=== PATIENT | male | born 1955 | race Caucasian/White ===

== ENCOUNTER → 2019-01-09 14:25 | Outpatient (CLI) | payer OTHER, SELFPAY ==
[2019-01-09 15:55] LABS: PSA,Total - Annual Screen 0.61 ng/mL (0.00-4.00)
== END ==
PROVIDERS: Family Provider Family Medicine; PCP Family Medicine; Referring Provider Family Medicine; Visit Provider Family Medicine
DX: Z12.5 Encounter for screening for malignant neoplasm of prostate (principal)
CPT/HCPCS: 36415; 84153; G0103

== ENCOUNTER → 2019-03-30 14:33 | Outpatient (CLI) | payer OTHER, SELFPAY | PROVIDERS: Family Provider Family Medicine; PCP Family Medicine; Referring Provider Family Medicine; Visit Provider Family Medicine | DX: N39.0 Urinary tract infection, site not specified (principal) | CPT/HCPCS: 87086 ==

== ENCOUNTER → 2020-11-21 10:34 | Outpatient (CLI) | payer MEDICARE, SELFPAY ==
[2020-11-21 12:20] LABS: Cholesterol 185 mg/dL (200); High Density Lipoprotein 39 mg/dL; PSA,Total - Annual Screen 0.73 ng/mL (0.00-4.00); Triglycerides 187 mg/dL; Very Low Density Lipoprotein 37 mg/dL (5-40)
== END ==
PROVIDERS: PCP Family Medicine; Referring Provider Family Medicine; Visit Provider Family Medicine
DX: Z00.00 Encounter for general adult medical examination without abnormal findings (principal); Z12.5 Encounter for screening for malignant neoplasm of prostate
CPT/HCPCS: 36415; 80061; 84153; G0103

== ENCOUNTER → 2021-11-23 | Outpatient (CLI) | payer MEDICARE, SELFPAY ==
[2021-11-23 12:41] LABS: PSA,Total - Annual Screen 0.74 ng/mL (0.00-4.00)
== END | disposition home or self-care (01) ==
PROVIDERS: PCP Family Medicine; Visit Provider Family Medicine
DX: Z00.00 Encounter for general adult medical examination without abnormal findings (principal); Z12.5 Encounter for screening for malignant neoplasm of prostate
CPT/HCPCS: 36415; 84153; G0103

== ENCOUNTER → 2023-01-11 | Outpatient (CLI) | payer MEDICARE, SELFPAY ==
[2023-01-11 17:56] LABS: PSA,Total - Annual Screen 0.69 ng/mL (0.00-4.00)
== END | disposition home or self-care (01) ==
LOC: MFPLAB 12:04
PROVIDERS: PCP Family Medicine; Visit Provider Family Medicine
DX: Z12.5 Encounter for screening for malignant neoplasm of prostate (principal)
CPT/HCPCS: 36415; 84153; G0103

== ENCOUNTER 2023-08-13 17:56 | Inpatient (IN) | payer MEDICARE, SELFPAY ==
[2023-08-13] VITALS (9 sets, daily range): BP systolic 141–169; BP diastolic 85–102; PULSE 83–101; RESP 12–24; TEMP 35.9–36.8; O2SAT 98–100; BMI 28.1; BMI 27.2
--- NOTE | 2023-08-13 18:01 | EKG12_ITS ---
Test Reason : Blood Pressure : / mmHG Vent. Rate : 088 BPM Atrial Rate : 088 BPM P-R Int : 178 ms QRS Dur : 078 ms QT Int : 362 ms P-R-T Axes : 028 030 073 degrees QTc Int : 438 ms Normal sinus rhythm Nonspecific T wave abnormality Abnormal ECG Confirmed by Grady Chino ([id number]), design editor WILMAN RODRIGUEZ ([id number]) on 08/15/2023 9:54:05 AM Referred By: LAKESHA Confirmed By:Grady Chino
[2023-08-13 18:29] LABS: Absolute Lymphocyte Count 2.54 X10^3/uL (0.83-4.51); Absolute Neutrophil Count 3.6 X10^3/uL (2.0-7.7); Basophil# 0.05 X10^3/uL; Basophil% 0.7 % (0-1); Eosinophils% 2.8 % (0-5); Hematocrit 46.1 % (40-54); Hemoglobin 14.6 g/dL (13.0-16.5); Lymphocyte # 2.54 X10^3/ul (0.83-4.51); Lymphocyte % 35.3 % (19-41); Mean Corp Hgb Conc 31.7 g/dL (32-36); Mean Corpuscular Volume 94.9 fL (80-94); Mean Platelet Vol. 9.9 fl (6.2-12.0); Monocyte# 0.73 X10^3/uL; Monocyte% 10.2 % (0-10); NRBC Flagged by Analyzer 0 % (0-5); Neutrophil # 3.63 X10^3/uL (2.7-7.7); Neutrophil % 50.4 % (47-70); Platelet Count 141 K/mm3 (150-450); RBC Distribution Width SD 45.1 fl (35.1-43.9); Red Blood Count 4.86 M/mm3 (4.6-6.2); White Blood Count 7.2 K/mm3 (4.4-11.0)
--- NOTE | 2023-08-13 18:32 | EDS_ITS ---
HPI <ANALILIA Naidu - Last Filed: 08/13/23 21:24> History of Present Illness Chief Complaint: Chest Pain Narrative Narrative: 68-year-old male with no past medical history has had episodes of chest pain over the last 2 days. He will feel an aching heavy pain to the right of his sternum. Yesterday it occurred after he lifted a lawnmower out of the box and also at night. He had an episode today around 5:30 PM after walking into pet [employer] but had not been doing anything strenuous. He also has discomfort in his right shoulder when it occurs. He states he will take Tums and it will subside. He has no associated shortness of breath, nausea or vomiting, or diaphoresis. He denies cardiac history. He has a primary care doctor and states he has no health problems and takes no medications. He does not smoke. Both his mother and father have had CAD. He has no history of DVT/PE or risk factors. PFSH <ANALILIA Naidu - Last Filed: 08/13/23 21:24> [facility] Home Medications NK 08/13/23 [History Last Taken Unknown] Allergy/AdvReac Type Severity Reaction Status Date / Time No Known Allergies Allergy Verified 08/13/23 17:57 Surgical History (Updated 08/13/23 @ 17:59 by Amaya Flores) H/O hernia repair Social History Smoking Status: Never smoker ROS <ANALILIA Naidu - Last Filed: 08/13/23 21:24> ROS ED ROS Narrative Constitutional: Negative for fever, chills, malaise. CVS: Positive for chest pain. Respiratory: Negative for shortness of breath, cough. GI: Negative for abdominal pain, nausea, vomiting. EXAM <ANALILIA Naidu - Last Filed: 08/13/23 21:24> Physical Exam Narrative Exam Narrative: CONST: Patient sitting in no acute distress. EYES: Normal inspection. NECK: Normal inspection. RESP: No respiratory distress, CTAB. CVS: Regular rate and rhythm, no murmur, no gallop. ABD: Soft and nontender, no guarding or rebound, nondistended. SKIN: Color normal, no rash, warm, dry, intact. EXTREMITIES: Normal appearance, no pedal edema. NEURO: Alert and answering questions appropriately. PSYCH: Normal affect. Const Vital Signs: 08/13/23 17:57 08/13/23 19:01 08/13/23 18:57 Temperature 96.6 F L Temperature Source Temporal Pulse Rate 101 H 97 Respiratory Rate 18 24 H Respiratory Effort Blood Pressure 143/93 H 146/102 H Blood Pressure Mean 109 116 Pulse Ox 100 99 98 Oxygen Delivery Method Room Air Room Air 08/13/23 19:00 08/13/23 19:29 08/13/23 20:00 Temperature Temperature Source Pulse Rate 93 87 Respiratory Rate 12 12 Respiratory Effort Normal Blood Pressure 142/88 H 144/98 H Blood Pressure Mean 106 113 Pulse Ox 98 99 Oxygen Delivery Method Room Air Room Air 08/13/23 21:01 08/13/23 21:17 Temperature 98.2 F Temperature Source Pulse Rate 85 85 Respiratory Rate 16 16 Respiratory Effort Blood Pressure 147/98 H 147/87 H Blood Pressure Mean 114 107 Pulse Ox 98 99 Oxygen Delivery Method Room Air <Dr. Filiberto Leonard DO - Last Filed: 08/13/23 19:50> Physical Exam Const Vital Signs: 08/13/23 17:57 08/13/23 19:01 08/13/23 18:57 Temperature 96.6 F L Temperature Source Temporal Pulse Rate 101 H 97 Respiratory Rate 18 24 H Respiratory Effort Blood Pressure 143/93 H 146/102 H Blood Pressure Mean 109 116 Pulse Ox 100 99 98 Oxygen Delivery Method Room Air Room Air 08/13/23 19:00 08/13/23 19:29 08/13/23 20:00 Temperature Temperature Source Pulse Rate 93 87 Respiratory Rate 12 12 Respiratory Effort Normal Blood Pressure 142/88 H 144/98 H Blood Pressure Mean 106 113 Pulse Ox 98 99 Oxygen Delivery Method Room Air Room Air 08/13/23 21:01 08/13/23 21:17 Temperature 98.2 F Temperature Source Pulse Rate 85 85 Respiratory Rate 16 16 Respiratory Effort Blood Pressure 147/98 H 147/87 H Blood Pressure Mean 114 107 Pulse Ox 98 99 Oxygen Delivery Method Room Air MDM <ANALILIA Naidu - Last Filed: 08/13/23 21:24> MDM MDM Narrative Medical decision making narrative: History gathered from: Patient and spouse Consults: Cardiology, hospitalist Differential: GERD, ACS The last 2 days patient has had episodes of chest pain, sometimes exertional. It occurred again this evening prompting him to come in. He appears well and nontoxic. BP is 143/93 with otherwise stable vital signs. During my examination he is asymptomatic and exam is unremarkable. Initial EKG is normal sinus rhythm at 80 bpm with T wave inversions in V1 through V3. There is no prior for comparison. Initial troponin returned at 145. He complained of increased pain so repeat EKG was obtained about 1858. The tech states the leads had to be readjusted because they were too far to the right initially because of his hair. After placement in the correct position he is again in normal sinus rhythm 82 bpm and appears to have ST depressions in V3 through V6. No STEMI. Troponin went from 145 to 298. I discussed the case with Dr. Canada who agreed with aspirin and IV heparin. The sinter feeder states if he starts to experience chest pain again he could use a nitroglycerin drip or if he becomes tachycardic a low-dose beta-yadi. He is not requiring either of these currently. Case will be discussed with the hospitalist for admission. Lab Data Attestation: I reviewed the patient's lab results. Labs: Laboratory Results - last 24 hr 08/13/23 08/13/23 08/13/23 18:15 19:10 20:15 WBC 7.2 RBC 4.86 Hgb 14.6 Hct 46.1 MCV 94.9 H MCH 30.0 MCHC 31.7 L RDW Std Deviation 45.1 H RDW Coeff of Hailee 13.0 Plt Count 141 L MPV 9.9 Immature Gran % (Auto) 0.600 Neut % (Auto) 50.4 Lymph % (Auto) 35.3 Kent % (Auto) 10.2 H Eos % (Auto) 2.8 Baso % (Auto) 0.7 Absolute Neuts (auto) 3.6 Absolute Lymphs (auto) 2.54 Nucleated RBC % 0 PT 13.8 INR 1.1 APTT 33.0 Sodium 139 Potassium 4.0 Chloride 106 Carbon Dioxide 28.0 Anion Gap 5 BUN 19 H Creatinine 1.39 H Estim Creat Clear Calc 69.49 Est GFR (MDRD) Af Amer 65 Est GFR (MDRD) Non-Af 54 L BUN/Creatinine Ratio 13.7 Glucose 109 H Calcium 8.9 Troponin I High Sens 145 H* 298 H* Radiography Diagnostic Testing: Clinical Impression(s) from Imaging Studies Chest X-Ray 08/13/23 18:49 IMPRESSION: Normal x-ray examination of the chest. Electronically Signed: Josh Vigil MD at 19:34 EDT , <Dr. Filiberto Leonard, DO - Last Filed: 08/13/23 19:50> [facility] History & Record Review Discussion w/independent historian: Patient and Significant other Lab Data Labs: Laboratory Results - last 24 hr 08/13/23 08/13/23 08/13/23 18:15 19:10 20:15 WBC 7.2 RBC 4.86 Hgb 14.6 Hct 46.1 MCV 94.9 H MCH 30.0 MCHC 31.7 L RDW Std Deviation 45.1 H RDW Coeff of Hailee 13.0 Plt Count 141 L MPV 9.9 Immature Gran % (Auto) 0.600 Neut % (Auto) 50.4 Lymph % (Auto) 35.3 Kent % (Auto) 10.2 H Eos % (Auto) 2.8 Baso % (Auto) 0.7 Absolute Neuts (auto) 3.6 Absolute Lymphs (auto) 2.54 Nucleated RBC % 0 PT 13.8 INR 1.1 APTT 33.0 Sodium 139 Potassium 4.0 Chloride 106 Carbon Dioxide 28.0 Anion Gap 5 BUN 19 H Creatinine 1.39 H Estim Creat Clear Calc 69.49 Est GFR (MDRD) Af Amer 65 Est GFR (MDRD) Non-Af 54 L BUN/Creatinine Ratio 13.7 Glucose 109 H Calcium 8.9 Troponin I High Sens 145 H* 298 H* Radiography Diagnostic Testing: Clinical Impression(s) from Imaging Studies Chest X-Ray 08/13/23 18:49 IMPRESSION: Normal x-ray examination of the chest. Electronically Signed: Josh Vigil MD at 19:34 EDT , Management Discussion w/another healthcare provider: Hospitalist and System Safety Engineer (Cardiology (Dr. Canada)) Treatment and Re-Evaluation :: I have personally performed a face to face assessment of the patient and have reviewed the MISTY Note. I performed a substantive portion of the visit including all aspects of the following. My stephens findings include: History is 68-year-old male no significant medical problems presenting to the emergency room with chest pain. Patient notes intermittent exertional chest pain over the past 3 days. Symptoms initially began after mowing his lawn. He states it went away with rest. He has had several more episodes particularly with lifting the lawn more and with walking to the store today. He notes that he is taken some Tums which may or may not have helped. He was resting after he took the Tums. His notes that he is more winded when he exerts himself rec ently including stair climbing. He has a familial history of coronary artery disease. He is a non-smoker. Exam is afebrile vital signs are stable. His exam is rather unremarkable. Medical Decison Making initial EKG was concerning for T wave inversions V1 through V3. He had return of his symptoms and another EKG was obtained which did not show the T wave inversions. His initial troponin is slightly elevated at 145. 30 EKG was obtained which now shows the T wave inversions to be back. Case was discussed with cardiology and the hospitalist for admission. Discharge Plan Triage Chief Complaint: Chest Pain ED Midlevel Provider: Brooke Shaw ED Provider: Filiberto Leonard Dx/Rx/DC Orders Clinical Impression: Non-ST elevation [place] (NSTEMI) Prescriptions: No Action NK Primary Care Provider: Jazmine Le Referrals: Jazmine Le MD [Primary Care Provider] -
--- NOTE | 2023-08-13 18:49 | RAD_ITS ---
STUDY: X-RAY CHEST REASON FOR EXAM: Male, 68 years old. chest pain TECHNIQUE: Single AP portable view of the chest. COMPARISON: None. FINDINGS: The lungs are clear and expanded. There is no demonstrated pleural abnormality. Normal size heart. Normal mediastinum and sabrina. Normal visualized pulmonary arteries. Normal visualized aortic arch and descending thoracic aorta. Normal visualized thoracic spine. Normal visualized ribs, clavicles, and shoulders. There is no demonstrated abnormality of the visualized soft tissue structures of the upper abdomen. RAD/Chest 1 View (Portable) IMPRESSION: Normal x-ray examination of the chest. Electronically Signed: Josh Vigil MD at 19:34 EDT ,
[2023-08-13 18:59] LABS: Anion Gap 5 (5-15); BUN 19 mg/dL (7-18); BUN/Creat Ratio 13.7 RATIO (10-20); Calcium,Total 8.9 mg/dL (8.5-10.1); Chloride 106 mmol/L (98-107); Creatinine, Serum 1.39 mg/dL (0.70-1.30); EST Glomerular Filtration Rate 54 mL/min (>60); Est Glom Filt Rate - Afr Amer 65 mL/min (>60); Estimated Creatinine Clearance 69.49 ml/min; Glucose 109 mg/dL (74-106); Sodium Level 139 mmol/L (136-145); Troponin-I HS (w/2H Reflex) 145 pg/mL (3.0-78.0)
[2023-08-13] MEDS: Aspirin 325 MG Tablet PO (18:59)
--- NOTE | 2023-08-13 19:00 | EKG12_ITS ---
Test Reason : REPEAT CP Blood Pressure : / mmHG Vent. Rate : 082 BPM Atrial Rate : 082 BPM P-R Int : 174 ms QRS Dur : 074 ms QT Int : 350 ms P-R-T Axes : 041 019 077 degrees QTc Int : 408 ms Normal sinus rhythm Normal ECG Confirmed by Grady Chino ([id number]), photographic editor WILMAN RODRIGUEZ ([id number]) on 08/15/2023 9:54:20 AM Referred By: Confirmed By:Grady Chino
[2023-08-13] MEDS: Heparin Injection (Vial) 5,000 UNIT/ML VIAL 4000 UNIT IV (19:21)
[2023-08-13] MEDS: HEPARIN/D5w 25,000 UNITS 25,000 UNITS/250 ML IV.SOLN. 10 UNITS CONT INF (19:23)
[2023-08-13 19:26] LABS: International Normalized Ratio 1.1; Prothrombin Time (Protime)PT. 13.8 SECONDS (11.7-14.9)
--- NOTE | 2023-08-13 19:45 | EKG12_ITS ---
Test Reason : REPEAT EKG Blood Pressure : / mmHG Vent. Rate : 089 BPM Atrial Rate : 089 BPM P-R Int : 172 ms QRS Dur : 076 ms QT Int : 358 ms P-R-T Axes : 023 027 077 degrees QTc Int : 435 ms Normal sinus rhythm Normal ECG Confirmed by Grady Chino ([id number]), sound editor WILMAN RODRIGUEZ ([id number]) on 08/15/2023 9:54:32 AM Referred By: Confirmed By:Grady Chino
[2023-08-13 20:26] LABS: Reflex Troponin-HS? (from REC) Y
[2023-08-13 21:05] LABS: Troponin-I HS 298 pg/mL (3.0-78.0)
--- NOTE | 2023-08-13 21:17 | PCM.HP.STD ---
HPI - General General Date of Admission: 08/13/23 HPI Narrative DEIRDRE ORTIZ, is a 68 M who presents to the hospital with 2 days of chest pain with activity that would resolved, there is also radiation of the pain to his right shoulder with rest. He is never had this before and does not take any medications at baseline. He states that he was recently being seen by his PCP and started on antibiotics because he was having difficulty urinating and that there is some discomfort and burning with urination he states that the initial urine that he provided was clean and so they asked him for a second urine however he does not know what that showed because he provided it on . He presents today with an elevated troponin as well as T wave inversions in V1 and V2 therefore he was started on a heparin drip. While on the heparin drip he did also develop hematuria, current hemoglobin is stable at 14.6 and he states that he has had a kidney stone in the past. [facility] Medical History (Updated 08/13/23 @ 22:36 by Radha Morales) Kidney stones Medical History no medical history no medical history Home Medications NK 08/13/23 [History Last Taken Unknown] Allergy/AdvReac Type Severity Reaction Status Date / Time No Known Allergies Allergy Verified 08/13/23 17:57 Family History (Updated 08/13/23 @ 22:[address] Oral Smiley MD) Other Heart disease Surgical History (Updated 08/13/23 @ 17:59 by Amaya Flores) H/O hernia repair Social History Smoking Status: Never smoker ROS Constitutional Constitutional: Denies chills, fatigue, fever(s) or malaise Eyes Eyes: Denies blurry vision ENT HEENT: Denies headache(s) or nasal discharge Cardiovascular Cardiovascular: Reports chest pain; Denies dyspnea on exertion or syncope Respiratory/Chest Respiratory/Chest: Denies cough, shortness of breath at rest or shortness of breath with exertion Gastrointestinal Gastrointestinal: Denies constipation, diarrhea, nausea or vomiting Genitourinary Genitourinary: Denies dysuria Neurologic Neurologic: Denies focal weakness, numbness or tremor(s) Psychiatric Psychiatric: Denies anxiety or depression Vital Signs Vital Signs Vital Signs: 08/13/23 17:57 08/13/23 19:01 08/13/23 18:57 Temperature 96.6 F L Temperature Source Temporal Pulse Rate 101 H 97 Respiratory Rate 18 24 H Respiratory Effort Blood Pressure 143/93 H 146/102 H Blood Pressure Mean 109 116 Pulse Ox 100 99 98 Oxygen Delivery Method Room Air Room Air 08/13/23 19:00 08/13/23 19:29 08/13/23 20:00 Temperature Temperature Source Pulse Rate 93 87 Respiratory Rate 12 12 Respiratory Effort Normal Blood Pressure 142/88 H 144/98 H Blood Pressure Mean 106 113 Pulse Ox 98 99 Oxygen Delivery Method Room Air Room Air 08/13/23 21:01 Temperature Temperature Source Pulse Rate 85 Respiratory Rate 16 Respiratory Effort Blood Pressure 147/98 H Blood Pressure Mean 114 Pulse Ox 98 Oxygen Delivery Method Room Air Weight Weight: 237 lb 11.2 oz Body Mass Index (BMI) 28.1 Physical Exam Narrative General: Alert, Oriented x3, Cooperative, No apparent distress HEENT: Atraumatic, PERRLA, EOMI, Normocephalic Oral: Moist Mucosa Neck: Supple, No JVD Lungs: Diminished, Normal air movement, No rhonchi, No wheeze, No rales Cardiovascular: Regular rate, Regular Rhythm, Normal S1, Normal S2, No murmurs Abdomen: Soft, Non Tender, Non-Distended, No Hepato-splenomegaly Extremities: No edema, Capillary Refill Less than 3 Seconds Skin: No rashes, No breakdown Musculoskeletal: No Tenderness to Palpation of Joints or Extremities Neurological: No focal neurological deficits, Motor Exam 5/5 strength throughout, Sensory exam intact to light touch and pain Psych/Mental Status: Normal Affect, Appropriate Results Lab / Micro Data 08/13/23 18:15 08/13/23 18:15 Labs: Laboratory Results - last 24 hr 08/13/23 18:15: WBC 7.2, RBC 4.86, Hgb 14.6, Hct 46.1, MCV 94.9 H, MCH 30.0, MCHC 31.7 L, RDW Std Deviation 45.1 H, RDW Coeff of Hailee 13.0, Plt Count 141 L, MPV 9.9, Immature Gran % (Auto) 0.600, Neut % (Auto) 50.4, Lymph % (Auto) 35.3, [place] % (Auto) 10.2 H, Eos % (Auto) 2.8, Baso % (Auto) 0.7, Absolute Neuts (auto) 3.6, Absolute Lymphs (auto) 2.54, Nucleated RBC % 0, Sodium 139, Potassium 4.0, Chloride 106, Carbon Dioxide 28.0, Anion Gap 5, BUN 19 H, Creatinine 1.39 H, Estim Creat Clear Calc 69.49, Est GFR (MDRD) Af Amer 65, Est GFR (MDRD) Non-Af 54 L, BUN/Creatinine Ratio 13.7, Glucose 109 H, Calcium 8.9, Troponin I High Sens 145 H* 08/13/23 19:10: PT 13.8, INR 1.1, APTT 33.0 08/13/23 20:15: Troponin I High Sens 298 H* Imaging Radiology Impression Chest X-Ray 08/13/23 18:49 IMPRESSION: Normal x-ray examination of the chest. Electronically Signed: Josh Vigil MD at 19:34 EDT , Assessment & Plan Assessment/Plan (1) Non-ST elevation [place] (NSTEMI): PLAN: Plan 1. Non-STEMI/hematuria ? The hematuria started after being started on the heparin drip ? Will continue with the heparin drip and recheck a hemoglobin in the morning may need to discontinue if there is a significant drop or if the hematuria does not resolve on its own ? Will obtain a lipid panel ? Will obtain serial troponins ? Appreciate cardiology's assistance ? Will obtain an echo DVT: Heparin drip 77 minutes was spent on direct patient care, including documentation as well as chart review and collaboration with colleagues Charges/Coding Visit Charges Inpatient E&M: 22255 Init Hosp L3
--- NOTE | 2023-08-13 22:16 | ECHOCS_ITS ---
Reason For Study: CHEST PAIN Procedure This was a 2D Doppler, Color Flow transthoracic echocardiogram. Contrast injection was performed. Exam performed portable in patient room. Left Ventricle Normal LV size. The estimated ejection fraction is 35 %. There is evidence of diastolic dysfunction. Apical and anterior hypokinesis. Right Ventricle Normal RV size. Normal systolic function. Atria Normal left atrium. Normal right atrium. No doppler evidence for ASD. Mitral Valve There is no mitral valve stenosis. Trivial mitral valve insufficiency. Tricuspid Valve There is no tricuspid stenosis. No tricuspid valve insufficiency. Aortic Valve Trisinus/trileaflet aortic valve. There is no aortic stenosis. No aortic valve insufficiency. Pulmonic Valve There is no pulmonic valvular stenosis. No pulmonic valve insufficiency. Great Vessels Normal aortic root. Pericardium/Pleural No pericardial effusion. Medication Diluted definity 3ml given slow IV push to enhance endocardial definition. MMode/2D Measurements & Calculations LVIDd: 4.5 cm IVSd: 1.1 cm LVOT diam: 2.2 cm LVIDs: 3.1 cm LVPWd: 1.1 cm RVDd: 3.9 cm FS: 29.7 % LVOT area: 3.8 cm2 Ao root diam: 3.8 cm LAV(MOD-sp4): 41.9 ml LVAd ap4: 39.3 cm2 LVLd ap4: 8.8 cm EDV(MOD-sp4): 144.9 ml EDV(sp4-el): 148.7 ml LVAs ap4: 29.1 cm2 LVLs ap4: 8.2 cm ESV(MOD-sp4): 84.7 ml ESV(sp4-el): 87.4 ml EF(MOD-sp4): 41.5 % EF(sp4-el): 41.2 % LVAd ap2: 39.4 cm2 SV(MOD-sp4): 60.2 ml SV(MOD-sp2): 55.6 ml LVLd ap2: 8.8 cm EDV(MOD-sp2): 141.9 ml EDV(sp2-el): 149.2 ml LVAs ap2: 30.3 cm2 LVLs ap2: 8.4 cm ESV(MOD-sp2): 86.3 ml ESV(sp2-el): 92.9 ml EF(MOD-sp2): 39.2 % SV(sp4-el): 61.2 ml LA dimension(2D): 3.7 cm LA A4 area: 14.3 cm2 RA A4 area: 16.1 cm2 TAPSE: 2.0 cm Time Measurements MV dec time: 0.20 sec Doppler Measurements & Calculations MV E max gerardo: 52.0 cm/sec Lat Peak E' Gerardo: 7.1 cm/sec Med Peak E' Gerardo: 5.6 cm/sec MV A max gerardo: 84.7 cm/sec E/E' lat: 7.4 E/E' med: 9.2 MV E/A: 0.61 Ao V2 max: 109.4 cm/sec LV V1 max: 85.4 cm/sec MV dec slope: 259.3 cm/sec2 Ao max P.8 mmHg LV V1 max P.9 mmHg Ao V2 mean: 77.8 cm/sec LV V1 mean P.5 mmHg Ao mean P.7 mmHg LV V1 mean: 58.8 cm/sec Ao V2 VTI: 21.3 cm LV V1 VTI: 14.8 cm AV (velocity ratio): 0.69 SANDRITA(I,D): 2.6 cm2 SANDRITA(V,D): 2.9 cm2 SV(LVOT): 55.4 ml PA V2 max: 64.9 cm/sec PA max PG (full): -0.10 mmHg ECHO/Echo Complete W/ Contrast Interpretation Summary The estimated ejection fraction is 35 %. There is evidence of diastolic dysfunction. Apical and anterior hypokinesis Trivial mitral valve insufficiency. Ordering Physician: Oral Smiley Referring Physician: Jazmine Le M.D. Performed By: Carmen Daniel RDCS
--- NOTE | 2023-08-13 22:50 | EKG12_ITS ---
Test Reason : AM EKG Blood Pressure : / mmHG Vent. Rate : 075 BPM Atrial Rate : 075 BPM P-R Int : 178 ms QRS Dur : 072 ms QT Int : 420 ms P-R-T Axes : 056 047 090 degrees QTc Int : 469 ms Normal sinus rhythm ST & T wave abnormality, consider anterior ischemia Prolonged QT Abnormal ECG When compared with ECG of 13-AUG-2023 22:51, MANUAL COMPARISON REQUIRED, DATA IS UNCONFIRMED Confirmed by COLTON CAPPS, NAVA ([id number]), editorial manager NICOLASA STEVE ([id number]) on 08/22/2023 1:09:17 PM Referred By: Confirmed By:KENNETH SEGURA MD
[2023-08-14 01:12] LABS: Partial Thromboplast Time 74.1 Seconds (24.1-36.2)
[2023-08-14 01:27] LABS: Troponin-I HS 1801 pg/mL (3.0-78.0)
[2023-08-14 04:40] VITALS: BP 140/94; PULSE 89; RESP 18; TEMP 36.8; O2SAT 97
[2023-08-14 07:41] LABS: Absolute Lymphocyte Count 2.38 X10^3/uL (0.83-4.51); Absolute Neutrophil Count 5.7 X10^3/uL (2.0-7.7); Basophil# 0.06 X10^3/uL; Basophil% 0.7 % (0-1); Eosinophil# 0.13 X10^3/uL; Eosinophils% 1.4 % (0-5); Hematocrit 45.5 % (40-54); Hemoglobin 14.6 g/dL (13.0-16.5); Lymphocyte # 2.38 X10^3/ul (0.83-4.51); Lymphocyte % 26.4 % (19-41); Mean Corp Hgb Conc 32.1 g/dL (32-36); Mean Corpuscular Hgb 29.8 pg (27.0-32.0); Mean Corpuscular Volume 92.9 fL (80-94); Mean Platelet Vol. 10.5 fl (6.2-12.0); Monocyte# 0.75 X10^3/uL; Monocyte% 8.3 % (0-10); NRBC Flagged by Analyzer 0 % (0-5); Neutrophil # 5.65 X10^3/uL (2.7-7.7); Neutrophil % 62.8 % (47-70); Platelet Count 153 K/mm3 (150-450); RBC Distribution Width SD 44.3 fl (35.1-43.9)
[2023-08-14 07:57] LABS: Anion Gap 6 (5-15); BUN 15 mg/dL (7-18); BUN/Creat Ratio 12.5 RATIO (10-20); Calcium,Total 9.2 mg/dL (8.5-10.1); Chloride 108 mmol/L (98-107); Cholesterol 163 mg/dL (200); EST Glomerular Filtration Rate 64 mL/min (>60); Est Glom Filt Rate - Afr Amer 77 mL/min (>60); Estimated Creatinine Clearance 74.25 ml/min; Glucose 130 mg/dL (74-106); High Density Lipoprotein 52 mg/dL; Potassium 4.2 mmol/L (3.5-5.1); Sodium Level 139 mmol/L (136-145); Triglycerides 69 mg/dL; Very Low Density Lipoprotein 14 mg/dL (5-40)
[2023-08-14] MEDS: Acetaminophen 500 MG Tablet 1000 MG PO (09:27)
[2023-08-14] MEDS: Aspirin E.C. 81 MG Tablet PO (09:27)
[2023-08-14 09:28] VITALS: BP 139/93; PULSE 89; RESP 16; TEMP 36.8; O2SAT 97
[2023-08-14] MEDS: Metoprolol Tartrate 25 MG Tablet PO ×2 (09:28→20:47)
--- NOTE | 2023-08-14 13:26 | PCM.CONS.C ---
Assessment & Plan Assessment/Plan (1) Non-ST elevation [place] (NSTEMI): PLAN: Plan 68-year-old patient presented to [facility] ER complaining of symptoms of chest pain He was brought in by his Evidently he was having symptoms of chest pain while he was moving his lawn to his tractor. Described as severe retrosternal. Associated with diaphoresis. No prior cardiac history reported. Evaluation in the ER was EKG showed T wave inversion noted in the LAD distribution. Subsequent evaluation with cardiac biomarker showed significant elevation of high sensitive troponin. Patient treated with aspirin, atorvastatin, beta-yadi as well as heparin Symptoms of chest pain resolved. Cardiac care plan recommendation. This patient has history of hematuria and has seen a urologist before your hematuria resolved no further episode of hematuria his renal function improved from a creatinine of 1.39-1.2. Based on his clinical presentation with the symptoms of severe retrosternal chest pain significant elevated cardiac biomarker change in the EKG responding well to medical therapy recommend to evaluate by echocardiogram in the morning to assess his LV function. Proceed with cardiac catheterization which will be set up in the morning. I discussed the indication, risk and benefit of the cardiac catheterization to the patient he understand. And he would like to proceed with cardiac cath in the morning. HPI Consult Data Date of Consult: 08/14/23 HPI Narrative Reason for Consultation: Non-STEMI HPI Narrative: DEIRDRE ORTIZ, is a 68 M who presents [facility] Medical History (Updated 08/13/23 @ 22:36 by Radha Morales) Kidney stones Medical History no medical history Home Medications NK 08/13/23 [History Last Taken Unknown] Allergy/AdvReac Type Severity Reaction Status Date / Time No Known Allergies Allergy Verified 08/13/23 17:57 Family History (Updated 08/13/23 @ 22:[address] Oral Smiley MD) Other Heart disease Surgical History (Updated 08/13/23 @ 17:59 by Amaya Flores) H/O hernia repair Social History Smoking Status: Never smoker Physical Exam Cardio Cardio Narrative: Seen and evaluated and examined at bedside Along with the nursing staff Comfortable in bed not having any symptoms of chest pain monitoring engineer normal sinus rhythm. Cardiac exam S1-S2 is regular No systolic or diastolic murmur No pericardial rub Chest exam clear to auscultation bilateral. Examination lower extremity no lower extremity edema. Risk Stratification Risk Stratification Applicable: Yes Age >/= 65: Yes >/= 3 CAD Risk Factors (HTN, HLD, DM, family hx of CAD, or current smoker): No Aspirin Use in the Past 7 Days: Yes Severe Angina (>/= episodes in 24 hours): Yes EKG ST Changes >/= 0.5mm: Yes Positive Cardiac Marker: Yes LAUREL Risk Stratification Score: 5 LAUREL % Risk: 25% Risk Objective Data Vital Signs: Vital Signs Temp Pulse Resp BP Pulse Ox O2 Del Method 98.2 F 89 16 139/93 H 97 Room Air 08/14/23 09:28 08/14/23 09:28 08/14/23 09:28 08/14/23 09:28 08/14/23 09:28 08/14/23 09:28 Oxygen Delivery Method Room Air Weight: 229 lb 8.019 oz Body Mass Index (BMI) 27.2 Intake & Output: Intake and Output for Last 24 Hours 08/12/23 08/13/23 08/14/23 23:59 23:59 23:59 Intake Total 669 / 669 Balance 669 / 669 Lab / Micro Data 08/14/23 07:30 08/14/23 07:30 Labs: Laboratory Results - last 24 hr 08/13/23 18:15: WBC 7.2, RBC 4.86, Hgb 14.6, Hct 46.1, MCV 94.9 H, MCH 30.0, MCHC 31.7 L, RDW Std Deviation 45.1 H, RDW Coeff of Hailee 13.0, Plt Count 141 L, MPV 9.9, Immature Gran % (Auto) 0.600, Neut % (Auto) 50.4, Lymph % (Auto) 35.3, [place] % (Auto) 10.2 H, Eos % (Auto) 2.8, Baso % (Auto) 0.7, Absolute Neuts (auto) 3.6, Absolute Lymphs (auto) 2.54, Nucleated RBC % 0, Sodium 139, Potassium 4.0, Chloride 106, Carbon Dioxide 28.0, Anion Gap 5, BUN 19 H, Creatinine 1.39 H, Estim Creat Clear Calc 69.49, Est GFR (MDRD) Af Amer 65, Est GFR (MDRD) Non-Af 54 L, BUN/Creatinine Ratio 13.7, Glucose 109 H, Calcium 8.9, Troponin I High Sens 145 H* 08/13/23 19:10: PT 13.8, INR 1.1, APTT 33.0 08/13/23 20:15: Troponin I High Sens 298 H* 08/14/23 00:30: APTT 74.1 H, Troponin I High Sens 1801 H* 08/14/23 07:30: WBC 9.0, RBC 4.90, Hgb 14.6, Hct 45.5, MCV 92.9, MCH 29.8, MCHC 32.1, RDW Std Deviation 44.3 H, RDW Coeff of Hailee 13.0, Plt Count 153, MPV 10.5, Immature Gran % (Auto) 0.400, Neut % (Auto) 62.8, Lymph % (Auto) 26.4, [place] % (Auto) 8.3, Eos % (Auto) 1.4, Baso % (Auto) 0.7, Absolute Neuts (auto) 5.7, Absolute Lymphs (auto) 2.38, Nucleated RBC % 0, APTT 62.0 H, Sodium 139, Potassium 4.2, Chloride 108 H, Carbon Dioxide 25.0, Anion Gap 6, BUN 15, Creatinine 1.20, Estim Creat Clear Calc 74.25, Est GFR (MDRD) Af Amer 77, Est GFR (MDRD) Non-Af 64, BUN/Creatinine Ratio 12.5, Glucose 130 H, Calcium 9.2, Triglycerides 69, Cholesterol 163, LDL Cholesterol 97, VLDL Cholesterol 14, HDL Cholesterol 52 Cardiology Labs/Tests 08/13/23 18:15: WBC 7.2, RBC 4.86, Hgb 14.6, Hct 46.1, MCV 94.9 H, MCH 30.0, MCHC 31.7 L, Plt Count 141 L, MPV 9.9, Immature Gran % (Auto) 0.600, Neut % (Auto) 50.4, Lymph % (Auto) 35.3, [place] % (Auto) 10.2 H, Eos % (Auto) 2.8, Baso % (Auto) 0.7, Absolute Neuts (auto) 3.6, Nucleated RBC % 0, Sodium 139, Potassium 4.0, Chloride 106, Carbon Dioxide 28.0, Anion Gap 5, BUN 19 H, Creatinine 1.39 H, Est GFR (MDRD) Af Amer 65, Est GFR (MDRD) Non-Af 54 L, BUN/Creatinine Ratio 13.7, Glucose 109 H, Calcium 8.9 08/13/23 19:10: PT 13.8, INR 1.1, APTT 33.0 08/14/23 00:30: APTT 74.1 H 08/14/23 07:30: WBC 9.0, RBC 4.90, Hgb 14.6, Hct 45.5, MCV 92.9, MCH 29.8, MCHC 32.1, Plt Count 153, MPV 10.5, Immature Gran % (Auto) 0.400, Neut % (Auto) 62.8, Lymph % (Auto) 26.4, [place] % (Auto) 8.3, Eos % (Auto) 1.4, Baso % (Auto) 0.7, Absolute Neuts (auto) 5.7, Nucleated RBC % 0, APTT 62.0 H, Sodium 139, Potassium 4.2, Chloride 108 H, Carbon Dioxide 25.0, Anion Gap 6, BUN 15, Creatinine 1.20, Est GFR (MDRD) Af Amer 77, Est GFR (MDRD) Non-Af 64, BUN/Creatinine Ratio 12.5, Glucose 130 H, Calcium 9.2, Triglycerides 69, Cholesterol 163, LDL Cholesterol 97, VLDL Cholesterol 14, HDL Cholesterol 52 Rhythm: EKG: ECHO: Stress Test: Cardiac Cath: PCI: CT Surgery: Holter monitor: EPS: PPM: CXR: Chest CT Scan: Radiography Diagnostic Testing: Radiology Impression Chest X-Ray 08/13/23 18:49 IMPRESSION: Normal x-ray examination of the chest. Electronically Signed: Josh Vigil MD at 19:34 EDT ,
[2023-08-14 13:46] LABS: Bacteria 0 SEEN /hpf (None Seen); Mucous, Urine 0 SEEN /hpf (<or=2+); Squamous Epithelial Cells - UA 0 SEEN /hpf (0-5)
[2023-08-14 13:55] LABS: Color, Urine Yellow (Yellow); Glucose, Dipstick Normal (Normal); Ketone-Dipstick Negative (Negative); Leukocyte Esterase-Dipstick Negative /ul (Negative); Nitrite-Dipstick Negative (Negative); Occult Blood-Urine 250 /ul (Negative); Protein-Dipstick 15 mg/dl (Negative); Urine Bilirubin Dipstick Negative (Negative); Urine Clarity Clear (Clear); Urine Urobilinogen Normal (Normal)
[2023-08-14] MEDS: Glycerin/Hypromellose/PEG400 15 ml Bottle 2 DRP EACH EYE (14:23)
[2023-08-14 14:25] LABS: Red Blood Cells-Urine 25-50 SEEN /hpf (0-5); White Blood Cells 0-5 SEEN /hpf (0-5)
--- NOTE | 2023-08-14 15:01 | PCM.PN.HOSP ---
Reason for Visit Reason for Visit: Diagnoses Non-ST elevation (NSTEMI) myocardial infarction (08/13/23) Subjective Subjective Patient was seen and examined today, I talked briefly with cardiology about his care. Patient thinks he may have passed a kidney stone-he has had kidney stones in the past, he has some blood-tinged urine since he has been placed on the heparin drip. Objective Data Objective Data Vital Signs: Vital Signs Temp Pulse Resp BP Pulse Ox O2 Del Method 98.2 F 89 16 139/93 H 97 Room Air 08/14/23 09:28 08/14/23 09:28 08/14/23 09:28 08/14/23 09:28 08/14/23 09:28 08/14/23 09:28 Oxygen Delivery Method Room Air Weight: 104.1 kg Body Mass Index (BMI) 27.2 Intake & Output: Intake and Output for Last 24 Hours 08/12/23 08/13/23 08/14/23 23:59 23:59 23:59 Intake Total 669 / 669 Balance 669 / 669 Lab / Micro Data 08/14/23 07:30 08/14/23 07:30 Labs: Laboratory Results - last 24 hr 08/13/23 18:15: WBC 7.2, RBC 4.86, Hgb 14.6, Hct 46.1, MCV 94.9 H, MCH 30.0, MCHC 31.7 L, RDW Std Deviation 45.1 H, RDW Coeff of Hailee 13.0, Plt Count 141 L, MPV 9.9, Immature Gran % (Auto) 0.600, Neut % (Auto) 50.4, Lymph % (Auto) 35.3, [place] % (Auto) 10.2 H, Eos % (Auto) 2.8, Baso % (Auto) 0.7, Absolute Neuts (auto) 3.6, Absolute Lymphs (auto) 2.54, Nucleated RBC % 0, Sodium 139, Potassium 4.0, Chloride 106, Carbon Dioxide 28.0, Anion Gap 5, BUN 19 H, Creatinine 1.39 H, Estim Creat Clear Calc 69.49, Est GFR (MDRD) Af Amer 65, Est GFR (MDRD) Non-Af 54 L, BUN/Creatinine Ratio 13.7, Glucose 109 H, Calcium 8.9, Troponin I High Sens 145 H* 08/13/23 19:10: PT 13.8, INR 1.1, APTT 33.0 08/13/23 20:15: Troponin I High Sens 298 H* 08/14/23 00:30: APTT 74.1 H, Troponin I High Sens 1801 H* 08/14/23 07:30: WBC 9.0, RBC 4.90, Hgb 14.6, Hct 45.5, MCV 92.9, MCH 29.8, MCHC 32.1, RDW Std Deviation 44.3 H, RDW Coeff of Hailee 13.0, Plt Count 153, MPV 10.5, Immature Gran % (Auto) 0.400, Neut % (Auto) 62.8, Lymph % (Auto) 26.4, [place] % (Auto) 8.3, Eos % (Auto) 1.4, Baso % (Auto) 0.7, Absolute Neuts (auto) 5.7, Absolute Lymphs (auto) 2.38, Nucleated RBC % 0, APTT 62.0 H, Sodium 139, Potassium 4.2, Chloride 108 H, Carbon Dioxide 25.0, Anion Gap 6, BUN 15, Creatinine 1.20, Estim Creat Clear Calc 74.25, Est GFR (MDRD) Af Amer 77, Est GFR (MDRD) Non-Af 64, BUN/Creatinine Ratio 12.5, Glucose 130 H, Calcium 9.2, Triglycerides 69, Cholesterol 163, LDL Cholesterol 97, VLDL Cholesterol 14, HDL Cholesterol 52 08/14/23 13:40: Urine Color Yellow, Urine Clarity Clear, Urine pH 7.0, Ur Specific [place] 1.010, Urine Protein 15 H, Urine Glucose (UA) Normal, Urine Ketones Negative, Urine Occult Blood 250 H, Urine Nitrite Negative, Urine Bilirubin Negative, Urine Urobilinogen Normal, Ur Leukocyte Esterase Negative, Urine RBC 25-50 SEEN, Urine WBC 0-5 SEEN, Ur Squamous Epith Cells 0 SEEN, Urine Bacteria 0 SEEN, Urine Mucus 0 SEEN Radiography Diagnostic Testing: Radiology Impression Chest X-Ray 08/13/23 18:49 IMPRESSION: Normal x-ray examination of the chest. Electronically Signed: Josh Vigil MD at 19:34 EDT , Physical Exam Const alert, oriented x3, no apparent distress and healthy appearing General Appearance: cooperative, well kempt and well developed Orientation / Consciousness: awake, oriented to person, oriented to place and oriented to time HEENT normocephalic, head/scalp atraumatic and moist oral mucous membranes Eyes PERRL, EOMs intact bilaterally and conjunctivae normal Neck supple, no JVD, thyroid normal and no carotid bruits General: trachea midline Resp normal respiratory effort, no retractions, no use of accessory muscles and clear to auscultation bilaterally Auscultation: Negative for rales, rhonchi or wheezes Cardio regular rate, regular rhythm, S1 normal heart sound, S2 normal heart sound, no murmurs, no rub and no gallops GI normal to inspection, nondistended, normoactive bowel sounds, soft to palpation, non-tender and non-distended Extremity no clubbing, cyanosis or edema Skin no rashes or lesions noted General Skin Exam: no breakdown Neuro oriented x3, CN's II-XII intact bilaterally, no focal motor deficits and no sensory deficits noted Sensorium / Orientation: awake and alert Speech: speech normal Psych affect normal Assessment & Plan Assessment/Plan (1) Non-ST elevation [place] (NSTEMI): PLAN: Plan 1. [id number] will undergo a cardiac catheterization tomorrow, I discussed this with the patient, he will remain on an enteric-coated aspirin daily and metoprolol 25 mg twice daily and Lipitor daily #2 hematuria-etiology unclear, this seems to be clearing, patient will remain on heparin drip for now #3 hyperlipidemia-patient was placed on atorvastatin Total clinical time spent by myself addressing the patient's medical issues, reviewing all of his data, and collaborating with patient's care team: 35 minutes Charges/Coding Visit Charges Inpatient E&M: 71260 Subs Hosp L2
[2023-08-14 15:49] LABS: Partial Thromboplast Time 53.8 Seconds (24.1-36.2)
[2023-08-14 15:58] VITALS: BP 130/80; PULSE 92; RESP 16; TEMP 36.9; O2SAT 96
[2023-08-14] MEDS: HEPARIN/D5w 25,000 UNITS 25,000 UNITS/250 ML IV.SOLN. 10 UNITS CONT INF (19:32)
[2023-08-14 20:47] VITALS: PULSE 77
[2023-08-14] MEDS: Atorvastatin Calcium 40 MG Tablet PO (20:47)
[2023-08-14] MEDS: 0.9% Normal Saline (1000mL) 1,000 ML 75 ML IV (20:47)
[2023-08-14] MEDS: 0.9% Saline Lock 10 ML Syringe IV (20:48)
[2023-08-14 20:50] VITALS: BP 130/84; PULSE 77; RESP 18; TEMP 36.5; O2SAT 98
[2023-08-14 21:43] LABS: Partial Thromboplast Time 66.4 Seconds (24.1-36.2)
[2023-08-15] VITALS (10 sets, daily range): BP systolic 119–139; BP diastolic 85–92; PULSE 72–96; RESP 11–22; TEMP 36.3–36.8; O2SAT 96–100
[2023-08-15 04:52] LABS: Anion Gap 6 (5-15); BUN 12 mg/dL (7-18); Calcium,Total 8.6 mg/dL (8.5-10.1); Chloride 111 mmol/L (98-107); Creatinine, Serum 1.09 mg/dL (0.70-1.30); EST Glomerular Filtration Rate 71 mL/min (>60); Est Glom Filt Rate - Afr Amer 86 mL/min (>60); Estimated Creatinine Clearance 81.74 ml/min; Glucose 114 mg/dL (74-106); Potassium 4.2 mmol/L (3.5-5.1); Sodium Level 141 mmol/L (136-145)
[2023-08-15 05:00] LABS: Partial Thromboplast Time 80.8 Seconds (24.1-36.2)
[2023-08-15] MEDS: Metoprolol Tartrate 25 MG Tablet PO (05:09)
[2023-08-15] MEDS: Aspirin E.C. 81 MG Tablet PO (05:09)
--- NOTE | 2023-08-15 05:30 | EKG12_ITS ---
Test Reason : chest pain admision Blood Pressure : / mmHG Vent. Rate : 086 BPM Atrial Rate : 086 BPM P-R Int : 158 ms QRS Dur : 070 ms QT Int : 352 ms P-R-T Axes : 060 031 073 degrees QTc Int : 421 ms Normal sinus rhythm with sinus arrhythmia Nonspecific ST and T wave abnormality Abnormal ECG When compared with ECG of 13-AUG-2023 19:37, MANUAL COMPARISON REQUIRED, DATA IS UNCONFIRMED Confirmed by COLTON CAPPS, NAVA ([id number]), senior editor NICOLASA STEVE ([id number]) on 08/22/2023 1:10:28 PM Referred By: Sherice Confirmed By:KENNETH SEGURA MD
--- NOTE | 2023-08-15 09:26 | NURSING ---
Report called to Jaqueline LUCAS in labor relations consultant.
--- NOTE | 2023-08-15 11:40 | CL.I_ITS ---
Patient Name: DEIRDRE ORTIZ Study Date: 08/15/2023 Performing: Jr Cifuentes MD Ht: 77 inches 195.58 cm : 1955 Wt: 229.8 lbs 104.1 kg Age: 68 Gender: male BSA: 2.37 PROCEDURE(S) PERFORMED DC01-(13805)LHC/COR/LV IC12-(86055/[id number])CHELSIE W/WO PTCA, SINGLE CORONARY ARTERY IC13-([id number]/[id number])CHELSIE W/WO PTCA, EACH ADD'L ART, SAME MAJOR CLINICAL PROFILE AND CO-MORBIDITIES Indications: ACS <= 24 hrs, NSTEMI Heart Failure: None Stress/Imaging Stress/Image Study Performed: No CONCLUSIONS CAD as described. EF is 35%.No significant . Successful CHELSIE to pD1 and mLAD RECOMMENDATIONS DESCRIPTION OF PROCEDURE The patient arrived to the procedure lab. The risks and benefits of the procedure as well as a full description of our services here and lack of surgical backup were fully explained to the patient and/or their significant other prior to the catheterization. The Timeout was completed, verifying the correct patient and procedure. The patient's procedural site was prepped and draped in the usual fashion. Local anesthetic was given subcutaneously to right radial region with Lidocaine 2%. Using a modified Seldinger technique, arterial access was obtained via the right radial artery, a 6Fr sheath was inserted.. Left Coronary Artery selective angiography was performed in multiple views using a 5 Fr. JL3.5 catheter. Left Ventriculography was performed in CARROLL projection using a 5 Fr. JR4. LV to AO pullback pressures were then recorded. Right Coronary Artery selective angiography was then performed in multiple views using a 5 Fr. JR 4 catheterThe images were reviewed and options discussed. A decision was then made to proceed with an Intervention, IVUS or other adjunct procedure. XB 3 Guide catheter was inserted and engaged into the LCA. BMW 0.014 X190 Guide wire was advanced to the LAD. EMERGE MR 2.5 X 12 Balloon catheter was inserted. Balloon catheter was advanced across lesion in the LAD, mid. PTCA balloon inflated at 6 atms for 6 secs. PTCA balloon inflated at 8 atms for 8 secs. Angiogram performed post balloon dilatation. ONXY FRONTIER 3.5 X 18 Drug Eluting stent was inserted. Angiogram performed pre stent deployment. Drug Eluting stent was advanced across the lesion in the LAD, mid. Angiogram performed post stent deployment. Guide wire was repositioned to the 1st Diagonal Balloon catheter was reinserted Balloon catheter was advanced across lesion in the first diagonal, proximal. PTCA balloon inflated at 8 atms for 24 secs. KEVIN FRONTIER 2.75 X 12 Drug Eluting stent was inserted. Drug Eluting stent was advanced across the lesion in the first diagonal, proximal. Angiogram performed post stent deployment. Angiogram performed post stent deployment. Angiogram performed post stent deployment. KEVIN FRONTIER 2.25 X 15 Drug Eluting stent was inserted. Drug Eluting stent was advanced across the lesion in the first diagonal, proximal. Angiogram performed post stent deployment. The arterial sheath was pulled and a TR Band was applied for hemostasis 16 ML OF AIR CORONARY ANGIOGRAPHY DOMINANCE: Right Dominant LEFT HEART ASSESSMENT Left Ventricular Ejection Fraction: by LV Gram 35 % Hypokinesis of the apex and anterior wall LEFT MAIN: Mild luminal irregularities LEFT ANTERIOR DESCENDING ARTERY: MID LAD: 95 % Stenosis DIAGONAL 1: Proximal - 95 % Stenosis CIRCUMFLEX ARTERY: Mild luminal irregularities RIGHT CORONARY ARTERY: MID RCA: 30 % Stenosis RT PDA: Proximal - 60 % Stenosis VALVE FINDINGS: No Aortic Valve Stenosis INTERVENTION INFORMATION LESION SITE: LAD (Mid) Lesion Complexity: High/C, chronic total occlusion: No, lesion at bifurcation: No, thrombus present: No, lesion length: 16 mm, culprit lesion: Yes, Previously treated lesion: No Pre Stenosis: 95 % Pre intervention LAUREL flow: 3 PROCEDURE: Drug Eluting Stent with pre dilatation. Post Stenosis: 0 % Post intervention LAUREL flow: 3 Lesion Devices: Cordis 6 Fr XB3.0 100cm Guide Catheter Ascencio .014 190cm BMW Prosperity Straight Christiano Sci EMERGE MR 2.50x12 BALLOON Medtronic 3.5 x 18 KEVIN FRONTIER CHELSIE LESION SITE: 1st Diagonal (Proximal) Lesion Complexity: High/C, chronic total occlusion: No, lesion at bifurcation: Yes, thrombus present: No, lesion length: 24 mm, culprit lesion: Yes, Previously treated lesion: No Pre Stenosis: 95 % Pre intervention LAUREL flow: 3 PROCEDURE: Drug Eluting Stent with pre and post dilatation Post Stenosis: 0 % Post intervention LAUREL flow: 3 Lesion Devices: Medtronic 2.75 x 12 KEVIN FRONTIER CHELSIE Medtronic 2.25 x 15 KEVIN FRONTIER CHELSIE COMPLICATIONS No Complications PROCEDURE MEDICATIONS Fentanyl 50 mcg IV Versed 1 mg IV Fentanyl 50 mcg IV Oxygen: 2 L/min via nasal cannula Brilinta 180 mg PO @ 08/15/2023 10:15:04 Heparin given IA 08/15/2023 10:04:21 Heparin 2000 unit(s) IV 08/15/2023 10:18:43 Nitro 200 mcg IC 08/15/2023 10:42:57 Verapamil 2.5mg, Ntg 100mcgs, 3000 units of Heparin given IA 08/15/2023 10:04:21 SUMMARY OF HEMODYNAMIC DATA Time AIR REST ECG 09:46:10 AO 119/84 (101) SA 10:06:39 LV 134/0, 10 10:11:44 LV 136/-1, 9 10:11:46 LV 139/0, 12 10:12:36 AO 138/94 (116) 10:14:35 AO 143/84 (111) 10:31:57 Signed By Jr Cifuentes MD On 08/15/2023 11:39:58 Jr Cifuentes MD
[2023-08-15] MEDS: 0.9% Normal Saline (1000mL) 1,000 ML 75 ML IV (11:42)
--- NOTE | 2023-08-15 11:45 | EKG12_ITS ---
Test Reason : POST PCI Blood Pressure : / mmHG Vent. Rate : 074 BPM Atrial Rate : 074 BPM P-R Int : 174 ms QRS Dur : 076 ms QT Int : 416 ms P-R-T Axes : 030 041 091 degrees QTc Int : 461 ms Normal sinus rhythm ST & Marked T wave abnormality, consider anterolateral ischemia Prolonged QT Abnormal ECG When compared with ECG of 15-AUG-2023 04:39, MANUAL COMPARISON REQUIRED, DATA IS UNCONFIRMED Confirmed by COLTON CAPPS, NAVA ([id number]), offline editor NICOLASA STEVE ([id number]) on 08/22/2023 1:15:32 PM Referred By: Confirmed By:KENNETH SEGURA MD
--- NOTE | 2023-08-15 11:55 | CASEMGMT ---
RN CM Face to Face with patient for initial transition planning/care coordination assessment. RN CM introduced self and role at [facility]. Patient lying in bed, alert and oriented, at bedside. Patient willing to participate in assessment and is able to answer all questions appropriately. Care providers, pharmacy, and demographics verified. PCP: Rey Specialists: None Preferred Pharmacy: [facility] retail at discharge [facility] Prescription Benefit: yes Living Will/HPOA: none, currently working with coil strapper to complete LNOK: Living Arrangements: Patient lives with in a bi-level home with 7 steps and railing to enter the home. Patient is independent at home and able to ambulate stairs. Transportation: self, DME/HHC: Patient has raised toilet and grab bars at home. No previous HHC or SNF Patient wishes to discharge home, denies need for home health at this time. Patient states he has no further needs or concerns at this time. CM to follow for discharge planning needs that may arise. Disposition Plan: Patient to discharge home with family support and follow-up plans in place. Adilene VAIL, RN, CM
[2023-08-15] MEDS: 0.9% Normal Saline (1000mL) 1,000 ML 60 ML IV (12:02)
--- NOTE | 2023-08-15 15:00 | CRPHASE1_ITS ---
Patient Communication Patient Information PHII Cardiac Rehab Discussed with Patient:: Yes Guide to Cardiac Rehab Given to Patient:: Yes Cardiac Rehab Facility Choice List Given to Patient:: Yes Communication to Cardiac Rehab Choice Program [facility] CR PHII:: Communication Given to CR Genetic Counsellor:: Bibiana Cifuentes Phase II Cardiac Rehab:: Yes Sessions:: 36 sessions - 3 days/wk, 12 weeks Cardiac Rehabilitation Info Program Information Cardiac Rehabilitation Program Information: Cardiac Rehab The cardiac rehab team at [facility] consists of highly skilled exercise physiologists, nurses, respiratory therapists and physicians working together with you. Our purpose is to help you have a full recovery and achieve the goals you set for yourself. Over the years many of our patients have returned to activities they assumed they would never do again! We can help restore your confidence and motivation to make lifestyle changes that can have a significant impact on your health and quality of life! We can help answer questions and concerns you may have about exercise, lifestyle, medications, diet, stress and anxiety which are common following a hospitalization. WE monitor ECG and vital signs during exercise and discuss your progress with you and report to your physician(s). Cardiac Rehab is proven to help reduce readmissions, improve functional capacity and lower recurrence of problems with your heart. Our Cardiac Rehab program is Certified by the [place] [employer] (AACVPR) and Accredited by the [place] [employer] through our [facility]. You can contact us at . We invite you to call us with your questions or to get started in our program. If you have other questions or concerns be sure to ask your physician/provider during your follow-up visit. WE look forward to seeing you!
--- NOTE | 2023-08-15 15:01 | CRPH1.INSTRU ---
General Education Discussed with Patient CAD and cardiac anatomy and function:: Patient communicates acknowledgment Explanation of diagnoses and procedures:: Patient communicates acknowledgment Sign/Symptoms of NM:: Patient communicates acknowledgment Antiplatelet therapy: Patient communicates acknowledgment Proper use of NTG-SL: Patient communicates acknowledgment Emergency procedures and activation of EMS: Patient communicates acknowledgment Compliance of all prescribed medications: Patient communicates acknowledgment Smoking Risk Factors Patient Nicotine/Smoking Risk Factors Are:: Never smoked Dyslipidemia Risk Factors Patient Dyslipidemia Risk Factors Are:: Total Cholesterol, Triglycerides, HDL and LDL Recommendations Recommendations Include:: Lipid profile provided, Reviewed NCEP/ATP guidelines and Therapeutic Lifestyle Change dietary guidelines Response Code Dyslipidemia Response Code:: Patient communicates acknowledgment Overweight/Obesity Risk Factors Patient Overweight/Obesity Risk Factors Are:: Overweight = 26-29 Recommendations Recommendations Include:: Weight loss of 5-10%, Reduced calorie diet and Exercise 5-7 times/week Response Code Overweight/Obesity:: Patient communicates acknowledgment Hypertension Risk Factors Patient Hypertension Risk Factors Are:: No documented hx of HTN Diabetes Risk Factors Patient Diabetes Risk Factors Are:: No documented hx of diabetes Metabolic Syndrome Risk Factors Patient Metabolic Syndrome Risk Factors Are [3 of 5]:: Fasting blood sugar > 100 mg/dL, Waist circumference > 35 [female] or 40 [male] and Low HDL <40 [male] or < 50 [female] Recommendations Recommendations Include:: Reinforce compliance to risk factor modifications and Encouraged follow-up with Primary Care Physician Response Code Metabolic Syndrome Response Code:: Patient communicates acknowledgment Sedentary Risk Factors Patient Sedentary Risk Factors Are:: Lack of regular exercise Recommendations Recommendations Include:: Aerobic exercise 5-7 times/week for 20-30 minutes continuously, Benefits of regular exercise, Discussed home walking program and Monitored Outpatient Cardiac Rehab Response Code Sedentary Response Code:: Patient communicates acknowledgment Stress Recommendations Recommendations Include:: Identification of stressors, and assessment of coping skills and Stress management techniques Response Code Stress Response Code:: Patient communicates acknowledgment
--- NOTE | 2023-08-15 16:12 | PCM.PN.HOSP ---
Reason for Visit Reason for Visit: Diagnoses Non-ST elevation (NSTEMI) myocardial infarction (08/13/23) Subjective Subjective Patient was seen and examined today, he underwent cardiac catheterization and insertion of 3 drug-eluting stents today in the mid LAD and the first proximal diagonal. Patient had an echocardiogram today which showed an EF of 35%. Objective Data Objective Data Vital Signs: Vital Signs Temp Pulse Resp BP Pulse Ox O2 Del Method 98.1 F 79 16 139/89 H 99 Room Air 08/15/23 14:00 08/15/23 14:00 08/15/23 14:00 08/15/23 14:00 08/15/23 14:00 08/15/23 14:00 Oxygen Delivery Method Room Air Weight: 104.1 kg Body Mass Index (BMI) 27.2 Intake & Output: Intake and Output for Last 24 Hours 08/13/23 08/14/23 08/15/23 23:59 23:59 23:59 Intake Total 1358.08 / 1358.08 1228.42 / 1228.42 Balance 1358.08 / 1358.08 1228.42 / 1228.42 Lab / Micro Data 08/14/23 07:30 08/15/23 04:05 Labs: Laboratory Results - last 24 hr 08/14/23 21:26: APTT 66.4 H 08/15/23 04:05: APTT 80.8 H, Sodium 141, Potassium 4.2, Chloride 111 H, Carbon Dioxide 24.0, Anion Gap 6, BUN 12, Creatinine 1.09, Estim Creat Clear Calc 81.74, Est GFR (MDRD) Af Amer 86, Est GFR (MDRD) Non-Af 71, BUN/Creatinine Ratio 11.0, Glucose 114 H, Calcium 8.6 Radiography Diagnostic Testing: Radiology Impression Echocardiogram 08/13/23 22:16 Interpretation Summary The estimated ejection fraction is 35 %. There is evidence of diastolic dysfunction. Apical and anterior hypokinesis Trivial mitral valve insufficiency. Ordering Physician: Oral Smiley Referring Physician: Jazmine Le M.D. Performed By: Carmen Daniel RDCS Physical Exam Const alert, oriented x3, no apparent distress, average body habitus and healthy appearing General Appearance: cooperative, well kempt and well developed Orientation / Consciousness: awake, oriented to person, oriented to place and oriented to time HEENT normocephalic, head/scalp atraumatic and moist oral mucous membranes Eyes PERRL, EOMs intact bilaterally and conjunctivae normal Neck supple, no JVD, thyroid normal and no carotid bruits General: trachea midline Resp normal respiratory effort, no retractions, no use of accessory muscles and clear to auscultation bilaterally Auscultation: Negative for rales, rhonchi or wheezes Cardio regular rate, regular rhythm, S1 normal heart sound, S2 normal heart sound, no murmurs, no rub and no gallops GI normal to inspection, nondistended, normoactive bowel sounds, soft to palpation, non-tender and non-distended Extremity no clubbing, cyanosis or edema Skin no rashes or lesions noted General Skin Exam: no breakdown Neuro oriented x3, CN's II-XII intact bilaterally, moves all extremities, no focal motor deficits and no sensory deficits noted Sensorium / Orientation: awake and alert Speech: speech normal Psych affect normal Assessment & Plan Assessment/Plan (1) Stented coronary artery: (2) Non-ST elevation [place] (NSTEMI): PLAN: Plan 1. [id number]-lca to occlusive coronary disease in the LAD and the first diagonal-patient will remain on aspirin and Brilinta, he is on a beta-yadi, lisinopril, and a statin #2 hematuria-etiology unclear, this seems to be clearing, patient will remain on heparin drip for now #3 hyperlipidemia-patient is on atorvastatin Total clinical time spent by myself addressing the patient's medical issues, reviewing all of his data, and collaborating with patient's care team: 35 minutes Charges/Coding Visit Charges Inpatient E&M: 01497 Subs Hosp L2
[2023-08-15] MEDS: TICAGRELOR 90 MG TABLET PO (21:06)
[2023-08-15] MEDS: Atorvastatin Calcium 40 MG Tablet PO (21:06)
[2023-08-16] VITALS: BP 125/78; PULSE 78; RESP 18; TEMP 36.7; O2SAT 97
--- NOTE | 2023-08-16 05:18 | EKG12_ITS ---
Test Reason : POST PCI Blood Pressure : / mmHG Vent. Rate : 078 BPM Atrial Rate : 078 BPM P-R Int : 178 ms QRS Dur : 076 ms QT Int : 412 ms P-R-T Axes : 069 047 095 degrees QTc Int : 469 ms Normal sinus rhythm ST & T wave abnormality, consider anterolateral ischemia Prolonged QT Abnormal ECG When compared with ECG of 15-AUG-2023 11:45, MANUAL COMPARISON REQUIRED, DATA IS UNCONFIRMED Confirmed by COLTON CAPPS, NAVA ([id number]), editor producer NICOLASA STEVE ([id number]) on 08/22/2023 1:49:08 PM Referred By: Confirmed By:KENNETH SEGURA MD
[2023-08-16 06:00] VITALS: BP 131/93; PULSE 79; RESP 18; TEMP 36.7; O2SAT 99
[2023-08-16 08:00] VITALS: BP 154/94; PULSE 89; RESP 16; TEMP 36.5; O2SAT 98
[2023-08-16 08:31] LABS: Hematocrit 44.2 % (40-54); Hemoglobin 14.2 g/dL (13.0-16.5); Mean Corp Hgb Conc 32.1 g/dL (32-36); Mean Corpuscular Hgb 30.3 pg (27.0-32.0); Mean Corpuscular Volume 94.2 fL (80-94); Mean Platelet Vol. 10.7 fl (6.2-12.0); Platelet Count 133 K/mm3 (150-450); RBC Distribution Width CV 13.4 % (11.6-14.6); RBC Distribution Width SD 45.7 fl (35.1-43.9); Red Blood Count 4.69 M/mm3 (4.6-6.2)
[2023-08-16 08:38] VITALS: BP 156/94; PULSE 89
[2023-08-16] MEDS: Lisinopril 2.5 MG Tablet PO (08:38)
[2023-08-16] MEDS: TICAGRELOR 90 MG TABLET PO (08:38)
[2023-08-16] MEDS: Metoprolol(XL)Succ 50 MG Tablet PO (08:38)
[2023-08-16] MEDS: Aspirin E.C. 81 MG Tablet PO (08:38)
[2023-08-16 08:51] LABS: ALB/GLOB Ratio 0.9 RATIO (0.9-2.4); AST(SGOT) 29 U/L (15-37); Alanine Aminotransfer ALT/SGPT 17 U/L (16-61); Albumin, Serum 3.1 g/dL (3.2-5.0); Alkaline Phosphatase 57 U/L (45-117); Anion Gap 4 (5-15); BUN 13 mg/dL (7-18); BUN/Creat Ratio 10.5 RATIO (10-20); Chloride 111 mmol/L (98-107); Creatinine, Serum 1.24 mg/dL (0.70-1.30); EST Glomerular Filtration Rate 62 mL/min (>60); Est Glom Filt Rate - Afr Amer 75 mL/min (>60); Estimated Creatinine Clearance 71.85 ml/min; Globulin 3.6 g/dL (2.2-4.2); Glucose 102 mg/dL (74-106); Protein, Total 6.7 g/dL (6.4-8.2); Sodium Level 139 mmol/L (136-145)
--- NOTE | 2023-08-16 10:00 | EKG12_ITS ---
Test Reason : CP Blood Pressure : / mmHG Vent. Rate : 087 BPM Atrial Rate : 087 BPM P-R Int : 172 ms QRS Dur : 078 ms QT Int : 368 ms P-R-T Axes : 060 043 080 degrees QTc Int : 442 ms Normal sinus rhythm T wave abnormality, consider anterior ischemia Abnormal ECG When compared with ECG of 16-AUG-2023 05:18, MANUAL COMPARISON REQUIRED, DATA IS UNCONFIRMED Confirmed by COLTON CAPPS, NAVA ([id number]), digital editor WILMAN RODRIGUEZ ([id number]) on 08/22/2023 10:14:21 AM Referred By: MTER Confirmed By:KENNETH SEGURA MD
--- NOTE | 2023-08-16 13:03 | DCINST_ITS ---
Discharge Instructions Diet Discharge Diet: No restrictions Activity Discharge Activity: Return to Normal Activity Weight Bearing Status: Full weight bearing Follow Up Care Test Results: Test results from this visit will be discussed in further detail at your follow- up appointment, if applicable. Discharge Plan Admission Admit Date/Time: 08/13/23 21:59 Primary Reason for Your Visit: Non-STEMI Attending Provider: Ender Faust Primary Care Provider: Jazmine Le Consulting Providers: Luca Canada; Oral Smiley Instructions Additional Instructions / Restrictions: Avoid taking any ibuprofen, Aleve, or Advil for pain, Tylenol is safe to take for pain Discharge Orders/Prescriptions Prescriptions: New atorvastatin 40 mg Tablet 40 mg PO QHS Qty: 30 0RF metoprolol succinate 50 mg Tablet Extended Release 24 Hr 50 mg PO DAILY Qty: 30 0RF aspirin 81 mg Tablet,Delayed Release (Dr/Ec) 81 mg PO BREAKFAST Qty: 0 0RF Brilinta 90 mg Tablet 90 mg PO BID Qty: 60 0RF lisinopril 10 mg tablet 10 mg PO DAILY Qty: 30 0RF Referrals / Follow Up: Jazmine Le MD [Primary Care Provider] - Shelby Sharp PA [Med Staff - [facility] Practice Prof] - See Referral Note (Call the office to make follow-up appointment for 2 weeks) Disposition Disposition (needs filled in before D/C Order can be placed): Home, Self Care
--- NOTE | 2023-08-16 13:09 | DS.PCM_ITS ---
Providers Date of Admission: 08/13/23 Date of Discharge: 08/16/23 Primary Care Physician: Dr. Jazmine Le MD Consultations 08/13/23 22:16 Consult: Cardiology Routine Consulting Provider: Luca Canada Reason for Consult: NSTEMI EMERGENT Consult: No MD Notified: Yes Date Notified: 08/13/23 Time Notified: 22:01 Method of Notification: ED Physician Initiated Reason For Visit: NSTEMI Diagnosis Discharge Diagnosis (1) Stented coronary artery: Status: Acute Code(s): Z95.5 - Presence of coronary angioplasty implant and graft (2) Non-ST elevation [place] (NSTEMI): Status: Acute Code(s): I21.4 - Non-ST elevation (NSTEMI) myocardial infarction Plan 1. [id number] to occlusive coronary disease in the LAD and the first diagonal-patient will remain on aspirin and Brilinta, he is on a beta-ayaz, lisinopril, and a statin #2 hematuria-etiology unclear, this seems to be clearing, patient will remain on heparin drip for now #3 hyperlipidemia-patient is on atorvastatin Total clinical time spent by myself addressing the patient's medical issues, reviewing all of his data, and collaborating with patient's care team: 35 minutes Medications at Discharge Home Medications aspirin 81 mg tablet,delayed release 81 mg PO BREAKFAST #0 tabs 08/16/23 atorvastatin 40 mg tablet 40 mg PO QHS #30 tabs 08/16/23 lisinopril 10 mg tablet 10 mg PO DAILY #30 tabs 08/16/23 metoprolol succinate 50 mg tablet,extended release 24 hr 50 mg PO DAILY #30 tabs 08/16/23 ticagrelor 90 mg tablet (Brilinta) 90 mg PO BID #60 tabs 08/16/23 Hospital Course Operations None Procedures 2-D Echocardiogram, Cardiac catheterization (With CHELSIE to P D1 and mid LAD) and - Summary of Care Provided Minutes Spent on Discharge: 32 Hospital Course: 68-year-old white male was seen in the emergency room at [facility] with complaints of chest pain off and on x 2 days, workup in the emergency room showed an elevated troponin as well as T wave inversions in V1 and V2, patient was started on heparin drip and cardiology was contacted, patient was taken to the Crime Scene Examiner and 2 stents were placed 1 in the mid LAD and the other in the PD1 branch. Patient did well after catheterization, he had a brief period of hematuria although patient was on heparin, the patient related to the fact that he has had kidney stones before and he thought that maybe he had passed a stone prior to coming to the emergency room. Patient's echocardiogram was done that showed a reduced EF of 35%. On 08/16/2023, patient was seen and examined: On examination he appeared in good health and spirits. Vital signs as documented. Skin warm and dry and without overt rashes. Neck without JVD, neck was supple, trachea midline, thyroid was normal. Lungs clear bilaterally, normal air movement was noted. Heart exam notable for regular rhythm, normal sounds and absence of murmurs, rubs or gallops. Abdomen unremarkable and without evidence of organomegaly, masses, or abdominal aortic enlargement. Bowel sounds are present, abdomen is not distended. Extremities nonedematous, no cyanosis was noted, no clubbing was noted. Neuro: Cranial nerves II through XII are grossly intact, no focal motor deficits were noted, sensation to light touch and pinprick intact, motor exam 5/5 throughout. Psych: Patient is alert and oriented x3, he does not appear anxious or depressed, he does not appear agitated. Patient was felt to be stable for discharge home on 08/16/2023. Patient was also instructed to follow-up with his PCP and get a repeat UA to make sure his hematuria had resolved. Weight / BMI Weight Weight: 104.1 kg Body Mass Index (BMI) 27.2 ABG / Lab / Microbiology Data 08/16/23 07:10 08/16/23 07:10 Laboratory: Laboratory Results - last 24 hr 08/16/23 07:10: WBC 8.0, RBC 4.69, Hgb 14.2, Hct 44.2, MCV 94.2 H, MCH 30.3, MCHC 32.1, RDW Std Deviation 45.7 H, RDW Coeff of Hailee 13.4, Plt Count 133 L, MPV 10.7, Sodium 139, Potassium 4.0, Chloride 111 H, Carbon Dioxide 24.0, Anion Gap 4 L, BUN 13, Creatinine 1.24, Estim Creat Clear Calc 71.85, Est GFR (MDRD) Af Amer 75, Est GFR (MDRD) Non-Af 62, BUN/Creatinine Ratio 10.5, Glucose 102, Calcium 9.0, Total Bilirubin 0.50, AST 29, ALT 17, Alkaline Phosphatase 57, Total Protein 6.7, Albumin 3.1 L, Globulin 3.6, Albumin/Globulin Ratio 0.9 Radiography Diagnostic Testing: Radiology Impression Echocardiogram 08/13/23 22:16 Interpretation Summary The estimated ejection fraction is 35 %. There is evidence of diastolic dysfunction. Apical and anterior hypokinesis Trivial mitral valve insufficiency. Ordering Physician: Oral Smiley Referring Physician: Jazmien Le M.D. Performed By: Carmen Daniel RDCS D/C Instructions Discharge Diet: No restrictions Weight Bearing Status: Full weight bearing Meaningful Use Info Meaningful Use Meaningful Use Diagnoses (Choose all that apply): AMI AMI/Post PCI/Angioplasty Aspirin given w/in 24hrs of arrival?: Yes ASA at discharge?: Yes Antiplatelet Therapy at Discharge:: Yes Statins at discharge?: Yes Mckay/ARB at discharge?: Yes Beta Ayaz at discharge?: Yes Done w/ Acute NE measure.: Yes Documented LVEF (%): 35 Ischemic Stroke Statin Dosing Therapy Reference: STATIN DOSE THERAPY REFERENCE: * Patients > 75 years receive moderate or high dose statin therapy. * Patients 75 years or YOUNGER should receive HIGH intensity statin dose unless contraindicated. You will be required to document reason for non-treatment if statin daily dose does not meet guidelines. HIGH DOSE STATIN THERAPY DAILY Atorvastatin > than or = to 40 mg Rosuvastatin > than or = to 20 mg Amlodipine + Atorvastatin > than or = to 2.5/40 mg Ezetimibe + Simvastatin 10/80 mg Simvastatin 80mg Discharge Plan Admission Admit Date/Time: 08/13/23 21:59 Primary Reason for Your Visit: Non-STEMI Attending Provider: Ender Faust Primary Care Provider: Jazmine Le Consulting Providers: Luca Canada; Oral Smiley Instructions Additional Instructions / Restrictions: Avoid taking any ibuprofen, Aleve, or Advil for pain, Tylenol is safe to take for pain Discharge Orders/Prescriptions Prescriptions: New atorvastatin 40 mg Tablet 40 mg PO QHS Qty: 30 0RF metoprolol succinate 50 mg Tablet Extended Release 24 Hr 50 mg PO DAILY Qty: 30 0RF aspirin 81 mg Tablet,Delayed Release (Dr/Ec) 81 mg PO BREAKFAST Qty: 0 0RF Brilinta 90 mg Tablet 90 mg PO BID Qty: 60 0RF lisinopril 10 mg tablet 10 mg PO DAILY Qty: 30 0RF Referrals / Follow Up: Jazmine Le MD [Primary Care Provider] - Shelby Sharp PA [Med Staff - Adv Practice Prof] - See Referral Note (Call the office to make follow-up appointment for 2 weeks) Disposition Disposition (needs filled in before D/C Order can be placed): Home, Self Care Charges/Coding Visit Charges Inpatient E&M: 72745 Disch Hosp >30min
[2023-08-16 14:00] VITALS: BP 146/72; PULSE 82; RESP 18; TEMP 36.3; O2SAT 99
--- NOTE | 2023-08-16 14:30 | PHA.DC_ITS ---
Pharmacy [facility] Pharm[facility] Service has performed discharge medication reconciliation and counseling for this patient. The patient's discharge medication list was reviewed for discrepancies and discrepancies were resolved. The patient was counseled on the following discharge medications and changes in medications for homegoing were reviewed. The Reason for Use, instructions for use, and potential side effects were reviewed for all new medications. The patient's questions regarding all of their medications were answered. 1. Lisinopril 10 mg daily 2. Aspirin 81 mg PO daily 3. Atorvastatin 40 mg daily 4. Metoprolol succinate 50 mg PO daily 5. Brilinta 90 mg PO BID The patient was able to verbally demonstrate an understanding of their discharge medications. Medications at Discharge Home Medications aspirin 81 mg tablet,delayed release 81 mg PO BREAKFAST #0 tabs 08/16/23 atorvastatin 40 mg tablet 40 mg PO QHS #30 tabs 08/16/23 lisinopril 10 mg tablet 10 mg PO DAILY #30 tabs 08/16/23 metoprolol succinate 50 mg tablet,extended release 24 hr 50 mg PO DAILY #30 tabs 08/16/23 ticagrelor 90 mg tablet (Brilinta) 90 mg PO BID #60 tabs 08/16/23
--- NOTE | 2023-08-16 14:38 | CASEMGMT ---
Patient has order for discharge. Patient discharging on Brilinta. LANCE DURANT called [facility] and copay is $304.03, Brilinta savings card applied for 30 day free trial. LANCE DURANT in to updated patient and regarding Brilinta copay and savings card. Patient and denied needs or help at discharge. Patient and had no further questions or concerns.
== END 2023-08-16 15:20 | disposition home or self-care (01) | DRG 322 ==
LOC: ED 21:18 → PCU 22:16
PROVIDERS: Internal Medicine Interventional Cardiology; Physician Assistant; Specialist; Admitting Provider Family Medicine; Emergency Provider Emergency Medicine; PCP Family Medicine; Visit Provider Internal Medicine
DX: I21.4 Non-ST elevation (NSTEMI) myocardial infarction (principal); E78.5 Hyperlipidemia, unspecified; I25.10 Atherosclerotic heart disease of native coronary artery without angina pectoris; R31.9 Hematuria, unspecified; Z95.5 Presence of coronary angioplasty implant and graft; Z87.442 Personal history of urinary calculi
CPT/HCPCS: 36415; 71045; 80048; 80053; 80061; 81001; 84484; 85025; 85027; 85610; 85730; 92928; 92929; 93005; 93306; 93458; 99152; 99153; 99285; J7030; J7040; Q9957; Q9967; A4216; C1725; C1769; C1874; C1887; C1894; C8929; C9600; C9601; J1327

== ENCOUNTER → 2023-08-26 | Outpatient (CLI) | payer MEDICARE, SELFPAY ==
--- NOTE | 2023-08-26 10:03 | CR.HP_ITS ---
CR - History & Physical General Arrival date:: 08/26/23 Arrival time:: 10:04 Date of Referral:: 08/15/23 Date of CR Evaluation:: 08/26/23 Referring Physician: Dr. Cifuentes Primary Diagnosis: PCI w/coronary stenting History of Present Cardiac Event Onset Date PTCA or coronary stenting:: Yes Type of Symptoms:: Episodes of chest pain over 2 days, aching heavy pain midsternal, told it was a mild myocardial infarction. Interventions with present event:: Emergency room, taken to floor and then had heart cath done. Were there any complications?: None Medications Ambulatory Orders Medication Instructions Recorded aspirin 81 mg tablet,delayed 81 mg PO BREAKFAST #0 tabs 08/16/23 release atorvastatin 40 mg tablet 40 mg PO QHS #30 tabs 08/16/23 lisinopril 10 mg tablet 10 mg PO DAILY #30 tabs 08/16/23 metoprolol succinate 50 mg 50 mg PO DAILY #30 tabs 08/16/23 tablet,extended release 24 hr ticagrelor 90 mg tablet (Brilinta) 90 mg PO BID #60 tabs 08/16/23 Allergies Allergies No Known Allergies Allergy (Verified 08/13/23 17:57) Sleep Disorder Evaluation Hx of Sleep Apnea: No Do you snore loudly (louder than talking or can be heard through closed doors)?: No Do you often feel tired/ fatigued/ sleepy during daytime?: No Has anyone observed you stop breathing during sleep?: No History of Hypertension (for STOP score): No STOP Results: Negative Advanced Directives Advanced Directives Power of Energy Infrastructure Engineer: No Living Will: No Advance Directives Information Provided: Yes Advance Directives on File: No DNR Order?:: No MOLST See MOLST form: No Past Medical History Covid-19 Screening Physicial Symptoms Fever: No Unexplained muscle aches: No Current respiratory symptoms: No Upper respiratory infections symptoms: No Gastro-intestinal symptoms: No Vyp-[id number]-[id number] symptoms: No Other Clinical Concerns Has tested positive for COVID-19 in last 30 days: No Exposure Risk Had contact w/person w/symptoms or Covid-19 (+) last 14 days: No Has High Risk Exposures ID'd by Health dept/Inf Control team: No Pertinent Comorbidities 65 years or older:: Yes Lives in Assisted Living facility:: No Has a chronic lung disease or moderate to severe asthma:: No Has a serious heart condition:: No Immunocompromised:: No Severely obese (Body Mass Index of 40 or higher):: No Diabetic:: No Has chronic kidney disease undergoing dialysis:: No Has liver disease:: No Past Medical Illness Past Medical History (Updated 08/24/23 @ 00:02 by Background Daemon) Atherosclerotic heart disease of [place] coronary artery without angina pectoris (08/13/23) I25.10 Kidney stones N20.0 Past Surgical History Past Surgical History (Updated 08/24/23 @ 00:02 by Background Daemon) H/O hernia repair Z98.890, Z87.19 Stented coronary artery (08/15/23) Z95.5 3.5 X 18 mm CHELSIE to mid LAD; 2.75 X 12 and 2.25 X 12 CHELSIE to proximal first diagonal. 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 Hobbies, Recreation, Social Activities Hobbies: Sports (fishing), Exercise (walking) and Other (gardening, lawn work) Recreational Activities: I am able to engage in all my recreational activities, I am able to engage in most, but not all activities, I am able to engage in a few activities and I can hardly do any recreational activities Social Environment Status Marital Status: Current Living Arrangements Living Environment:: Spouse Children How many children do you have?: 2 (1-) Do any of your children live nearby?: Yes Safety Do you feel safe in your surroundings?: Yes Assistance Do you need any assistance at home?: no Review of Systems Review of Systems Hints Review of Present Symptoms: Reports Appetite - Normal, Appetite - Special Diet (usually eat healthy, no added salt, low fate, rare eat red meat) and Sleep - Normal; Denies Shortness of Breath at Rest, Shortness of Breath with Exertion, PVD, Angina, Dizziness/Lightheadedness, Fatigue, Heart Arrhythmia/Irregularities or Sexual Changes Pain Is Patient Pain Free?: Yes Pain Location: none Risk Factor Assessment Chief Complaint Chief Complaint: 68 yr old male no previous medical history presented to emergency room with heavy pain to the right of his sternum over the previous 2 days. Vital Signs Temperature: 96.6 F Respiratory Rate: 16 Pulse Ox: 98 Blood Pressure: 134/66 Pulse Pulse Rate: 96 Pulse Rhythm: Regular Hypertension Blood Pressure Sitting - Right Arm: 134/66 Blood Cholesterol/Lipids Total Cholesterol (mg/dL) Goal = less than 200 mg/dL: 163 HDL Cholesterol (mg/dL) Goal = less than 40 mg/dL: 52 LDL Cholesterol (mg/dL) Goal = less than 70 mg/dL: 97 Triglycerides (mg/dL) Goal = less than 150 mg/dL: 69 Diabetes Nutrition Referral for Diabetes: No Obesity Height: 6 ft 5 in Weight:: 237 lb Weight in Pounds: 237.0 lbs Weight Source: Stated by Patient Body Mass Index (BMI): 28.0 Nutritional Referral for Obesity: No Physical Inactivity Physical Inactivity: Recreational activity (walking when the weather is nice, doing lawn work gardening. ) Exercise Limitations: None Risk Stratification Risk Guidelines: Lowest Risk: Risk Factor for Smoking, Risk Factor for Dyslipidemia, Risk Factor for Diabetes, Risk Factor for Obesity, Risk Factor for Hypertension, Risk Factor for Sedentary Lifestyle and Risk Factor for Depression For Smoking Smoking Risk Guidelines For Dyslipidemia Dyslipidemia Risk Guidelines For Diabetes Mellitus Diabetes Risk Guidelines For Obesity/Overweight Obesity/Overweight Risk Guidelines For Hypertension Hypertension Risk Guidelines For Sedentary Lifestyle Sedentary Lifestyle Risk Guidelines For Depression Depression Risk Guidelines Family History Family History (Updated 08/26/23 @ 10:21 by Lenny Lora, MANAGER FIELD SALES, DELIVERY SPECIALIST, BS) Father Heart disease CAD (coronary artery disease) Myocardial infarction Mother Leukemia Motivation Motivation to Participate On a scale of 1 to 10, how prepared are you to commit to attending program?: 10 What do you see as barriers to successfully being able to complete the program?: dont have any What do you see as the benefits of succesfully completing the program? In other words, what do you hope to get out of participating in the program?: Resume activities, Improve knowledge of heart disease. Are there issues you are dealing with that will interfere with completing the program?: No Do you have a spouse or signficant other, family or friends who will help support you to complete the program?: Yes
--- NOTE | 2023-08-26 10:04 | CR.ITP_ITS ---
Diagnosis General Information Admitting Diagnosis: TN, PCI w/ coronary stenting Secondary Diagnosis: LVEF 35%, hyperlipidemia Personal Learning Style:: Audio/Visual Barriers to Learning: No Barriers and Vision Impairment (wears glasses) Stage of change r/t lifestyle modifications:: Action Gave educational material for:: Treating Heart Disease, How The Heart Works, What it means to have Heart Disease, How Coronary Artery Disease is Diagnosed, Heart Procedures, What Heart Medications Do, Risk Factors & Modifications, Living an Active Life, Nutrition, Emotions & Heart Disease, Stress Management & Relaxation and Sleep Disorders & Heart Disease Education/Goals Individual Counseling: Initial Assessment: Abnormal Cholesterol Levels Cardiac Rehabilitation Goals Personal Goals: Initial Assessment: Get back to work, or to resume activities faster, Improve knowledge of cardiac disease and Improve diet and eating habits (eat healthier) Scale for measuring improvement of personal goals Diagnosis & Disease Process Outcomes/Goals: Pt IDs own risk factors & lifestyle modifications by Session 10, Verbalizes symptoms of angina & response by session 3. and Pt independently manages Plan/Interventions: Assist Pt to ID & engage in lifestyle modification to reduce CVD risk, Instruct on individual risk factors, Review symptoms of angina & emergency actions and Review secondary diagnosis & identify educational needs. Safety Referral to Physical Therapy: No Referral to [facility] Case Management: No Fall Risk Assessed:: Yes Assistive Devices:: None Exercise - Initial Assessment Visit Date of Eval: 08/26/23 Mets: Pre-: >7 METS for 30 minutes by discharge Physician Prescribed Exercise Modalities: Treadmill, Rower and Airdyne Frequency: 3x/week for 12 weeks [36 sessions] Intensity: 60-80% of age predicted maximum heart rate reserve Duration: 30 - 45 minutes Current METSs:: 4.0 Target Heart Rate:: 99-114 Resting Blood Pressure: 139/93 EKG Type: Normal sinus rhythm Outcomes & Goals Goals:: Verbalizes understanding of THR, RPE & goal METS by session 6, Documents in home exercise log/reports 30 min aerobic 5 day/wk by DC and Demonstrates accurate pulse taking by DC Intervention & Plan Exercise Program Goals: Instruct on personal THR & RPE, Instruct on MET level & personal MET goal, Show patient to take own pulse /validate performance until accurate and Instruct on home exercise Physical Activity Home Exercise Physical Activity - Home Exercise: Safe Exercise, Warm-up, Self-monitoring, Cool-Down, Home Exercise > 30 min Daily and Sitting Time <3 hours/daily Outcomes & Goals Outcomes/Goals: Demonstrates correct Warm-up/exercise Cool-Down (S3) if = 2.5 METs, Verbalizes symptoms of exercise intolerance by Session 3 (S3) and Demonstrate safe equipment use (S3) & follows exercise prescrition (6) Intervention & Plan Plan/Intervention: Instruct warm-up & cool-down if exercising at > 2 METs, Instruct on symptoms of exercise intolerance & actions to take, Instruct & monitor on saf and Assess intial functional capacity & safety risk Nutrition - Initial Assessment Program Goals Nutrition Program Goals Patient has diagnosis of Hyperlipidemia (ICD E78)?: Yes Visit Date of Eval: 08/26/23 Session #:: 0 (pre-program evaluation) Cholesterol/Lipids (Other Core Measures) Triglycerides (mg/dL): 69 Total Cholesterol (mg/dL): 163 LDL Cholesterol (mg/dL): 97 HDL Cholesterol (mg/dL): 52 Lipid Medication: Atorvastatin Determine presence & major risk factors that modify LDL goal: Hypertension or hypertensive medication Outcomes/Goals: Pt IDs own risk factors & lifestyle modifications by Session 10, Verbalizes symptoms of angina & response by session 3. and Pt independently manages Intervention/Plan: Instruct on personal lipid levels & lipid goals/NCEP guidelines and Instruct on cholesterol Diabetes (Other Core Measures) Diabetes Type: Not Applicable Weight Mgt (Other Care) Not Applicable: Yes Height: 6 ft 5 in Weight:: 237 lb BMI: 28.0 Diagnosis Overweight/Obesity BMI> 30% ICD-10 E66: No Diagnosis High BMI/Morbid Obesity BMI> 35% ICD-10 Z68: No Outcomes/Goals: Pt sets, maintains & shows weight loss goal & trend during rehab Intervention/Plan: Instruct on ideal BMI & set weight loss goal w/patient Healthy Eating Habits Will attend diet classes:: Yes Outcomes/Goals:: Consume diet rich in vegs,fruits,whole grain/high fiber,fish,lean meat and Limit sat/trans fats,cholesterol & added salts & sugars Intervention/Plan:: Assess current eating habits Education Gave educational materials for:: Healthy eating Core - Initial Assessment Visit Date of Eval: 08/26/23 Session #:: 0 (pre-program evaluation) Medication Compliance Preventative Medication(s):: Aspirin, Ticagrelor/P2Y12 inhibitor, Statin/lipid and Beta yadi H/O mental health issues: depression, anxiety, or addiction?: No Doesn?t believe in the benefits of treatment?: No Believes medications are unnecessary or harmful?: No Has a concern about medication side effects?: No Expresses concern over the cost of medications?: No Outcomes/Goals: Verbalizes medications,desired effect & common side effects @ DC, Pt self-reports following medication regimen and Keeps card in wallet w/medications listed by DC Interventions/plans: Instruct on medication effects & side effects, Review medication list w/patient every two weeks and Instruct importance of taking meds as ordered & assist problem solving Tobacco Use Tobacco Use: Non-smoker Hypertension Resting Blood Pressure:: 134/86 [place] [employer] Hypertension Guidelines Outcomes/Goals: Able to verbalize/achieve optimal blood pressure <130/80 and Incorporates diet changes & exercise for blood pressure control by DC Interventions/plan: Instruct on optimal blood pressure, hypertension & medications and Instruct on effects of sodium, alcohol, stress, exercise &hypertension Tobacco Cessation Referral Smoking Cessation Referral:: No Individual Education/Counseling:: No Education Schedule Given:: Yes Psychosocial - Initial Assess VIsit Date of Eval: 08/26/23 Session #:: 0 (pre-program evaluation) Not Applicable: Yes History of previous Mental disease:: No Target Goals Target Goals Psychosocial Test Tool Used:: [employer] QOL Cardiac and PHQ-9 Questionnaire phq-9 Severity Referral to Behavioral Health PS - Interventions: Yes: Attend Stress Management Classes and No: Referral to Behavioral Health if PHQ-9 score >9:, No: Referral to [facility] and No: Referral to Physician if PHQ-9 if score is 5-9: Outcomes/Goals: See list Psychosocial Outcomes/Goals:: ID's personal stressors & 2 strategies to manage stress by discharge Intervention/Plan: See List Interventions/Plan:: Assess stressors,coping strategies & signs of derpression on admission, Instruct/assist pt to develop coping & personal stress Mgt strategies, Instruct patient to recognize signs & symptoms of depression and Instruct patient to recog Patient Health Questionnaire PHQ-9 Screening Initial Assessment: 1. Little interest or pleasure in doing things: Not at all 2. Feeling down, depressed, or hopeless: Not at all 3. Trouble falling or staying asleep, or sleeping too much: Not at all 4. Feeling tired or having little energy: Not at all 5. Poor appetite or overeating: Not at all 6. Feeling bad about yourself -- or that you are a failure or have let yourself or your family down: Not at all 7. Trouble concentrating on things, such as reading the newspaper or diana tere television: Not at all 8. Moving or speaking so slowly that other people could have noticed. Or the opposite - being so fidgety or restless that you have been moving around a lot more than usual: Several days 9. Thoughts that you would be better off , or of hurting yourself in some way: Not at all How difficult have these problems made it for you to do your work, take care of things at home, or get along with other people?: Not difficult at all Total Score: 1 KASIA-Q SV Test Statements CAD is a disease of the arteries in the heart: False Examples of risk factors for heart disease: True Angina is chest pain or discomfort: True The benefits of resistance training include: True Eating more meat and dairy products: False Anti-platelet medications such as aspirin are important: True The only effective way to manage stress: False An exercise warm-up slowly increases heart rate: I Don't Know Prepared, processed foods usually have high sodium: True Depression is common after a heart attack: True The statin medications lower cholesterol: True To control blood pressure, lower the amount of sodium: True If someone gets chest discomfort during walking: False Transfats are partially hydrogenated vegetable oils: I Don't Know Sleep apnea that is not treated increases the risk: I Don't Know To control cholesterol, one should become a vegetarian: False Someone knows if he/she is exercising at the right level: I Don't Know Diabetes cannot be prevented with exercise & health eating: I Don't Know Stress is a large risk for heart attack: True A diet that can help lower blood pressure is rich in: True Total Score Total Correct Responses: 15 Self-Efficacy 6-Item Scale Initial Assessment: We would like to know how confident you are in doing certain activities. Please select your confidence level for: Fatigue Select Number: 10 Physical Discomfort or Pain Select Number: 10 Emotional Distress Select Number: 9 Other Symptoms or Health Problems Select Number: 10 Different Tasks and Activities Select Number: 10 Medication Select Number: 10 Total Score:: 9 Nutrition Survey Nutrition Survey Instructions Scoring Instructions Nutrition Survey Initial: Have you lost >10 lbs over the past 2 months without trying?: No Are you following a special diet at home for diabetes, low fat, or low salt?: No Are you interested in meeting with a dietitian for help understanding your diet?: No Do you eat less than 3 meals a day?: No Do you eat fatty meats (warren, sausage, ribs, etc), fried foods, desserts, large amounts of salad dressings, margarine, butter, or cheese most days?: Yes Do you have food allergies? [Enter types in comment field]: No Do you eat in restaurants more than 3 times a week?: No Do you season food with salt, seasoning salt, or garlic salt?: Yes Exercise - Final/Discharge Physician Prescribed Exercise Modalities: Treadmill, Rower and Airdyne Frequency: 3x/week for 12 weeks [36 sessions] Intensity: 60-80% of age predicted maximum heart rate reserve Current METSs:: 4.0 Target Heart Rate:: 99-114 Nutrition - 30-Day Assessment Weight Mgt (Other Care) Height: 6 ft 5 in Weight:: 237 lb BMI: 28.0 Nutrition - 60-Day Assessment Weight Mgt (Other Care) Height: 6 ft 5 in Weight:: 237 lb BMI: 28.0 Core - Final Assessment Hypertension Resting Blood Pressure:: 134/86 [place] [employer] Hypertension Guidelines Core - 60-Day Assessment Hypertension Resting Blood Pressure:: 134/86 [place] [employer] Hypertension Guidelines Psychosocial - 30-Day Assess Target Goals Target Goals Referral to Behavioral Health PS - Interventions: Yes: Attend Stress Management Classes and No: Referral to Behavioral Health if PHQ-9 score >9:, No: Referral to [facility] and No: Referral to Physician if PHQ-9 if score is 5-9: Psychosocial - 60-Day Assess Target Goals Target Goals Referral to Behavioral Health PS - Interventions: Yes: Attend Stress Management Classes and No: Referral to Behavioral Health if PHQ-9 score >9:, No: Referral to [facility] and No: Referral to Physician if PHQ-9 if score is 5-9: Psychosocial - 90-Day Assess Target Goals Target Goals Referral to Behavioral Health PS - Interventions: Yes: Attend Stress Management Classes and No: Referral to Behavioral Health if PHQ-9 score >9:, No: Referral to [facility] and No: Referral to Physician if PHQ-9 if score is 5-9: Psychosocial - Final Assessmen Target Goals Target Goals Referral to Behavioral Health PS - Interventions: Yes: Attend Stress Management Classes and No: Referral to Behavioral Health if PHQ-9 score >9:, No: Referral to [facility] and No: Referral to Physician if PHQ-9 if score is 5-9: Nutrition - 90-Day Assessment Weight Mgt (Other Care) Height: 6 ft 5 in Weight:: 237 lb BMI: 28.0 Nutrition - Final Assessment Program Goals Patient has diagnosis of Hyperlipidemia (ICD E78)?: Yes Weight Mgt (Other Care) Height: 6 ft 5 in Weight:: 237 lb BMI: 28.0
[2023-08-26 10:20] VITALS: BP 134/86; BP 139/93; BMI 28.0
[2023-08-26 10:38] VITALS: BP 134/66; PULSE 96; RESP 16; TEMP 35.9; O2SAT 98; BMI 28.0
== END | disposition home or self-care (01) ==
LOC: CR 10:01
PROVIDERS: PCP Family Medicine; Referring Provider Specialist; Visit Provider Specialist
DX: Z95.5 Presence of coronary angioplasty implant and graft (principal); I25.10 Atherosclerotic heart disease of native coronary artery without angina pectoris; N20.0 Calculus of kidney; Z98.890 Other specified postprocedural states; Z87.19 Personal history of other diseases of the digestive system; I25.2 Old myocardial infarction

== ENCOUNTER → 2023-09-22 | Outpatient (CLI) | payer MEDICARE, SELFPAY ==
[2023-08-26 10:20] VITALS: BMI 28.0
[2023-09-22 12:34] LABS: Hemoglobin 14.2 g/dL (13.0-16.5); Mean Corp Hgb Conc 31.6 g/dL (32-36); Mean Corpuscular Hgb 30.2 pg (27.0-32.0); Mean Corpuscular Volume 95.7 fL (80-94); Mean Platelet Vol. 10.3 fl (6.2-12.0); Platelet Count 151 K/mm3 (150-450); RBC Distribution Width CV 13.1 % (11.6-14.6); White Blood Count 8.2 K/mm3 (4.4-11.0)
[2023-09-22 13:01] LABS: Anion Gap 3 (5-15); BUN 21 mg/dL (7-18); BUN/Creat Ratio 14.9 RATIO (10-20); Calcium,Total 9.4 mg/dL (8.5-10.1); Chloride 107 mmol/L (98-107); Creatinine, Serum 1.41 mg/dL (0.70-1.30); EST Glomerular Filtration Rate 53 mL/min (>60); Est Glom Filt Rate - Afr Amer 64 mL/min (>60); Glucose 105 mg/dL (74-106); Magnesium 2.3 mg/dL (1.6-2.6); Potassium 4.6 mmol/L (3.5-5.1); Sodium Level 136 mmol/L (136-145); Thyroid Stim Hormone (TSH) 6.73 uIU/mL (0.358-3.74)
--- NOTE | 2023-09-22 13:09 | CT_ITS ---
STUDY: CT ABDOMEN AND PELVIS WITH AND WITHOUT CONTRAST REASON FOR EXAM: Male, 68 years old. GROSS HEMATURIA RADIATION DOSAGE (If Supplied By Facility): CTDIvol = ( 22.23 ) mGy, DLP = ( 3913.86 ) mGycm TECHNIQUE: Transaxial images were obtained from the dome of the diaphragm to the symphysis pubis without oral contrast. IV 100mL Isovue-300 was administered. Sagittal and coronal images were reconstructed. Individualized dose optimization techniques were used for this CT. COMPARISON: None. FINDINGS: The visualized lung bases are unremarkable. Mild coronary artery calcification. Normal liver. There is a solitary gallstone. There are multiple benign calcified granulomata of the spleen. Normal pancreas. Normal bilateral adrenal glands. Normal right kidney. Normal left kidney. Normal visualized stomach. Normal small intestine. There are multiple colonic diverticula consistent with diverticulosis. The appendix is visualized and appears normal. There is scattered atherosclerotic calcification of the abdominal aorta, without a demonstrated aneurysm. Normal inferior vena cava. Normal retroperitoneum. Small capacity urinary bladder with mild bladder wall thickening. There is enlargement of the prostate gland. This measures 4.7 cm x 5.9 cm. There is evidence suggestive of a prior TURP. Normal abdominal wall. There are diffuse degenerative changes of the visualized lumbar spine. CT/CT Abd/Pelvis W/WO Contrast IMPRESSION: Prostatic enlargement with indentation of the bladder base. Evidence of prior TURP. Sigmoid diverticulosis. Small solitary gallstone. Electronically Signed: Eren Luz MD at 14:52 EDT ,
[2023-09-22 13:41] LABS: CREATININE FINGERSTICK < 1.0 mg/dL (0.70-1.30); EGFR FINGERSTICK > 60.0000 mL/min (>60)
== END | disposition home or self-care (01) ==
LOC: CT 12:19
PROVIDERS: Nurse Practitioner Family; PCP Family Medicine; Referring Provider Urology; Visit Provider Urology
DX: R31.0 Gross hematuria (principal); R00.0 Tachycardia, unspecified; I25.5 Ischemic cardiomyopathy
CPT/HCPCS: 36415; 74178; 80048; 83735; 84443; 85027; Q9967

== ENCOUNTER 2023-09-23 11:30 | Outpatient (RCR) | payer MEDICARE, SELFPAY ==
[2023-08-26 10:20] VITALS: BMI 28.0
== END 2023-09-23 23:59 ==
LOC: CR 11:30
PROVIDERS: PCP Family Medicine; Visit Provider Specialist
DX: Z95.5 Presence of coronary angioplasty implant and graft (principal); I21.4 Non-ST elevation (NSTEMI) myocardial infarction; I25.10 Atherosclerotic heart disease of native coronary artery without angina pectoris
CPT/HCPCS: 93798

== ENCOUNTER 2023-10-21 11:30 | Outpatient (RCR) | payer MEDICARE, SELFPAY ==
[2023-08-26 10:20] VITALS: BMI 28.0
--- NOTE | 2023-09-26 10:16 | PCM.CR.ITP ---
Exercise - Initial Assessment Physician Prescribed Exercise Modalities: Treadmill, SciFit Stepper and SciFit Lateral [place]ener Nutrition - Initial Assessment Weight Mgt (Other Care) Height: 6 ft 5 in Weight:: 232 lb 8 oz BMI: 27.6 Psychosocial - Initial Assess Target Goals Target Goals Patient Health Questionnaire PHQ-9 Screening 30-Day Re-eval Assessment: 1. Little interest or pleasure in doing things: Not at all 2. Feeling down, depressed, or hopeless: Not at all 3. Trouble falling or staying asleep, or sleeping too much: Not at all 4. Feeling tired or having little energy: Not at all 5. Poor appetite or overeating: Not at all 6. Feeling bad about yourself -- or that you are a failure or have let yourself or your family down: Not at all 7. Trouble concentrating on things, such as reading the newspaper or watching television: Not at all 8. Moving or speaking so slowly that other people could have noticed. Or the opposite - being so fidgety or restless that you have been moving around a lot more than usual: Not at all 9. Thoughts that you would be better off , or of hurting yourself in some way: Not at all How difficult have these problems made it for you to do your work, take care of things at home, or get along with other people?: Not difficult at all Total Score: 0 Self-Efficacy 6-Item Scale 30-Day Re-eval Assessment: We would like to know how confident you are in doing certain activities. Please select your confidence level for: Fatigue Select Number: 10 Physical Discomfort or Pain Select Number: 10 Emotional Distress Select Number: 9 Other Symptoms or Health Problems Select Number: 10 Different Tasks and Activities Select Number: 10 Medication Select Number: 9 Total Score:: 9 Nutrition Survey Nutrition Survey Instructions Scoring Instructions Exercise - 30-day Assessment Visit Date of Eval: 09/26/23 Session #:: 11 Physician Prescribed Exercise Modalities: Treadmill, SciFit Stepper and SciFit Lateral [employer] Consultant Frequency: 3x/week for 12 weeks [36 sessions] Intensity: 60-80% of age predicted maximum heart rate reserve Duration: 30 - 45 minutes Current METSs:: 3 Target Heart Rate:: 99-114 Current RPE:: 12 Maximum Excercise HR:: 124 Resting Blood Pressure: 100/64 Maximum Exercise Blood Pressure: 122/70 EKG Type: NSR to ST with rare pac and pcv Outcomes & Goals Goals:: Verbalizes understanding of THR, RPE & goal METS by session 6, Documents in home exercise log/reports 30 min aerobic 5 day/wk by DC, Demonstrates accurate pulse taking by DC and Other additional outcome/goals: see below Intervention & Plan Exercise Program Goals: Instruct on personal THR & RPE, Instruct on MET level & personal MET goal, Show patient to take own pulse /validate performance until accurate, Instruct on home exercise and Other additional plan/int 30-day Reassessments 30 day Reassessments:: Progressing Reassessment Notes & Comments:: RPE explained Physical Activity Home Exercise Physical Activity - Home Exercise: Safe Exercise, Warm-up, Self-monitoring, Cool-Down, Home Exercise > 30 min Daily and Sitting Time <3 hours/daily Outcomes & Goals Outcomes/Goals: Demonstrates correct Warm-up/exercise Cool-Down (S3) if = 2.5 METs, Verbalizes symptoms of exercise intolerance by Session 3 (S3), Demonstrate safe equipment use (S3) & follows exercise prescrition (6) and Other: See below Intervention & Plan Plan/Intervention: Instruct warm-up & cool-down if exercising at > 2 METs, Instruct on symptoms of exercise intolerance & actions to take, Instruct & monitor on saf, Assess intial functional capacity & safety risk and Other See below 30-day Reassessments 30 day Reassessments:: Progressing Reassessment Notes & Comments:: warm up encouraged Exercise - 60-day Assessment Physician Prescribed Exercise Modalities: Treadmill, SciFit Stepper and SciFit Lateral [employer] Optimization Consultant Exercise - 90-day Assessment Physician Prescribed Exercise Modalities: Treadmill, SciFit Stepper and SciFit Lateral [place]ener Exercise - Final/Discharge Physician Prescribed Exercise Modalities: Treadmill, SciFit Stepper and SciFit Lateral [employer] Optimization Consultant Nutrition - 30-Day Assessment Program Goals Nutrition Program Goals Patient has diagnosis of Hyperlipidemia (ICD E78)?: Yes Visit Date of Eval: 09/26/23 Session #:: 11 Cholesterol/Lipids (Other Core Measures) Determine presence & major risk factors that modify LDL goal: Hypertension or hypertensive medication, Low HDL cholesterol <40 mg/dL*, Family history of premature CHD in Male < 55 years: female <65 yearsFa and Age men > 45 years; women >/= 55 years Outcomes/Goals: Pt IDs own risk factors & lifestyle modifications by Session 10, Verbalizes symptoms of angina & response by session 3., Pt independently manages and Other Additional Outcomes/Goals: Intervention/Plan: Advocate for lipid panel cholesterol medication if applicable, Instruct on personal lipid levels & lipid goals/NCEP guidelines, Instruct on cholesterol and Other additional plan/int Diabetes (Other Core Measures) Diabetes Type: Not Applicable Weight Mgt (Other Care) Height: 6 ft 5 in Weight:: 232 lb 8 oz BMI: 27.6 Diagnosis Overweight/Obesity BMI> 30% ICD-10 E66: No Diagnosis High BMI/Morbid Obesity BMI> 35% ICD-10 Z68: No Outcomes/Goals: Pt sets, maintains & shows weight loss goal & trend during rehab and Other additional outcomes/goals Intervention/Plan: Instruct on ideal BMI & set weight loss goal w/patient, Assist pt to ID & incorporate diet changes for weight loss by S9, Refer to Structured Weight Loss program as appropriate, Encourage goal of using 250-300dcal per session for weight loss and Other additional plan/interventions 30 day Reassessments:: Met Healthy Eating Habits Will attend diet classes:: Yes Outcomes/Goals:: Consume diet rich in vegs,fruits,whole grain/high fiber,fish,lean meat, Limit sat/trans fats,cholesterol & added salts & sugars and Other additional outcome/goals: Intervention/Plan:: Assess current eating habits and Other Additional plan/interventions 30-day Reassessments:: Met Education Gave educational materials for:: Signs & symptoms of hypoglycemia, Signs & symptoms of hyperglycemia, Relate diabetes to coronary artery disease and Healthy eating Nutrition - 60-Day Assessment Weight Mgt (Other Care) Height: 6 ft 5 in Weight:: 232 lb 8 oz BMI: 27.6 Core - 30-Day Assessment Medication Compliance Preventative Medication(s):: Aspirin, Ticagrelor/P2Y12 inhibitor, Statin/lipid and Beta yadi H/O mental health issues: depression, anxiety, or addiction?: No Doesn?t believe in the benefits of treatment?: No Believes medications are unnecessary or harmful?: No Has a concern about medication side effects?: No Expresses concern over the cost of medications?: No Outcomes/Goals: Verbalizes medications,desired effect & common side effects @ DC, Pt self-reports following medication regimen, Keeps card in wallet w/medications listed by DC and Other additional outcome/goals: Interventions/plans: Instruct on medication effects & side effects, Review medication list w/patient every two weeks, Instruct importance of taking meds as ordered & assist problem solving and Other additional 30-day Reassessments:: Met Tobacco Use Tobacco Use: Non-smoker Hypertension Hypertension Diagnosis:: Hypertension ICD-10 I10 Resting Blood Pressure:: 100/64 [place] [employer] Hypertension Guidelines Peak Exercise Blood Pressure:: 122/70 Outcomes/Goals: Able to verbalize/achieve optimal blood pressure <130/80, Incorporates diet changes & exercise for blood pressure control by DC and Other additional outcomes/goals Interventions/plan: Instruct on optimal blood pressure, hypertension & medications, Instruct on effects of sodium, alcohol, stress, exercise &hypertension and Other additional plan/interventions 30 day Reassessments:: Met Tobacco Cessation Referral Smoking Cessation Referral:: No Individual Education/Counseling:: No Education Schedule Given:: Yes Psychosocial - 30-Day Assess VIsit Date of Eval: 09/26/23 Session #:: 11 History of previous Mental disease:: No Target Goals Target Goals Outcomes/Goals: See list Psychosocial Outcomes/Goals:: ID's personal stressors & 2 strategies to manage stress by discharge and Other Additional outcome/goals: Intervention/Plan: See List Interventions/Plan:: Assess stressors,coping strategies & signs of derpression on admission, Instruct/assist pt to develop coping & personal stress Mgt strategies, Refer to Behavioral Health if appropriate, Refer to Physician if appropriate, Instruct patient to recognize signs & symptoms of depression, Instruct patient to recog and Other additional plan/intervention 30-day Reassessments: 30 day Reassessments:: Met Psychosocial - 60-Day Assess Target Goals Target Goals Outcomes/Goals: See list Psychosocial Outcomes/Goals:: ID's personal stressors & 2 strategies to manage stress by discharge and Other Additional outcome/goals: Psychosocial - 90-Day Assess Target Goals Target Goals Psychosocial - Final Assessmen Target Goals Target Goals Nutrition - 90-Day Assessment Weight Mgt (Other Care) Height: 6 ft 5 in Weight:: 232 lb 8 oz BMI: 27.6 Nutrition - Final Assessment Weight Mgt (Other Care) Height: 6 ft 5 in Weight:: 232 lb 8 oz BMI: 27.6
[2023-09-26 10:29] VITALS: BP 100/64; BMI 27.6
== END 2023-10-23 23:59 ==
LOC: CR 11:30
PROVIDERS: PCP Family Medicine; Referring Provider Specialist; Visit Provider Specialist
DX: Z95.5 Presence of coronary angioplasty implant and graft (principal); I21.4 Non-ST elevation (NSTEMI) myocardial infarction; I25.10 Atherosclerotic heart disease of native coronary artery without angina pectoris
CPT/HCPCS: 93798

== ENCOUNTER → 2023-11-10 | Outpatient (CLI) | payer MEDICARE, SELFPAY ==
[2023-08-26 10:20] VITALS: BMI 28.0
[2023-09-26 10:29] VITALS: BMI 27.6
[2023-10-26 09:33] VITALS: BMI 27.5
--- NOTE | 2023-11-10 12:51 | ECHOLC_ITS ---
Reason For Study: Isch CMP Procedure This was a limited 2D transthoracic echocardiogram. Contrast injection was performed. The study was technically difficult. Exam performed in department. Left Ventricle Normal LV size. The left ventricular ejection fraction is 45 %. There is mild to moderate global hypokinesis of the left ventricle. Right Ventricle Normal RV size. Normal systolic function. Atria Normal left atrium. Normal right atrium. Mitral Valve Normal mitral valve. Tricuspid Valve Normal tricuspid valve. Aortic Valve Trisinus/trileaflet aortic valve. Pulmonic Valve The pulmonic valve is not well visualized. Great Vessels Normal aortic root. The pulmonary artery is normal size. Pericardium/Pleural No pericardial effusion. Medication 22 gauge I.V. with prn adaptor inserted into right arm. Diluted definity 2.5ml given slow IV push to enhance endocardial definition. MMode/2D Measurements & Calculations LVIDd: 4.7 cm IVSd: 1.1 cm LA dimension: 3.6 cm LVIDs: 4.0 cm LVPWd: 1.2 cm FS: 14.4 % LAV(MOD-sp4): 53.4 ml LVAd ap4: 36.0 cm2 SV(MOD-sp4): 47.3 ml LVLd ap4: 8.6 cm EDV(MOD-sp4): 119.9 ml EDV(sp4-el): 127.4 ml LVAs ap4: 25.3 cm2 LVLs ap4: 7.3 cm ESV(MOD-sp4): 72.6 ml ESV(sp4-el): 74.3 ml EF(MOD-sp4): 39.4 % EF(sp4-el): 41.7 % SV(sp4-el): 53.1 ml LA A4 area: 19.1 cm2 RA A4 area: 17.7 cm2 ECHO/Echo Limited w/Contrast Interpretation Summary The left ventricular ejection fraction is 45 %. Normal LV size. There is mild to moderate global hypokinesis of the left ventricle. Compared to previous study, the left ventricular systolic function has improved .. Contrast injection was performed. Ordering Physician: Idalmis Byers Referring Physician: Jazmine Le M.D. Performed By: Gt Archibald RCS
== END | disposition home or self-care (01) ==
LOC: CVS 12:51
PROVIDERS: PCP Family Medicine; Referring Provider Nurse Practitioner Gerontology; Visit Provider Nurse Practitioner Gerontology
DX: I25.5 Ischemic cardiomyopathy (principal)
CPT/HCPCS: 93308; Q9957; A4216; C8924

== ENCOUNTER 2023-11-21 11:30 | Outpatient (RCR) | payer MEDICARE, SELFPAY ==
[2023-09-26 10:29] VITALS: BMI 27.6
[2023-10-24 00:16] VITALS: BP 100/64
--- NOTE | 2023-10-26 09:21 | PCM.CR.ITP ---
Exercise - Initial Assessment Physician Prescribed Exercise Modalities: Treadmill, SciFit Stepper and SciFit Lateral [place] Nutrition - Initial Assessment Weight Mgt (Other Care) Height: 6 ft 5 in Weight:: 232 lb BMI: 27.5 Psychosocial - Initial Assess Target Goals Target Goals Patient Health Questionnaire PHQ-9 Screening 60-Day Re-eval Assessment: 1. Little interest or pleasure in doing things: Not at all 2. Feeling down, depressed, or hopeless: Not at all 3. Trouble falling or staying asleep, or sleeping too much: Not at all 4. Feeling tired or having little energy: Not at all 5. Poor appetite or overeating: Not at all 6. Feeling bad about yourself -- or that you are a failure or have let yourself or your family down: Not at all 7. Trouble concentrating on things, such as reading the newspaper or watching television: Not at all 8. Moving or speaking so slowly that other people could have noticed. Or the opposite - being so fidgety or restless that you have been moving around a lot more than usual: Several days 9. Thoughts that you would be better off , or of hurting yourself in some way: Not at all How difficult have these problems made it for you to do your work, take care of things at home, or get along with other people?: Not difficult at all Total Score: 1 Self-Efficacy 6-Item Scale 60-Day Re-eval Assessment: We would like to know how confident you are in doing certain activities. Please select your confidence level for: Fatigue Select Number: 10 Physical Discomfort or Pain Select Number: 10 Emotional Distress Select Number: 9 Other Symptoms or Health Problems Select Number: 10 Different Tasks and Activities Select Number: 10 Medication Select Number: 10 Total Score:: 9 Nutrition Survey Nutrition Survey Instructions Scoring Instructions Exercise - 30-day Assessment Physician Prescribed Exercise Modalities: Treadmill, SciFit Stepper and SciFit Lateral [place] Exercise - 60-day Assessment Visit Date of Eval: 10/26/23 Session #:: 24 Physician Prescribed Exercise Modalities: Treadmill, SciFit Stepper and SciFit Lateral [place] Frequency: 3x/week for 12 weeks [36 sessions] Intensity: 60-80% of age predicted maximum heart rate reserve Duration: 30 - 45 minutes Current METSs:: 4 Target Heart Rate:: 99-114 Current RPE:: 12 Maximum Excercise HR:: 120 Resting Blood Pressure: 100/72 Maximum Exercise Blood Pressure: 144/72 EKG Type: NSR to ST with a rare PAC, PVC Outcomes & Goals Goals:: Verbalizes understanding of THR, RPE & goal METS by session 6, Documents in home exercise log/reports 30 min aerobic 5 day/wk by DC, Demonstrates accurate pulse taking by DC and Other additional outcome/goals: see below Intervention & Plan Exercise Program Goals: Instruct on personal THR & RPE, Instruct on MET level & personal MET goal, Show patient to take own pulse /validate performance until accurate, Instruct on home exercise and Other additional plan/int 30-day Reassessments 30 day Reassessments:: Progressing Reassessment Notes & Comments:: Pt encouraged to walk on days not in rehab Physical Activity Home Exercise Physical Activity - Home Exercise: Safe Exercise, Warm-up, Self-monitoring, Cool-Down, Home Exercise > 30 min Daily and Sitting Time <3 hours/daily Outcomes & Goals Outcomes/Goals: Demonstrates correct Warm-up/exercise Cool-Down (S3) if = 2.5 METs, Verbalizes symptoms of exercise intolerance by Session 3 (S3), Demonstrate safe equipment use (S3) & follows exercise prescrition (6) and Other: See below Intervention & Plan Plan/Intervention: Instruct warm-up & cool-down if exercising at > 2 METs, Instruct on symptoms of exercise intolerance & actions to take, Instruct & monitor on saf, Assess intial functional capacity & safety risk and Other See below 30-day Reassessments 30 day Reassessments:: Progressing Reassessment Notes & Comments:: cool down encouraged Exercise - 90-day Assessment Physician Prescribed Exercise Modalities: Treadmill, SciFit Stepper and SciFit Lateral [place] Exercise - Final/Discharge Physician Prescribed Exercise Modalities: Treadmill, SciFit Stepper and SciFit Lateral [place] Nutrition - 30-Day Assessment Weight Mgt (Other Care) Height: 6 ft 5 in Weight:: 232 lb BMI: 27.5 Nutrition - 60-Day Assessment Program Goals Nutrition Program Goals Patient has diagnosis of Hyperlipidemia (ICD E78)?: Yes Visit Date of Eval: 10/26/23 Session #:: 24 Cholesterol/Lipids (Other Core Measures) Determine presence & major risk factors that modify LDL goal: Hypertension or hypertensive medication, Low HDL cholesterol <40 mg/dL*, Family history of premature CHD in Male < 55 years: female <65 yearsFa and Age men > 45 years; women >/= 55 years Outcomes/Goals: Pt IDs own risk factors & lifestyle modifications by Session 10, Verbalizes symptoms of angina & response by session 3., Pt independently manages and Other Additional Outcomes/Goals: Intervention/Plan: Advocate for lipid panel cholesterol medication if applicable, Instruct on personal lipid levels & lipid goals/NCEP guidelines, Instruct on cholesterol and Other additional plan/int 30-day Reassessments:: Progressing Reassessment Notes & Comments:: pt to attend nutrition class Diabetes (Other Core Measures) Diabetes Type: Not Applicable Weight Mgt (Other Care) Height: 6 ft 5 in Weight:: 232 lb BMI: 27.5 Diagnosis Overweight/Obesity BMI> 30% ICD-10 E66: No Diagnosis High BMI/Morbid Obesity BMI> 35% ICD-10 Z68: No Outcomes/Goals: Pt sets, maintains & shows weight loss goal & trend during rehab and Other additional outcomes/goals Intervention/Plan: Instruct on ideal BMI & set weight loss goal w/patient, Assist pt to ID & incorporate diet changes for weight loss by S9, Refer to Structured Weight Loss program as appropriate, Encourage goal of using 250-300dcal per session for weight loss and Other additional plan/interventions 30 day Reassessments:: Progressing Reassessment Notes & Comments:: pt to attend nutrition class Healthy Eating Habits Will attend diet classes:: Yes Outcomes/Goals:: Consume diet rich in vegs,fruits,whole grain/high fiber,fish,lean meat, Limit sat/trans fats,cholesterol & added salts & sugars and Other additional outcome/goals: Intervention/Plan:: Assess current eating habits and Other Additional plan/interventions 30-day Reassessments:: Progressing Reassessment Notes & Comments:: pt to attend nutrition class Education Gave educational materials for:: Signs & symptoms of hypoglycemia, Signs & symptoms of hyperglycemia, Relate diabetes to coronary artery disease and Healthy eating Core - 60-Day Assessment Visit Date of Eval: 10/26/23 Session #:: 24 Medication Compliance Preventative Medication(s):: Aspirin, Ticagrelor/P2Y12 inhibitor, Statin/lipid and Beta yadi H/O mental health issues: depression, anxiety, or addiction?: No Doesn?t believe in the benefits of treatment?: No Believes medications are unnecessary or harmful?: No Has a concern about medication side effects?: No Expresses concern over the cost of medications?: No Outcomes/Goals: Verbalizes medications,desired effect & common side effects @ DC, Pt self-reports following medication regimen, Keeps card in wallet w/medications listed by DC and Other additional outcome/goals: Interventions/plans: Instruct on medication effects & side effects, Review medication list w/patient every two weeks, Instruct importance of taking meds as ordered & assist problem solving and Other additional 30-day Reassessments:: Progressing Reassessment Notes & Comments:: 09/25 levothyroxine sodium 50 mcg QD Tobacco Use Tobacco Use: Non-smoker Hypertension Resting Blood Pressure:: 100/72 Citizen [place] [employer] Hypertension Guidelines Peak Exercise Blood Pressure:: 144/72 Outcomes/Goals: Able to verbalize/achieve optimal blood pressure <130/80, Incorporates diet changes & exercise for blood pressure control by DC and Other additional outcomes/goals Interventions/plan: Instruct on optimal blood pressure, hypertension & medications, Instruct on effects of sodium, alcohol, stress, exercise &hypertension and Other additional plan/interventions 30 day Reassessments:: Met Tobacco Cessation Referral Smoking Cessation Referral:: No Individual Education/Counseling:: No Education Schedule Given:: Yes Psychosocial - 30-Day Assess Target Goals Target Goals Outcomes/Goals: See list Psychosocial Outcomes/Goals:: ID's personal stressors & 2 strategies to manage stress by discharge and Other Additional outcome/goals: Psychosocial - 60-Day Assess VIsit Date of Eval: 10/26/23 Session #:: 24 History of previous Mental disease:: No Target Goals Target Goals Outcomes/Goals: See list Psychosocial Outcomes/Goals:: ID's personal stressors & 2 strategies to manage stress by discharge and Other Additional outcome/goals: Intervention/Plan: See List Interventions/Plan:: Assess stressors,coping strategies & signs of derpression on admission, Instruct/assist pt to develop coping & personal stress Mgt strategies, Refer to Behavioral Health if appropriate, Refer to Physician if appropriate, Instruct patient to recognize signs & symptoms of depression, Instruct patient to recog and Other additional plan/intervention 30-day Reassessments: 30 day Reassessments:: Met Psychosocial - 90-Day Assess Target Goals Target Goals Psychosocial - Final Assessmen Target Goals Target Goals Nutrition - 90-Day Assessment Weight Mgt (Other Care) Height: 6 ft 5 in Weight:: 232 lb BMI: 27.5 Nutrition - Final Assessment Weight Mgt (Other Care) Height: 6 ft 5 in Weight:: 232 lb BMI: 27.5
[2023-10-26 09:33] VITALS: BP 100/72; BMI 27.5
== END 2023-11-23 23:59 ==
LOC: CR 11:30
PROVIDERS: PCP Family Medicine; Referring Provider Specialist; Visit Provider Specialist
DX: Z95.5 Presence of coronary angioplasty implant and graft (principal); I21.4 Non-ST elevation (NSTEMI) myocardial infarction; I25.10 Atherosclerotic heart disease of native coronary artery without angina pectoris
CPT/HCPCS: 93798

== ENCOUNTER → 2023-11-21 | Outpatient (CLI) | payer MEDICARE, SELFPAY ==
[2023-10-26 09:33] VITALS: BMI 27.5
[2023-11-21 13:23] LABS: Thyroid Stim Hormone (TSH) 1.93 uIU/mL (0.358-3.74)
== END | disposition home or self-care (01) ==
LOC: LAB 11:50
PROVIDERS: PCP Family Medicine; Referring Provider Family Medicine; Visit Provider Family Medicine
DX: E03.9 Hypothyroidism, unspecified (principal)
CPT/HCPCS: 36415; 84443

== ENCOUNTER → 2023-11-25 | Outpatient (CLI) | payer MEDICARE, SELFPAY ==
[2023-11-25 08:36] VITALS: BMI 27.5
[2023-11-25 09:50] LABS: AST(SGOT) 25 U/L (15-37); Alanine Aminotransfer ALT/SGPT 30 U/L (16-61); Albumin, Serum 3.5 g/dL (3.2-5.0); Alkaline Phosphatase 65 U/L (45-117); Bilirubin, Direct 0.18 mg/dL (0.00-0.30); Cholesterol 81 mg/dL (200); Globulin 3.9 g/dL (2.2-4.2); High Density Lipoprotein 38 mg/dL; Protein, Total 7.4 g/dL (6.4-8.2); Triglycerides 111 mg/dL; Very Low Density Lipoprotein 22 mg/dL (5-40)
== END | disposition home or self-care (01) ==
LOC: LAB 08:38
PROVIDERS: PCP Family Medicine; Referring Provider Nurse Practitioner Gerontology; Visit Provider Nurse Practitioner Gerontology
DX: I25.10 Atherosclerotic heart disease of native coronary artery without angina pectoris (principal)
CPT/HCPCS: 36415; 80061; 80076

== ENCOUNTER → 2024-01-24 | Outpatient (CLI) | payer MEDICARE, SELFPAY ==
[2023-11-25 08:36] VITALS: BMI 27.5
[2024-01-24 12:13] LABS: Protein, Urine (Random) 11.7 mg/dL (<11.9); Protein:Creat Ratio 75 mg/g CRE (0-200)
== END | disposition home or self-care (01) ==
LOC: MFPLAB 10:57
PROVIDERS: PCP Family Medicine; Visit Provider Family Medicine
DX: I25.10 Atherosclerotic heart disease of native coronary artery without angina pectoris (principal)
CPT/HCPCS: 82570; 84156

== ENCOUNTER → 2024-05-28 | Outpatient (CLI) | payer MEDICARE, SELFPAY ==
[2023-11-25 08:36] VITALS: BMI 27.5
[2024-05-28 12:13] LABS: AST(SGOT) 26 U/L (15-37); Alanine Aminotransfer ALT/SGPT 37 U/L (16-61); Albumin, Serum 3.3 g/dL (3.2-5.0); Alkaline Phosphatase 69 U/L (45-117); Bilirubin, Direct 0.16 mg/dL (0.00-0.30); Cholesterol 90 mg/dL (200); Globulin 3.7 g/dL (2.2-4.2); High Density Lipoprotein 47 mg/dL; Triglycerides 129 mg/dL; Very Low Density Lipoprotein 26 mg/dL (5-40)
== END | disposition home or self-care (01) ==
LOC: LAB 11:11
PROVIDERS: PCP Family Medicine; Referring Provider Nurse Practitioner Gerontology; Visit Provider Nurse Practitioner Gerontology
DX: E78.00 Pure hypercholesterolemia, unspecified (principal); I25.10 Atherosclerotic heart disease of native coronary artery without angina pectoris
CPT/HCPCS: 80061; 80076

== ENCOUNTER → 2024-07-18 | Outpatient (CLI) | payer MEDICARE, SELFPAY ==
[2023-11-25 08:36] VITALS: BMI 27.5
--- NOTE | 2024-07-18 13:46 | ECHOLC_ITS ---
Reason For Study Reason For Study: DILATED CMP Procedure This was a limited 2D transthoracic echocardiogram. Contrast injection was performed. Exam performed in department. Left Ventricle Normal LV size. Left ventricular systolic function is normal. The left ventricular ejection fraction is 55 %. No regional wall motion abnormalities noted. Right Ventricle Normal RV size. Normal systolic function. Atria Normal left atrium. Normal right atrium. Mitral Valve Normal mitral valve. Tricuspid Valve Normal tricuspid valve. Aortic Valve The aortic valve is not well visualized. Pulmonic Valve Normal pulmonic valve. Great Vessels Normal aortic root. The pulmonary artery is normal size. Normal inferior vena cava. Pericardium/Pleural No pericardial effusion. Medication 22 gauge I.V. with prn adaptor inserted into right arm. Diluted definity 2.5ml given slow IV push to enhance endocardial definition. MMode/2D Measurements & Calculations LVIDd: 5.2 cm IVSd: 1.0 cm Ao root diam: 3.7 cm LVIDs: 3.8 cm LVPWd: 1.0 cm RVDd: 3.2 cm FS: 27.4 % LAV(MOD-bp): 47.7 ml LVAd ap4: 38.2 cm2 LVAd ap2: 30.8 cm2 LAV(MOD-bp) Indexed: 20.0 ml/m2 LVLd ap4: 8.9 cm LVLd ap2: 8.1 cm LAV(MOD-sp2): 47.5 ml EDV(MOD-sp4): 135.9 ml EDV(MOD-sp2): 100.8 ml LAV(MOD-sp4): 41.6 ml EDV(sp4-el): 139.5 ml EDV(sp2-el): 99.8 ml LVAs ap4: 23.0 cm2 LVAs ap2: 18.2 cm2 LVLs ap4: 7.3 cm LVLs ap2: 6.9 cm ESV(MOD-sp4): 62.7 ml ESV(MOD-sp2): 41.4 ml ESV(sp4-el): 61.8 ml ESV(sp2-el): 40.6 ml EF(MOD-sp4): 53.9 % EF(MOD-sp2): 58.9 % EF(sp4-el): 55.7 % SV(MOD-sp4): 73.2 ml SV(MOD-sp2): 59.4 ml SV(sp4-el): 77.7 ml SI(MOD-sp4): 30.7 ml/m2 SI(MOD-sp2): 24.9 ml/m2 LA A4 area: 15.2 cm2 LA dimension(2D): 3.6 cm RA A4 area: 14.3 cm2 ECHO/Echo Limited w/Contrast Interpretation Summary Normal LV size. Left ventricular systolic function is normal. The left ventricular ejection fraction is 55 %. Contrast injection was performed. Ordering Physician: Lila^Shelby^Gamal^^ANALILIA BILLINGSLEY Referring Physician: Jazmine Le Performed By: Brandi George RDCS, RVT
== END | disposition home or self-care (01) ==
LOC: CVS 13:44
PROVIDERS: PCP Family Medicine; Referring Provider Physician Assistant Medical; Visit Provider Physician Assistant Medical
DX: I25.5 Ischemic cardiomyopathy (principal)
CPT/HCPCS: 93308; Q9957; A4216; C8924

== ENCOUNTER → 2024-12-10 | Outpatient (CLI) | payer MEDICARE, SELFPAY ==
[2023-11-25 08:36] VITALS: BMI 27.5
--- OUTSIDE RECORDS SUMMARY | 2024-12-10 07:25 | XMS RPT_ITS | CCD ---
Author Organization [facility] CliniSyde Care Team Providers Care Beater Tender Name Role Phone Dr. Jazmine Le Primary Care Provider Dr. Filiberto Leonard Emergency Provider Dr. Oral Smiley Admit Provider Dr. Oral Smiley Other Provider Dr. Luca Canada Attending Provider Dr. Luca Canada Other Provider Dr. Ender Faust Other Provider Dr. Ender Faust Attending Provider Dr. Bibiana Cifuentes Attending Provider Dr. Jazmine Le Primary Care Provider Dr. Bibiana Cifuentes Attending Provider Dr. Oral Smiley Referring Provider Dr. Luca Canada Referring Provider Dr. Bibiana Cifuentes Referring Provider Dr. Jazmine Le Referring Provider EVA Byers NP Attending Provider Dr. Jazmine Le MD Primary Care Provider Idalmis Longoria Attending Provider Idalmis Longoria Referring Provider Dr. Jazmine Le MD Referring Provider Shelby Potter Attending Provider [phone] Shelby Potter Referring Provider [phone] Dr. Carlos Mendez MD Attending Provider [phone] Jolliff, Jazmine S Primary Care Unavailable Carlos Mendez Attending Unavailable Jolliff, Jazmine S Primary Care Unavailable Nagajothi, Nagapradee Referring Unavailabl e Nagajothi, Nagapradee Attending Unavailabl e Jolliff, Jazmine S Primary Care Unavailable Carlos Mendez Attending Unavailable Jolliff, Jazmine S Primary Care Unavailable eZeshan AYALA, Idalmis Attending Unavailable Jolliff, Jazmine S Referring Unavailable Jolliff, Jazmine S Primary Care Unavailable Jolliff, Jazmine S Attending Unavailable Jolliff, Jazmine S Referring Unavailable ArielMiek Attending Unavailable ArielMike Referring Unavailable Hilario Garsia NP Consulting Unavailable Jolliff, Jazmine S Primary Care Unavailable Nagajothi, Nagapradee Attending Unavailabl e Nagajothi, Nagapradee Referring Unavailabl e Jolliff, Jazmine S Primary Care Unavailable Jolliff, Jazmine S Primary Care Unavailable Nagajothi, Nagapradee Attending Unavailabl e Jolliff, Jazmine S Primary Care Unavailable Oral Smiley Referring Unavailable Nagajothi, Nagapradee Attending Unavailabl e Idalmis Byers NP Attending Unavailable Jolliff, Jazmine S Referring Unavailable Jolliff, Jazmine S Primary Care Unavailable Jolliff, Jazmine S Primary Care Unavailable Nagajothi, Nagapradee Attending Unavailabl e Jolliff, Jazmine S Primary Care Unavailable Zeeshan AYALA, Idalmis Referring Unavailable Zeeshan AYALA, Idalmis Attending Unavailable Jolliff, Jazmine S Primary Care Unavailable Jolliff, Jazmine S Attending Unavailable Jolliff, Jazmine S Primary Care Unavailable Zeeshan TRIPPER, Idalmis Attending Unavailable Zeeshan TRIPPER, Idalmis Referring Unavailable Jolliff, Jazmine S Primary Care Unavailable Luca Canada Consulting Unavailable Oral Smiley Admitting Unavailable Ender Faust Attending Unavailable Oral Smiley Consulting Unavailable Nagajothi, Nagapradee Referring Unavailabl e Nagajothi, Nagapradee Attending Unavailabl e Jolliff, Jazmine S Primary Care Unavailable Nagajothi, Nagapradee Referring Unavailabl e Nagajothi, Nagapradee Attending Unavailabl e Jolliff, Jazmine S Primary Care Unavailable Jolliff, Jazmine S Primary Care Unavailable Bibiana Cifuentes Referring Unavailabl e Bibiana Cifuentes Attending Unavailabl e Jolliff, Jazmine S Primary Care Unavailable Shelby Potter Attending Unavail able Jolliff, Jazmine S Referring Unavailable Jolliff, Jazmine S Primary Care Unavailable Zeeshan AYALA, Idalmis Attending Unavailable Idalmis Byers NP Referring Unavailable Jolliff, Jazmine S Primary Care Unavailable Shelby Potter Attending Unavail able Shelby Potter Referring Unavail able Jolliff, Jazmine S Primary Care Unavailable Luca Canada Consulting Unavailable Oral Smiley Attending Unavailable Oral Smiley Admitting Unavailable Oral Smiley Consulting Unavailable Dread Farrich Attending Unavailable Natasha Canadak Referring Unavailable Ender Faust Consulting Unavailable Ender Faust Attending Unavailable Medications Current Medications Medication Drug Class(es) Dates Sig (Normalized) Sig (Original) aspirin 81 mg delayed release oral tablet (3 sources) Platelet Aggregation Inhibitor, Nonsteroidal Anti-inflammatory Drug Start: 08-16-2023 take 1 tablet by mouth at breakfast Aspirin 81 mg Tablet,Delayed Release (Dr/Ec) Active 81 mg PO WITH BREAKFAST 0 August 16, 2023 12:00am atorvastatin 20 mg oral tablet (6 sources) HMG-CoA Reductase Inhibitor Start: 06-14-2024 take 1 tablet by mouth at bedtime Atorvastatin 20 mg tablet Active 20 mg PO AT BEDTIME June 14, 2024 11:32am Start: 08-16-2023 End: 06-14-2024 take 1 tablet by mouth at bedtime Atorvastatin 40 mg tablet Discontinued 40 mg PO AT BEDTIME August 30, 2023 2:17pm June 14, 2024 11:34am levothyroxine sodium 0.05 mg oral tablet (1 source) l-Thyroxine Start: 11-01-2023 take 1 tablet by mouth once daily Levothyroxine 50 mcg tablet Active 50 ug PO DAILY November 01, 2023 12:00am lisinopril 5 mg oral tablet (7 sources) Angiotensin Converting Enzyme Inhibitor Start: 06-14-2024 take 1 tablet by mouth once daily Lisinopril 5 mg tablet Active 5 mg PO DAILY June 14, 2024 11:33am Start: 11-02-2023 End: 06-14-2024 take 5 mg by mouth once daily Lisinopril 10 mg tablet Discontinued 5 mg PO DAILY 0 November 02, 2023 9:32am June 14, 2024 11:34am Start: 08-16-2023 End: 11-02-2023 take 1 tablet by mouth once daily Lisinopril 10 mg tablet Discontinued 10 mg PO DAILY August 30, 2023 2:18pm November 02, 2023 9:34am 24 hr metoprolol succinate 50 mg extended release oral tablet (6 sources) beta-Adrenergic Yadi Start: 08-16-2023 End: 06-18-2024 take 1 tablet by mouth once daily Metoprolol Succinate 50 mg tablet extended release 24 hr Active 50 mg PO DAILY June 18, 2024 10:00am tamsulosin hydrochloride 0.4 mg oral capsule (1 source) alpha-Adrenergic Yadi Start: 11-01-2023 take 1 capsule by mouth at bedtime Tamsulosin 0.4 mg capsule Active 0.4 mg PO AT BEDTIME November 01, 2023 12:00am ticagrelor 90 mg oral tablet (6 sources) Start: 08-16-2023 End: 06-18-2024 take 1 tablet by mouth twice daily Ticagrelor (Brilinta) 90 mg tablet Active 90 mg PO TWICE A DAY June 18, 2024 10:02am Problems Active Problems Problem Classification Problem Date Documented Da te Episodic/Chronic Acute myocardial infarction (9 sources) Myocardial infarction; Translations: [Non-ST elevation (NSTEMI) myocardial infarction] Onset: 08-13-2023 08-13-2023 Chronic Cardiac dysrhythmias (1 source) Tachycardia; Translations: [Tachycardia, unspecified] 09-21-2023 Episodic Coronary atherosclerosis and other heart disease (11 sources) Coronary atherosclerosis; Translations: [Atherosclerotic heart disease of [place] coronary artery without angina pectoris] Onset: 08-13-2023 08-15-2023 Chronic Disorders of lipid metabolism (1 source) Pure hypercholesterolem ia, unspecified; Translations: [Pure hypercholesterolem ia, unspecified] Onset: 06-15-2024 Chronic Thyroid disorders (1 source) Hypothyroidism, unspecified; Translations: [Hypothyroidism, unspecified] Onset: 12-13-2023 Chronic Past or Other Problems Problem Classification Problem Date Documented Da te Episodic/Chronic Coronary atherosclerosis and other heart disease (9 sources) Stented coronary artery; Translations: [Presence of coronary angioplasty implant and graft] Onset: 08-15-2023 08-15-2023 Episodic Comment on above: 3.5 X 18 mm CHELSIE to m id LAD; 2.75 X 12 and 2.25 X 12 CHELSIE to proximal first diagonal. Genitourinary symptoms and ill-defined conditions (2 sources) Blood in urine; Translations: [Hematuria, unspecified] Onset: 09-29-2023 09-21-2023 Episodic Results Test Name Value Interpretation Reference Range Facility Echo Limited w/Contraston Echo Limited w/Contrast [facility] [address] [place] [address] Echo Limited w/Contrast 07/18/24 1351 MR#: [id number] Acct: [id number] Name: DEIRDRE ORTIZ Rep #: [id number] : 1955 69 From: Carlos Mendez MD Attending Dr: ANALILIA Mehta Status: REG CLI Ordering Dr: Shelby Sharp PA Date: 06/24 10/17 Location: [facility] Sex: M C Admitted: Reason For Study Reason For Study: DILATED CMP Procedure This was a limited 2D transthoracic echocardiogram. Contrast injection was performed. Exam performed in department. Left Ventricle Normal LV size. Left ventricular systolic function is normal. The left ventricular ejection fraction is 55 %. No regional wall motion abnormalities noted. Right Ventricle Normal RV size. Normal systolic function. Atria Normal left atrium. Normal right atrium. Mitral Valve Normal mitral valve. Tricuspid Valve Normal tricuspid valve. Aortic Valve The aortic valve is not well visualized. Pulmonic Valve Normal pulmonic valve. Great Vessels Normal aortic root. The pulmonary artery is normal size. Normal inferior vena cava. Pericardium/Pleural No pericardial effusion. Medication 22 gauge I.V. with prn adaptor inserted into right arm. Diluted definity 2.5ml given slow IV push to enhance endocardial definition. MMode/2D Measurements Calculations LVIDd: 5.2 cm IVSd: 1.0 cm Ao root diam: 3.7 cm LVIDs: 3.8 cm LVPWd: 1.0 cm RVDd: 3.2 cm FS: 27.4 % LAV(MOD-bp): 47.7 ml LVAd ap4: 38.2 cm2 LVAd ap2: 30.8 cm2 LAV(MOD-bp) Indexed: 20.0 ml/m2 LVLd ap4: 8.9 cm LVLd ap2: 8.1 cm LAV(MOD-sp2): 47.5 ml EDV(MOD-sp4): 135.9 ml EDV(MOD-sp2): 100.8 ml LAV(MOD-sp4): 41.6 ml EDV(sp4-el): 139.5 ml EDV(sp2-el): 99.8 ml LVAs ap4: 23.0 cm2 LVAs ap2: 18.2 cm2 LVLs ap4: 7.3 cm LVLs ap2: 6.9 cm ESV(MOD-sp4): 62.7 ml ESV(MOD-sp2): 41.4 ml ESV(sp4-el): 61.8 ml ESV(sp2-el): 40.6 ml EF(MOD-sp4): 53.9 % EF(MOD-sp2): 58.9 % EF(sp4-el): 55.7 % SV(MOD-sp4): 73.2 ml SV(MOD-sp2): 59.4 ml SV(sp4-el): 77.7 ml SI(MOD-sp4): 30.7 ml/m2 SI(MOD-sp2): 24.9 ml/m2 LA A4 area: 15.2 cm2 LA dimension(2D): 3.6 cm RA A4 area: 14.3 cm2 ECHO/Echo Limited w/Contrast Interpretation Summary Normal LV size. Left ventricular systolic function is normal. The left ventricular ejection fraction is 55 %. Contrast injection was performed. Ordering Physician: Lila BILLINGSLEY PA Referring Physician: Jazmine Le Performed By: Brandi George RDCS, RVT 07/18/24 1450 Date Carlos Mendez MD CC: Dr. Jazmine Le MD; ANALILIA Mehta Date Dictated: 07/18/24 135 Date Transcribed: 07/18/24 145 Wire Wheeler: Signed Normal [facility] Limited echocardiogram repor tOrdered By: Carlos Mendez on 07-18-2024 Study report [facility] [address] [place] [address] Echo Limited w/Contrast 07/18/24 1351 MR#: [id number] Acct: [id number] Name: DEIRDRE ORTIZ Rep #:[id number] : 1955 69 From: Carlos Nelson Attending Dr: ANALILIA Mehta Status: REG CLI Ordering Dr: Shelby Sharp Date: 07/18/24 Location: [facility] Sex: M C Admitted: Reason For Study Reason For Study: DILATED CMP Procedure This was a limited 2D transthoracic echocardiogram. Contrast injection was performed. Exam performed in department. Left Ventricle Normal LV size. Left ventricular systolic function is normal. The left ventricular ejection fraction is 55 %. No regional wall motion abnormalities noted. Right Ventricle Normal RV size. Normal systolic function. Atria Normal left atrium. Normal right atrium. Mitral Valve Normal mitral valve. Tricuspid Valve Normal tricuspid valve. Aortic Valve The aortic valve is not well visualized. Pulmonic Valve Normal pulmonic valve. Great Vessels Normal aortic root. The pulmonary artery is normal size. Normal inferior vena cava. Pericardium/Pleural No pericardial effusion. Medication 22 gauge I.V. with prn adaptor inserted into right arm. Diluted definity 2.5ml given slow IV push to enhance endocardial definition. MMode/2D Measurements & Calculations LVIDd: 5.2 cm IVSd: 1.0 cm Ao root diam: 3.7 cm LVIDs: 3.8 cm LVPWd: 1.0 cm RVDd: 3.2 cm FS: 27.4 % LAV(MOD-bp): 47.7 ml LVAd ap4: 38.2 cm2 LVAd ap2: 30.8 cm2 LAV(MOD-bp) Indexed: 20.0 ml/m2 LVLd ap4: 8.9 cm LVLd ap2: 8.1 cm LAV(MOD-sp2): 47.5 ml EDV(MOD-sp4): 135.9 ml EDV(MOD-sp2): 100.8 ml LAV(MOD-sp4): 41.6 ml EDV(sp4-el): 139.5 ml EDV(sp2-el): 99.8 ml LVAs ap4: 23.0 cm2 LVAs ap2: 18.2 cm2 LVLs ap4: 7.3 cm LVLs ap2: 6.9 cm ESV(MOD-sp4): 62.7 ml ESV(MOD-sp2): 41.4 ml ESV(sp4-el): 61.8 ml ESV(sp2-el): 40.6 ml EF(MOD-sp4): 53.9 % EF(MOD-sp2): 58.9 % EF(sp4-el): 55.7 % SV(MOD-sp4): 73.2 ml SV(MOD-sp2): 59.4 ml SV(sp4-el): 77.7 ml SI(MOD-sp4): 30.7 ml/m2 SI(MOD-sp2): 24.9 ml/m2 LA A4 area: 15.2 cm2 LA dimension(2D): 3.6 cm RA A4 area: 14.3 cm2 ECHO/Echo Limited w/Contrast Interpretation Summary Normal LV size. Left ventricular systolic function is normal. The left ventricular ejection fraction is 55 %. Contrast injection was performed. Ordering Physician: Lila^Shelby^Gamal ^^ANALILIA BILLINGSLEY Referring Physician: Jazmine Le Performed By: Brandi George, JAKOB, RVT 07/18/24 1450 Date _ Carlos Mendez MD CC: Dr. Jazmine Le MD; ANALILIA Mehta ~ Date Dictated: 07/18/24 1351 Date Transcribed: 07/18/24 145 Wire Wheeler: Signed [facility] Work Phone: Cardiology Visit Reporton Cardiology Visit Report [facility] [address] [place], [place] [address] OFFICE VISIT Date of Service: 06/14/24 MR#: [id number] Acct: [id number] Name: DEIRDRE ORTIZ Rep #: [id number] : 1955 Provider: ANALILIA Molina Age/Sex: 69/M [place] [facility] [place] Status: Signed HPI HPI History of Present Illness Details: This is a 69 year old male who presents to the office today for a cardiovascular follow-up visit. He had presented to [facility] ER in July of 2023 complaining of symptoms of chest pain. Evidently he was having symptoms of chest pain while he was mowing his lawn with his tractor. He described the chest pain as severe retrosternal, and associated with diaphoresis. Evaluation in the ER demonstrated an EKG showing T wave inversion noted in the LAD distribution, his high sensitivity troponin was noted to be elevated. He underwent a cardiac catheterization which demonstrated 95% stenosis in his mid LAD, 95% stenosis in his proximal diagonal 1, and 60% stenosis in his right PDA. He underwent successful CHELSIE to pD1 and mLAD. His left ventricular systolic function was noted to be 35%. He was discharged on atorvastatin, metoprolol succinate, aspirin, Brilinta, and lisinopril. Repeat echocardiogram in October demonstrated an improved ejection fraction of 45%. From a cardiac standpoint, patient is doing well. He does not have any chest discomfort/heaviness /tightness. His exercise tolerance is stable for his age. He does not have any worsening symptoms of shortness of breath. He denies any PND. He does not have any orthopnea. He does not have any symptoms of congestive heart failure. He does not have any palpitations that he is aware of. He does not have any lightheadedness or dizziness. He does not have any near-syncope or syncope. He does not have any lower extremity edema. He does not have any symptoms of claudication. He does have knee pain. 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 Is patient in pain?: No Allergies No Known Allergies Allergy (Verified 06/14/24 10:08) Medications ???Medication ???Instructions ???Recorded ???Confirmed ???Type aspirin 81 mg tablet,delayed 81 mg PO BREAKFAST #0 tabs 4 06/14/24 Rx release metoprolol succinate 50 mg 50 mg PO DAILY #90 tabs 08/30/23 0 06/14/24 Rx tablet,extended release 24 hr ticagrelor 90 mg tablet (Brilinta) 90 mg PO BID #180 tabs 08/30/23 06/14/24 Rx levothyroxine 50 mcg tablet 50 mcg PO DAILY 11/01/23 06/14/24 History tamsulosin 0.4 mg capsule 0.4 mg PO QHS 11/01/23 06/14/24 Hi story atorvastatin 20 mg tablet 20 mg PO QHS #90 tabs 02/20/25 02/ 20/25 Rx lisinopril 5 mg tablet 5 mg PO DAILY #90 tabs 06/14/24 Rx Ejection fraction %: 45 Have you fallen in the past year?: No [facility] Medical History (Updated 06/14/24 @ 10:16 by Shelby Sharp PA, PA) Ischemic cardiomyopathy 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) Kidney stones Surgical History Stented coronary artery (08/15/23) H/O hernia repair Family History Father Heart disease CAD (coronary artery disease) Myocardial infarction Mother Leukemia Social History Smoking Status: Never smoker ROS Const Const: Negative for fatigue, weakness, fever(s), headache(s), chills, frequent falls, weight gain or weight loss Eyes Eyes: Negative for blind spots, loss of peripheral vision, transient loss of vision, blurry vision, change in vision, double vision, floaters or tunnel vision ENT ENT: Negative for headache(s), dizziness, Nosebleed/epistaxis, balance problems or neck pain Cardio Chest Pain: No Palpitations: No Edema: None Muscle aches with walking: None Resp Respiratory: Negative for SOB with activity, SOB at rest or SOB orthopnea SOB lying down GI GI: Negative nausea, vomiting, heartburn, bloating, vomiting blood/hematemesis, bright, red blood in stools or black,tarry stools Musc Musc: Negative for muscle aches/ myalgia, muscle weakness, joint pain or balance problems Neuro Neuro: Negative for dizziness, lightheadedness, near syncope, syncope, orthostatic symptoms, frequent falls, headache(s), weakness, blurry vision or double vision Denilson Hematologic/Lymphati c: Negative for easy bleeding or easy bruising Endo Endo: Negative for (more content not included)... Normal [facility] Bilirubin directOrdered By: Idalmis Byers on 05-28-2024 Bilirubin.direct [Mass/Vol] 0.16 mg/dL 0.00-0.30 [facility] Bilirubin, totalOrdered By: Idalmis Byers on 05-28-2024 Bilirubin [Mass/Vol] 0.80 mg/dL 0.20-1.00 [facility] Comment on above: For patients on eltr ombopag therapy, use of Dimension [place] TBIL is not recommended. High density lipoprotein (HD L) measurementOrdered By: Idalmis Byers on 05-28-2024 Cholesterol in HDL [Mass/Vol] 47 mg/dL >40 [facility] Comment on above: The drugs N-Acetylcy steine and Metamizole may falsely depress this assay. Reference Range HDL <40 mg/dL Low HDL Cholesterol HDL >or= 60 mg/dL High HDL Cholesterol Laboratory - Chemistry and C hemistry - challengeOrdered By: Idalmis Byers on 05-28-2024 AST [Catalytic activity/Vol] 26 U/L 15-37 [facility] Lipid Profileon 05-28-2024 Cholesterol [Mass/Vol] 90 mg/dL Normal 200 [facility] Comment on above: Result Comment: <200 mg/dL Desirable 200-240 mg/dL Borderline >240 mg/dL High Risk Performed By: #### L 500.3400, L500.4100 ####[facility] [address] [facility] [address] Cholesterol in HDL [Mass/Vol] 47 mg/dL Normal [facility] Comment on above: Result Comment: The drugs N-Acetylcysteine and Metamizole may falsely depress this assay. Reference Range HDL <40 mg/dL Low HDL Cholesterol HDL >or= 60 mg/dL High HDL Cholesterol Performed By: #### L 500.3400, L500.4100 ####[facility] [address] [place], [address] Cholesterol in LDL [Mass/Vol] 17 mg/dL Normal 0-130 [facility] Comment on above: Performed By: #### L 500.3400, L500.4100 ####[facility] [address] [place], [address] Cholesterol in VLDL [Mass/Vol] 26 mg/dL Normal 5-40 [facility] Comment on above: Performed By: #### L 500.3400, L500.4100 ####[facility] [address] [place], [address] Triglyceride [Mass/Vol] 129 mg/dL Normal [facility] Comment on above: Result Comment: The drugs N-Acetylcysteine and Metamizole may falsely depress this assay. Serum Triglycerides Reference Interval Normal <150 mg/dL Borderline high 150 - 199 mg/dL High 200 - 499 mg/dL Very High > or = 500 mg/dL Performed By: #### L 500.3400, L500.4100 ####[facility] [address] [place], [address] Liver Profileon 05-28-2024 Albumin [Mass/Vol] 3.3 g/dL Normal 3.2-5.0 [facility] Comment on above: Performed By: #### L 500.3400, L500.4100 #### [facility] [address] [place], [address] ALK P 69 U/L Normal 45-117 [facility] Comment on above: Performed By: #### L 500.3400, L500.4100 #### [facility] [address] [place], [address] ALT [Catalytic activity/Vol] 37 U/L Normal 16-61 [facility] Comment on above: Performed By: #### L 500.3400, L500.4100 #### [facility] [address] [place], [address] AST [Catalytic activity/Vol] 26 U/L Normal 15-37 [facility] Comment on above: Performed By: #### L 500.3400, L500.4100 #### [facility] [address] [place], [address] Bilirubin [Mass/Vol] 0.80 mg/dL Normal 0.20-1.00 [facility] Comment on above: Result Comment: For patients on eltrombopag therapy, use of Dimension [place] TBIL is not recommended. Performed By: #### L 500.3400, L500.4100 #### [facility] [address] [place], [address] Bilirubin.direct [Mass/Vol] 0.16 mg/dL Normal 0.00-0.30 [facility] Comment on above: Performed By: #### L 500.3400, L500.4100 #### [facility] [address] [place], [address] Globulin (S) [Mass/Vol] 3.7 g/dL Normal 2.2-4.2 [facility] Comment on above: Performed By: #### L 500.3400, L500.4100 #### [facility] [address] [place], [address] T PROT 7.0 g/dL Normal 6.4-8.2 [facility] Comment on above: Performed By: #### L 500.3400, L500.4100 #### [facility] [address] [place], [address] Low density lipoprotein (LDL ) cholesterol measurementOrdered By: Idalmis Byers on 05-28-2024 Cholesterol in LDL [Mass/Vol] 17 mg/dL 0-130 [facility] Serum globulin measurementOr dered By: Idalmis Byers on 05-28-2024 Globulin (S) [Mass/Vol] 3.7 g/dL 2.2-4.2 [facility] Serum or plasma alanine perdomo otransferase (ALT) measurementOrdered By: Idalmis Byers on 05-28-2024 ALT [Catalytic activity/Vol] 37 U/L 16-61 [facility] Serum or plasma albumin allison urement (mass/volume)Ordered By: Idalmis Byers on 05-28-2024 Albumin [Mass/Vol] 3.3 g/dL 3.2-5.0 [facility] Serum or plasma alkaline mihir sphatase measurementOrdered By: Idalmis Byers on 05-28-2024 ALP [Catalytic activity/Vol] 69 U/L 45-117 [facility] Serum or plasma cholesterol measurement (mass/volume)Ordered By: Idalmis Byers on 05-28-2024 Cholesterol [Mass/Vol] 90 mg/dL <200 [facility] Comment on above: <200 mg/dL Desirable 200-240 mg/dL Borderline >240 mg/dL High Risk Total proteinOrdered By: Aureliano Byers on 05-28-2024 Protein [Mass/Vol] 7.0 g/dL 6.4-8.2 [facility] Triglycerides measurementOrd ered By: Idalmis Byers on 05-28-2024 Triglyceride [Mass/Vol] 129 mg/dL <199 [facility] Comment on above: The drugs N-Acetylcy steine and Metamizole may falsely depress this assay.Serum Triglycerides Reference Interval Normal <150 mg/dL Borderline high 150 - 199 mg/dL High 200 - 499 mg/dL Very High > or = 500 mg/dL Very low density lipoprotein (VLDL) cholesterol measurementOrdered By: Idalmis Byers on 05-28-2024 VLDL Cholesterol 26 mg/dL 5-40 [facility] Protein+Creatinine Ratio,Uri neon 01-24-2024 PROT:CRE RATIO 75 mg/g CRE Normal 0-200 [facility] Comment on above: Performed By: #### L 9100.0200 #### [facility] [address] [place], [address] Protein (U) [Mass/Vol] 11.7 mg/dL Normal <11.9 [facility] Comment on above: Performed By: #### L 9100.0200 #### [facility] [address] [place], [place], [address] UR CREAT 156.00 mg/dL Normal NO RANGE EST. [facility] Comment on above: Performed By: #### L 9100.0200 #### [facility] [address] [place], [place], [id number] Cardiology Visit Reporton Cardiology Visit Report [facility] [address] [place], [place] [address] OFFICE VISIT Date of Service: 12/06/23 MR#: [id number] Acct: [id number] Name: DEIRDRE ORTIZ Rep #: [id number] : 1955 Provider: EVA vanegas Age/Sex: 68/M [place] [facility] [place] Status: Signed HPI HPI History of Present Illness Details: This is a 68 year old male who presents to the office today for a cardiovascular follow-up visit. He had presented to [facility] ER in July of this year complaining of symptoms of chest pain. Evidently he was having symptoms of chest pain while he was mowing his lawn with his tractor. He described the chest pain as severe retrosternal, and associated with diaphoresis. Evaluation in the ER demonstrated an EKG showing T wave inversion noted in the LAD distribution, his high sensitivity troponin was noted to be elevated. He underwent a cardiac catheterization which demonstrated 95% stenosis in his mid LAD, 95% stenosis in his proximal diagonal 1, and 60% stenosis in his right PDA. He underwent successful CHELSIE to pD1 and mLAD. His left ventricular systolic function was noted to be 35%. He was discharged on atorvastatin, metoprolol succinate, aspirin, Brilinta, and lisinopril. From a cardiac standpoint, the patient is doing well. He denies any palpitations, chest pain, pressure or heaviness. He denies SOB, Orthopnea, and PND. He does not have bleeding issues; no blood in urine, stool or nosebleeds. He denies any decrease in energy level, myalgias, or claudication. He does not have edema, or sudden weight gain. He denies dizziness, lightheadedness, syncopal or near syncopal episodes, and headaches. 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 Is patient in pain?: No Allergies No Known Allergies Allergy (Verified 12/06/23 11:34) Medications ???Medication ???Instructions ???Recorded ???Confirmed ???Type aspirin 81 mg tablet,delayed 81 mg PO BREAKFAST #0 tabs 08/16/23 12/06/23 Rx release atorvastatin 40 mg tablet 40 mg PO QHS #90 tabs 08/30/23 12/06/23 Rx metoprolol succinate 50 mg 50 mg PO DAILY #90 tabs 08/30/23 12/06/23 Rx tablet,extended release 24 hr ticagrelor 90 mg tablet (Brilinta) 90 mg PO BID #180 tabs 08/30/23 12/06/23 Rx levothyroxine 50 mcg tablet 50 mcg PO DAILY 11/01/23 12/06/23 History tamsulosin 0.4 mg capsule 0.4 mg PO QHS 11/01/23 12/06/23 History lisinopril 10 mg tablet 5 mg (1/2 x 10 mg) PO DAILY #0 tabs 11/02/23 12/06/23 Rx Have you fallen in the past year?: No PFSH Medical History 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) Kidney stones Surgical History Stented coronary artery (08/15/23) H/O hernia repair Family History Father Heart disease CAD (coronary artery disease) Myocardial infarction Mother Leukemia Social History Smoking Status: Never smoker ROS Const Const: Negative for fatigue, weakness, fever(s), headache(s), chills, frequent falls, weight gain or weight loss Eyes Eyes: Negative for blind spots, loss of peripheral vision, transient loss of vision, blurry vision, change in vision, double vision, floaters or tunnel vision ENT ENT: Negative for headache(s), dizziness, Nosebleed/epistaxis, balance problems or neck pain Cardio Chest Pain: No Palpitations: No Edema: None Muscle aches with walking: None Resp Respiratory: Negative for SOB with activity, SOB at rest or SOB orthopnea SOB lying down GI GI: Negative nausea, vomiting, heartburn, bloating, vomiting blood/hematemesis, bright, red blood in stools or black,tarry stools Musc Musc: Negative for muscle aches/ myalgia, muscle weakness, joint pain or balance problems Neuro Neuro: Negative for dizziness, lightheadedness, near syncope, syncope, orthostatic symptoms, frequent falls, headache(s), weakness, blurry vision or double vision Denilson Hematologic/Lymphati c: Negative for easy bleeding or easy bruising Endo Endo: Negative for fatigue Cardiology Exam Const Appearance: cooperative and no acute distress Nutritional Appearance: average body habitus and overweight Orientation: alert and oriented x3 Head Head: normal to inspection Ears: hearing grossly normal bilaterally Nose: external nose normal (more content not included)... Normal [facility] Lipid Profileon 11-25-2023 Cholesterol [Mass/Vol] 81 mg/dL Normal 200 [facility] Comment on above: Result Comment: <200 mg/dL Desirable 200-240 mg/dL Borderline >240 mg/dL High Risk Performed By: #### L 9100.0200 #### [facility] [address] [facility] [address] Cholesterol in HDL [Mass/Vol] 38 mg/dL Low [facility] Comment on above: Result Comment: The drugs N-Acetylcysteine and Metamizole may falsely depress this assay. Reference Range HDL <40 mg/dL Low HDL Cholesterol HDL >or= 60 mg/dL High HDL Cholesterol Performed By: #### L 9100.0200 #### [facility] [address] [place], [address] Cholesterol in LDL [Mass/Vol] 21 mg/dL Normal 0-130 [facility] Comment on above: Performed By: #### L 9100.0200 #### [facility] [address] [facility] [place], [address] Cholesterol in VLDL [Mass/Vol] 22 mg/dL Normal 5-40 [facility] Comment on above: Performed By: #### L 9100.0200 #### [facility] [address] [place], [place], [id number] Triglyceride [Mass/Vol] 111 mg/dL Normal [facility] Comment on above: Result Comment: The drugs N-Acetylcysteine and Metamizole may falsely depress this assay. Serum Triglycerides Reference Interval Normal <150 mg/dL Borderline high 150 - 199 mg/dL High 200 - 499 mg/dL Very High > or = 500 mg/dL Performed By: #### L 9100.0200 #### [facility] [address] [place], [address] Liver Profileon 11-25-2023 Albumin [Mass/Vol] 3.5 g/dL Normal 3.2-5.0 [facility] Comment on above: Performed By: #### L 9100.0200 #### [facility] [address] [place], [address] ALK P 65 U/L Normal 45-117 [facility] Comment on above: Performed By: #### L 9100.0200 #### [facility] [address] [place], [address] ALT [Catalytic activity/Vol] 30 U/L Normal 16-61 [facility] Comment on above: Performed By: #### L 9100.0200 #### [facility] [address] [place], [address] AST [Catalytic activity/Vol] 25 U/L Normal 15-37 [facility] Comment on above: Performed By: #### L 9100.0200 #### [facility] [address] [place], [address] Bilirubin [Mass/Vol] 0.50 mg/dL Normal 0.20-1.00 [facility] Comment on above: Result Comment: For patients on eltrombopag therapy, use of Dimension [place] TBIL is not recommended. Performed By: #### L 9100.0200 #### [facility] [address] [place], [address] Bilirubin.direct [Mass/Vol] 0.18 mg/dL Normal 0.00-0.30 [facility] Comment on above: Performed By: #### L 9100.0200 #### [facility] [address] [place], [place], [address] Globulin (S) [Mass/Vol] 3.9 g/dL Normal 2.2-4.2 [facility] Comment on above: Performed By: #### L 9100.0200 #### [facility] [address] [place], [place], [id number] T PROT 7.4 g/dL Normal 6.4-8.2 [facility] Comment on above: Performed By: #### L 9100.0200 #### [facility] [address] [place], [place], [address] Thyroid Stim Hormone (TSH)on 11-21-2023 TSH 1.93 uIU/mL Normal 0.358-3.74 [facility] Comment on above: Order Comment: PER P T-ONLY JOLLIFF ORDER-WAITINT TO DO OTHER ORDERS DUE [facility] CANCELLED PSAOrder Date: 09/23/23Order Info: [id number] - TSH Performed By: #### L 9100.0200 #### [facility] [address] [place], [place], [address] Echo Limited w/Contraston Echo Limited w/Contrast [facility] [address] [place] [address] Echo Limited w/Contrast 11/10/23 1305 MR#: [id number] Acct: [id number] Name: DEIRDRE ORTIZ Rep #: [id number] : 1955 68 From: Carlos Mendez MD Attending Dr: Idalmis Byers TRIPPER-C Status: REG C LI Ordering Dr: Idalmis Byers TRIPPER TRIPPER-C Date: 11/10/23 Location: CVS Sex: M C Admitted: Reason For Study: Isch CMP Procedure This was a limited 2D transthoracic echocardiogram. Contrast injection was performed. The study was technically difficult. Exam performed in department. Left Ventricle Normal LV size. The left ventricular ejection fraction is 45 %. There is mild to moderate global hypokinesis of the left ventricle. Right Ventricle Normal RV size. Normal systolic function. Atria Normal left atrium. Normal right atrium. Mitral Valve Normal mitral valve. Tricuspid Valve Normal tricuspid valve. Aortic Valve Trisinus/trileaflet aortic valve. Pulmonic Valve The pulmonic valve is not well visualized. Great Vessels Normal aortic root. The pulmonary artery is normal size. Pericardium/Pleural No pericardial effusion. Medication 22 gauge I.V. with prn adaptor inserted into right arm. Diluted definity 2.5ml given slow IV push to enhance endocardial definition. MMode/2D Measurements Calculations LVIDd: 4.7 cm IVSd: 1.1 cm LA dimension: 3.6 cm LVIDs: 4.0 cm LVPWd: 1.2 cm FS: 14.4 % _ LAV(MOD-sp4): 53.4 ml LVAd ap4: 36.0 cm2 SV(MOD-sp4): 47.3 ml LVLd ap4: 8.6 cm EDV(MOD-sp4): 119.9 ml EDV(sp4-el): 127.4 ml LVAs ap4: 25.3 cm2 LVLs ap4: 7.3 cm ESV(MOD-sp4): 72.6 ml ESV(sp4-el): 74.3 ml EF(MOD-sp4): 39.4 % EF(sp4-el): 41.7 % _ SV(sp4-el): 53.1 ml LA A4 area: 19.1 cm2 RA A4 area: 17.7 cm2 ECHO/Echo Limited w/Contrast Interpretation Summary The left ventricular ejection fraction is 45 %. Normal LV size. There is mild to moderate global hypokinesis of the left ventricle. Compared to previous study, the left ventricular systolic function has improved.. Contrast injection was performed. Ordering Physician: Idalmis Byers Referring Physician: Jazmine Le M.D. Performed By: Gt Archibald RCS 11/10/23 1406 Date Carlos Mendez MD CC: EVA Byers; Dr. Jazmine Le MD Date Dictated: 11/10/23 1305 Date Transcribed: 11/10/23 140 Wire Wheeler: Signed Normal [facility] Basic Metabolic Profile (BMP )on 09-22-2023 BUN/CRE 14.9 RATIO Normal 10-20 [facility] Comment on above: Order Comment: Tachy cardia at rest in Cardiac Rehab Performed By: #### L 500.2500, L501.9520, L100.0500, L501.5200 ####[facility] [address] [place], [place], [id number] CA,Total 9.4 mg/dL Normal 8.5-10.1 [facility] Comment on above: Order Comment: Tachy cardia at rest in Cardiac Rehab Performed By: #### L 500.2500, L501.9520, L100.0500, L501.5200 ####[facility] [address] [place], [address] Chloride [Moles/Vol] 107 mmol/L Normal 98-107 [facility] Comment on above: Order Comment: Tachy cardia at rest in Cardiac Rehab Performed By: #### L 500.2500, L501.9520, L100.0500, L501.5200 ####[facility] [address] [place], [address] CO2 [Moles/Vol] 26.0 mmol/L Normal 21.0-32.0 [facility] Comment on above: Order Comment: Tachy cardia at rest in Cardiac Rehab Performed By: #### L 500.2500, L501.9520, L100.0500, L501.5200 ####[facility] [address] [place], [address] Creatinine [Mass/Vol] 1.41 mg/dL High 0.70-1.30 [facility] Comment on above: Order Comment: Tachy cardia at rest in Cardiac Rehab Result Comment: The validity of the calculated GFR GFRAA in patients over 70 years has not been determined. Clinical correlation is essential. Performed By: #### L 500.2500, L501.9520, L100.0500, L501.5200 ####[facility] [address] [place], [address] EST GFR - AA 64 mL/min Normal >60 [facility] Comment on above: Order Comment: Tachy cardia at rest in Cardiac Rehab Result Comment: Afri can [place] GFR Calc Performed By: #### L 500.2500, L501.9520, L100.0500, L501.5200 ####[facility] [address] [place], [address] GAP 3 Low 5-15 [facility] Comment on above: Order Comment: Tachy cardia at rest in Cardiac Rehab Performed By: #### L 500.2500, L501.9520, L100.0500, L501.5200 ####[facility] [address] [place], [address] GFR/1.73 sq M.predicted among non-blacks MDRD (S/P/Bld) [Vol rate/Area] 53 mL/min/{1.73_m2} Low >60 [facility] Comment on above: Order Comment: Tachy cardia at rest in Cardiac Rehab Result Comment: Non- GFR Calc Performed By: #### L 500.2500, L501.9520, L100.0500, L501.5200 ####[facility] [address] [place], [address] Glucose [Mass/Vol] 105 mg/dL Normal 74-106 [facility] Comment on above: Order Comment: Tachy cardia at rest in Cardiac Rehab Result Comment: Fast ing Glucose result from 100 to 125 mg/dL suggests IMPAIRED HOMEOSTASIS per A.D.A. criteria. Performed By: #### L 500.2500, L501.9520, L100.0500, L501.5200 ####[facility] [address] [place], [address] Potassium [Moles/Vol] 4.6 mmol/L Normal 3.5-5.1 [facility] Comment on above: Order Comment: Tachy cardia at rest in Cardiac Rehab Performed By: #### L 500.2500, L501.9520, L100.0500, L501.5200 ####[facility] [address] [place], [address] Sodium [Moles/Vol] 136 mmol/L Normal 136-145 [facility] Comment on above: Order Comment: Tachy cardia at rest in Cardiac Rehab Performed By: #### L 500.2500, L501.9520, L100.0500, L501.5200 ####[facility] [address] [place], [address] Urea nitrogen [Mass/Vol] 21 mg/dL High 7-18 [facility] Comment on above: Order Comment: Tachy cardia at rest in Cardiac Rehab Performed By: #### L 500.2500, L501.9520, L100.0500, L501.5200 ####[facility] [address] [place], [address] CBC-Complete Blood Cnt No Di ffon 09-22-2023 Erythrocyte distribution width (RBC) [Ratio] 13.1 % Normal 11.6-14.6 [facility] Comment on above: Performed By: #### L 500.2500, L501.9520, L100.0500, L501.5200 ####[facility] [address] [place], [address] Hematocrit (Bld) [Volume fraction] 45.0 % Normal 40-54 [facility] Comment on above: Performed By: #### L 500.2500, L501.9520, L100.0500, L501.5200 ####[facility] [address] [place], [address] Hemoglobin (Bld) [Mass/Vol] 14.2 g/dL Normal 13.0-16.5 [facility] Comment on above: Performed By: #### L 500.2500, L501.9520, L100.0500, L501.5200 ####[facility] [address] [place], [address] MCH (RBC) [Entitic mass] 30.2 pg Normal 27.0-32.0 [facility] Comment on above: Performed By: #### L 500.2500, L501.9520, L100.0500, L501.5200 ####[facility] [address] [place], [address] MCHC (RBC) [Mass/Vol] 31.6 g/dL Low 32-36 [facility] Comment on above: Performed By: #### L 500.2500, L501.9520, L100.0500, L501.5200 ####[facility] [address] [place], [address] MCV (RBC) [Entitic vol] 95.7 fL High 80-94 [facility] Comment on above: Performed By: #### L 500.2500, L501.9520, L100.0500, L501.5200 ####[facility] [address] [place], [address] Platelet mean volume (Bld) [Entitic vol] 10.3 fL Normal 6.2-12.0 [facility] Comment on above: Performed By: #### L 500.2500, L501.9520, L100.0500, L501.5200 ####[facility] [address] [place], [address] Platelets (Bld) [#/Vol] 151 10*3/uL Normal 150-450 [facility] Comment on above: Performed By: #### L 500.2500, L501.9520, L100.0500, L501.5200 ####[facility] [address] [place], [address] RBC (Bld) [#/Vol] 4.70 10*6/uL Normal 4.6-6.2 [facility] Comment on above: Performed By: #### L 500.2500, L501.9520, L100.0500, L501.5200 ####[facility] [address] [place], [address] RDW SD 46.0 fl High 35.1-43.9 [facility] Comment on above: Performed By: #### L 500.2500, L501.9520, L100.0500, L501.5200 ####[facility] [address] [place], [address] WBC (Bld) [#/Vol] 8.2 10*3/uL Normal 4.4-11.0 [facility] Comment on above: Performed By: #### L 500.2500, L501.9520, L100.0500, L501.5200 ####[facility] [address] [place], [address] CREATININE FINGERSTICKon CREATININE WB < 1.0 Normal 0.70-1.30 [facility] Comment on above: Performed By: #### L 9100.0200 #### [facility] [address] [place], [address] EGFR WB > 60.0000 Normal >60 [facility] Comment on above: Performed By: #### L 9100.0200 #### [facility] [address] [place], [address] CT Abd/Pelvis W/WO Contrasto n 09-22-2023 CT Abd/Pelvis W/WO Contrast [facility] [address] [place], [place] [address] CT Abd/Pelvis W/WO Contrast MR#: [id number] Acct: [id number] Name: DEIRDRE ORTIZ Rep #: [id number] : 1955 M 68 From: Eren stewart MD PCP: Dr. Jazmine Le MD Status: REG CL Study: CT Abd/Pelvis W/WO Contrast Date of Exam: 08/25 Exam# [id number] Ordering Dr: Mike George MD [id number] STUDY: CT ABDOMEN AND PELVIS WITH AND WITHOUT CONTRAST REASON FOR EXAM: Male, 68 years old. GROSS HEMATURIA RADIATION DOSAGE (If Supplied By Facility): CTDIvol = ( 22.23 ) mGy, DLP = ( 3913.86 ) mGycm TECHNIQUE: Transaxial images were obtained from the dome of the diaphragm to the symphysis pubis without oral contrast. IV 100mL Isovue-300 was administered. Sagittal and coronal images were reconstructed. Individualized dose optimization techniques were used for this CT. COMPARISON: None. FINDINGS: The visualized lung bases are unremarkable. Mild coronary artery calcification. Normal liver. There is a solitary gallstone. There are multiple benign calcified granulomata of the spleen. Normal pancreas. Normal bilateral adrenal glands. Normal right kidney. Normal left kidney. Normal visualized stomach. Normal small intestine. There are multiple colonic diverticula consistent with diverticulosis. The appendix is visualized and appears normal. There is scattered atherosclerotic calcification of the abdominal aorta, without a demonstrated aneurysm. Normal inferior vena cava. Normal retroperitoneum. Small capacity urinary bladder with mild bladder wall thickening. There is enlargement of the prostate gland. This measures 4.7 cm x 5.9 cm. There is evidence suggestive of a prior TURP. Normal abdominal wall. There are diffuse degenerative changes of the visualized lumbar spine. CT/CT Abd/Pelvis W/WO Contrast IMPRESSION: Prostatic enlargement with indentation of the bladder base. Evidence of prior TURP. Sigmoid diverticulosis. Small solitary gallstone. Electronically Signed: Eren Luz MD at 14:52 EDT , CC: Dr. Jazmine Le MD; Dr. Mike George MD Wire Wheeler: Signed Normal [facility] Magnesiumon 09-22-2023 Magnesium [Mass/Vol] 2.3 mg/dL Normal 1.6-2.6 [facility] Comment on above: Order Comment: Tachy cardia at rest in Cardiac Rehab Performed By: #### L 500.2500, L501.4320, L100.0500, L501.5200 ####[facility] [address] [place], [address] Thyroid Stim Hormone (TSH)on 09-22-2023 TSH 6.73 uIU/mL High 0.358-3.74 [facility] Comment on above: Order Comment: Tachy cardia at rest in Cardiac Rehab Performed By: #### L 500.2500, L501.9520, L100.0500, L501.5200 ####[facility] [address] [place], [address] Cardiology Visit Reporton Cardiology Visit Report [facility] [address] [place] [address] OFFICE VISIT Date of Service: 08/30/23 MR#: [id number] Acct: [id number] Name: DEIRDRE ORTIZ Rep #: [id number] : 1955 Provider: EVA vanegas Age/Sex: 68/M [place] [facility] [place] Status: Signed HPI HPI History of Present Illness Details: This is a 68 year old male who presents to the office today for a cardiovascular hospital follow-up visit. He had presented to [facility] ER in July of this year complaining of symptoms of chest pain. Evidently he was having symptoms of chest pain while he was mowing his lawn with his tractor. He described the chest pain as severe retrosternal, and associated with diaphoresis. Evaluation in the ER demonstrated an EKG showing T wave inversion noted in the LAD distribution, his high sensitivity troponin was noted to be elevated. He underwent a cardiac catheterization which demonstrated 95% stenosis in his mid LAD, 95% stenosis in his proximal diagonal 1, and 60% stenosis in his right PDA. He underwent successful CHELSIE to pD1 and mLAD. His left ventricular systolic function was noted to be 35%. He was discharged on atorvastatin, metoprolol succinate, aspirin, Brilinta, and lisinopril. From a cardiac standpoint, the patient is doing well. He denies any palpitations, chest pain, pressure or heaviness. He denies SOB, Orthopnea, and PND. He does not have bleeding issues; no blood in urine, stool or nosebleeds. He denies any decrease in energy level, myalgias, or claudication. He does not have edema, or sudden weight gain. He denies dizziness, lightheadedness, syncopal or near syncopal episodes, and headaches. He states he started cardiac rehab this week, and has tolerated this well so far. 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 Is patient in pain?: No Allergies No Known Allergies Allergy (Verified 08/30/23 14:17) Medications aspirin 81 mg tablet,delayed release 81 mg PO BREAKFAST #0 tabs 08/16/23 [Rx Confirmed 08/30/23] atorvastatin 40 mg tablet 40 mg PO QHS #90 tabs 08/30/23 [Rx Confirmed 08/30/23] lisinopril 10 mg tablet 10 mg PO DAILY #90 tabs 08/30/23 [Rx Confirmed 08/30/23] metoprolol succinate 50 mg tablet,extended release 24 hr 50 mg PO DAILY #90 tabs 08/30/23 [Rx Confirmed 08/30/23] ticagrelor 90 mg tablet (Brilinta) 90 mg PO BID #180 tabs 08/30/23 [Rx Confirmed 08/30/23] [facility] Medical History 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) Kidney stones Surgical History H/O hernia repair Stented coronary artery (08/15/23) Family History Father Heart disease CAD (coronary artery disease) Myocardial infarction Mother Leukemia Social History Smoking Status: Never smoker ROS Const Const: Negative for fatigue, weakness, fever(s), headache(s), chills, frequent falls, weight gain or weight loss Eyes Eyes: Negative for blind spots, loss of peripheral vision, transient loss of vision, blurry vision, change in vision, double vision, floaters or tunnel vision ENT ENT: Negative for headache(s), dizziness, Nosebleed/epistaxis, balance problems or neck pain Cardio Chest Pain: No Palpitations: No Edema: None Muscle aches with walking: None Resp Respiratory: Negative for SOB with activity, SOB at rest or SOB orthopnea SOB lying down GI GI: Negative nausea, vomiting, heartburn, bloating, vomiting blood/hematemesis, bright, red blood in stools or black,tarry stools Musc Musc: Negative for muscle aches/ myalgia, muscle weakness, joint pain or balance problems Neuro Neuro: Negative for dizziness, lightheadedness, near syncope, syncope, orthostatic symptoms, frequent falls, headache(s), weakness, blurry vision or double vision Denilson Hematologic/Lymphati c: Negative for easy bleeding or easy bruising Endo Endo: Negative for fatigue Cardiology Exam Const Appearance: cooperative and no acute distress Nutritional Appearance: average body habitus and overweight Orientation: alert and oriented x3 Head Head: normal to inspection Ears: hearing grossly normal bilaterally Nose: external nose normal Face and Sinus: face symmetric Eyes General: appearance normal, both eyes and all related structures Eyelids: eyelids normal Conjunctivae (more content not included)... Normal [facility] CR - History AND Physicalon 08-26-2023 CR - History & Physical [facility] Cardiac Rehab [address] [place] [address] CR - History Physical MR#: [id number] Acct: [id number] Name: DEIRDRE ORTIZ Rep #: [id number] : 1955 68 From: Carlos Mendez MD PCP: Dr. Jazmine Le MD DOS: 08/26/23 CR - History Physical General Arrival date:: 08/26/23 Arrival time:: 10:04 Date of Referral:: 08/15/23 Date of CR Evaluation:: 08/26/23 Referring Physician: Dr. Cifuentes Primary Diagnosis: PCI w/coronary stenting History of Present Cardiac Event Onset Date PTCA or coronary stenting:: Yes Type of Symptoms:: Episodes of chest pain over 2 days, aching heavy pain midsternal, told it was a mild myocardial infarction. Interventions with present event:: Emergency room, taken to floor and then had heart cath done. Were there any complications?: None Medications Ambulatory Orders Medication Instructions Recorded aspirin 81 mg tablet,delayed 81 mg PO BREAKFAST #0 tabs 08/16/23 release atorvastatin 40 mg tablet 40 mg PO QHS #30 tabs 08/16/23 lisinopril 10 mg tablet 10 mg PO DAILY #30 tabs 08/16/23 metoprolol succinate 50 mg 50 mg PO DAILY #30 tabs 08/16/23 tablet,extended release 24 hr ticagrelor 90 mg tablet (Brilinta) 90 mg PO BID #60 tabs 08/16/23 Allergies Allergies No Known Allergies Allergy (Verified 08/13/23 17:57) Sleep Disorder Evaluation Hx of Sleep Apnea: No Do you snore loudly (louder than talking or can be heard through closed doors)?: No Do you often feel tired/ fatigued/ sleepy during daytime?: No Has anyone observed you stop breathing during sleep?: No History of Hypertension (for STOP score): No STOP Results: Negative Advanced Directives Advanced Directives Power of Trans Router: No Living Will: No Advance Directives Information Provided: Yes Advance Directives on File: No DNR Order?:: No MOLST See MOLST form: No Past Medical History Covid-19 Screening Physicial Symptoms Fever: No Unexplained muscle aches: No Current respiratory symptoms: No Upper respiratory infections symptoms: No Gastro-intestinal symptoms: No Kgb-Mpgv-Pmszmn symptoms: No Other Clinical Concerns Has tested positive for COVID-19 in last 30 days: No Exposure Risk Had contact w/person w/symptoms or Covid-19 (+) last 14 days: No Has High Risk Exposures ID'd by Health dept/Inf Control team: No Pertinent Comorbidities 65 years or older:: Yes Lives in Assisted Living facility:: No Has a chronic lung disease or moderate to severe asthma:: No Has a serious heart condition:: No Immunocompromised:: No Severely obese (Body Mass Index of 40 or higher):: No Diabetic:: No Has chronic kidney disease undergoing dialysis:: No Has liver disease:: No Past Medical Illness Past Medical History (Updated 08/24/23 @ 00:02 by Background Daemon) 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 Family History Summary Family History (Updated 08/26/23 @ 10:21 by Lenny Lora, APPRENTICE ARCHITECT, CUTTER FINISHER, BS) Father Heart disease CAD (coronary artery disease) Myocardial infarction Mother Leukemia Social History Smoking History Smoking Status: Never smoker Alcohol Use Alcohol Usage: Yes (rarely will have a beer.) Substance Abuse Hx Substance Use: No Occupation Occupation (List type of work in comments):: Retired Hobbies, Recreation, Social Activities Hobbies: Sports (fishing), Exercise (walking) and Other (gardening, lawn work) Recreational Activities: I am able to engage in all my recreational activities, I am able to engage in most, but not all activities, I am able to engage in a few activities and I can hardly do any recreational activities Social Environment Status Marital Status: Current Living Arrangements Living Environment:: Spouse Children How many children do you have?: 2 (1-) Do any of your children live nearby?: Yes Safety Do you feel safe in your surroundings?: Yes Assistance Do you need any assistance at home?: no Review of Systems Review of Systems Hints Review of Present Symptoms: Reports Appetite - Normal, Appetite - Special Diet (usually eat healthy, no added salt, low fate, rare eat red meat) and Sleep - Normal; Denies Shortness of Breath at Rest, Shortness of Breath with Exertion, PVD, Angina, Dizziness/Lightheade dness, Fatigue, Heart Arrhythmia/Irregular ities or Sexual Changes Pain Is Patient Pain Free?: Yes Pain Location: none Risk Factor Assessment Chief Complaint Chief Complaint: 68 yr old male no previous medical history presented to emergency room with hea (more content not included)... Normal [facility] 12 Lead EKGon 08-16-2023 12 Lead EKG [facility] Cardiovascular Services [address] [place] [address] 12 Lead EKG 08/16/23 0857 MR#: [id number] Acct: [id number] Name: DEIRDRE ORTIZ Rep #: [id number] : 1955 68 From: Bibiana Cifuentes MD Attending Dr: Dr. Ender Faust DO Status: D IS IN Ordering Dr: Bibiana Cifuentes MD Date: 4 Location: [facility] Sex: M C Admitted: 08/13/23 Test Reason : CP Blood Pressure : / mmHG Vent. Rate : 087 BPM Atrial Rate : 087 BPM P-R Int : 172 ms QRS Dur : 078 ms QT Int : 368 ms P-R-T Axes : 060 043 080 degrees QTc Int : 442 ms Normal sinus rhythm T wave abnormality, consider anterior ischemia Abnormal ECG When compared with ECG of 16-AUG-2023 05:18, MANUAL COMPARISON REQUIRED, DATA IS UNCONFIRMED Confirmed by COLTON CAPPS, JR ([id number]), international editorial producer WILMAN RODRIGUEZ ([id number]) on 08/22/2023 10:14:21 AM Referred By: MTER Confirmed By:KENNETH CIFUENTES MD 08/22/23 1014 Date Bibiana Cifuentes MD CC: Dr. Jazmine Le MD; Dr. Ender Faust DO; Dr. Bibiana Cifuentes MD Signed Normal [facility] 12 Lead EKG [facility] Cardiovascular Services [address] [place] [address] 12 Lead EKG 08/16/23 0518 MR#: [id number] Acct: [id number] Name: DEIRDRE ORTIZ Rep #: [id number] : 1955 68 From: Bibiana Cifuentes MD Attending Dr: Dr. Ender Faust DO Status: D IS IN Ordering Dr: Ender Faust DO Date: 08/16/23 Location: [facility] Sex: M C Admitted: 08/13/23 Test Reason : POST PCI Blood Pressure : / mmHG Vent. Rate : 078 BPM Atrial Rate : 078 BPM P-R Int : 178 ms QRS Dur : 076 ms QT Int : 412 ms P-R-T Axes : 069 047 095 degrees QTc Int : 469 ms Normal sinus rhythm ST T wave abnormality, consider anterolateral ischemia Prolonged QT Abnormal ECG When compared with ECG of 15-AUG-2023 11:45, MANUAL COMPARISON REQUIRED, DATA IS UNCONFIRMED Confirmed by COLTON CAPPS, JR ([id number]), international editorial producer KARLA STEVE ([id number]) on 08/22/2023 1:49:08 PM Referred By: Confirmed By:KENNETH CIFUENTES MD 08/22/23 1349 Date Bibiana Cifuentes MD CC: Dr. Jazmine Le MD; Dr. Ender Faust, DO Signed Normal [facility] Basophil percentageOrdered B y: Bibiana Cifuentes on 08-16-2023 Bilirubin [Mass/Vol] 0.50 mg/dL 0.20-1.00 [facility] Comment on above: For patients on eltr ombopag therapy, use of Dimension [place] TBIL is not recommended. Chloride [Moles/Vol] 111 mmol/L 98-107 [facility] Glucose [Mass/Vol] 102 mg/dL 74-106 [facility] Comment on above: Fasting Glucose resu lt from 100 to 125 mg/dL suggests IMPAIRED HOMEOSTASIS per A.D.A. criteria. Hemoglobin (Bld) [Mass/Vol] 14.2 g/dL 13.0-16.5 [facility] Potassium [Moles/Vol] 4.0 mmol/L 3.5-5.1 [facility] Protein [Mass/Vol] 6.7 g/dL 6.4-8.2 [facility] Sodium [Moles/Vol] 139 mmol/L 136-145 [facility] WBC (Bld) [#/Vol] 8.0 10*3/uL 4.4-11.0 [facility] CBC-Complete Blood Cnt No Di ffon 08-16-2023 Erythrocyte distribution width (RBC) [Ratio] 13.4 % Normal 11.6-14.6 [facility] Comment on above: Performed By: #### L 9100.0200 #### [facility] [address] [place], [address] Hematocrit (Bld) [Volume fraction] 44.2 % Normal 40-54 [facility] Comment on above: Performed By: #### L 9100.0200 #### [facility] [address] [place], [address] Hemoglobin (Bld) [Mass/Vol] 14.2 g/dL Normal 13.0-16.5 [facility] Comment on above: Performed By: #### L 9100.0200 #### [facility] [address] [place], [address] MCH (RBC) [Entitic mass] 30.3 pg Normal 27.0-32.0 [facility] Comment on above: Performed By: #### L 9100.0200 #### [facility] [address] [place], [address] MCHC (RBC) [Mass/Vol] 32.1 g/dL Normal 32-36 [facility] Comment on above: Performed By: #### L 9100.0200 #### [facility] [address] [place], [address] MCV (RBC) [Entitic vol] 94.2 fL High 80-94 [facility] Comment on above: Performed By: #### L 9100.0200 #### [facility] [address] [place], [address] Platelet mean volume (Bld) [Entitic vol] 10.7 fL Normal 6.2-12.0 [facility] Comment on above: Performed By: #### L 9100.0200 #### [facility] [address] [place], [address] Platelets (Bld) [#/Vol] 133 10*3/uL Low 150-450 [facility] Comment on above: Performed By: #### L 9100.0200 #### [facility] [address] [place], [address] RBC (Bld) [#/Vol] 4.69 10*6/uL Normal 4.6-6.2 [facility] Comment on above: Performed By: #### L 9100.0200 #### [facility] [address] [place], [address] RDW SD 45.7 fl High 35.1-43.9 [facility] Comment on above: Performed By: #### L 9100.0200 #### [facility] [address] [place], [address] WBC (Bld) [#/Vol] 8.0 10*3/uL Normal 4.4-11.0 [facility] Comment on above: Performed By: #### L 9100.0200 #### [facility] [address] [place], [address] Comprehensive Metabolic Prof hion 08-16-2023 Albumin [Mass/Vol] 3.1 g/dL Low 3.2-5.0 [facility] Comment on above: Performed By: #### L 500.2500 #### [facility] [address] [place], [address] Albumin/Globulin [Mass ratio] 0.9 {ratio} Normal 0.9-2.4 [facility] Comment on above: Performed By: #### L 500.2500 #### [facility] [address] [place], [address] ALK P 57 U/L Normal 45-117 [facility] Comment on above: Performed By: #### L 500.2500 #### [facility] [address] [place], [address] ALT [Catalytic activity/Vol] 17 U/L Normal 16-61 [facility] Comment on above: Performed By: #### L 500.2500 #### [facility] [address] [place], [address] AST [Catalytic activity/Vol] 29 U/L Normal 15-37 [facility] Comment on above: Performed By: #### L 500.2500 #### [facility] [address] [place], [address] Bilirubin [Mass/Vol] 0.50 mg/dL Normal 0.20-1.00 [facility] Comment on above: Result Comment: For patients on eltrombopag therapy, use of Dimension [place] TBIL is not recommended. Performed By: #### L 500.2500 #### [facility] [address] [place], [address] BUN/CRE 10.5 RATIO Normal 10-20 [facility] Comment on above: Performed By: #### L 500.2500 #### [facility] [address] [place], [address] CA,Total 9.0 mg/dL Normal 8.5-10.1 [facility] Comment on above: Performed By: #### L 500.2500 #### [facility] [address] [place], [address] Chloride [Moles/Vol] 111 mmol/L High 98-107 [facility] Comment on above: Performed By: #### L 500.2500 #### [facility] [address] [place], [address] CO2 [Moles/Vol] 24.0 mmol/L Normal 21.0-32.0 [facility] Comment on above: Performed By: #### L 500.2500 #### [facility] [address] [place], [address] Creatinine [Mass/Vol] 1.24 mg/dL Normal 0.70-1.30 [facility] Comment on above: Result Comment: The validity of the calculated GFR GFRAA in patients over 70 years has not been determined. Clinical correlation is essential. Performed By: #### L 500.2500 #### [facility] [address] [place], [address] ECRCL 71.85 ml/min Normal [facility] Comment on above: Performed By: #### L 500.2500 #### [facility] [address] [place], [address] EST GFR - AA 75 mL/min Normal >60 [facility] Comment on above: Result Comment: Afri can [place] GFR Calc Performed By: #### L 500.2500 #### [facility] [address] [place], [address] GAP 4 Low 5-15 [facility] Comment on above: Performed By: #### L 500.2500 #### [facility] [address] [place], [address] GFR/1.73 sq M.predicted among non-blacks MDRD (S/P/Bld) [Vol rate/Area] 62 mL/min/{1.73_m2} Normal >60 [facility] Comment on above: Result Comment: Non- GFR Calc Performed By: #### L 500.2500 #### [facility] [address] [place], [address] Globulin (S) [Mass/Vol] 3.6 g/dL Normal 2.2-4.2 [facility] Comment on above: Performed By: #### L 500.2500 #### [facility] [address] [place], [address] Glucose [Mass/Vol] 102 mg/dL Normal 74-106 [facility] Comment on above: Result Comment: Fast ing Glucose result from 100 to 125 mg/dL suggests IMPAIRED HOMEOSTASIS per A.D.A. criteria. Performed By: #### L 500.2500 #### [facility] [address] [place], [address] Potassium [Moles/Vol] 4.0 mmol/L Normal 3.5-5.1 [facility] Comment on above: Performed By: #### L 500.2500 #### [facility] [address] [place], [address] Sodium [Moles/Vol] 139 mmol/L Normal 136-145 [facility] Comment on above: Performed By: #### L 500.2500 #### [facility] [address] [place], [address] T PROT 6.7 g/dL Normal 6.4-8.2 [facility] Comment on above: Performed By: #### L 500.2500 #### [facility] [address] [place], [address] Urea nitrogen [Mass/Vol] 13 mg/dL Normal 7-18 [facility] Comment on above: Performed By: #### L 500.2500 #### [facility] [address] [place], [address] Determination of erythrocyte mean corpuscular volume (MCV)Ordered By: Bibiana Cifuentes on 08-16-2023 MCV (RBC) [Entitic vol] 94.2 fL 80-94 [facility] Discharge Instructionon 07-25 Discharge Instruction [facility] Medical Records Department [address] [place] [address] Instructions for Home/Discharge Instructions 08/16/23 1303 MR#: [id number] Acct: [id number] Name: DEIRDRE ORTIZ Rep #: [id number] : 1955 68 From: Ender Faust DO PCP: Dr. Jazmine Le MD Status:ADM IN Discharge Instructions Diet Discharge Diet: No restrictions Activity Discharge Activity: Return to Normal Activity Weight Bearing Status: Full weight bearing Follow Up Care Test Results: Test results from this visit will be discussed in further detail at your follow-up appointment, if applicable. Discharge Plan Admission Admit Date/Time: 08/13/23 21:59 Primary Reason for Your Visit: Non-STEMI Attending Provider: Ender Faust Primary Care Provider: Jazmine Le Consulting Providers: Luca Canada; Oral Smiley Instructions Additional Instructions / Restrictions: Avoid taking any ibuprofen, Aleve, or Advil for pain, Tylenol is safe to take for pain Discharge Orders/Prescriptions Prescriptions: New atorvastatin 40 mg Tablet 40 mg PO QHS Qty: 30 0RF metoprolol succinate 50 mg Tablet Extended Release 24 Hr 50 mg PO DAILY Qty: 30 0RF aspirin 81 mg Tablet,Delayed Release (Dr/Ec) 81 mg PO BREAKFAST Qty: 0 0RF Brilinta 90 mg Tablet 90 mg PO BID Qty: 60 0RF lisinopril 10 mg tablet 10 mg PO DAILY Qty: 30 0RF Referrals / Follow Up: Jazmine Le MD [Primary Care Provider] - Shelby Sharp PA [Med Staff - [facility]] - See Referral Note (Call the office to make follow-up appointment for 2 weeks) Disposition Disposition (needs filled in before D/C Order can be placed): Home, Self Care 08/16/23 1309 Ender Faust DO CC: Dr. Jazmine Le MD; Dr. Luca Canada MD; Dr. Oral Smiley MD Signed ADDENDUM by Dr. Ender Faust DO on 08/16/[address] Le in 1 week to have a repeat urinalysis performed to make sure the blood in your urine has cleared 08/16/23 1433 Ender Faust DO cc: Dr. Jazmine Le MD; Dr. Luca Canada MD; Dr. Oral Smiley MD * Signed Normal [facility] Erythrocyte distribution wid th ratioOrdered By: Bibiana Cifuentes on 08-16-2023 Erythrocyte distribution width (RBC) [Ratio] 13.4 % 11.6-14.6 [facility] Erythrocyte distribution wid th standard deviationOrdered By: Bibiana Cifuentes on 08-16-2023 Erythrocyte distribution width (RBC) [Entitic vol] 45.7 fL 35.1-43.9 [facility] Hematocrit Auto (Bld) [Volum e fraction]Ordered By: Bibiana Cifuentes on 08-16-2023 Hematocrit (Bld) [Volume fraction] 44.2 % 40-54 [facility] - Chemistry and C hemistry - challengeOrdered By: Bibiana Cifuentes on 08-16-2023 Albumin/Globulin [Mass ratio] 0.9 {ratio} 0.9-2.4 [facility] ALP [Catalytic activity/Vol] 57 U/L 45-117 [facility] ALT [Catalytic activity/Vol] 17 U/L 16-61 [facility] CO2 [Moles/Vol] 24.0 mmol/L 21.0-32.0 [facility] Globulin (S) [Mass/Vol] 3.6 g/dL 2.2-4.2 [facility] Urea nitrogen/Creatinine [Mass ratio] 10.5 mg/mg 10-20 [facility] - Hematology and Cell countsOrdered By: Bibiana Cifuentes on 08-16-2023 MCH (RBC) [Entitic mass] 30.3 pg 27.0-32.0 [facility] MCHC (RBC) [Mass/Vol] 32.1 g/dL 32-36 [facility] Platelet mean volume (Bld) [Entitic vol] 10.7 fL 6.2-12.0 [facility] Platelets (Bld) [#/Vol] 133 10*3/uL 150-450 [facility] No Panel InformationOrdered By: Bibiana Cifuentes on 08-16-2023 Estimated Creatinine Clearance Calc 71.85 ml/min [facility] Estimated GFR (MDRD) Amer 75 mL/min >60 [facility] Comment on above: GFR Calc Estimated GFR (MDRD) Non-Af Amer 62 mL/min >60 [facility] Comment on above: Non- GFR Calc RBC Auto (Bld) [#/Vol]Ordere d By: Bibiana Cifuentes on 08-16-2023 RBC (Bld) [#/Vol] 4.69 10*6/uL 4.6-6.2 [facility] Serum or plasma calcium allison urement (mass/volume)Ordered By: Bibiana Cifuentes on 08-16-2023 Calcium [Mass/Vol] 9.0 mg/dL 8.5-10.1 [facility] Serum or plasma creatinine m easurement (mass/volume)Ordered By: Bibiana Cifuentes on 08-16-2023 Creatinine [Mass/Vol] 1.24 mg/dL 0.70-1.30 [facility] Comment on above: The validity of the calculated GFR & GFRAA in patients over 70 years has not been determined. Clinical correlation is essential. Serum or plasma urea nitroge n measurement (mass/volume)Ordered By: Bibiana Cifuentes on 08-16-2023 Urea nitrogen [Mass/Vol] 13 mg/dL 7-18 [facility] Thin prep Papanicolaou smear with manual screeningOrdered By: Bibiana Cifuentes on 08-16-2023 Thin prep Papanicolaou smear with manual screening 3.1 g/dL 3.2-5.0 [facility] Thin prep Papanicolaou smear with manual screening 29 U/L 15-37 [facility] Thin prep Papanicolaou smear with manual screening 4 5-15 [facility] 12 Lead EKGon 08-15-2023 12 Lead EKG [facility] Cardiovascular Services [address] [address] 12 Lead EKG 08/15/23 1145 MR#: [id number] Acct: [id number] Name: DEIRDRE ORTIZ Rep #: [id number] : 1955 68 From: Bibiana Cifuentes MD Attending Dr: Dr. Ender Faust, DO Status: D IS IN Ordering Dr: Bibiana Cifuentes MD Date: 4 Location: [facility] Sex: M C Admitted: 08/13/23 Test Reason : POST PCI Blood Pressure : / mmHG Vent. Rate : 074 BPM Atrial Rate : 074 BPM P-R Int : 174 ms QRS Dur : 076 ms QT Int : 416 ms P-R-T Axes : 030 041 091 degrees QTc Int : 461 ms Normal sinus rhythm ST Marked T wave abnormality, consider anterolateral ischemia Prolonged QT Abnormal ECG When compared with ECG of 15-AUG-2023 04:39, MANUAL COMPARISON REQUIRED, DATA IS UNCONFIRMED Confirmed by COLTON CAPPS, JR ([id number]), international editorial producer KARLA STEVE ([id number]) on 08/22/2023 1:15:32 PM Referred By: Confirmed By:KENNETH CIFUENTES MD 08/22/23 1315 Date Bibiana Cifuentes MD CC: Dr. Jazmine Le MD; Dr. Ender Faust DO; Dr. Bibiana Cifuentes MD Signed Normal [facility] 12 Lead EKG [facility] Cardiovascular Services [address] [place] [address] 12 Lead EKG 08/13/23 2251 MR#: [id number] Acct: [id number] Name: DEIRDRE ORTIZ Rep #: [id number] : 1955 68 From: Bibiana Cifuentes MD Attending Dr: Dr. Ender Faust DO Status: D IS IN Ordering Dr: Luca Canada MD Date: 08/15/23 Location: [facility] Sex: M C Admitted: 08/13/23 Test Reason : chest pain admision Blood Pressure : / mmHG Vent. Rate : 086 BPM Atrial Rate : 086 BPM P-R Int : 158 ms QRS Dur : 070 ms QT Int : 352 ms P-R-T Axes : 060 031 073 degrees QTc Int : 421 ms Normal sinus rhythm with sinus arrhythmia Nonspecific ST and T wave abnormality Abnormal ECG When compared with ECG of 13-AUG-2023 19:37, MANUAL COMPARISON REQUIRED, DATA IS UNCONFIRMED Confirmed by COLTON CAPPS, JR ([id number]), international editorial producer KARLA STEVE ([id number]) on 08/22/2023 1:10:28 PM Referred By: Sherice Confirmed By:KENNETH CIFUENTES MD 08/22/23 1310 Date Bibiana Cifuentes MD CC: Dr. Jazmine Le MD; Dr. Luca Canada MD; Dr. Ender Faust DO Signed Normal [facility] Activated partial thrombopla stin time (aPTT) in platelet poor plasma by coagulation aOrdered By: Oral Smiley on 08-15-2023 aPTT Coag (PPP) [Time] 80.8 s 24.1-36.2 [facility] Basic Metabolic Profile (BMP )on 08-15-2023 BUN/CRE 11.0 RATIO Normal 10-20 [facility] Comment on above: Performed By: #### L 500.2500 #### [facility] [address] [place], [address] CA,Total 8.6 mg/dL Normal 8.5-10.1 [facility] Comment on above: Performed By: #### L 500.2500 #### [facility] [address] [place], [address] Chloride [Moles/Vol] 111 mmol/L High 98-107 [facility] Comment on above: Performed By: #### L 500.2500 #### [facility] [address] [place], [address] CO2 [Moles/Vol] 24.0 mmol/L Normal 21.0-32.0 [facility] Comment on above: Performed By: #### L 500.2500 #### [facility] [address] [place], [address] Creatinine [Mass/Vol] 1.09 mg/dL Normal 0.70-1.30 [facility] Comment on above: Result Comment: The validity of the calculated GFR GFRAA in patients over 70 years has not been determined. Clinical correlation is essential. Performed By: #### L 500.2500 #### [facility] [address] [place], [address] ECRCL 81.74 ml/min Normal [facility] Comment on above: Performed By: #### L 500.2500 #### [facility] [address] [place], [address] EST GFR - AA 86 mL/min Normal >60 [facility] Comment on above: Result Comment: Afri can Mozambican GFR Calc Performed By: #### L 500.2500 #### [facility] [address] [place], [address] GAP 6 Normal 5-15 [facility] Comment on above: Performed By: #### L 500.2500 #### [facility] [address] [place], [address] GFR/1.73 sq M.predicted among non-blacks MDRD (S/P/Bld) [Vol rate/Area] 71 mL/min/{1.73_m2} Normal >60 [facility] Comment on above: Result Comment: Non- GFR Calc Performed By: #### L 500.2500 #### [facility] [address] [place], [address] Glucose [Mass/Vol] 114 mg/dL High 74-106 [facility] Comment on above: Result Comment: Fast ing Glucose result from 100 to 125 mg/dL suggests IMPAIRED HOMEOSTASIS per A.D.A. criteria. Performed By: #### L 500.2500 #### [facility] [address] [place], [address] Potassium [Moles/Vol] 4.2 mmol/L Normal 3.5-5.1 [facility] Comment on above: Performed By: #### L 500.2500 #### [facility] [address] [place], [place], [id number] Sodium [Moles/Vol] 141 mmol/L Normal 136-145 [facility] Comment on above: Performed By: #### L 500.2500 #### [facility] [address] [place], [place], [id number] Urea nitrogen [Mass/Vol] 12 mg/dL Normal 7-18 [facility] Comment on above: Performed By: #### L 500.2500 #### [facility] [address] [place], [place], [id number] Cardiac Cath Interventionon 08-15-2023 Cardiac Cath Intervention [facility] Imaging Services [address] [place] [address] Cardiac Cath Intervention MR#: [id number] Acct: [id number] Name: DEIRDRE ORTIZ Rep #: [id number] : 1955 68 From: Bibiana Cifuentes MD PCP: Dr. Jazmine Le MD Status:ADM IN Patient Name: DEIRDRE ORTIZ Study Date: 08/15/2023 Performing: Jr Cifuentes MD Ht: 77 inches 195.58 cm : 1955 Wt: 229.8 lbs 104.1 kg Age: 68 Gender: male BSA: 2.37 PROCEDURE(S) PERFORMED DC01-(84017)LHC/COR/ LV IC12-(01625/C9600)DE S W/WO PTCA, SINGLE CORONARY ARTERY IC13-(13109/C9600)DE S W/WO PTCA, EACH ADD'L ART, SAME MAJOR CLINICAL PROFILE AND CO-MORBIDITIES Indications: ACS <= 24 hrs, NSTEMI Heart Failure: None Stress/Imaging Stress/Image Study Performed: No CONCLUSIONS CAD as described. EF is 35%.No significant . Successful CHELSIE to pD1 and mLAD RECOMMENDATIONS DESCRIPTION OF PROCEDURE The patient arrived to the procedure lab. The risks and benefits of the procedure as well as a full description of our services here and lack of surgical backup were fully explained to the patient and/or their significant other prior to the catheterization. The Timeout was completed, verifying the correct patient and procedure. The patient's procedural site was prepped and draped in the usual fashion. Local anesthetic was given subcutaneously to right radial region with Lidocaine 2%. Using a modified Seldinger technique, arterial access was obtained via the right radial artery, a 6Fr sheath was inserted.. Left Coronary Artery selective angiography was performed in multiple views using a 5 Fr. JL3.5 catheter. Left Ventriculography was performed in CARROLL projection using a 5 Fr. JR4. LV to AO pullback pressures were then recorded. Right Coronary Artery selective angiography was then performed in multiple views using a 5 Fr. JR 4 catheterThe images were reviewed and options discussed. A decision was then made to proceed with an Intervention, IVUS or other adjunct procedure. XB 3 Guide catheter was inserted and engaged into the LCA. BMW 0.014 X190 Guide wire was advanced to the LAD. EMERGE MR 2.5 X 12 Balloon catheter was inserted. Balloon catheter was advanced across lesion in the LAD, mid. PTCA balloon inflated at 6 atms for 6 secs. PTCA balloon inflated at 8 atms for 8 secs. Angiogram performed post balloon dilatation. ONXY FRONTIER 3.5 X 18 Drug Eluting stent was inserted. Angiogram performed pre stent deployment. Drug Eluting stent was advanced across the lesion in the LAD, mid. Angiogram performed post stent deployment. Guide wire was repositioned to the 1st Diagonal Balloon catheter was reinserted Balloon catheter was advanced across lesion in the first diagonal, proximal. PTCA balloon inflated at 8 atms for 24 secs. KEVIN FRONTIER 2.75 X 12 Drug Eluting stent was inserted. Drug Eluting stent was advanced across the lesion in the first diagonal, proximal. Angiogram performed post stent deployment. Angiogram performed post stent deployment. Angiogram performed post stent deployment. KEVIN FRONTIER 2.25 X 15 Drug Eluting stent was inserted. Drug Eluting stent was advanced across the lesion in the first diagonal, proximal. Angiogram performed post stent deployment. The arterial sheath was pulled and a TR Band was applied for hemostasis 16 ML OF AIR CORONARY ANGIOGRAPHY DOMINANCE: Right Dominant LEFT HEART ASSESSMENT Left Ventricular Ejection Fraction: by LV Gram 35 % Hypokinesis of the apex and anterior wall LEFT MAIN: Mild luminal irregularities LEFT ANTERIOR DESCENDING ARTERY: MID LAD: 95 % Stenosis DIAGONAL 1: Proximal - 95 % Stenosis CIRCUMFLEX ARTERY: Mild luminal irregularities RIGHT CORONARY ARTERY: MID RCA: 30 % Stenosis RT PDA: Proximal - 60 % Stenosis VALVE FINDINGS: No Aortic Valve Stenosis INTERVENTION INFORMATION LESION SITE: LAD (Mid) Lesion Complexity: High/C, chronic total occlusion: No, lesion at bifurcation: No, thrombus present: No, lesion length: 16 mm, culprit lesion: Yes, Previously treated lesion: No Pre Stenosis: 95 % Pre intervention LAUREL flow: 3 PROCEDURE: Drug Eluting Stent with pre dilatation. Post Stenosis: 0 % Post intervention LAUREL flow: 3 Lesion Devices: Cordis 6 Fr XB3.0 100cm Guide Catheter Ascencio .014 190cm BMW [place] Straight [employer] EMERGE MR 2.50x12 BALLOON Medtronic 3.5 x 18 KEVIN FRONTIER CHELSIE LESION SITE: 1st Diagonal (Proximal) Lesion Complexity: High/C, chronic total occlusion: No, lesion at bifurcation: Yes, thrombus present: No, lesion length: 24 mm, culprit lesion: Yes, Previously treated lesion: No Pre Stenosis: 95 % Pre intervention LAUREL flow: 3 PROCEDURE: Drug Eluting Stent with pre and post dilatation Post Stenosis: 0 % Post intervention LAUREL flow: 3 Lesion Devices: Medtronic 2. (more content not included)... Normal [facility] Partial Thromboplast Timeon 08-15-2023 aPTT Coag (Bld) [Time] 80.8 s High 24.1-36.2 [facility] Comment on above: Performed By: #### L 9100.0200 #### [facility] [place], [address] Absolute lymphocyte countOrd ered By: Oral Smiley on 08-14-2023 Lymphocytes Auto (Unsp spec) [#/Vol] 2.38 10*3/uL 0.83-4.51 [facility] Automated lymphocyte count a s percentage of total leukocytesOrdered By: Oral Smiley on 08-14-2023 Lymphocytes/100 WBC Auto (Unsp spec) 26.4 % 19-41 [facility] Basic Metabolic Profile (BMP )on 08-14-2023 BUN/CRE 12.5 RATIO Normal 10-20 [facility] Comment on above: Performed By: #### L 100.0100, L500.2500, L500.4100 #### [facility] [address] [place], [address] CA,Total 9.2 mg/dL Normal 8.5-10.1 [facility] Comment on above: Performed By: #### L 100.0100, L500.2500, L500.4100 #### [facility] [address] [place], [address] Chloride [Moles/Vol] 108 mmol/L High 98-107 [facility] Comment on above: Performed By: #### L 100.0100, L500.2500, L500.4100 #### [facility] [address] [place], [address] CO2 [Moles/Vol] 25.0 mmol/L Normal 21.0-32.0 [facility] Comment on above: Performed By: #### L 100.0100, L500.2500, L500.4100 #### [facility] [address] [place], [address] Creatinine [Mass/Vol] 1.20 mg/dL Normal 0.70-1.30 [facility] Comment on above: Result Comment: The validity of the calculated GFR GFRAA in patients over 70 years has not been determined. Clinical correlation is essential. Performed By: #### L 100.0100, L500.2500, L500.4100 #### [facility] [address] [place], [address] ECRCL 74.25 ml/min Normal [facility] Comment on above: Performed By: #### L 100.0100, L500.2500, L500.4100 #### [facility] [address] [place], [address] EST GFR - AA 77 mL/min Normal >60 [facility] Comment on above: Result Comment: Afri can Mozambican GFR Calc Performed By: #### L 100.0100, L500.2500, L500.4100 #### [facility] [address] [place], [address] GAP 6 Normal 5-15 [facility] Comment on above: Performed By: #### L 100.0100, L500.2500, L500.4100 #### [facility] [address] [place], [address] GFR/1.73 sq M.predicted among non-blacks MDRD (S/P/Bld) [Vol rate/Area] 64 mL/min/{1.73_m2} Normal >60 [facility] Comment on above: Result Comment: Non- GFR Calc Performed By: #### L 100.0100, L500.2500, L500.4100 #### [facility] [address] [place], [address] Glucose [Mass/Vol] 130 mg/dL High 74-106 [facility] Comment on above: Result Comment: Fast ing Glucose result greater than or equal to 126 mg/dL suggests DIABETES MELLITUS per A.D.A. criteria. Performed By: #### L 100.0100, L500.2500, L500.4100 #### [facility] [address] [place], [address] Potassium [Moles/Vol] 4.2 mmol/L Normal 3.5-5.1 [facility] Comment on above: Performed By: #### L 100.0100, L500.2500, L500.4100 #### [facility] [address] [place], [address] Sodium [Moles/Vol] 139 mmol/L Normal 136-145 [facility] Comment on above: Performed By: #### L 100.0100, L500.2500, L500.4100 #### [facility] [address] [place], [address] Urea nitrogen [Mass/Vol] 15 mg/dL Normal 7-18 [facility] Comment on above: Performed By: #### L 100.0100, L500.2500, L500.4100 #### [facility] [address] [place], [address] BUN Normal 7-18 [facility] Comment on above: Result Comment: RECE IVED CANCEL REQUEST Performed By: #### L 500.2500 #### [facility] [address] [place], [address] BUN/CRE Normal 10-20 [facility] Comment on above: Result Comment: RECE IVED CANCEL REQUEST Performed By: #### L 500.2500 #### [facility] [address] [place], [address] CA,Total Normal 8.5-10.1 [facility] Comment on above: Result Comment: RECE IVED CANCEL REQUEST Performed By: #### L 500.2500 #### [facility] [address] [place], [address] CL Normal 98-107 [facility] Comment on above: Result Comment: RECE IVED CANCEL REQUEST Performed By: #### L 500.2500 #### [facility] [address] [place], [address] CO2 Normal 21.0-32.0 [facility] Comment on above: Result Comment: RECE IVED CANCEL REQUEST Performed By: #### L 500.2500 #### [facility] [address] [place], [address] CREAT,SERUM Normal 0.70-1.30 [facility] Comment on above: Result Comment: RECE IVED CANCEL REQUEST Performed By: #### L 500.2500 #### [facility] [address] [place], [address] EST GFR Normal >60 [facility] Comment on above: Result Comment: RECE IVED CANCEL REQUEST Performed By: #### L 500.2500 #### [facility] [address] [place], [address] EST GFR - AA Normal >60 [facility] Comment on above: Result Comment: RECE IVED CANCEL REQUEST Performed By: #### L 500.2500 #### [facility] [address] [place], [address] GAP Normal 5-15 [facility] Comment on above: Result Comment: RECE IVED CANCEL REQUEST Performed By: #### L 500.2500 #### [facility] [address] [place], [address] GLU Normal 74-106 [facility] Comment on above: Result Comment: RECE IVED CANCEL REQUEST Performed By: #### L 500.2500 #### [facility] [address] [place], [address] Potassium Normal 3.5-5.1 [facility] Comment on above: Result Comment: RECE IVED CANCEL REQUEST Performed By: #### L 500.2500 #### [facility] [address] [place], [address] Basic Metabolic Profile (BMP) Normal 136-145 [facility] Comment on above: Result Comment: RECE IVED CANCEL REQUEST Performed By: #### L 500.2500 #### [facility] [address] [place], [address] Basophil percentageOrdered B y: Brooke Shaw on 08-14-2023 Basophil percentage 0-5 SEEN /hpf 0-5 [facility] Basophil percentageOrdered B y: Oral Smiley on 08-14-2023 Basophils/100 WBC (Bld) 0.7 % 0-1 [facility] Cholesterol [Mass/Vol] 163 mg/dL <200 [facility] Comment on above: <200 mg/dL Desirable 200-240 mg/dL Borderline >240 mg/dL High Risk Eosinophils/100 WBC (Bld) 1.4 % 0-5 [facility] Monocytes/100 WBC (Bld) 8.3 % 0-10 [facility] Neutrophils (Bld) [#/Vol] 5.7 10*3/uL 2.0-7.7 [facility] Neutrophils/100 WBC (Bld) 62.8 % 47-70 [facility] Triglyceride [Mass/Vol] 69 mg/dL <199 [facility] Comment on above: The drugs N-Acetylcy steine and Metamizole may falsely depress this assay.Serum Triglycerides Reference Interval Normal <150 mg/dL Borderline high 150 - 199 mg/dL High 200 - 499 mg/dL Very High > or = 500 mg/dL Bilirubin Test strip Ql (U)O rdered By: Brooke Shaw on 08-14-2023 Bilirubin Ql (U) Negative Negative [facility] CBC W/Diff, Automatedon 07-25 Absolute Lymph 2.38 X10 3/uL Normal 0.83-4.51 [facility] Comment on above: Performed By: #### L 100.0100, L500.2500, L500.4100 #### [facility] [address] [place], [address] Absolute Neut 5.7 X10 3/uL Normal 2.0-7.7 [facility] Comment on above: Performed By: #### L 100.0100, L500.2500, L500.4100 #### [facility] [address] [place], [address] Basophils/100 WBC (Bld) 0.7 % Normal 0-1 [facility] Comment on above: Performed By: #### L 100.0100, L500.2500, L500.4100 #### [facility] [address] [place], [address] Eosinophils/100 WBC (Bld) 1.4 % Normal 0-5 [facility] Comment on above: Performed By: #### L 100.0100, L500.2500, L500.4100 #### [facility] [address] [place], [address] Erythrocyte distribution width (RBC) [Ratio] 13.0 % Normal 11.6-14.6 [facility] Comment on above: Performed By: #### L 100.0100, L500.2500, L500.4100 #### [facility] [address] [place], [address] Hematocrit (Bld) [Volume fraction] 45.5 % Normal 40-54 [facility] Comment on above: Performed By: #### L 100.0100, L500.2500, L500.4100 #### [facility] [address] [place], [address] Hemoglobin (Bld) [Mass/Vol] 14.6 g/dL Normal 13.0-16.5 [facility] Comment on above: Performed By: #### L 100.0100, L500.2500, L500.4100 #### [facility] [address] [place], [address] IG% 0.400 Normal 0.0-0.9 [facility] Comment on above: Result Comment: IG% - Immature Granulocytes (promyelocytes, myelocytes and metamyelocytes) > 1% indicates that a LEFT SHIFT is Present. Performed By: #### L 100.0100, L500.2500, L500.4100 #### [facility] [address] [place], [address] Lymphocytes/100 WBC (Bld) 26.4 % Normal 19-41 [facility] Comment on above: Performed By: #### L 100.0100, L500.2500, L500.4100 #### [facility] [address] [place], [address] MCH (RBC) [Entitic mass] 29.8 pg Normal 27.0-32.0 [facility] Comment on above: Performed By: #### L 100.0100, L500.2500, L500.4100 #### [facility] [address] [place], [address] MCHC (RBC) [Mass/Vol] 32.1 g/dL Normal 32-36 [facility] Comment on above: Performed By: #### L 100.0100, L500.2500, L500.4100 #### [facility] [address] [place], [address] MCV (RBC) [Entitic vol] 92.9 fL Normal 80-94 [facility] Comment on above: Performed By: #### L 100.0100, L500.2500, L500.4100 #### [facility] [address] [place], [address] Monocytes/100 WBC (Bld) 8.3 % Normal 0-10 [facility] Comment on above: Performed By: #### L 100.0100, L500.2500, L500.4100 #### [facility] [address] [place], [address] Neutrophils/100 WBC (Bld) 62.8 % Normal 47-70 [facility] Comment on above: Performed By: #### L 100.0100, L500.2500, L500.4100 #### [facility] [address] [place], [address] Nucleated RBC (Bld) [#/Vol] 0 10*3/uL Normal 0-5 [facility] Comment on above: Performed By: #### L 100.0100, L500.2500, L500.4100 #### [facility] [address] [place], [address] Platelet mean volume (Bld) [Entitic vol] 10.5 fL Normal 6.2-12.0 [facility] Comment on above: Performed By: #### L 100.0100, L500.2500, L500.4100 #### [facility] [address] [place], [address] Platelets (Bld) [#/Vol] 153 10*3/uL Normal 150-450 [facility] Comment on above: Performed By: #### L 100.0100, L500.2500, L500.4100 #### [facility] [address] [place], [address] RBC (Bld) [#/Vol] 4.90 10*6/uL Normal 4.6-6.2 [facility] Comment on above: Performed By: #### L 100.0100, L500.2500, L500.4100 #### [facility] [address] [place], [address] RDW SD 44.3 fl High 35.1-43.9 [facility] Comment on above: Performed By: #### L 100.0100, L500.2500, L500.4100 #### [facility] [address] [place] [place], [address] WBC (Bld) [#/Vol] 9.0 10*3/uL Normal 4.4-11.0 [facility] Comment on above: Performed By: #### L 100.0100, L500.2500, L500.4100 #### [facility] [address] [place], [address] Consultation - Cardiologyon 08-14-2023 Consultation - Cardiology [facility] Medical Records Department [address] [place] [address] Consultation - Cardiology 08/14/23 1326 MR#: [id number] Acct: [id number] Name: DEIRDRE ORTIZ Rep #: [id number] : 1955 68 From: Luca Canada MD PCP: Dr. Jazmine Le MD Status:ADM IN Location: [place] [address] Assessment Plan Assessment/Plan (1) Non-ST elevation OK (NSTEMI): PLAN: Plan 68-year-old patient presented to [facility] ER complaining of symptoms of chest pain He was brought in by his Evidently he was having symptoms of chest pain while he was moving his lawn to his tractor. Described as severe retrosternal. Associated with diaphoresis. No prior cardiac history reported. Evaluation in the ER was EKG showed T wave inversion noted in the LAD distribution. Subsequent evaluation with cardiac biomarker showed significant elevation of high sensitive troponin. Patient treated with aspirin, atorvastatin, beta-yadi as well as heparin Symptoms of chest pain resolved. Cardiac care plan recommendation. This patient has history of hematuria and has seen a urologist before your hematuria resolved no further episode of hematuria his renal function improved from a creatinine of 1.39-1.2. Based on his clinical presentation with the symptoms of severe retrosternal chest pain significant elevated cardiac biomarker change in the EKG responding well to medical therapy recommend to evaluate by echocardiogram in the morning to assess his LV function. Proceed with cardiac catheterization which will be set up in the morning. I discussed the indication, risk and benefit of the cardiac catheterization to the patient he understand. And he would like to proceed with cardiac cath in the morning. HPI Consult Data Date of Consult: 08/14/23 HPI Narrative Reason for Consultation: Non-STEMI HPI Narrative: DEIRDRE ORTIZ, is a 68 M who [facility] Medical History (Updated 08/13/23 @ 22:36 by Radha Morales) Kidney stones Medical History no medical history Home Medications NK 08/13/23 [History Last Taken Unknown] Allergy/AdvReac Type Severity Reaction Status Date / Time No Known Allergies Allergy Verified 08/13/23 17:57 Family History (Updated 08/13/23 @ 22:[address] Oral Smiley MD) Other Heart disease Surgical History (Updated 08/13/23 @ 17:59 by Amaya Flores) H/O hernia repair Social History Smoking Status: Never smoker Physical Exam Cardio Cardio Narrative: Seen and evaluated and examined at bedside Along with the nursing staff Comfortable in bed not having any symptoms of chest pain front desk monitor normal sinus rhythm. Cardiac exam S1-S2 is regular No systolic or diastolic murmur No pericardial rub Chest exam clear to auscultation bilateral. Examination lower extremity no lower extremity edema. Risk Stratification Risk Stratification Applicable: Yes Age >/= 65: Yes >/= 3 CAD Risk Factors (HTN, HLD, DM, family hx of CAD, or current smoker): No Aspirin Use in the Past 7 Days: Yes Severe Angina (>/= episodes in 24 hours): Yes EKG ST Changes >/= 0.5mm: Yes Positive Cardiac Marker: Yes LAUREL Risk Stratification Score: 5 LAUREL % Risk: 25% Risk Objective Data Vital Signs: Vital Signs Temp Pulse Resp BP Pulse Ox O2 Del Method 98.2 F 89 16 139/93 H 97 Room Air 08/14/23 09:28 08/14/23 09:28 08/14/23 09:28 08/14/23 09:28 08/14/23 09:28 08/14/23 09:28 Oxygen Delivery Method Room Air Weight: 229 lb 8.019 oz Body Mass Index (BMI) 27.2 Intake Output: Intake and Output for Last 24 Hours 08/12/23 08/13/23 08/14/23 23:59 23:59 23:59 Intake Total 669 / 669 Balance 669 / 669 Lab / Micro Data 08/14/23 07:30 08/14/23 07:30 Labs: Laboratory Results - last 24 hr 08/13/23 18:15: WBC 7.2, RBC 4.86, Hgb 14.6, Hct 46.1, MCV 94.9 H, MCH 30.0, MCHC 31.7 L, RDW Std Deviation 45.1 H, RDW Coeff of Hailee 13.0, Plt Count 141 L, MPV 9.9, Immature Gran % (Auto) 0.600, Neut % (Auto) 50.4, Lymph % (Auto) 35.3, Pinal % (Auto) 10.2 H, Eos % (Auto) 2.8, Baso % (Auto) 0.7, Absolute Neuts (auto) 3.6, Absolute Lymphs (auto) 2.54, Nucleated RBC % 0, Sodium 139, Potassium 4.0, Chloride 106, Carbon Dioxide 28.0, Anion Gap 5, BUN 19 H, Creatinine 1.39 H, Estim Creat Clear Calc 69.49, Est GFR (MDRD) Af Amer 65, Est GFR (MDRD) Non-Af 54 L, BUN/Creatinine Ratio 13.7, Gl ucose 109 H, Calcium 8.9, Troponin I High Sens 145 H* 08/13/23 19:10: PT 13.8, INR 1.1, APTT 33.0 08/13/23 20:15: Troponin I High Sens 298 H* 08/14/23 00:30: APTT 74.1 H, Troponin I High Sens 1801 H* 08/14/23 07:30: WBC 9.0, RBC 4.90, Hgb 14.6, Hct 45.5, MCV 92.9, MCH 29.8, MCHC 32.1, RDW Std Deviation 44.3 H, RDW Coeff of Hailee 13.0, Plt Count 153, MPV 10.5, Immature Gran % (Auto) 0.400, Neut % (Auto) 62.8, Lymph % (Auto) 26.4, Pinal % (Auto) 8.3, Eo (more content not included)... Normal [facility] Immature granulocytes/100 WB C Auto (Bld)Ordered By: Oral Smiley on 08-14-2023 Immature granulocytes/100 WBC (Bld) 0.400 % 0.0-0.9 [facility] Comment on above: IG% - Immature Granu locytes (promyelocytes, myelocytes and metamyelocytes) > 1% indicates that a LEFT SHIFT is Present. Ketones Test strip Ql (U)Ord ered By: Brooke Shaw on 08-14-2023 Ketones Ql (U) Negative Negative [facility] L501.4020on 08-14-2023 TROPONIN-I HS 1801 pg/mL Invalid Interpretation Code 3.0-78.0 [facility] Comment on above: Order Comment: 'TROP ' Serial specimen #1, #2 or #3: 3 Result Comment: Crit ical Result(s) Called at: 01:26:16 08/14/2023 by: Karla espinoza. Results read back by same. Please Note: New Test Units and Gender Specific Reference Ranges. For more information see Policy Stat Procedure [place] High Sensitivity Troponin (TNIH) and attachments. Performed By: #### L 9100.0200 #### [facility] [address] [place], [address] Laboratory - Chemistry and C hemistry - challengeOrdered By: Oral Smiley on 08-14-2023 Cholesterol in HDL [Mass/Vol] 52 mg/dL >40 [facility] Comment on above: The drugs N-Acetylcy steine and Metamizole may falsely depress this assay. Reference Range HDL <40 mg/dL Low HDL Cholesterol HDL >or= 60 mg/dL High HDL Cholesterol Cholesterol in LDL [Mass/Vol] 97 mg/dL 0-130 [facility] - Hematology and Cell countsOrdered By: Oral Smiley on 08-14-2023 Nucleated RBC/100 WBC (Bld) [Ratio] 0 % 0-5 [facility] Lipid Profileon 08-14-2023 Cholesterol [Mass/Vol] 163 mg/dL Normal 200 [facility] Comment on above: Result Comment: <200 mg/dL Desirable 200-240 mg/dL Borderline >240 mg/dL High Risk Performed By: #### L 100.0100, L500.2500, L500.4100 #### [facility] [address] [place], [address] Cholesterol in HDL [Mass/Vol] 52 mg/dL Normal [facility] Comment on above: Result Comment: The drugs N-Acetylcysteine and Metamizole may falsely depress this assay. Reference Range HDL <40 mg/dL Low HDL Cholesterol HDL >or= 60 mg/dL High HDL Cholesterol Performed By: #### L 100.0100, L500.2500, L500.4100 #### [facility] [address] [place], [address] Cholesterol in LDL [Mass/Vol] 97 mg/dL Normal 0-130 [facility] Comment on above: Performed By: #### L 100.0100, L500.2500, L500.4100 #### [facility] [address] [place], [address] Cholesterol in VLDL [Mass/Vol] 14 mg/dL Normal 5-40 [facility] Comment on above: Performed By: #### L 100.0100, L500.2500, L500.4100 #### [facility] [address] [place], [address] Triglyceride [Mass/Vol] 69 mg/dL Normal [facility] Comment on above: Result Comment: The drugs N-Acetylcysteine and Metamizole may falsely depress this assay. Serum Triglycerides Reference Interval Normal <150 mg/dL Borderline high 150 - 199 mg/dL High 200 - 499 mg/dL Very High > or = 500 mg/dL Performed By: #### L 100.0100, L500.2500, L500.4100 #### [facility] [address] [place], [address] Mucus LM Ql (Urine sed)Order ed By: Brooke Shaw on 08-14-2023 Mucus Ql (Urine sed) 0 SEEN /hpf [facility] Nitrite Test strip Ql (U)Ord ered By: Brooke Shaw on 08-14-2023 Nitrite Ql (U) Negative Negative [facility] No Panel InformationOrdered By: Brooke Shaw on 08-14-2023 Urine RBC 25-50 SEEN /hpf 0-5 [facility] No Panel InformationOrdered By: Oral Smiley on 08-14-2023 VLDL Cholesterol 14 mg/dL 5-40 [facility] Troponin I High Sensitivity 1801 pg/mL 3.0-78.0 [facility] Comment on above: Critical Result(s) C alled at: 01:26:16 08/14/2023 by: Karla espinoza. Results read back by same. Please Note: New Test Units and Gender Specific Reference Ranges. For more information see Policy Stat Procedure [place] High Sensitivity Troponin (TNIH) and attachments. Partial Thromboplast Timeon 08-14-2023 aPTT Coag (Bld) [Time] 66.4 s High 24.1-36.2 [facility] Comment on above: Performed By: #### L 9100.0200 #### [facility] [address] [place], [address] aPTT Coag (Bld) [Time] 53.8 s High 24.1-36.2 [facility] Comment on above: Order Comment: Comme nts: for heparin gtt Performed By: #### L 300.4310 ####[facility] [address] [place], [address] aPTT Coag (Bld) [Time] 62.0 s High 24.1-36.2 [facility] Comment on above: Performed By: #### L 300.4310 ####[facility] [address] [place], [address] aPTT Coag (Bld) [Time] 74.1 s High 24.1-36.2 [facility] Comment on above: Performed By: #### L 9100.0200 #### [facility] [address] [place], [address] Protein Test strip Ql (U)Ord ered By: Brooke Shaw on 08-14-2023 Protein Ql (U) 15 mg/dl Negative [facility] Squamous epithelial cells de tection in urine sediment by light microscopyOrdered By: Brooke Shaw on 08-14-2023 Epithelial cells.squamous LM Ql (Urine sed) 0 SEEN /hpf 0-5 [facility] Urinalysis, Completeon 08-13 RBC 25-50 SEEN Normal 0-5 [facility] Comment on above: Order Comment: BRADLEY CTOR TO SPECIFY Performed By: #### L 400.0001 ####[facility] [address] [place], [address] WBC 0-5 SEEN Normal 0-5 [facility] Comment on above: Order Comment: BRADLEY CTOR TO SPECIFY Performed By: #### L 400.0001 ####[facility] [address] [place], [address] BACTERIA 0 SEEN Normal None Seen [facility] Comment on above: Order Comment: BRADLEY CTOR TO SPECIFY Performed By: #### L 400.0001 ####[facility] [address] [place], [address] EPI,SQUAMOUS 0 SEEN Normal 0-5 [facility] Comment on above: Order Comment: BRADLEY CTOR TO SPECIFY Performed By: #### L 400.0001 ####[facility] [address] [place], [address] Mucus Ql (Urine sed) 0 SEEN Normal [facility] Comment on above: Order Comment: BRADLEY CTOR TO SPECIFY Performed By: #### L 400.0001 ####[facility] [address] [place], [address] Urine blood detectionOrdered By: Brooke Shaw on 08-14-2023 RBC Ql (U) 250 /ul Negative [facility] Urine clarityOrdered By: Dilia Shaw on 08-14-2023 Clarity (U) Clear Clear [facility] Urine color determinationOrd ered By: Brooke Shaw on 08-14-2023 Color (U) Yellow Yellow [facility] Urine glucose detectionOrder ed By: Brooke Shaw on 08-14-2023 Glucose Ql (U) Normal mg/dl Normal [facility] Urine leukocyte esterase det ection by dipstickOrdered By: Brooke Shaw on 08-14-2023 Leukocyte esterase Test strip Ql (U) Negative Negative [facility] Urine pHOrdered By: Brooke irving on 08-14-2023 pH (U) 7.0 [pH] 5.0 - 8.0 [facility] Urine sediment bacteria coun t by microscopy (number/high power field)Ordered By: Brooke Shaw on 08-14-2023 Bacteria LM.HPF (Urine sed) [#/Area] 0 /[HPF] None Seen [facility] Urine specific gravity measu rementOrdered By: Brooke Shaw on 08-14-2023 Specific gravity (U) [Rel density] 1.010 1.002-1.030 [facility] Urine urobilinogen measureme ntOrdered By: Brooke Shaw on 08-14-2023 Urobilinogen Ql (U) Normal mg/dl Normal [facility] 12 Lead EKGon 08-13-2023 12 Lead EKG [facility] Cardiovascular Services [address] [facility] [place] [address] 12 Lead EKG 08/15/23 0439 MR#: [id number] Acct: [id number] Name: DEIRDRE ORTIZ Rep #: [id number] : 1955 68 From: Bibiana Cifuentes MD Attending Dr: Dr. Ender Faust DO Status: D IS IN Ordering Dr: Oral Smiley MD Date: 08/13/23 Location: [facility] Sex: M C Admitted: 08/13/23 Test Reason : AM EKG Blood Pressure : / mmHG Vent. Rate : 075 BPM Atrial Rate : 075 BPM P-R Int : 178 ms QRS Dur : 072 ms QT Int : 420 ms P-R-T Axes : 056 047 090 degrees QTc Int : 469 ms Normal sinus rhythm ST T wave abnormality, consider anterior ischemia Prolonged QT Abnormal ECG When compared with ECG of 13-AUG-2023 22:51, MANUAL COMPARISON REQUIRED, DATA IS UNCONFIRMED Confirmed by COLTON CAPPS, JR ([id number]), international editorial producer KARLA STEVE ([id number]) on 08/22/2023 1:09:17 PM Referred By: Confirmed By:KENNETH CIFUENTES MD 08/22/23 1309 Date Bibiana Cifuentes MD CC: Dr. Jazmine Le MD; Dr. Ender Faust DO; Dr. Oral Smiley MD Signed [facility] 12 Lead EKG [facility] Cardiovascular Services [address] [place] [address] 12 Lead EKG 08/13/231936 MR#: [id number] Acct: [id number] Name: DEIRDRE ORTIZ Rep #: [id number] : 1955 68 From: Grady Chino MD Attending Dr: Dr. Ender Faust DO Status: A DM IN Ordering Dr: Filiberto Leonard DO Date: 08/13/23 Location: [facility] Sex: M C Admitted: 08/13/23 Test Reason : REPEAT EKG Blood Pressure : / mmHG Vent. Rate : 089 BPM Atrial Rate : 089 BPM P-R Int : 172 ms QRS Dur : 076 ms QT Int : 358 ms P-R-T Axes : 023 027 077 degrees QTc Int : 435 ms Normal sinus rhythm Normal ECG Confirmed by Grady Chino ([id number]), international editorial producer WILMAN RODRIGUEZ ([id number]) on 08/15/2023 9:54:32 AM Referred By: DH Confirmed By:Grady Chino 08/15/23 0954 Date Grady Chino MD CC: Dr. Jazmine Le MD; Dr. Filiberto Leonard DO; Dr. Ender Faust DO Signed Normal [facility] 12 Lead EKG [facility] Cardiovascular Services [address] [place] [address] 12 Lead EKG 08/13/23 1858 MR#: [id number] Acct: [id number] Name: DEIRDRE ORTIZ Rep #: [id number] : 1955 68 From: Grady Chino MD Attending Dr: Dr. Ender Faust DO Status: A DM IN Ordering Dr: Filiberto Leonard DO Date: 08/13/23 Location: [facility] Sex: M C Admitted: 08/13/23 Test Reason : REPEAT CP Blood Pressure : / mmHG Vent. Rate : 082 BPM Atrial Rate : 082 BPM P-R Int : 174 ms QRS Dur : 074 ms QT Int : 350 ms P-R-T Axes : 041 019 077 degrees QTc Int : 408 ms Normal sinus rhythm Normal ECG Confirmed by Grady Chino ([id number]), international editorial producer WILMAN RODRIGUEZ ([id number]) on 08/15/2023 9:54:20 AM Referred By: Confirmed By:Grady Chino 08/15/2354 Date Grady Chino MD CC: Dr. Jazmine Le MD; Dr. Filiberto Leonard DO; Dr. Ender Faust DO Signed Normal [facility] 12 Lead EKG [facility] Cardiovascular Services [address] [place] [address] 12 Lead EKG 08/13/23 1809 MR#: [id number] Acct: [id number] Name: DEIRDRE ORTIZ Rep #: [id number] : 1955 68 From: Grady Chino MD Attending Dr: Dr. Ender Faust DO Status: A DM IN Ordering Dr: Filiberto Leonard DO Date: 08/13/23 Location: [facility] Sex: M C Admitted: 08/13/23 Test Reason : Blood Pressure : / mmHG Vent. Rate : 088 BPM Atrial Rate : 088 BPM P-R Int : 178 ms QRS Dur : 078 ms QT Int : 362 ms P-R-T Axes : 028 030 073 degrees QTc Int : 438 ms Normal sinus rhythm Nonspecific T wave abnormality Abnormal ECG Confirmed by Grady Chino ([id number]), international editorial producer WILMAN RODRIGUEZ ([id number]) on 08/15/2023 9:54:05 AM Referred By: LAKESHA Confirmed By:Grady Chino 08/15/23 0954 Date Grady Chino MD CC: Dr. Jazmine Le MD; Dr. Filiberto Leonard DO; Dr. Ender Faust DO Signed [facility] Absolute lymphocyte countOrd ered By: ED PROVIDER on 08-13-2023 Lymphocytes Auto (Unsp spec) [#/Vol] 2.54 10*3/uL 0.83-4.51 [facility] Activated partial thrombopla stin time (aPTT) in platelet poor plasma by coagulation aOrdered By: Brooke Shaw on 08-13-2023 aPTT Coag (PPP) [Time] 33.0 s 24.1-36.2 [facility] Automated lymphocyte count a s percentage of total leukocytesOrdered By: ED PROVIDER on 08-13-2023 Lymphocytes/100 WBC Auto (Unsp spec) 35.3 % 19-41 [facility] Basic Metabolic Profile (BMP )on 08-13-2023 BUN/CRE 13.7 RATIO Normal 10-20 [facility] Comment on above: Order Comment: 1Y Performed By: #### L 500.2500 #### [facility] [address] [place], [address] CA,Total 8.9 mg/dL Normal 8.5-10.1 [facility] Comment on above: Order Comment: 1Y Performed By: #### L 500.2500 #### [facility] [address] [place], [address] Chloride [Moles/Vol] 106 mmol/L Normal 98-107 [facility] Comment on above: Order Comment: 1Y Performed By: #### L 500.2500 #### [facility] [address] [place], [address] CO2 [Moles/Vol] 28.0 mmol/L Normal 21.0-32.0 [facility] Comment on above: Order Comment: 1Y Performed By: #### L 500.2500 #### [facility] [address] [place], [address] Creatinine [Mass/Vol] 1.39 mg/dL High 0.70-1.30 [facility] Comment on above: Order Comment: 1Y Result Comment: The validity of the calculated GFR GFRAA in patients over 70 years has not been determined. Clinical correlation is essential. Performed By: #### L 500.2500 #### [facility] [address] [place], [address] ECRCL 69.49 ml/min Normal [facility] Comment on above: Order Comment: 1Y Performed By: #### L 500.2500 #### [facility] [address] [place], [address] EST GFR - AA 65 mL/min Normal >60 [facility] Comment on above: Order Comment: 1Y Result Comment: Afri can [place] GFR Calc Performed By: #### L 500.2500 #### [facility] [address] [place], [address] GAP 5 Normal 5-15 [facility] Comment on above: Order Comment: 1Y Performed By: #### L 500.2500 #### [facility] [address] [place], [address] GFR/1.73 sq M.predicted among non-blacks MDRD (S/P/Bld) [Vol rate/Area] 54 mL/min/{1.73_m2} Low >60 [facility] Comment on above: Order Comment: 1Y Result Comment: Non- GFR Calc Performed By: #### L 500.2500 #### [facility] [address] [place], [address] Glucose [Mass/Vol] 109 mg/dL High 74-106 [facility] Comment on above: Order Comment: 1Y Result Comment: Fast ing Glucose result from 100 to 125 mg/dL suggests IMPAIRED HOMEOSTASIS per A.D.A. criteria. Performed By: #### L 500.2500 #### [facility] [address] [place], [address] Potassium [Moles/Vol] 4.0 mmol/L Normal 3.5-5.1 [facility] Comment on above: Order Comment: 1Y Performed By: #### L 500.2500 #### [facility] [address] [place], [address] Sodium [Moles/Vol] 139 mmol/L Normal 136-145 [facility] Comment on above: Order Comment: 1Y Performed By: #### L 500.2500 #### [facility] [address] [place], [address] Urea nitrogen [Mass/Vol] 19 mg/dL High 7-18 [facility] Comment on above: Order Comment: 1Y Performed By: #### L 500.2500 #### [facility] [address] [place], [place], [address] Basophil percentageOrdered B y: ED PROVIDER on 08-13-2023 Basophils/100 WBC (Bld) 0.7 % 0-1 [facility] Chloride [Moles/Vol] 106 mmol/L 98-107 [facility] Eosinophils/100 WBC (Bld) 2.8 % 0-5 [facility] Glucose [Mass/Vol] 109 mg/dL 74-106 [facility] Comment on above: Fasting Glucose resu lt from 100 to 125 mg/dL suggests IMPAIRED HOMEOSTASIS per A.D.A. criteria. Hemoglobin (Bld) [Mass/Vol] 14.6 g/dL 13.0-16.5 [facility] Monocytes/100 WBC (Bld) 10.2 % 0-10 [facility] Neutrophils (Bld) [#/Vol] 3.6 10*3/uL 2.0-7.7 [facility] Neutrophils/100 WBC (Bld) 50.4 % 47-70 [facility] Potassium [Moles/Vol] 4.0 mmol/L 3.5-5.1 [facility] Sodium [Moles/Vol] 139 mmol/L 136-145 [facility] WBC (Bld) [#/Vol] 7.2 10*3/uL 4.4-11.0 [facility] CBC W/Diff, Automatedon 04-2 Absolute Lymph 2.54 X10 3/uL Normal 0.83-4.51 [facility] Comment on above: Performed By: #### L 500.2500 #### [facility] [address] [place], [address] Absolute Neut 3.6 X10 3/uL Normal 2.0-7.7 [facility] Comment on above: Performed By: #### L 500.2500 #### [facility] [address] [place], [address] Basophils/100 WBC (Bld) 0.7 % Normal 0-1 [facility] Comment on above: Performed By: #### L 500.2500 #### [facility] [address] [place], [address] Eosinophils/100 WBC (Bld) 2.8 % Normal 0-5 [facility] Comment on above: Performed By: #### L 500.2500 #### [facility] [address] [place], [address] Erythrocyte distribution width (RBC) [Ratio] 13.0 % Normal 11.6-14.6 [facility] Comment on above: Performed By: #### L 500.2500 #### [facility] [address] [place], [address] Hematocrit (Bld) [Volume fraction] 46.1 % Normal 40-54 [facility] Comment on above: Performed By: #### L 500.2500 #### [facility] [address] [place], [address] Hemoglobin (Bld) [Mass/Vol] 14.6 g/dL Normal 13.0-16.5 [facility] Comment on above: Performed By: #### L 500.2500 #### [facility] [address] [place], [address] IG% 0.600 Normal 0.0-0.9 [facility] Comment on above: Result Comment: IG% - Immature Granulocytes (promyelocytes, myelocytes and metamyelocytes) > 1% indicates that a LEFT SHIFT is Present. Performed By: #### L 500.2500 #### [facility] [address] [place], [address] Lymphocytes/100 WBC (Bld) 35.3 % Normal 19-41 [facility] Comment on above: Performed By: #### L 500.2500 #### [facility] [address] [place], [address] MCH (RBC) [Entitic mass] 30.0 pg Normal 27.0-32.0 [facility] Comment on above: Performed By: #### L 500.2500 #### [facility] [address] [place], [address] MCHC (RBC) [Mass/Vol] 31.7 g/dL Low 32-36 [facility] Comment on above: Performed By: #### L 500.2500 #### [facility] [address] [place], [address] MCV (RBC) [Entitic vol] 94.9 fL High 80-94 [facility] Comment on above: Performed By: #### L 500.2500 #### [facility] [address] [place], [address] Monocytes/100 WBC (Bld) 10.2 % High 0-10 [facility] Comment on above: Performed By: #### L 500.2500 #### [facility] [address] [place], [address] Neutrophils/100 WBC (Bld) 50.4 % Normal 47-70 [facility] Comment on above: Performed By: #### L 500.2500 #### [facility] [address] [place], [address] Nucleated RBC (Bld) [#/Vol] 0 10*3/uL Normal 0-5 [facility] Comment on above: Performed By: #### L 500.2500 #### [facility] [address] [place], [address] Platelet mean volume (Bld) [Entitic vol] 9.9 fL Normal 6.2-12.0 [facility] Comment on above: Performed By: #### L 500.2500 #### [facility] [address] [place], [address] Platelets (Bld) [#/Vol] 141 10*3/uL Low 150-450 [facility] Comment on above: Performed By: #### L 500.2500 #### [facility] [address] [place], [address] RBC (Bld) [#/Vol] 4.86 10*6/uL Normal 4.6-6.2 [facility] Comment on above: Performed By: #### L 500.2500 #### [facility] [address] [place], [address] RDW SD 45.1 fl High 35.1-43.9 [facility] Comment on above: Performed By: #### L 500.2500 #### [facility] [address] [place], [address] WBC (Bld) [#/Vol] 7.2 10*3/uL Normal 4.4-11.0 [facility] Comment on above: Performed By: #### L 500.2500 #### [facility] [address] [place], [address] Chest 1 View (Portable)on Chest 1 View (Portable) [facility] Imaging Services [address] [place] [address] Chest 1 View (Portable) MR#: [id number] Acct: [id number] Name: DEIRDRE ORTIZ Rep #: [id number] : 1955 M 68 From: Josh Vigil MD PCP: Dr. Jazmine Le MD Status: PRE ER Study: Chest 1 View (Portable) Date of Exam: 08/13/23 Exam# [id number] Ordering Dr: Filiberto Leonard DO [id number] STUDY: X-RAY CHEST REASON FOR EXAM: Male, 68 years old. chest pain TECHNIQUE: Single AP portable view of the chest. COMPARISON: None. FINDINGS: The lungs are clear and expanded. There is no demonstrated pleural abnormality. Normal size heart. Normal mediastinum and sabrina. Normal visualized pulmonary arteries. Normal visualized aortic arch and descending thoracic aorta. Normal visualized thoracic spine. Normal visualized ribs, clavicles, and shoulders. There is no demonstrated abnormality of the visualized soft tissue structures of the upper abdomen. RAD/Chest 1 View (Portable) IMPRESSION: Normal x-ray examination of the chest. Electronically Signed: Josh Vigil MD at 19:34 EDT , CC: Dr. Jazmine Le MD; Dr. Filiberto Leonard DO Wire Wheeler: Signed Normal [facility] Determination of erythrocyte mean corpuscular volume (MCV)Ordered By: ED PROVIDER on 08-13-2023 MCV (RBC) [Entitic vol] 94.9 fL 80-94 [facility] Echo Complete W/ Contraston 08-13-2023 Echo Complete W/ Contrast [facility] [address] [place] [address] Echo Complete W/ Contrast 08/15/23 1349 MR#: [id number] Acct: [id number] Name: DEIRDRE ORTIZ Rep #: [id number] : 1955 68 From: Bibiana Cifuentes MD Attending Dr: Dr. Ender Faust DO Status: A DM IN Ordering Dr: Oral Smiley MD Date: 08/13/23 Location: U Sex: M C Admitted: 08/13/23 Reason For Study: CHEST PAIN Procedure This was a 2D Doppler, Color Flow transthoracic echocardiogram. Contrast injection was performed. Exam performed portable in patient room. Left Ventricle Normal LV size. The estimated ejection fraction is 35 %. There is evidence of diastolic dysfunction. Apical and anterior hypokinesis. Right Ventricle Normal RV size. Normal systolic function. Atria Normal left atrium. Normal right atrium. No doppler evidence for ASD. Mitral Valve There is no mitral valve stenosis. Trivial mitral valve insufficiency. Tricuspid Valve There is no tricuspid stenosis. No tricuspid valve insufficiency. Aortic Valve Trisinus/trileaflet aortic valve. There is no aortic stenosis. No aortic valve insufficiency. Pulmonic Valve There is no pulmonic valvular stenosis. No pulmonic valve insufficiency. Great Vessels Normal aortic root. Pericardium/Pleural No pericardial effusion. Medication Diluted definity 3ml given slow IV push to enhance endocardial definition. MMode/2D Measurements Calculations LVIDd: 4.5 cm IVSd: 1.1 cm LVOT diam: 2.2 cm LVIDs: 3.1 cm LVPWd: 1.1 cm RVDd: 3.9 cm FS: 29.7 % LVOT area: 3.8 cm2 _ Ao root diam: 3.8 cm LAV(MOD-sp4): 41.9 ml LVAd ap4: 39.3 cm2 LVLd ap4: 8.8 cm EDV(MOD-sp4): 144.9 ml EDV(sp4-el): 148.7 ml LVAs ap4: 29.1 cm2 LVLs ap4: 8.2 cm ESV(MOD-sp4): 84.7 ml ESV(sp4-el): 87.4 ml EF(MOD-sp4): 41.5 % EF(sp4-el): 41.2 % _ LVAd ap2: 39.4 cm2 SV(MOD-sp4): 60.2 ml SV(MOD-sp2): 55.6 ml LVLd ap2: 8.8 cm EDV(MOD-sp2): 141.9 ml EDV(sp2-el): 149.2 ml LVAs ap2: 30.3 cm2 LVLs ap2: 8.4 cm ESV(MOD-sp2): 86.3 ml ESV(sp2-el): 92.9 ml EF(MOD-sp2): 39.2 % _ SV(sp4-el): 61.2 ml LA dimension(2D): 3.7 cm LA A4 area: 14.3 cm2 _ RA A4 area: 16.1 cm2 TAPSE: 2.0 cm Time Measurements MV dec time: 0.20 sec Doppler Measurements Calculations MV E max temi: 52.0 cm/sec Lat Peak E' Temi: 7.1 cm/sec Med Peak E' Temi: 5.6 cm/sec MV A max temi: 84.7 cm/sec E/E' lat: 7.4 E/E' med: 9.2 MV E/A: 0.61 _ Ao V2 max: 109.4 cm/sec LV V1 max: 85.4 cm/sec MV dec slope: 259.3 cm/sec2 Ao max P.8 mmHg LV V1 max P.9 mmHg Ao V2 mean: 77.8 cm/sec LV V1 mean P.5 mmHg Ao mean P.7 mmHg LV V1 mean: 58.8 cm/sec Ao V2 VTI: 21.3 cm LV V1 VTI: 14.8 cm AV (velocity ratio): 0.69 SANDRITA(I,D): 2.6 cm2 SANDRITA(V,D): 2.9 cm2 _ SV(LVOT): 55.4 ml PA V2 max: 64.9 cm/sec PA max PG (full): -0.10 mmHg ECHO/Echo Complete W/ Contrast Interpretation Summary The estimated ejection fraction is 35 %. There is evidence of diastolic dysfunction. Apical and anterior hypokinesis Trivial mitral valve insufficiency. Ordering Physician: Oral Smiley Referring Physician: Jazmine Le M.D. Performed By: Carmen Daniel RDCS 08/15/23 1500 Date Bibiana Cifuentes MD CC: Dr. Jazmine Le MD; Dr. Ender Faust DO; Dr. Oral Smiley MD Date Dictated: 08/15/23 1349 Date Transcribed: 08/15/23 1500 Wire Wheeler: Signed Normal [facility] Emergency Department Summary on 08-13-2023 Emergency Department Summary [facility] Medical Records Department [address] [place] [address] Emergency Department Summary 08/13/23 MR#: [id number] Acct: [id number] Name: DEIRDRE ORTIZ Rep #: [id number] : 1955 68 From: Brooke BILLINGSLEY PCP: Dr. Jazmine Le MD Status:ADM IN Location: [address] History of Present Illness Chief Complaint: Chest Pain Narrative Narrative: 68-year-old male with no past medical history has had episodes of chest pain over the last 2 days. He will feel an aching heavy pain to the right of his sternum. Yesterday it occurred after he lifted a lawnmower out of the box and also at night. He had an episode today around 5:30 PM after walking into pet [employer] but had not been doing anything strenuous. He also has discomfort in his right shoulder when it occurs. He states he will take Tums and it will subside. He has no associated shortness of breath, nausea or vomiting, or diaphoresis. He denies cardiac history. He has a primary care doctor and states he has no health problems and takes no medications. He does not smoke. Both his mother and father have had CAD. He has no history of DVT/PE or risk factors. PFSH PFS Home Medications NK 08/13/23 [History Last Taken Unknown] Allergy/AdvReac Type Severity Reaction Status Date / Time No Known Allergies Allergy Verified 08/13/23 17:57 Surgical History (Updated 08/13/23 @ 17:59 by Amaya Flores) H/O hernia repair Social History Smoking Status: Never smoker ROS ROS ED ROS Narrative Constitutional: Negative for fever, chills, malaise. CVS: Positive for chest pain. Respiratory: Negative for shortness of breath, cough. GI: Negative for abdominal pain, nausea, vomiting. EXAM Physical Exam Narrative Exam Narrative: CONST: Patient sitting in no acute distress. EYES: Normal inspection. NECK: Normal inspection. RESP: No respiratory distress, CTAB. CVS: Regular rate and rhythm, no murmur, no gallop. ABD: Soft and nontender, no guarding or rebound, nondistended. SKIN: Color normal, no rash, warm, dry, intact. EXTREMITIES: Normal appearance, no pedal edema. NEURO: Alert and answering questions appropriately. PSYCH: Normal affect. Const Vital Signs: 08/13/23 17:57 08/13/23 19:01 08/13/23 18:57 Temperature 96.6 F L Temperature Source Temporal Pulse Rate 101 H 97 Respiratory Rate 18 24 H Respiratory Effort Blood Pressure 143/93 H 146/102 H Blood Pressure Mean 109 116 Pulse Ox 100 99 98 Oxygen Delivery Method Room Air Room Air 08/13/23 19:00 08/13/23 19:29 08/13/23 20:00 Temperature Temperature Source Pulse Rate 93 87 Respiratory Rate 12 12 Respiratory Effort Normal Blood Pressure 142/88 H 144/98 H Blood Pressure Mean 106 113 Pulse Ox 98 99 Oxygen Delivery Method Room Air Room Air 08/13/23 21:01 08/13/23 21:17 Temperature 98.2 F Temperature Source Pulse Rate 85 85 Respiratory Rate 16 16 Respiratory Effort Blood Pressure 147/98 H 147/87 H Blood Pressure Mean 114 107 Pulse Ox 98 99 Oxygen Delivery Method Room Air Physical Exam Const Vital Signs: 08/13/23 17:57 08/13/23 19:01 08/13/23 18:57 Temperature 96.6 F L Temperature Source Temporal Pulse Rate 101 H 97 Respiratory Rate 18 24 H Respiratory Effort Blood Pressure 143/93 H 146/102 H Blood Pressure Mean 109 116 Pulse Ox 100 99 98 Oxygen Delivery Method Room Air Room Air 08/13/23 19:00 08/13/23 19:29 08/13/23 20:00 Temperature Temperature Source Pulse Rate 93 87 Respiratory Rate 12 12 Respiratory Effort Normal Blood Pressure 142/88 H 144/98 H Blood Pressure Mean 106 113 Pulse Ox 98 99 Oxygen Delivery Method Room Air Room Air 08/13/23 21:01 08/13/23 21:17 Temperature 98.2 F Temperature Source Pulse Rate 85 85 Respiratory Rate 16 16 Respiratory Effort Blood Pressure 147/98 H 147/87 H Blood Pressure Mean 114 107 Pulse Ox 98 99 Oxygen Delivery Method Room Air MDM MDM MDM Narrative Medical decision making narrative: History gathered from: Patient and spouse Consults: Cardiology, hospitalist Differential: GERD, ACS The last 2 days patient has had episodes of chest pain, sometimes exertional. It occurred again this evening prompting him to come in. He appears well and nontoxic. BP is 143/93 with otherwise stable vital signs. During my examination he is asymptomatic and exam is unremarkable. Initial EKG is normal sinus rhythm at 80 bpm with T wave inversions in V1 through V3. There is no prior for comparison. Initial troponin returned at 145. He complained of increased pain so repeat EKG was obtained about 1857. The tech states the leads had to be readjusted kathryn (more content not included)... Normal [facility] Erythrocyte distribution wid th ratioOrdered By: ED PROVIDER on 08-13-2023 Erythrocyte distribution width (RBC) [Ratio] 13.0 % 11.6-14.6 [facility] Erythrocyte distribution wid th standard deviationOrdered By: ED PROVIDER on 08-13-2023 Erythrocyte distribution width (RBC) [Entitic vol] 45.1 fL 35.1-43.9 [facility] H AND P Exam - [facility] 08-13-2023 H&P Exam - Hospitalist [facility] Medical Records Department [address] [place] [address] H P Exam - Hospitalist 08/13/232116 MR#: [id number] Acct: [id number] Name: DEIRDRE ORTIZ Rep #: [id number] : 1955 68 From: Oral Smiley MD PCP: Dr. Jazmine Le MD Status:ADM IN Location: [place] [address]-1 HPI - General General Date of Admission: 08/13/23 HPI Narrative DEIRDRE ORTIZ, is a 68 M who presents to the hospital with 2 days of chest pain with activity that would resolved, there is also radiation of the pain to his right shoulder with rest. He is never had this before and does not take any medications at baseline. He states that he was recently being seen by his PCP and started on antibiotics because he was having difficulty urinating and that there is some discomfort and burning with urination he states that the initial urine that he provided was clean and so they asked him for a second urine however he does not know what that showed because he provided it on . He presents today with an elevated troponin as well as T wave inversions in V1 and V2 therefore he was started on a heparin drip. While on the heparin drip he did also develop hematuria, current hemoglobin is stable at 14.6 and he states that he has had a kidney stone in the past. [facility] Medical History (Updated 08/13/23 @ 22:36 by Radha Morales) Kidney stones Medical History no medical history no medical history Home Medications NK 08/13/23 [History Last Taken Unknown] Allergy/AdvReac Type Severity Reaction Status Date / Time No Known Allergies Allergy Verified 08/13/23 17:57 Family History (Updated 08/13/23 @ 22:[address] Oral Smiley MD) Other Heart disease Surgical History (Updated 08/13/23 @ 17:59 by Amaya Flores) H/O hernia repair Social History Smoking Status: Never smoker ROS Constitutional Constitutional: Denies chills, fatigue, fever(s) or malaise Eyes Eyes: Denies blurry vision ENT HEENT: Denies headache(s) or nasal discharge Cardiovascular Cardiovascular: Reports chest pain; Denies dyspnea on exertion or syncope Respiratory/Chest Respiratory/Chest: Denies cough, shortness of breath at rest or shortness of breath with exertion Gastrointestinal Gastrointestinal: Denies constipation, diarrhea, nausea or vomiting Genitourinary Genitourinary: Denies dysuria Neurologic Neurologic: Denies focal weakness, numbness or tremor(s) Psychiatric Psychiatric: Denies anxiety or depression Vital Signs Vital Signs Vital Signs: 08/13/23 17:57 08/13/23 19:01 08/13/23 18:57 Temperature 96.6 F L Temperature Source Temporal Pulse Rate 101 H 97 Respiratory Rate 18 24 H Respiratory Effort Blood Pressure 143/93 H 146/102 H Blood Pressure Mean 109 116 Pulse Ox 100 99 98 Oxygen Delivery Method Room Air Room Air 08/13/23 19:00 08/13/23 19:29 08/13/23 20:00 Temperature Temperature Source Pulse Rate 93 87 Respiratory Rate 12 12 Respiratory Effort Normal Blood Pressure 142/88 H 144/98 H Blood Pressure Mean 106 113 Pulse Ox 98 99 Oxygen Delivery Method Room Air Room Air 08/13/23 21:01 Temperature Temperature Source Pulse Rate 85 Respiratory Rate 16 Respiratory Effort Blood Pressure 147/98 H Blood Pressure Mean 114 Pulse Ox 98 Oxygen Delivery Method Room Air Weight Weight: 237 lb 11.2 oz Body Mass Index (BMI) 28.1 Physical Exam Narrative General: Alert, Oriented x3, Cooperative, No apparent distress HEENT: Atraumatic, PERRLA, EOMI, Normocephalic Oral: Moist Mucosa Neck: Supple, No JVD Lungs: Diminished, Normal air movement, No rhonchi, No wheeze, No rales Cardiovascular: Regular rate, Regular Rhythm, Normal S1, Normal S2, No murmurs Abdomen: Soft, Non Tender, Non-Distended, No Hepato-splenomegaly Extremities: No edema, Capillary Refill Less than 3 Seconds Skin: No rashes, No breakdown Musculoskeletal: No Tenderness to Palpation of Joints or Extremities Neurological: No focal neurological deficits, Motor Exam 5/5 strength throughout, Sensory exam intact to light touch and pain Psych/Mental Status: Normal Affect, Appropriate Results Lab / Micro Data 08/13/23 18:15 08/13/23 18:15 Labs: Laboratory Results - last 24 hr 08/13/23 18:15: WBC 7.2, RBC 4.86, Hgb 14.6, Hct 46.1, MCV 94.9 H, MCH 30.0, MCHC 31.7 L, RDW Std Deviation 45.1 H, RDW Coeff of Hailee 13.0, Plt Count 141 L, MPV 9.9, Immature Gran % (Auto) 0.600, Neut % (Auto) 50.4, Lymph % (Auto) 35.3, Pinal % (Auto) 10.2 H, Eos % (Auto) 2.8, Baso % (Auto) 0.7, Absolute Neuts (auto) 3.6, Absolute Lymphs (auto) 2.54, Nucleated RBC % 0, Sodium 139, Potassium 4.0, Chloride 106, Carbon Dioxide 28.0, Anion Gap 5, BUN 19 H, Creatinine 1.39 H, Estim Creat Clear Calc 69 (more content not included)... Normal [facility] Hematocrit Auto (Bld) [Volum e fraction]Ordered By: ED PROVIDER on 08-13-2023 Hematocrit (Bld) [Volume fraction] 46.1 % 40-54 [facility] Immature granulocytes/100 WB C Auto (Bld)Ordered By: ED PROVIDER on 08-13-2023 Immature granulocytes/100 WBC (Bld) 0.600 % 0.0-0.9 [facility] Comment on above: IG% - Immature Granu locytes (promyelocytes, myelocytes and metamyelocytes) > 1% indicates that a LEFT SHIFT is Present. L501.4020on 08-13-2023 TROPONIN-I HS 298 pg/mL Invalid Interpretation Code 3.0-78.0 [facility] Comment on above: Result Comment: Crit ical Result(s) Called at: 21:04:43 08/13/2023 by: Merritt FLORES RN ED Results read back by same. Please Note: New Test Units and Gender Specific Reference Ranges. For more information see Policy Stat Procedure [place] High Sensitivity Troponin (TNIH) and attachments. Performed By: #### L 500.2500 #### [facility] [address] [place], [place], [address] L501.5425on 08-13-2023 TROPONIN-I HS 145 pg/mL Invalid Interpretation Code 3.0-78.0 [facility] Comment on above: Order Comment: 1Y Result Comment: Crit ical Result(s) Called at: 18:57:52 08/13/2023 by: Merritt LAI RN Results read back by same. Please Note: New Test Units and Gender Specific Reference Ranges. For more information see Policy Stat Procedure [place] High Sensitivity Troponin (TNIH) and attachments. Performed By: #### L 9100.0200 #### [facility] [address] [place], [place], [address] Laboratory - Chemistry and C hemistry - challengeOrdered By: ED PROVIDER on 08-13-2023 CO2 [Moles/Vol] 28.0 mmol/L 21.0-32.0 [facility] Urea nitrogen/Creatinine [Mass ratio] 13.7 mg/mg 02-11 [facility] Laboratory - CoagulationOrde red By: Brooke Shaw on 08-13-2023 INR Coag (Bld) [Relative time] 1.1 {INR} [facility] PT Coag (PPP) [Time] 13.8 s 11.7-14.9 [facility] Laboratory - Hematology and Cell countsOrdered By: ED PROVIDER on 08-13-2023 MCH (RBC) [Entitic mass] 30.0 pg 27.0-32.0 [facility] MCHC (RBC) [Mass/Vol] 31.7 g/dL 32-36 [facility] Nucleated RBC/100 WBC (Bld) [Ratio] 0 % 0-5 [facility] Platelet mean volume (Bld) [Entitic vol] 9.9 fL 6.2-12.0 [facility] Platelets (Bld) [#/Vol] 141 10*3/uL 150-450 [facility] No Panel InformationOrdered By: ED PROVIDER on 08-13-2023 Troponin I High Sensitivity 298 pg/mL 3.0-78.0 [facility] Comment on above: Critical Result(s) C alled at: 21:04:43 08/13/2023 by: Merritt FLORES RN ED Results read back by same. Please Note: New Test Units and Gender Specific Reference Ranges. For more information see Policy Stat Procedure [place] High Sensitivity Troponin (TNIH) and attachments. Estimated Creatinine Clearance Calc 69.49 ml/min [facility] Estimated GFR (MDRD) Amer 65 mL/min >60 [facility] Comment on above: GFR Calc Estimated GFR (MDRD) Non-Af Amer 54 mL/min >60 [facility] Comment on above: Non- GFR Calc Partial Thromboplast Timeon 08-13-2023 aPTT Coag (Bld) [Time] 33.0 s Normal 24.1-36.2 [facility] Comment on above: Performed By: #### L 500.2500 #### [facility] [address] [place], [address] Prothrombin Time w/INRon INR Coag (PPP) [Relative time] 1.1 {INR} Normal [facility] Comment on above: Performed By: #### L 500.2500 #### [facility] [address] [place], [address] PT Coag (PPP) [Time] 13.8 s Normal 11.7-14.9 [facility] Comment on above: Performed By: #### L 500.2500 #### [facility] [address] [place], [address] RBC Auto (Bld) [#/Vol]Ordere d By: ED PROVIDER on 08-13-2023 RBC (Bld) [#/Vol] 4.86 10*6/uL 4.6-6.2 [facility] Serum or plasma calcium allison urement (mass/volume)Ordered By: ED PROVIDER on 08-13-2023 Calcium [Mass/Vol] 8.9 mg/dL 8.5-10.1 [facility] Serum or plasma creatinine m easurement (mass/volume)Ordered By: ED PROVIDER on 08-13-2023 Creatinine [Mass/Vol] 1.39 mg/dL 0.70-1.30 [facility] Comment on above: The validity of the calculated GFR & GFRAA in patients over 70 years has not been determined. Clinical correlation is essential. Serum or plasma urea nitroge n measurement (mass/volume)Ordered By: ED PROVIDER on 08-13-2023 Urea nitrogen [Mass/Vol] 19 mg/dL 7-18 [facility] Thin prep Papanicolaou smear with manual screeningOrdered By: ED PROVIDER on 08-13-2023 Thin prep Papanicolaou smear with manual screening 5 5-15 [facility] No Panel InformationOrdered By: Jazmine Le on 01-11-2023 Prostate Specific Antigen Screen 0.69 ng/mL 0.00-4.00 [facility] Comment on above: This test was perfor med using the TPSA assay method for theDimension chemistry system. Values obtained with differentassay methods cannot be used interchangably.When changing PSA assays in the course of monitoring apatient, additional sequential testing should be carriedout to confirm baseline values. No Panel Informationon 11-23 Prostate Specific Antigen Screen 0.74 ng/mL 0.00-4.00 [facility] Work Phone: Comment on above: This test was perfor med using the TPSA assay method for theDimension chemistry system. Values obtained with differentassay methods cannot be used interchangably.When changing PSA assays in the course of monitoring apatient, additional sequential testing should be carriedout to confirm baseline values. Vital Signs Date Time Vital Sign Value Performing Clinician Ragini dickinson 06-14-2024 10:13-0500 Body height 195.[address] Jazmine Le MD Work Phone: [facility] 06-14-2024 10:07-0500 Body mass index (BMI) [Ratio] 27.5 kg/m2 Dr. Jazmine Le MD Work Phone: [facility] 06-14-2024 10:07-0500 Body weight 105.[address] Jazmine Le MD Work Phone: [facility] 06-14-2024 10:07-0500 Diastolic blood pressure 79 mm[Hg] Dr. Jazmine Le MD Work Phone: [facility] 06-14-2024 10:07-0500 Heart rate 84 /min Dr. Jazmine Le MD Work Phone: [facility] 06-14-2024 10:07-0500 Respiratory rate 18 /min Dr. Jazmine Le MD Work Phone: [facility] 06-14-2024 10:07-0500 SaO2% (BldA) [Mass fraction] 100 % Dr. Jazmine Le MD Work Phone: [facility] 06-14-2024 10:07-0500 Systolic blood pressure 127 mm[Hg] Dr. Jazmine Le MD Work Phone: [facility] 08-30-2023 14:06-0400 Body height 195.[address] Jamzine Le Work Phone: [facility] 08-30-2023 14:06-0400 Body mass index (BMI) [Ratio] 27.5 kg/m2 Dr. Jazmine Le Work Phone: [facility] 08-30-2023 14:06-0400 Body weight 105.[address] Jazmine Le Work Phone: [facility] 08-30-2023 14:06-0400 Diastolic blood pressure 80 mm[Hg] Dr. Jazmine Le Work Phone: [facility] 08-30-2023 14:06-0400 Heart rate 76 /min Dr. Jazmine Le Work Phone: [facility] 08-30-2023 14:06-0400 Respiratory rate 18 /min Dr. Jazmine Le Work Phone: [facility] 08-30-2023 14:06-0400 SaO2% (BldA) [Mass fraction] 100 % Dr. Jazmine Le Work Phone: [facility] 08-30-2023 14:06-0400 Systolic blood pressure 121 mm[Hg] Dr. Jazmine Le Work Phone: [facility] 08-26-2023 10:38-0400 Body mass index (BMI) [Ratio] 28 kg/m2 Dr. Jazmine Le Work Phone: [facility] 08-26-2023 10:38-0400 Body temperature 96.6 [degF] Dr. Jazmine Le Work Phone: [facility] 08-26-2023 10:38-0400 Body weight 107.[address] Jazmine Le Work Phone: [facility] 08-26-2023 10:38-0400 Diastolic blood pressure 66 mm[Hg] Dr. Jazmine Le Work Phone: [facility] 08-26-2023 10:38-0400 Heart rate 96 /min Dr. Jazmine Le Work Phone: [facility] 08-26-2023 10:38-0400 Respiratory rate 16 /min Dr. Jazmine Le Work Phone: [facility] 08-26-2023 10:38-0400 SaO2% (BldA) [Mass fraction] 98 % Dr. Jazmine Le Work Phone: [facility] 08-26-2023 10:38-0400 Systolic blood pressure 134 mm[Hg] Dr. Jazmine Le Work Phone: [facility] 08-16-2023 14:00-0400 Body temperature 97.3 [degF] Dr. Jazmine Le Work Phone: [facility] 08-16-2023 14:00-0400 Diastolic blood pressure 72 mm[Hg] Dr. Jazmine Le Work Phone: [facility] 08-16-2023 14:00-0400 Heart rate 82 /min Dr. Jazmine Le Work Phone: [phone] [place] [address] 08-16-2023 14:00-0400 Respiratory rate 18 /min Dr. Jazmine Le Work Phone: [phone] [place] [address] 08-16-2023 14:00-0400 SaO2% (BldA) [Mass fraction] 99 % Dr. Jazmine Le Work Phone: [facility] 08-16-2023 14:00-0400 Systolic blood pressure 146 mm[Hg] Dr. Jazmine Le Work Phone: [phone] [place] [address] 08-13-2023 22:19-0400 Body height 195.[address] Jazmine Le Work Phone: [phone] [place] [address] 08-13-2023 22:19-0400 Body mass index (BMI) [Ratio] 27.2 kg/m2 Dr. Jazmine Le Work Phone: [facility] 08-13-2023 22:19-0400 Body weight 104.[address] Jazmine Le Work Phone: [phone] [place] [address] 08-13-2023 22:00-0400 Diastolic blood pressure 85 mm[Hg] [facility] 08-13-2023 22:00-0400 Heart rate 83 /min [facility] 08-13-2023 22:00-0400 Respiratory rate 18 /min [facility] 08-13-2023 22:00-0400 SaO2% (BldA) [Mass fraction] 100 % [facility] 08-13-2023 22:00-0400 Systolic blood pressure 141 mm[Hg] [facility] 08-13-2023 21:17-0400 Body temperature 98.2 [degF] [facility] 08-13-2023 17:57-0400 Body height 195.58 cm [facility] 08-13-2023 17:57-0400 Body mass index (BMI) [Ratio] 28.1 kg/m2 [facility] 08-13-2023 17:57-0400 Body weight 107.81 kg [facility] Encounters Encounter Date Encounter Type Care Provider Facility Start: 07-18-2024 Non-patient / Non-visit Dr. Carlos Mendez MD -[facility] Start: 07-18-2024 End: 07-18-[address] Jazmine Le MD Work Phone: [facility] Work Phone: Start: 07-18-2024 End: 07-18-2024 Patient encounter procedure Shelby BILLINGSLEY -Cardiovascular Services Work Phone: Start: 07-18-2024 End: 07-18-2024 ambulatory Jazmine Le Facility:[facility] Start: 06-14-2024 End: 06-14-2024 Patient encounter procedure Shelby BILLINGSLEY -[facility] Work Phone: Start: 06-14-2024 End: 06-14-2024 ambulatory Jazmine Le Facility:[facility] Start: 05-28-2024 End: 05-28-2024 Patient encounter procedure Idalmis Byers NP-C -Laboratory Work Phone: Start: 05-28-2024 End: 05-28-2024 ambulatory Jazmine Le Facility:[facility] Start: 01-24-2024 End: 01-24-2024 ambulatory Jazmine Le Facility:[facility] Start: 12-06-2023 End: 12-06-2023 ambulatory Jazmine Le Facility:[facility] Start: 12-04-2023 ambulatory Bibiana Cifuentes Fa cility:[facility] Start: 11-25-2023 End: 11-25-2023 ambulatory Jazmine S Jolliff Facility:[facility] Start: 11-21-2023 End: 11-23-2023 ambulatory Bibiana Dalemerrittnikkithi Facility:[facility] Start: 11-21-2023 End: 11-21-2023 ambulatory Jazmine S Jolliff Facility:[facility] Start: 11-10-2023 [place]azmine S [place] [facility] [place]: 11-10-2023 End: 11-10-2023 ambulatory Jazmien S Sulmaiff Facility:[facility] Start: 10-21-2023 End: 10-23-2023 ambulatory Bibiana Dailylinwood Facility:[facility] Start: 09-23-2023 End: 09-23-2023 ambulatory Jazmine S Rey Facility:[facility] Start: 09-22-2023 End: 09-22-2023 ambulatory Mike George Facility:[facility] Start: 08-31-[address] Jazmine roberts Work Phone: [facility] Work Phone: Start: 08-30-2023 End: 08-30-[address] Jazmine eL Work Phone: [facility] Work Phone: Start: 08-30-2023 End: 08-30-2023 ambulatory Idalmis Byers NP [place] [place]: 08-26-2023 End: 08-26-[address] Jazmine Le Work Phone: [facility] Work Phone: Start: 08-26-2023 End: 08-26-[address] Jazmine Le Work Phone: [facility] Work Phone: Start: 08-26-2023 End: 08-26-2023 ambulatory Jazmine Le Facility:[facility] Start: 08-16-2023 Non-patient / Non-visit Dr. Jazmine Le Work Phone: [facility] Work Phone: Start: 08-16-2023 End: 08-16-2023 ambulatory Jazmine Le Facility:[facility] Start: 08-16-2023 End: 08-16-2023 Non-patient / Non-visit Dr. Jazmine Le Work Phone: [facility] Work Phone: Start: 08-15-2023 Non-patient / Non-visit Dr. Jazmine Le Work Phone: [facility] Work Phone: Start: 08-15-2023 ambulatory Jazmine Le Facility: [facility] Start: 08-15-2023 Non-patient / Non-visit Dr. Jazmine Le Work Phone: [facility] Start: 08-14-2023 Non-patient / Non-visit Dr. Jazmine Le Work Phone: [facility] Work Phone: Start: 08-14-2023 Non-patient / Non-visit Dr. Jazmine Le Work Phone: [facility] Start: 08-13-2023 End: 08-13-2023 Non-patient / Non-visit Dr. Jazmine Le Work Phone: [facility] Work Phone: Start: 08-13-2023 End: 08-13-2023 ambulatory Jazmine Le Facility:[facility] Start: 08-13-2023 End: 08-16-2023 Evaluation and management of inpatient [facility] Work Phone: Start: 01-11-2023 End: 01-11-2023 ambulatory [facility] Work Phone: Start: 01-11-2023 End: 01-11-2023 Patient encounter procedure [facility] Start: 11-23-2021 End: 11-23-2021 Patient encounter procedure [facility] Procedures Date Procedure Procedure Detail Performing Clinician Start: 08-13-2023 Plain chest X-ray Plan of Treatment Date Care Activity Detail Author Start: 08-16-2023 Patient discharge [facility] Start: 08-15-2023 Patient referral [facility] Work Phone: Start: 08-15-2023 Cardiac monitoring [facility] Start: 08-15-2023 Cardiac rehabilitation - phase 1 [facility] Start: 08-15-2023 Cardiac rehabilitation - phase 2 [facility] Start: 08-15-2023 Oxygen therapy [facility] Start: 08-15-2023 Patient discharge [facility] Start: 08-15-2023 Systemic arterial pr essure monitoring [facility] Start: 08-15-2023 Vascular disease risk assessment [facility] Start: 08-15-2023 Vital signs measurements [facility] Start: 08-15-2023 End: 08-15-2023 [facility] Start: 08-15-2023 End: 08-15-2023 Notification of physician [facility] Start: 08-15-2023 Patient education [facility] Start: 08-15-2023 Provision of activity privileges [facility] Start: 08-15-2023 Pulse taking [facility] Start: 08-15-2023 End: 08-15-2023 Taking patient vital signs [facility] Start: 08-15-2023 Wound care [facility] Start: 08-14-2023 [facility] Start: 08-13-2023 Following clinical p athway protocol [facility] Start: 08-13-2023 Ambulation without limitation [facility] Start: 08-13-2023 Assessment of risk o f venous thromboembolism [facility] Start: 08-13-2023 Insertion of cathete r into peripheral vein [facility] Start: 08-13-2023 Measuring intake and output [facility] Start: 08-13-2023 Providing care accor ding to standard [facility] Start: 08-13-2023 Referral to informatica mdm developer [facility] Start: 08-13-2023 [facility] Start: 08-13-2023 Verification routine [facility] Start: 08-13-2023 Admission procedure [facility] Start: 08-13-2023 Hospital admission, emergency, from emergency room, medical nature [facility] Start: 08-13-2023 End: 08-13-[address] [facility] spital Bilirubin measurement, urine [facility] Hemoglobin [Presence] in Urine [facility] Lipid 1996 panel - S karen or Plasma [facility] Measurement of keton es in urine using dipstick [facility] Microscopic urinalysis [facility] Patient referral [facility] Work Phone: pH of Urine [facility] Specific gravity of Urine [facility] Urinalysis, blood, qualitative [facility] Urine dipstick for glucose [facility] Urine dipstick for l eukocyte esterase [facility] Urine dipstick for nitrite [facility] Urine dipstick for protein [facility] Urine examination [facility] Urine microscopy: ep ithelial cells [facility] Urine Microscopy: white cells [facility] Urobilinogen [Presence] in Urine [facility] US Heart limited [facility] Payers Date Payer Category Payer Self-pay [id number] 2021 Private Health Insurance 101 [id number] Unknown [id number] Unknown [id number] 2.16.8 40.1.627733.3.579.2.462 Unknown [id number] 2.16.8 40.1.993512.3.579.2.462 Unknown [id number] 2.16.8 40.1.641988.3.579.2.462 Unknown [id number] 2.16.8 40.1.594347.3.579.2.462 Unknown [id number] 2.16.8 40.1.878957.3.579.2.462 Unknown [id number] 2.16.8 40.1.373225.3.579.2.462 Unknown [id number] 2.16.8 40.1.617592.3.579.2.462 Unknown [id number] 2.16.8 40.1.809057.3.579.2.462 Unknown [id number] 2.16.8 40.1.519325.3.579.2.462 Unknown [id number] 2.16.8 40.1.936383.3.579.2.462 Unknown [id number] 2.16.8 40.1.261240.3.579.2.462 Unknown [id number] 2.16.8 40.1.115372.3.579.2.462 Unknown [id number] 2.16.8 40.1.108521.3.579.2.462 Unknown [id number] 2.16.8 40.1.091516.3.579.2.462 Unknown [id number] 2.16.8 40.1.773011.3.579.2.462 Unknown [id number] 2.16.8 40.1.848449.3.579.2.462 Unknown [id number] 2.16.8 40.1.288365.3.579.2.462 Unknown [id number] 2.16.8 40.1.080311.3.579.2.462 Unknown [id number] 2.16.8 40.1.761990.3.579.2.462 Unknown [id number] 2.16.8 40.1.877406.3.579.2.462 Unknown [id number] 2.16.8 40.1.825195.3.579.2.462 Unknown [id number] 2.16.8 40.1.327871.3.579.2.462 Unknown [id number] 2.16.8 40.1.446637.3.579.2.462 Unknown [id number] 2.16.8 40.1.507538.3.579.2.462 Unknown [id number] 2.16.8 40.1.864248.3.579.2.462 Unknown [id number] 2.16.8 40.1.188905.3.579.2.462 Social History Date Type Detail Facility [facility] Work Phone: Start: 1955 Sex Assigned At Male [facility] Start: 08-13-2023 End: 08-26-2023 Tobacco smoking status NHIS Unknown if ever smoked [facility] Start: 08-26-2023 [facility] (finding) [facility] Start: 07-23-2024 Sex Male (finding) [facility] Medical Equipment Procedure Code Equipment Code Equipment Origin al Text Equipment Identifier Dates Drug-eluting coronary artery stent, [id number]-xk lymer-coated ()[id number] FDA Start: 08-15-2023 Drug-eluting coronary artery stent, elt-yyohnlaqqhlzy-vf lymer-coated ()[id number] FDA Start: 08-15-2023 Drug-eluting coronary artery stent, [id number]-ihvpallojlkfx-bh lymer-coated ()[id number] FDA Start: 08-15-2023 Goals Date Patient Goal Desired Activity /State Functional Status Date Assessment Result Facility 08-16-2023 Functional status Up ad mercedes [facility] Work Phone: Mental Status Date Assessment Result Facility 08-16-2023 Cognitive function Voice/Name [facility] Work Phone: 08-13-2023 Cognitive function Voice/Name [facility] Work Phone: Clinical Notes 08-13-2023 to 08-16-2023 Note Date & Type Note Facility 08-16-2023 Discharge summary Note Date/Time August 16, 2023 1:03pm [facility] Medical Records Department [address] [place] [address] Instructions for Home/Discharge Instructions 08/16/23 1303 MR#: [id number] Acct: [id number] Name: DEIRDRE ORTIZ Rep #:[id number] : 1955 68 From: Ender Faust DO PCP: Dr. Jazmine Le MD Status:ADM IN Discharge Instructions Diet Discharge Diet: No restrictions Activity Discharge Activity: Return to Normal Activity Weight Bearing Status: Full weight bearing Follow Up Care Test Results: Test results from this visit will be discussed in further detail at your follow-up appointment, if applicable. Discharge Plan Admission Admit Date/Time: 08/13/23 21:59 Primary Reason for Your Visit: Non-STEMI Attending Provider: Ender Faust Primary Care Provider: Jazmine Le Consulting Providers: Luca Canada; Oral Smiley Instructions Additional Instructions / Restrictions: Avoid taking any ibuprofen, Aleve, or Advil for pain, Tylenol is safe to take for pain Discharge Orders/Prescriptions Prescriptions: New atorvastatin 40 mg Tablet 40 mg PO QHS Qty: 30 0RF metoprolol succinate 50 mg Tablet Extended Release 24 Hr 50 mg PO DAILY Qty: 30 0RF aspirin 81 mg Tablet,Delayed Release (Dr/Ec) 81 mg PO BREAKFAST Qty: 0 0RF Brilinta 90 mg Tablet 90 mg PO BID Qty: 60 0RF lisinopril 10 mg tablet 10 mg PO DAILY Qty: 30 0RF Referrals / Follow Up: Jazmine Le MD [Primary Care Provider] - Shelby Sharp PA [Med Staff - Adv Practice Prof] - See Referral Note (Call the office to make follow-up appointment for 2 weeks) Disposition Disposition (needs filled in before D/C Order can be placed): Home, Self Care 08/16/23 1309<Electronically signed by Ender Faust DO>Ender Faust DO CC: Dr. Jazmine Le MD; Dr. Luca Canada MD; Dr. Oral Smiley MD ~ Signed ADDENDUM by Dr. Ender Faust DO on 08/16/[address] Le in 1 week to have a repeat urinalysis performed to make sure theblood in your urine has cleared 08/16/23 1433<Electronically signed by Ender Faust DO>Ender Faust DO cc: Dr. Jazmine Le MD; Dr. Luca Canada MD; Dr. Oral Smiley MD ~* Signed [facility] Work Phone: 1(708) 346-916404-23-2024 [facility] Medical Records Department [address] [place] [address] Discharge Summary 08/16/23 1309 MR#: [id number] Acct: [id number] Name: DEIRDRE ORTIZ Rep #: [id number] : 1955 68 From: Ender Faust DO PCP: Dr. Jazmine Le MD Status:DIS IN Location: [place] [address] Providers Date of Admission: 08/13/23 Date of Discharge: 08/16/23 Primary Care Physician: Dr. Jazmine Le MD Consultations 08/13/23 22:16 Consult: Cardiology Routine Consulting Provider: Luca Canada Reason for Consult: NSTEMI EMERGENT Consult: No MD Notified: Yes Date Notified: 08/13/23 Time Notified: 22:01 Method of Notification: ED Physician Initiated Reason For Visit: NSTEMI Diagnosis Discharge Diagnosis (1) Stented coronary artery: Status: Acute Code(s): Z95.5 - Presence of coronary angioplasty implant and graft (2) Non-ST elevation OK (NSTEMI): Status: Acute Code(s): I21.4 - Non-ST elevation (NSTEMI) myocardial infarction Plan 1. [id number] to occlusive coronary disease in the LAD and the first diagonal-patient will remain on aspirin and Brilinta, he is on a beta-yadi, lisinopril, and a statin #2 hematuria-etiology unclear, this seems to be clearing, patient will remain on heparin drip for now #3 hyperlipidemia-patient is on atorvastatin Total clinical time spent by myself addressing the patient's medical issues, reviewing all of his data, and collaborating with patient's care team: 35 minutes Medications at Discharge Home Medications aspirin 81 mg tablet,delayed release 81 mg PO BREAKFAST #0 tabs 08/16/23 atorvastatin 40 mg tablet 40 mg PO QHS #30 tabs 08/16/23 lisinopril 10 mg tablet 10 mg PO DAILY #30 tabs 08/16/23 metoprolol succinate 50 mg tablet,extended release 24 hr 50 mg PO DAILY #30 tabs 08/16/23 ticagrelor 90 mg tablet (Brilinta) 90 mg PO BID #60 tabs 08/16/23 Hospital Course Operations None Procedures 2-D Echocardiogram, Cardiac catheterization (With CHELSIE to P D1 and mid LAD) and - Summary of Care Provided Minutes Spent on Discharge: 32 Hospital Course: 68-year-old white male was seen in the emergency room at [facility] with complaints of chest pain off and on x 2 days, workup in the emergency room showed an elevated troponin as well as T wave inversions in V1 and V2, patient was started on heparin drip and cardiology was contacted, patient was taken to the [employer] [facility] and 2 stents were placed 1 in the mid LAD and the other in the PD1 branch. Patient did well after catheterization, he had a brief period of hematuria although patient was on heparin, the patient related to the fact that he has had kidney stones before and he thought that maybe he had passed a stone prior to coming to the emergency room. Patient's echocardiogram was done that showed a reduced EF of 35%. On 08/16/2023, patient was seen and examined: On examination he appeared in good health and spirits. Vital signs as documented. Skin warm and dry and without overt rashes. Neck without JVD, neck was supple, trachea midline, thyroid was normal. Lungs clear bilaterally, normal air movement was noted. Heart exam notable for regular rhythm, normal sounds and absence of murmurs, rubs or gallops. Abdomen unremarkable and without evidence of organomegaly, masses, or abdominal aortic enlargement. Bowel sounds are present, abdomen is not distended. Extremities nonedematous, no cyanosis was noted, no clubbing was noted. Neuro: Cranial nerves II through XII are grossly intact, no focal motor deficits were noted, sensation to light touch and pinprick intact, motor exam 5/5 throughout. Psych: Patient is alert and oriented x3, he does not appear anxious or depressed, he does not appear agitated. Patient was felt to be stable for discharge home on 08/16/2023. Patient was also instructed to follow-up with his PCP and get a repeat UA to make sure his hematuria had resolved. Weight / BMI Weight Weight: 104.1 kg Body Mass Index (BMI) 27.2 ABG / Lab / Microbiology Data 08/16/23 07:10 08/16/23 07:10 Laboratory: Laboratory Results - last 24 hr 08/16/23 07:10: WBC 8.0, RBC 4.69, Hgb 14.2, Hct 44.2, MCV 94.2 H, MCH 30.3, MCHC 32.1, RDW Std Deviation 45.7 H, RDW Coeff of Hailee 13.4, Plt Count 133 L, MPV 10.7, Sodium 139, Potassium 4.0, Chloride 111 H, Carbon Dioxide 24.0, Anion Gap 4 L, BUN 13, Creatinine 1.24, Estim Creat Clear Calc 71.85, Est GFR (MDRD) Af Amer 75, Est GFR (MDRD) Non-Af 62, BUN/Creatinine Ratio 10.5, Glucose 102, Calcium 9.0, Total Bilirubin 0.50, AST 29, ALT 17, Alkaline Phosphatase 57, Total Protein 6.7, Albumin 3.1 L, Globulin 3.6, Albumin/Globulin Ratio 0.9 Radiography Diagnostic Testing: Radiology Impression Echocardiogram 08/13/23 22:16 Interpretation Summary The estimated ejection fraction is 35 %. There is evidence of marissa (more content not included)...[facility]04-22-2024 Progress note Author Ender Faust [facility] August 15, 2023 4:18pm Note Date/Time August 15, 2023 4:1 8pm [facility] Medical Records Department [address] [place] [address] Progress Note - Hospitalist 08/15/23 1612 MR#: [id number] Acct: [id number] Name: DEIRDRE ORTIZ Reji Rep #:[id number] : 1955 68 From: Ender Faust DO PCP: Dr. Jazmine Le MD Status:ADM IN Location: [place] [address] Reason for Visit Reason for Visit: Diagnoses Non-ST elevation (NSTEMI) myocardial infarction (08/13/23) Subjective Subjective Patient was seen and examined today, he underwent cardiac catheterization and insertion of 3 drug-eluting stents today in the mid LAD and the first proximal diagonal. Patient had an echocardiogram today which showed an EF of 35%. Objective Data Objective Data Vital Signs: Vital Signs Temp Pulse Resp BP Pulse Ox O2 Del Method 98.1 F 79 16 139/89 H 99 Room Air 08/15/23 14:00 08/15/23 14:00 08/15/23 14:00 08/15/23 14:00 08/15/23 14:00 08/15/23 14:00 Oxygen Delivery Method Room Air Weight: 104.1 kg Body Mass Index (BMI) 27.2 Intake & Output: Intake and Output for Last 24 Hours 08/13/23 08/14/23 08/15/23 23:59 23:59 23:59 Intake Total 1358.08 / 1358.08 1228.42 / 1228.42 Balance 1358.08 / 1358.08 1228.42 / 1228.42 Lab / Micro Data 08/14/23 07:30 08/15/23 04:05 Labs: Laboratory Results - last 24 hr 08/14/23 21:26: APTT 66.4 H 08/15/23 04:05: APTT 80.8 H, Sodium 141, Potassium 4.2, Chloride 111 H, Carbon Dioxide 24.0, Anion Gap 6, BUN 12, Creatinine 1.09, Estim Creat Clear Calc 81.74, Est GFR (MDRD) Af Amer 86, Est GFR (MDRD) Non-Af 71, BUN/Creatinine Ratio11.0, Glucose 114 H, Calcium 8.6 Radiography Diagnostic Testing: Radiology Impression Echocardiogram 08/13/23 22:16 Interpretation Summary The estimated ejection fraction is 35 %. There is evidence of diastolic dysfunction. Apical and anterior hypokinesis Trivial mitral valve insufficiency. Ordering Physician: Oral Smiley Referring Physician: Jazmine Le M.D. Performed By: Carmen Daniel, JAKOB Physical Exam Const alert, oriented x3, no apparent distress, average body habitus and healthy appearing General Appearance: cooperative, well kempt and well developed Orientation / Consciousness: awake, oriented to person, oriented to place and oriented to time HEENT normocephalic, head/scalp atraumatic and moist oral mucous membranes Eyes PERRL, EOMs intact bilaterally and conjunctivae normal Neck supple, no JVD, thyroid normal and no carotid bruits General: trachea midline Resp normal respiratory effort, no retractions, no use of accessory muscles and clearto auscultation bilaterally Auscultation: Negative for rales, rhonchi or wheezes Cardio regular rate, regular rhythm, S1 normal heart sound, S2 normal heart sound, no murmurs, no rub and no gallops GI normal to inspection, nondistended, normoactive bowel sounds, soft to palpation,non-tender and non-distended Extremity no clubbing, cyanosis or edema Skin no rashes or lesions noted General Skin Exam: no breakdown Neuro oriented x3, CN's II-XII intact bilaterally, moves all extremities, no focal motor deficits and no sensory deficits noted Sensorium / Orientation: awake and alert Speech: speech normal Psych affect normal Assessment & Plan Assessment/Plan (1) Stented coronary artery: (2) Non-ST elevation OK (NSTEMI): PLAN: Plan 1. [id number] to occlusive coronary disease in the LAD and the first diagonal-patient will remain on aspirin and Brilinta, he is on a beta-yadi, lisinopril, and a statin #2 hematuria-etiology unclear, this seems to be clearing, patient will remain onheparin drip for now #3 hyperlipidemia-patient is on atorvastatin Total clinical time spent by myself addressing the patient's medical issues, reviewing all of his data, and collaborating with patient's care team: 35 minutes Charges/Coding Visit Charges Inpatient E&M: 80513 Subs Hosp L2 08/15/23 1616 <Electronically signed by Ender Faust DO> Cosigner Signature (if applicable): CC: ~ Signed [facility] Work Phone: 1(321) 130-691604-22-2024 Evaluation note* Diagnosis Onset Date Resolution Status Stented coronary artery August 15, 2023 acute Non-ST elevation OK (NSTEMI) August 13, 2023 resolved Ischemic cardiomyopathy acut e Stented coronary artery August 15, 2023 acute [facility] Work Phone: 1(857) 794-929904-21-2024 Progress note Author Ender Faust [facility] August 14, 2023 3:06pm Note Date/Time August 14, 2023 3:0 6pm [facility] Medical Records Department [address] [place] [address] Progress Note - Hospitalist 08/14/23 1501 MR#: [id number] Acct: [id number] Name: DEIRDRE ORTIZ Rep #:[id number] : 1955 68 From: Ender Faust DO PCP: Dr. Jazmine Le MD Status:ADM IN Location: [place] [address] Reason for Visit Reason for Visit: Diagnoses Non-ST elevation (NSTEMI) myocardial infarction (08/13/23) Subjective Subjective Patient was seen and examined today, I talked briefly with cardiology about his care. Patient thinks he may have passed a kidney stone-he has had kidney stonesin the past, he has some blood-tinged urine since he has been placed on the heparin drip. Objective Data Objective Data Vital Signs: Vital Signs Temp Pulse Resp BP Pulse Ox O2 Del Method 98.2 F 89 16 139/93 H 97 Room Air 08/14/23 09:28 08/14/23 09:28 08/14/23 09:28 08/14/23 09:28 08/14/23 09:28 08/14/23 09:28 Oxygen Delivery Method Room Air Weight: 104.1 kg Body Mass Index (BMI) 27.2 Intake & Output: Intake and Output for Last 24 Hours 08/12/23 08/13/23 08/14/23 23:59 23:59 23:59 Intake Total 669 / 669 Balance 669 / 669 Lab / Micro Data 08/14/23 07:30 08/14/23 07:30 Labs: Laboratory Results - last 24 hr 08/13/23 18:15: WBC 7.2, RBC 4.86, Hgb 14.6, Hct 46.1, MCV 94.9 H, MCH 30.0, MCHC 31.7 L, RDW Std Deviation 45.1 H, RDW Coeff of Hailee 13.0, Plt Count 141 L, MPV 9.9, Immature Gran % (Auto) 0.600, Neut % (Auto) 50.4, Lymph % (Auto) 35.3, [place] % (Auto) 10.2 H, Eos % (Auto) 2.8, Baso % (Auto) 0.7, Absolute Neuts (auto)3.6, Absolute Lymphs (auto) 2.54, Nucleated RBC % 0, Sodium 139, Potassium 4.0, Chloride 106, Carbon Dioxide 28.0, Anion Gap 5, BUN 19 H, Creatinine 1.39 H, Estim Creat Clear Calc 69.49, Est GFR (MDRD) Af Amer 65, Est GFR (MDRD) Non-Af 54 L, BUN/Creatinine Ratio 13.7, Glucose 109 H, Calcium 8.9, Troponin I High Sens 145 H* 08/13/23 19:10: PT 13.8, INR 1.1, APTT 33.0 08/13/23 20:15: Troponin I High Sens 298 H* 08/14/23 00:30: APTT 74.1 H, Troponin I High Sens 1801 H* 08/14/23 07:30: WBC 9.0, RBC 4.90, Hgb 14.6, Hct 45.5, MCV 92.9, MCH 29.8, MCHC 32.1, RDW Std Deviation 44.3 H, RDW Coeff of Hailee 13.0, Plt Count 153, MPV 10.5, Immature Gran % (Auto) 0.400, Neut % (Auto) 62.8, Lymph % (Auto) 26.4, Pinal % (Auto) 8.3, Eos % (Auto) 1.4, Baso % (Auto) 0.7, Absolute Neuts (auto) 5.7, Absolute Lymphs (auto) 2.38, Nucleated RBC % 0, APTT 62.0 H, Sodium 139, Potassium 4.2, Chloride 108 H, Carbon Dioxide 25.0, Anion Gap 6, BUN 15, Creatinine 1.20, Estim Creat Clear Calc 74.25, Est GFR (MDRD) Af Amer 77, Est GFR (MDRD) Non-Af 64, BUN/Creatinine Ratio 12.5, Glucose 130 H, Calcium 9.2, Triglycerides 69, Cholesterol 163, LDL Cholesterol 97, VLDL Cholesterol 14, HDL Cholesterol 52 08/14/23 13:40: Urine Color Yellow, Urine Clarity Clear, Urine pH 7.0, Ur Specific [place] 1.010, Urine Protein 15 H, Urine Glucose (UA) Normal, Urine Ketones Negative, Urine Occult Blood 250 H, Urine Nitrite Negative, Urine Bilirubin Negative, Urine Urobilinogen Normal, Ur Leukocyte Esterase Negative, Urine RBC 25-50 SEEN, Urine WBC 0-5 SEEN, Ur Squamous Epith Cells 0 SEEN, Urine Bacteria 0 SEEN, Urine Mucus 0 SEEN Radiography Diagnostic Testing: Radiology Impression Chest X-Ray 08/13/23 18:49 IMPRESSION: Normal x-ray examination of the chest. Electronically Signed: Josh Vigil MD at 19:34 EDT Reading Location ID and State: [facility] [place] Tel , Service support , Physical Exam Const alert, oriented x3, no apparent distress and healthy appearing General Appearance: cooperative, well kempt and well developed Orientation / Consciousness: awake, oriented to person, oriented to place and oriented to time HEENT normocephalic, head/scalp atraumatic and moist oral mucous membranes Eyes PERRL, EOMs intact bilaterally and conjunctivae normal Neck supple, no JVD, thyroid normal and no carotid bruits General: trachea midline Resp normal respiratory effort, no retractions, no use of accessory muscles and clearto auscultation bilaterally Auscultation: Negative for rales, rhonchi or wheezes Cardio regular rate, regular rhythm, S1 normal heart sound, S2 normal heart sound, no murmurs, no rub and no gallops GI normal to inspection, nondistended, normoactive bowel sounds, soft to palpation,non-tender and non-distended Extremity no clubbing, cyanosis or edema Skin no rashes or lesions noted General Skin Exam: no breakdown Neuro oriented x3, CN's II-XII intact bilaterally, no focal motor deficits and no sensory deficits noted Sensorium / Orientation: awake and alert Speech: speech normal Psych affect normal Assessment & Plan Assessment/Plan (1) Non-ST elevation OK (NSTEMI): PLAN: Plan 1. [id number] will undergo a cardiac catheterization tomorrow, I discussed this with the patient, he will remain on an enteric-coated aspirin daily and metoprolol 25 mg twice daily and Lipitor daily #2 hematuria-etiology unclear, this seems to be clearing, patient will remain onheparin drip for now #3 hyperlipidemia-patient was placed on atorvastatin Total clinical time spent by myself addressing the patient's medical issues, reviewing all of his data, and collaborating with patient's care team: 35 minutes Charges/Coding Visit Charges Inpatient E&M: 86659 Subs Hosp L2 08/14/23 1506 <Electronically signed by Ender Faust DO> Cosigner Signature (if applicable): CC: ~ Signed [facility] Work Phone: 1(184) 364-359204-21-2024 Consult note Author Luca Canada [facility] August 14, 2023 1:34pm Note Date/Time August 14, 2023 1:3 2pm [facility] Medical Records Department [address] [place] [id number] Consultation - Cardiology 08/14/23 1326 MR#: [id number] Acct: [id number] Name: DEIRDRE ORTIZ Rep #:[id number] : 1955 68 From: Luca Caanda MD PCP: Dr. Jazmine eL MD Status:ADM IN Location: [place] [address] Assessment & Plan Assessment/Plan (1) Non-ST elevation OK (NSTEMI): PLAN: Plan 68-year-old patient presented to [facility] ER complaining of symptoms ofchest pain He was brought in by his Evidently he was having symptoms of chest pain while he was moving his lawn to his tractor. Described as severe retrosternal. Associated with diaphoresis. No prior cardiac history reported. Evaluation in the ER was EKG showed T wave inversion noted in the LAD distribution. Subsequent evaluation with cardiac biomarker showed significant elevation of high sensitive troponin. Patient treated with aspirin, atorvastatin, beta-yadi as well as heparin Symptoms of chest pain resolved. Cardiac care plan recommendation. This patient has history of hematuria and has seen a urologist before your hematuria resolved no further episode of hematuria his renal function improved from a creatinine of 1.39-1.2. Based on his clinical presentation with the symptoms of severe retrosternal chest pain significant elevated cardiac biomarker change in the EKG responding well to medical therapy recommend to evaluate by echocardiogram in the morning to assess his LV function. Proceed with cardiac catheterization which will be set up in the morning. I discussed the indication, risk and benefit of the cardiac catheterization to the patient he understand. And he would like to proceed with cardiac cath in the morning. HPI Consult Data Date of Consult: 08/14/23 HPI Narrative Reason for Consultation: Non-STEMI HPI Narrative: DEIRDRE ORTIZ, is a 68 M who [facility] Medical History (Updated 08/13/23 @ 22:36 by Radha Morales) Kidney stones Medical History no medical history Home Medications NK 08/13/23 [History Last Taken Unknown] Allergy/AdvReac Type Severity Reaction Status Date / Time No Known Allergies Allergy Verified 08/13/23 17:57 Family History (Updated 08/13/23 @ 22:[address] Oral Smiley MD) Other Heart disease Surgical History (Updated 08/13/23 @ 17:59 by Amaya Flores) H/O hernia repair Social History Smoking Status: Never smoker Physical Exam Cardio Cardio Narrative: Seen and evaluated and examined at bedside Along with the nursing staff Comfortable in bed not having any symptoms of chest pain front desk monitor normal sinus rhythm. Cardiac exam S1-S2 is regular No systolic or diastolic murmur No pericardial rub Chest exam clear to auscultation bilateral. Examination lower extremity no lower extremity edema. Risk Stratification Risk Stratification Applicable: Yes Age >/= 65: Yes >/= 3 CAD Risk Factors (HTN, HLD, DM, family hx of CAD, or current smoker): No Aspirin Use in the Past 7 Days: Yes Severe Angina (>/= episodes in 24 hours): Yes EKG ST Changes >/= 0.5mm: Yes Positive Cardiac Marker: Yes LAUREL Risk Stratification Score: 5 LAUREL % Risk: 25% Risk Objective Data Vital Signs: Vital Signs Temp Pulse Resp BP Pulse Ox O2 Del Method 98.2 F 89 16 139/93 H 97 Room Air 08/14/23 09:28 08/14/23 09:28 08/14/23 09:28 08/14/23 09:28 08/14/23 09:28 08/14/23 09:28 Oxygen Delivery Method Room Air Weight: 229 lb 8.019 oz Body Mass Index (BMI) 27.2 Intake & Output: Intake and Output for Last 24 Hours 08/12/23 08/13/23 08/14/23 23:59 23:59 23:59 Intake Total 669 / 669 Balance 669 / 669 Lab / Micro Data 08/14/23 07:30 08/14/23 07:30 Labs: Laboratory Results - last 24 hr 08/13/23 18:15: WBC 7.2, RBC 4.86, Hgb 14.6, Hct 46.1, MCV 94.9 H, MCH 30.0, MCHC 31.7 L, RDW Std Deviation 45.1 H, RDW Coeff of Hailee 13.0, Plt Count 141 L, MPV 9.9, Immature Gran % (Auto) 0.600, Neut % (Auto) 50.4, Lymph % (Auto) 35.3, Pinal % (Auto) 10.2 H, Eos % (Auto) 2.8, Baso % (Auto) 0.7, Absolute Neuts (auto)3.6, Absolute Lymphs (auto) 2.54, Nucleated RBC % 0, Sodium 139, Potassium 4.0, Chloride 106, Carbon Dioxide 28.0, Anion Gap 5, BUN 19 H, Creatinine 1.39 H, Estim Creat Clear Calc 69.49, Est GFR (MDRD) Af Amer 65, Est GFR (MDRD) Non-Af 54 L, BUN/Creatinine Ratio 13.7, Glucose 109 H, Calcium 8.9, Troponin I High Sens 145 H* 08/13/23 19:10: PT 13.8, INR 1.1, APTT 33.0 08/13/23 20:15: Troponin I High Sens 298 H* 08/14/23 00:30: APTT 74.1 H, Troponin I High Sens 1801 H* 08/14/23 07:30: WBC 9.0, RBC 4.90, Hgb 14.6, Hct 45.5, MCV 92.9, MCH 29.8, MCHC 32.1, RDW Std Deviation 44.3 H, RDW Coeff of Hailee 13.0, Plt Count 153, MPV 10.5, Immature Gran % (Auto) 0.400, Neut % (Auto) 62.8, Lymph % (Auto) 26.4, Pinal % (Auto) 8.3, Eos % (Auto) 1.4, Baso % (Auto) 0.7, Absolute Neuts (auto) 5.7, Absolute Lymphs (auto) 2.38, Nucleated RBC % 0, APTT 62.0 H, Sodium 139, Potassium 4.2, Chloride 108 H, Carbon Dioxide 25.0, Anion Gap 6, BUN 15, Creatinine 1.20, Estim Creat Clear Calc 74.25, Est GFR (MDRD) Af Amer 77, Est GFR (MDRD) Non-Af 64, BUN/Creatinine Ratio 12.5, Glucose 130 H, Calcium 9.2, Triglycerides 69, Cholesterol 163, LDL Cholesterol 97, VLDL Cholesterol 14, HDL Cholesterol 52 Cardiology Labs/Tests 08/13/23 18:15: WBC 7.2, RBC 4.86, Hgb 14.6, Hct 46.1, MCV 94.9 H, MCH 30.0, MCHC 31.7 L, Plt Count 141 L, MPV 9.9, Immature Gran % (Auto) 0.600, Neut % (Auto) 50.4, Lymph % (Auto) 35.3, Pinal % (Auto) 10.2 H, Eos % (Auto) 2.8, Baso %(Auto) 0.7, Absolute Neuts (auto) 3.6, Nucleated RBC % 0, Sodium 139, Potassium 4.0, Chloride 106, Carbon Dioxide 28.0, Anion Gap 5, BUN 19 H, Creatinine 1.39 H, Est GFR (MDRD) Af Amer 65, Est GFR (MDRD) Non-Af 54 L, BUN/Creatinine Ratio 13.7, Glucose 109 H, Calcium 8.9 08/13/23 19:10: PT 13.8, INR 1.1, APTT 33.0 08/14/23 00:30: APTT 74.1 H 08/14/23 07:30: WBC 9.0, RBC 4.90, Hgb 14.6, Hct 45.5, MCV 92.9, MCH 29.8, MCHC 32.1, Plt Count 153, MPV 10.5, Immature Gran % (Auto) 0.400, Neut % (Auto) 62.8,Lymph % (Auto) 26.4, Pinal % (Auto) 8.3, Eos % (Auto) 1.4, Baso % (Auto) 0.7, Absolute Neuts (auto) 5.7, Nucleated RBC % 0, APTT 62.0 H, Sodium 139, Potassium4.2, Chloride 108 H, Carbon Dioxide 25.0, Anion Gap 6, BUN 15, Creatinine 1.20, Est GFR (MDRD) Af Amer 77, Est GFR (MDRD) Non-Af 64, BUN/Creatinine Ratio 12.5, Glucose 130 H, Calcium 9.2, Triglycerides 69, Cholesterol 163, LDL Cholesterol 97, VLDL Cholesterol 14, HDL Cholesterol 52 Rhythm: EKG: ECHO: Stress Test: Cardiac Cath: PCI: CT Surgery: Holter monitor: EPS: PPM: CXR: Chest CT Scan: Radiography Diagnostic Testing: Radiology Impression Chest X-Ray 08/13/23 18:49 IMPRESSION: Normal x-ray examination of the chest. Electronically Signed: Josh Vigil MD at 19:34 EDT , 08/14/23 1334 <Electronically signed by Luca Canada MD> Cosigner Signature (if applicable): CC: Dr. Jazmine Le MD~ Signed [facility] Work Phone: 1(658) 100-970904-21-2024 History and physical note Author Oral Smiley [facility] August 14, 2023 4:12am Note Date/Time August 13, 2023 9:1 7pm [facility] Medical Records Department [address] [place] [address] H&P Exam - Hospitalist 08/13/232116 MR#: [id number] Acct: [id number] Name: DEIRDRE ORTIZ Rep #:[id number] : 1955 68 From: Oral naqvi MD PCP: Dr. Jazmine Le MD Status:ADM IN Location: [place] [address] HPI - General General Date of Admission: 08/13/23 HPI Narrative DEIRDRE ORTIZ, is a 68 M who presents to the hospital with 2 days of chest pain with activity that would resolved, there is also radiation of the pain to his right shoulder with rest. He is never had this before and does not take any medications at baseline. He states that he was recently being seen by his PCP and started on antibiotics because he was having difficulty urinating and that there is some discomfort and burning with urination he states that the initial urine that he provided was clean and so they asked him for a second urine however he does not know what that showed because he provided it on . He presents today with an elevated troponin as well as T wave inversions in V1 and V2 therefore he was started on a heparin drip. While on the heparin drip hedid also develop hematuria, current hemoglobin is stable at 14.6 and he states that he has had a kidney stone in the past. [facility] Medical History (Updated 08/13/23 @ 22:36 by Radha Morales) Kidney stones Medical History no medical history no medical history Home Medications NK 08/13/23 [History Last Taken Unknown] Allergy/AdvReac Type Severity Reaction Status Date / Time No Known Allergies Allergy Verified 08/13/23 17:57 Family History (Updated 08/13/23 @ 22:[address] Oral Smiley MD) Other Heart disease Surgical History (Updated 08/13/23 @ 17:59 by Amaya Flores) H/O hernia repair Social History Smoking Status: Never smoker ROS Constitutional Constitutional: Denies chills, fatigue, fever(s) or malaise Eyes Eyes: Denies blurry vision ENT HEENT: Denies headache(s) or nasal discharge Cardiovascular Cardiovascular: Reports chest pain; Denies dyspnea on exertion or syncope Respiratory/Chest Respiratory/Chest: Denies cough, shortness of breath at rest or shortness of breath with exertion Gastrointestinal Gastrointestinal: Denies constipation, diarrhea, nausea or vomiting Genitourinary Genitourinary: Denies dysuria Neurologic Neurologic: Denies focal weakness, numbness or tremor(s) Psychiatric Psychiatric: Denies anxiety or depression Vital Signs Vital Signs Vital Signs: 08/13/23 17:57 08/13/23 19:01 08/13/23 18:57 Temperature 96.6 F L Temperature Source Temporal Pulse Rate 101 H 97 Respiratory Rate 18 24 H Respiratory Effort Blood Pressure 143/93 H 146/102 H Blood Pressure Mean 109 116 Pulse Ox 100 99 98 Oxygen Delivery Method Room Air Room Air 08/13/23 19:00 08/13/23 19:29 08/13/23 20:00 Temperature Temperature Source Pulse Rate 93 87 Respiratory Rate 12 12 Respiratory Effort Normal Blood Pressure 142/88 H 144/98 H Blood Pressure Mean 106 113 Pulse Ox 98 99 Oxygen Delivery Method Room Air Room Air 08/13/23 21:01 Temperature Temperature Source Pulse Rate 85 Respiratory Rate 16 Respiratory Effort Blood Pressure 147/98 H Blood Pressure Mean 114 Pulse Ox 98 Oxygen Delivery Method Room Air Weight Weight: 237 lb 11.2 oz Body Mass Index (BMI) 28.1 Physical Exam Narrative General: Alert, Oriented x3, Cooperative, No apparent distress HEENT: Atraumatic, PERRLA, EOMI, Normocephalic Oral: Moist Mucosa Neck: Supple, No JVD Lungs: Diminished, Normal air movement, No rhonchi, No wheeze, No rales Cardiovascular: Regular rate, Regular Rhythm, Normal S1, Normal S2, No murmurs Abdomen: Soft, Non Tender, Non-Distended, No Hepato-splenomegaly Extremities: No edema, Capillary Refill Less than 3 Seconds Skin: No rashes, No breakdown Musculoskeletal: No Tenderness to Palpation of Joints or Extremities Neurological: No focal neurological deficits, Motor Exam 5/5 strength throughout, Sensory exam intact to light touch and pain Psych/Mental Status: Normal Affect, Appropriate Results Lab / Micro Data 08/13/23 18:15 08/13/23 18:15 Labs: Laboratory Results - last 24 hr 08/13/23 18:15: WBC 7.2, RBC 4.86, Hgb 14.6, Hct 46.1, MCV 94.9 H, MCH 30.0, MCHC 31.7 L, RDW Std Deviation 45.1 H, RDW Coeff of Hailee 13.0, Plt Count 141 L, MPV 9.9, Immature Gran % (Auto) 0.600, Neut % (Auto) 50.4, Lymph % (Auto) 35.3, Pinal % (Auto) 10.2 H, Eos % (Auto) 2.8, Baso % (Auto) 0.7, Absolute Neuts (auto)3.6, Absolute Lymphs (auto) 2.54, Nucleated RBC % 0, Sodium 139, Potassium 4.0, Chloride 106, Carbon Dioxide 28.0, Anion Gap 5, BUN 19 H, Creatinine 1.39 H, Estim Creat Clear Calc 69.49, Est GFR (MDRD) Af Amer 65, Est GFR (MDRD) Non-Af 54 L, BUN/Creatinine Ratio 13.7, Glucose 109 H, Calcium 8.9, Troponin I High Sens 145 H* 08/13/23 19:10: PT 13.8, INR 1.1, APTT 33.0 08/13/23 20:15: Troponin I High Sens 298 H* Imaging Radiology Impression Chest X-Ray 08/13/23 18:49 IMPRESSION: Normal x-ray examination of the chest. Electronically Signed: Josh Vigil MD at 19:34 EDT , Assessment & Plan Assessment/Plan (1) Non-ST elevation OK (NSTEMI): PLAN: Plan 1. Non-STEMI/hematuria ? The hematuria started after being started on the heparin drip ? Will continue with the heparin drip and recheck a hemoglobin in the morning may need to discontinue if there is a significant drop or if the hematuria does not resolve on its own ? Will obtain a lipid panel ? Will obtain serial troponins ? Appreciate cardiology's assistance ? Will obtain an echo DVT: Heparin drip 77 minutes was spent on direct patient care, including documentation as well as chart review and collaboration with colleagues Charges/Coding Visit Charges Inpatient E&M: 60637 Init Hosp L3 08/14/23 0412 <Electronically signed by Oral Smiley MD> Cosigner Signature (if applicable): CC: Dr. Jazmine Le MD; Dr. Oral Smiley MD~ Signed [facility] Work Phone: 1(686) 380-258504-21-2024 Discharge summary Author Filiberto Leonard [facility] August 14, 2023 12:59am Note Date/Time August 13, 2023 6:3 2pm [facility] Medical Records Department [address] [place] [id number] Emergency Department Summary 08/13/23 MR#: [id number] Acct: [id number] Name: DEIRDRE ORTIZ Rep #:[id number] : 1955 68 From: Brooke BILLINGSLEY PCP: Dr. Jazmine Le MD Status:ADM IN Location: [place] [id number] HPI <ANALILIA Naidu - Last Filed: 08/13/23 21:24> History of Present Illness Chief Complaint: Chest Pain Narrative Narrative: 68-year-old male with no past medical history has had episodes of chest pain over the last 2 days. He will feel an aching heavy pain to the right of his sternum. Yesterday it occurred after he lifted a lawnmower out of the box and also at night. He had an episode today around 5:30 PM after walking into pet [employer] but had not been doing anything strenuous. He also has discomfort in his right shoulder when it occurs. He states he will take Tums and it will subside. He has no associated shortness of breath, nausea or vomiting, or diaphoresis. He denies cardiac history. He has a primary care doctor and states he has no health problems and takes no medications. He does not smoke. Both his mother and father have had CAD. He has no history of DVT/PE or risk factors. PFSH <ANALILIA Naidu - Last Filed: 08/13/23 21:24> [facility] Home Medications NK 08/13/23 [History Last Taken Unknown] Allergy/AdvReac Type Severity Reaction Status Date / Time No Known Allergies Allergy Verified 08/13/23 17:57 Surgical History (Updated 08/13/23 @ 17:59 by Amaya Flores) H/O hernia repair Social History Smoking Status: Never smoker ROS <ANALILIA Naidu - Last Filed: 08/13/23 21:24> ROS ED ROS Narrative Constitutional: Negative for fever, chills, malaise. CVS: Positive for chest pain. Respiratory: Negative for shortness of breath, cough. GI: Negative for abdominal pain, nausea, vomiting. EXAM <ANALILIA Naidu - Last Filed: 08/13/23 21:24> Physical Exam Narrative Exam Narrative: CONST: Patient sitting in no acute distress. EYES: Normal inspection. NECK: Normal inspection. RESP: No respiratory distress, CTAB. CVS: Regular rate and rhythm, no murmur, no gallop. ABD: Soft and nontender, no guarding or rebound, nondistended. SKIN: Color normal, no rash, warm, dry, intact. EXTREMITIES: Normal appearance, no pedal edema. NEURO: Alert and answering questions appropriately. PSYCH: Normal affect. Const Vital Signs: 08/13/23 17:57 08/13/23 19:01 08/13/23 18:57 Temperature 96.6 F L Temperature Source Temporal Pulse Rate 101 H 97 Respiratory Rate 18 24 H Respiratory Effort Blood Pressure 143/93 H 146/102 H Blood Pressure Mean 109 116 Pulse Ox 100 99 98 Oxygen Delivery Method Room Air Room Air 08/13/23 19:00 08/13/23 19:29 08/13/23 20:00 Temperature Temperature Source Pulse Rate 93 87 Respiratory Rate 12 12 Respiratory Effort Normal Blood Pressure 142/88 H 144/98 H Blood Pressure Mean 106 113 Pulse Ox 98 99 Oxygen Delivery Method Room Air Room Air 08/13/23 21:01 08/13/23 21:17 Temperature 98.2 F Temperature Source Pulse Rate 85 85 Respiratory Rate 16 16 Respiratory Effort Blood Pressure 147/98 H 147/87 H Blood Pressure Mean 114 107 Pulse Ox 98 99 Oxygen Delivery Method Room Air <Dr. Filiberto Leonard, DO - Last Filed: 08/13/23 19:50> Physical Exam Const Vital Signs: 08/13/23 17:57 08/13/23 19:01 08/13/23 18:57 Temperature 96.6 F L Temperature Source Temporal Pulse Rate 101 H 97 Respiratory Rate 18 24 H Respiratory Effort Blood Pressure 143/93 H 146/102 H Blood Pressure Mean 109 116 Pulse Ox 100 99 98 Oxygen Delivery Method Room Air Room Air 08/13/23 19:00 08/13/23 19:29 08/13/23 20:00 Temperature Temperature Source Pulse Rate 93 87 Respiratory Rate 12 12 Respiratory Effort Normal Blood Pressure 142/88 H 144/98 H Blood Pressure Mean 106 113 Pulse Ox 98 99 Oxygen Delivery Method Room Air Room Air 08/13/23 21:01 08/13/23 21:17 Temperature 98.2 F Temperature Source Pulse Rate 85 85 Respiratory Rate 16 16 Respiratory Effort Blood Pressure 147/98 H 147/87 H Blood Pressure Mean 114 107 Pulse Ox 98 99 Oxygen Delivery Method Room Air [facility] <ANALILIA Naidu - Last Filed: 08/13/23 21:24> [facility] Narrative Medical decision making narrative: History gathered from: Patient and spouse Consults: Cardiology, hospitalist Differential: GERD, ACS The last 2 days patient has had episodes of chest pain, sometimes exertional. It occurred again this evening prompting him to come in. He appears well and nontoxic. BP is 143/93 with otherwise stable vital signs. During my examination he is asymptomatic and exam is unremarkable. Initial EKG is normal sinus rhythm at 80 bpm with T wave inversions in V1 through V3. There is no prior for comparison. Initial troponin returned at 145. He complained of increased pain so repeat EKG was obtained about 1858. The tech states the leadshad to be readjusted because they were too far to the right initially because ofhis hair. After placement in the correct position he is again in normal sinus rhythm 82 bpm and appears to have ST depressions in V3 through V6. No STEMI. Troponin went from 145 to 298. I discussed the case with Dr. Canada who agreed with aspirin and IV heparin. The informatica mdm developer states if he starts to experiencechest pain again he could use a nitroglycerin drip or if he becomes tachycardic a low-dose beta-yadi. He is not requiring either of these currently. Case will be discussed with the hospitalist for admission. Lab Data Attestation: I reviewed the patient's lab results. Labs: Laboratory Results - last 24 hr 08/13/23 08/13/23 08/13/23 18:15 19:10 20:15 WBC 7.2 RBC 4.86 Hgb 14.6 Hct 46.1 MCV 94.9 H MCH 30.0 MCHC 31.7 L RDW Std Deviation 45.1 H RDW Coeff of Hailee 13.0 Plt Count 141 L MPV 9.9 Immature Gran % (Auto) 0.600 Neut % (Auto) 50.4 Lymph % (Auto) 35.3 Pinal % (Auto) 10.2 H Eos % (Auto) 2.8 Baso % (Auto) 0.7 Absolute Neuts (auto) 3.6 Absolute Lymphs (auto) 2.54 Nucleated RBC % 0 PT 13.8 INR 1.1 APTT 33.0 Sodium 139 Potassium 4.0 Chloride 106 Carbon Dioxide 28.0 Anion Gap 5 BUN 19 H Creatinine 1.39 H Estim Creat Clear Calc 69.49 Est GFR (MDRD) Af Amer 65 Est GFR (MDRD) Non-Af 54 L BUN/Creatinine Ratio 13.7 Glucose 109 H Calcium 8.9 Troponin I High Sens 145 H* 298 H* Radiography Diagnostic Testing: Clinical Impression(s) from Imaging Studies Chest X-Ray 08/13/23 18:49 IMPRESSION: Normal x-ray examination of the chest. Electronically Signed: Josh Vigil MD at 19:34 EDT , <Dr. Filiberto Leonard, DO - Last Filed: 08/13/23 19:50> [facility] History & Record Review Discussion w/independent historian: Patient and Significant other Lab Data Labs: Laboratory Results - last 24 hr 08/13/23 08/13/23 08/13/23 18:15 19:10 20:15 WBC 7.2 RBC 4.86 Hgb 14.6 Hct 46.1 MCV 94.9 H MCH 30.0 MCHC 31.7 L RDW Std Deviation 45.1 H RDW Coeff of Hailee 13.0 Plt Count 141 L MPV 9.9 Immature Gran % (Auto) 0.600 Neut % (Auto) 50.4 Lymph % (Auto) 35.3 Pinal % (Auto) 10.2 H Eos % (Auto) 2.8 Baso % (Auto) 0.7 Absolute Neuts (auto) 3.6 Absolute Lymphs (auto) 2.54 Nucleated RBC % 0 PT 13.8 INR 1.1 APTT 33.0 Sodium 139 Potassium 4.0 Chloride 106 Carbon Dioxide 28.0 Anion Gap 5 BUN 19 H Creatinine 1.39 H Estim Creat Clear Calc 69.49 Est GFR (MDRD) Af Amer 65 Est GFR (MDRD) Non-Af 54 L BUN/Creatinine Ratio 13.7 Glucose 109 H Calcium 8.9 Troponin I High Sens 145 H* 298 H* Radiography Diagnostic Testing: Clinical Impression(s) from Imaging Studies Chest X-Ray 08/13/23 18:49 IMPRESSION: Normal x-ray examination of the chest. Electronically Signed: Josh Vigil MD at 19:34 EDT , Management Discussion w/another healthcare provider: Hospitalist and Director Of Collections And [employer] (Cardiology(Dr. Canada)) Treatment and Re-Evaluation :: I have personally performed a face to face assessment of the patient and have reviewed the MISTY Note. I performed a substantive portion of the visit including all aspects of the following. My stephens findings include: History is 68-year-old male no significant medical problems presenting to the emergency room with chest pain. Patient notes intermittent exertional chest pain over the past 3 days. Symptoms initially began after mowing his lawn. He states it went away with rest. He has had several more episodes particularly with lifting the lawn more and with walking to the store today. He notes that he is taken some Tums which may or may not have helped. He was resting after hetook the Tums. His notes that he is more winded when he exerts himself recently including stair climbing. He has a familial history of coronary arterydisease. He is a non-smoker. Exam is afebrile vital signs are stable. His exam is rather unremarkable. Medical Decison Making initial EKG was concerning for T wave inversions V1 through V3. He had return of his symptoms and another EKG was obtained which did not show the T wave inversions. His initial troponin is slightly elevated at 145. 30 EKG was obtained which now shows the T wave inversions to be back. Case was discussed with cardiology and the hospitalist for admission. Discharge Plan Triage Chief Complaint: Chest Pain ED Midlevel Provider: Brooke Shaw ED Provider: Filiberto Leonard Dx/Rx/DC Orders Clinical Impression: Non-ST elevation OK (NSTEMI) Prescriptions: No Action NK Primary Care Provider: Jazmine Le Referrals: Jazmine Le MD [Primary Care Provider] - What to do if you have Problems For any increased pain, shortness of breath, bleeding, nausea or vomiting, chestpain, or any unexpected problems, contact your Primary Care Provider. Call [facility] ([phone]) or report to the closest Emergency Room. Call 911 if necessary. 08/13/232123 <Electronically signed by Brooke BILLINGSLEY> Cosigner Signature (if applicable): 08/14/2358 <Electronically signed by Filiberto Leonard DO> CC: Dr. Jazmine Le MD ~ Signed [facility] Work Phone: 1(589) 536-128004-20-2024 Evaluation note* Diagnosis Onset Date Resolution Status Non-ST elevation OK (NSTEMI) August 13, 2023 acute Stented coronary artery August 15, 2023 acute [facility] Work Phone: 1(447) 908-981604-20-2024 Evaluation note* Diagnosis Onset Date Resolution Status Admit Date Atherosclerotic heart disease of [place] coronary artery without angina pectoris August 13, 2023 acute June 14, 2024 9:59am Stented coronary artery August 15, 2023 acute June 14, 2024 9:59am Ischemic cardiomyopathy chronic F [id number] 9:59am [facility] Work Phone: Consult note Author Willis Castro [facility] August 16, 2023 2:30pm Note Date/Time August 16, 2023 2:3 1pm [facility] Medical Records Department [address] [place] [address] Counseling Note - Pharmacy 08/16/23 1430 MR#: [id number] Acct: [id number] Name: DEIRDRE ORTIZ Rep #:[id number] : 1955 68 From: Willis Castro PCP: Dr. Jazmine Le MD Status:ADM IN Y Location: [place] [address] Pharmacy [facility] Service has performed discharge medication reconciliation and counseling for this patient. The patient's discharge medication list was reviewed for discrepancies and discrepancies were resolved. The patient was counseled on the following discharge medications and changes in medications for homegoing were reviewed. The Reason for Use, instructions for use, and potential side effects were reviewed for all new medications. The patient's questions regarding all of their medications were answered. 1. Lisinopril 10 mg daily 2. Aspirin 81 mg PO daily 3. Atorvastatin 40 mg daily 4. Metoprolol succinate 50 mg PO daily 5. Brilinta 90 mg PO BID The patient was able to verbally demonstrate an understanding of their dischargemedications. Medications at Discharge Home Medications aspirin 81 mg tablet,delayed release 81 mg PO BREAKFAST #0 tabs 08/16/23 atorvastatin 40 mg tablet 40 mg PO QHS #30 tabs 08/16/23 lisinopril 10 mg tablet 10 mg PO DAILY #30 tabs 08/16/23 metoprolol succinate 50 mg tablet,extended release 24 hr 50 mg PO DAILY #30 tabs08/16/23 ticagrelor 90 mg tablet (Brilinta) 90 mg PO BID #60 tabs 08/16/23 08/16/23 1430 <Electronically signed by Willis wilson> Date _ Willis Sanchez Signature (if applicable): Date CC: ~ Signed [facility] Work Phone: Evaluation noteNo assessment information available [facility] Work Phone: Evaluation note* Diagnosis Onset Date Resolution Status Non-ST elevation OK (NSTEMI) acute [facility] Work Phone: Reason for referral (narrative)No reason for [facility]: Chief Complaint and Reason for Visit Chief Complaint NSTEMI Reason for Visit Non-ST elevation OK (NSTEMI) Chief Complaint NSTEMI NSTEMI NSTEMI NSTEMI Reason for Visit Non-ST elevation OK (NSTEMI) Stented coronary artery Chief Complaint NSTEMI CP ADMIT NSTEMI NSTEMI NSTEMI POST PCI NSTEMI PCI W/STENTING, Non-STEMI S/P [facility] 08/15 Non-STEMI, PCI w/coronary stenting Reason for Visit Stented coronary art lisa Non-ST elevation OK (NSTEMI) Ischemic cardiomyopathy Stented coronary artery Chief Complaint Admit Date 6 M FU June 14, 2024 9:59am DILATED CARDIOMYOPATHY July 18, 2024 1:44pm Reason for Visit Admit Date Atherosclerotic heart diseas [facility] [place] coronary artery without angina pectoris June 14, 2024 9:59am Stented coronary artery June 14, 025 9:59am Ischemic cardiomyopathy June 14 025 9:59am Advance Directives No Advanced Directives Records Found Advance Directive Response Recorded Date/ Time Living Will No August 13, 2023 5:57pm Power of Trans Router No August 12 5:57pm Advance Directive Response Recorded Date/ Time Living Will No August 13, 2023 10:19pm Power of Trans Router No August 12 10:19pm Advance Directive Response Recorded Date/ Time Advance Directives on File No August 252023 10:38am Living Will No August 26, 2023 10 :38am Power of Trans Router No August 26, 2023 10:38am Advance Directive Response Recorded Date/ Time Living Will No August 26, 2023 10 :38am Do you have a Healthcare Power of Trans Router? No August 26, 2023 10:38am Family History No Family History Records Found Relationship Condition Age at Onset Recorded Date/[place] father Cardiac disease Unknown Coronary artery disease Unknown Myocardial infarction Unknown mother Leukemia Unknown Summary Purpose Additional Source Comments Goals (unrecognized section and content) Goals may be documented in a n alternate sectionGoals may be documented in an alternate sectionGoals may be documented in an alternate sectionGoals may be documented in an alternate section Care Teams (unrecognized sec tion and content) Team Status: Active Member Role Status Dates Dr. Jazmine Le MD Family Provider Active Dr. Jazmine Le MD Primary Care Provider Active Team Status: Inactive Member Role Status Dates Dr. Jazmine Le MD Primary Care Provider, Attendin g Provider Active Team Status: Active Member Role Status Dates Dr. Jazmine Le MD Primary Care Provider Active Dr. Filiberto Leonard DO Emergency Provider Active Dr. Oral Smiley MD Admit Provider, Attending Provider Active Team Status: Active Member Role Status Dates Dr. Jazmine Le MD Primary Care Provider Active Dr. Filiberto Leonard DO Emergency Provider Active Dr. Oral Smiley MD Admit Provider, Other Pro vider Active Dr. Luca Canada MD Attending Provider, Other Provid er Active Dr. Ender Faust , DO Other Provider Active Team Status: Active Member Role Status Dates Dr. Jazmine Le MD Primary Care Provider Active Dr. Filiberto Leonard DO Emergency Provider Active Dr. Oral Smiley MD Admit Provider, Other Pro vider Active Dr. Luca Canada MD Other Provider Active Dr. Ender Faust , Attending Provider, Other Pro vider Active Team Status: Active Member Role Status Dates Dr. Jazmine Le MD Primary Care Provider Active Dr. Bibiana Cifuentes MD Attending Provider Activ e Team Status: Inactive Member Role Status Dates Dr. Jazmine Le MD Primary Care Provider Active Dr. Filiberto Leonard DO Emergency Provider Active Dr. Oral Smiley MD Admit Provider, Other Pro vider Active Dr. Luca Canada MD Other Provider Active Dr. Ender Faust , Attending Provider Active Team Status: Active Member Role Status Dates Dr. Jazmine Le MD Primary Care Provider Active Dr. Filiberto Leonard DO Emergency Provider Active Dr. Oral Smiley MD Admit Provider, Other Pro vider Active Dr. Luca Canada MD Attending Provider , Referring Provider, Other Provider Active Dr. Ender Faust , Other Provider Active Team Status: Inactive Member Role Status Dates Dr. Jazmine Le MD Primary Care Provider, Referrin g Provider Active Idalmis Byers TRIPPER, TRIPPER-C Attending Provider Active Team Status: Active Member Role Status Dates Dr. Jazmine Le MD Primary Care Provider Active Dr. Bibiana Cifuentes MD Attending Provider Activ e Dr. Oral Smiley MD Referring Provider Active Team Status: Active Member Role Status Dates Dr. Jazmine Le MD Primary Care Provider Active Dr. Bibiana Cifuentes MD Attending Provider, Refe rring Provider Active Team Status: Inactive Member Role Status Dates Dr. Jazmine Le MD Primary Care Provider Active Dr. Bibiana Cifuentes MD Attending Provider, Refe rring Provider Active Team Status: Active Member Role Status Dates Dr. Jazmine Le MD Primary Care Provider Active Team Status: Inactive Member Role Status Dates Dr. Jazmine Le MD Primary Care Provider Active Start: May 28, 2024 End: May 28, 2024 Idalmis Byers TRIPPER, TRIPPER-C Attending Provider Active Start: May 28, 2024 End: May 28, 2024 Idalmis Byers TRIPPER, TRIPPER-C Referring Provider Active Start: May 28, 2024 End: May 28, 2024 Team Status: Inactive Member Role Status Dates Dr. Jazmine Le MD Primary Care Provider Active Start: June 14, 2024 End: June 14, 2024 Dr. Jazmine Le MD Referring Provider Active Start: June 14, 2024 End: June 14, 2024 ANALILIA Velázquez Attending Provider Active Start: June 14, 2024 End: June 14, 2024 Team Status: Inactive Member Role Status Dates Dr. Jazmine Le MD Primary Care Provider Active Start: July 18, 2024 End: July 18, 2024 ANALILIA Velázquez Attending Provider Active Start: July 18, 2024 End: July 18, 2024 ANALILIA Velázquez Referring Provider Active Start: July 18, 2024 End: July 18, 2024 Team Status: Active Member Role Status Dates Dr. Jazmine Le MD Primary Care Provider Active Start: July 18, 2024 Dr. Carlos Mendez MD Attending Provider Active S tart: July 18, 2024 (unrecognized sect ion and content) No Status Records Found INFORMATION SOURCE (unrecogn ized section and content) DATE CREATED AUTHOR 07/24/2024 [facility] FOR RECORDS PERTAINING TO PATIENTS WHO ARE OR HAVE BEEN ENROLLED IN A CHEMICAL DEPENDENCY/SUBSTANCEABUSE PROGRAM, SOME INFORMATION MAY BE OMITTED. This clinical summary was aggregated from multiple sources. Caution should be exercised in using it in the provision of clinical care. This summary normalizes information from multiple sources, and as a consequence, information in this document may materially change the coding, format and clinical context of patient data. In addition, data may be omitted in some cases. CLINICAL DECISIONS SHOULD BE BASED ON THE PRIMARY CLINICAL RECORDS. [facility] provides no warranty or guarantee of the accuracy or completeness of information in this document.
[2024-12-10 10:41] LABS: AST(SGOT) 25 U/L (<=37); Alanine Aminotransfer ALT/SGPT 21 U/L (<=46); Albumin, Serum 4.0 g/dL (3.4-4.8); Alkaline Phosphatase 65 U/L (40-129); Bilirubin, Direct 0.23 mg/dL (0.00-0.30); Globulin 2.9 g/dL (2.2-4.2)
[2024-12-10 11:59] LABS: Cholesterol 103 mg/dL (<=200); Low Density Lipoprotein Calc. 39 mg/dL; Triglycerides 119 mg/dL; Very Low Density Lipoprotein 24 mg/dL (5-40); cholesterol:hdl ratio screen 2.55
== END | disposition home or self-care (01) ==
LOC: MTLAB 07:18
PROVIDERS: PCP Family Medicine; Referring Provider Nurse Practitioner Family; Visit Provider Nurse Practitioner Family
DX: E78.00 Pure hypercholesterolemia, unspecified (principal); I25.10 Atherosclerotic heart disease of native coronary artery without angina pectoris; Z95.5 Presence of coronary angioplasty implant and graft
CPT/HCPCS: 36415; 80061; 80076

== ENCOUNTER → 2025-01-25 | Outpatient (CLI) | payer MEDICARE, SELFPAY ==
[2023-11-25 08:36] VITALS: BMI 27.5
--- OUTSIDE RECORDS SUMMARY | 2025-01-25 11:07 | XMS RPT_ITS | CCD ---
Author Organization [facility] CliniSyin Care Team Providers Care Fiber Design Engineer Name Role Phone Dr. Jazmine Le Primary [...] Dr. Luca Canada Referring Provider Dr. Bibiana Cifuetnes Referring Provider Dr. Jazmine Le Referring Provider LOLA Byers NPC Idalmis Attending Provider Dr. Jazmine Le MD Primary Care Provider Idalmis Longoria Attending Provider Idalmis Longoria Referring Provider Dr. Jazmine Le MD Referring Provider Shelby Potter Attending Provider Shelby Potter Referring Provider Vanessa CAPPS, Dr. Gonzalez Attending Provider Alana CAPPS, David Primary Care Provider Sun AMUSEMENT MACHINE MECHANIC-C, Hilario Banks Attending Provider Sun AMUSEMENT MACHINE MECHANIC-C, Hilario Banks Referring Provider Dr. Jamzine Le MD Referring Provider Dr. Grady Chino MD Attending Provider Jolliff, Jazmine S Primary Care Unavailable Shelby Potter Attending Unavail able Lila BILLINGSLEY, Shelby Yeung Referring Unavail able Jolliff, Jazmine S Primary Care Unavailable Zeeshan AMUSEMENT MACHINE MECHANIC, Idalmis Attending Unavailable Zeeshan AMUSEMENT MACHINE MECHANIC, Idalmis Referring Unavailable Jolliff, Jazmine S Primary Care Unavailable Rey Jazmine S Attending Unavailable Sun AMUSEMENT MACHINE MECHANIC, Hilario Banks Attending Unavailable Sun AMUSEMENT MACHINE MECHANIC, Hilario Banks Referring Unavailable David Warner Primary Care Unavailable Jolliff, Jazmine S Referring Unavailable David Warner Primary Care Unavailable Grady Chino Attending Unavailable Jolliff, Jazmine S Primary Care Unavailable Carlos Mendez Attending Unavailable Jolliff, Jazmine S Primary Care Unavailable Jolliff, Jazmine S Referring Unavailable Shelby Potter Attending Unavail able Medications Current Medications Medication Drug Class(es) Dates Sig (Normalized) Sig (Original) aspirin 81 mg delayed release oral tablet (5 sources) Platelet Aggregation Inhibitor, Nonsteroidal Anti-inflammatory Drug Start: 08-16-2023 take 1 tablet by mouth at breakfast Aspirin 81 mg Tablet,Delayed Release (Dr/Ec) Active 81 mg PO WITH BREAKFAST 0 0 August 16, 2023 12:00am atorvastatin 20 mg oral tablet (13 sources) HMG-CoA Reductase Inhibitor Start: 06-14-2024 End: 12-21-2024 take 1 tablet by mouth at bedtime Atorvastatin 20 mg tablet Active 20 mg PO AT BEDTIME 90 3 December 21, 2024 9:54am Start: 08-16-2023 End: 06-14-2024 take 1 tablet by mouth at bedtime Atorvastatin 40 mg tablet Discontinued 40 mg PO AT BEDTIME 90 3 August 30, 2023 2:17pm June 14, 2024 11:34am levothyroxine sodium 0.05 mg oral tablet (3 sources) l-Thyroxine Start: 11-01-2023 take 1 tablet by mouth once daily Levothyroxine 50 mcg tablet Active 50 ug PO DAILY November 01, 2023 12:00am lisinopril 5 mg oral tablet (16 sources) Angiotensin Converting Enzyme Inhibitor Start: 06-14-2024 End: 12-21-2024 take 1 tablet by mouth once daily Lisinopril 5 mg tablet Active 5 mg PO DAILY 90 December 21, 2024 9:54am Start: 11-02-2023 End: 06-14-2024 take 5 mg by mouth once daily Lisinopril 10 mg tablet Discontinued 5 mg PO DAILY 0 0 November 02, 2023 9:32am June 14, 2024 11:34am Start: 08-16-2023 End: 11-02-2023 take 1 tablet by mouth once daily Lisinopril 10 mg tablet Discontinued 10 mg PO DAILY 90 August 30, 2023 2:18pm November 02, 2023 9:34am tamsulosin hydrochloride 0.4 mg oral capsule (3 sources) alpha-Adrenergic Ayaz Start: 11-01-2023 take 1 capsule by mouth at bedtime Tamsulosin 0.4 mg capsule Active 0.4 mg PO AT BEDTIME November 01, 2023 12:00am Completed/Discontinued Medications Medication Drug Class(es) Dates Sig (Normalized) Sig (Original) 24 hr metoprolol succinate 50 mg extended release oral tablet (12 sources) beta-Adrenergic Ayaz Start: 08-16-2023 End: 06-18-2024 take 1 tablet by mouth once daily Metoprolol Succinate 50 mg tablet extended release 24 hr Discontinued 50 mg PO DAILY 90 August 30, 2023 2:18pm June 18, 2024 10:00am ticagrelor 90 mg oral tablet (12 sources) Start: 08-16-2023 End: 12-21-2024 take 1 tablet by mouth twice daily Ticagrelor (Brilinta) 90 mg tablet Discontinued 90 mg PO TWICE A DAY 180 June 18, 2024 10:02am December 21, 2024 9:54am Problems Active Problems Problem Classification Problem Date Documented Da te Episodic/Chronic Acute myocardial infarction (9 sources) Myocardial infarction; Translations: [Non-ST elevation (NSTEMI) myocardial infarction] Onset: 08-13-2023 08-13-2023 Chronic Cardiac dysrhythmias (3 sources) Tachycardia; Translations: [Tachycardia, unspecified] 09-21-2023 Episodic Coronary atherosclerosis and other heart disease (15 sources) Coronary atherosclerosis; Translations: [Atherosclerotic heart disease of [place] coronary artery without angina pectoris] Onset: 08-13-2023 08-15-2023 Chronic Disorders of lipid metabolism (1 source) Pure hypercholesterolem ia, unspecified; Translations: [Pure hypercholesterolem ia, unspecified] Onset: 12-14-2024 Chronic Genitourinary symptoms and ill-defined conditions (3 sources) Blood in urine; Translations: [Hematuria, unspecified] 09-21-2023 Episodic Past or Other Problems Problem Classification Problem Date Documented Da te Episodic/Chronic Coronary atherosclerosis and other heart disease (9 sources) Stented coronary artery; Translations: [Presence of coronary angioplasty implant and graft] Onset: 08-15-2023 08-15-2023 Episodic Comment on above: 3.5 X 18 mm CHELSIE to m id LAD; 2.75 X 12 and 2.25 X 12 CHELSIE to proximal first diagonal. Results Test Name Value Interpretation Reference Range Facility Cardiology Visit Reporton Cardiology Visit Report [facility] [address] [place] [address] OFFICE VISIT Date of Service: 12/21/24 MR#: [id number] Acct: [id number] Name: DEIRDRE ORTIZ Rep #: [id number] : 1955 Provider: Dr. Grady oakley MD Age/Sex: 69/M Location: [facility] Status: Signed HPI HPI History of Present Illness Details: Patient is a very pleasant 69-year-old white male that comes in his today for monitoring of his cardiovascular status. Patient carries a known history of coronary disease status PCI of the LAD diagonal with drug-eluting stents July 2023. He had mild disease in the circumflex and a 60% posterior descending artery of the right coronary artery stenosis. He presented with an ongoing infarct and his EF was estimated 35%. He was placed on guideline directed medical therapy and his EF improved to 55% in June 2024. The patient is are working out 3 days a week at [employer] he has had no drop-off in his exercise tolerance and has had no recurrence of his anginal chest symptom which was an indigestion feeling in his mid retrosternal area. Patient denies any PND orthopnea denies any lower extremity edema he is aerobically active. Intake Vital Signs 06/14/24 10:13 12/21/24 09:30 Height 6 ft 5 in 6 ft 5 in Weight: 230 lb BMI 27.2 BP 100/71 Blood Pressure Location Lt brachial Position Sitting Respiration 18 Pulse 84 Pulse Source Monitor Pulse Oximetry (%) 98 Oxygen Delivery Method room air Intake Visit Reasons: 6 M District Sales Representative Required: No Accompanied by: Is patient in pain?: No Allergies No Known Allergies Allergy (Verified 12/21/24 09:31) Medications ???Medication ???Instructions ???Recorded ???Confirmed ???Type aspirin 81 mg tablet,delayed 81 mg PO BREAKFAST #0 tabs 4 12/21/24 Rx release levothyroxine 50 mcg tablet 50 mcg PO DAILY 11/01/23 12/21/24 History tamsulosin 0.4 mg capsule 0.4 mg PO QHS 11/01/23 12/21/24 Hi story metoprolol succinate 50 mg 50 mg PO DAILY #90 tabs 06/18/24 0 12/21/24 Rx tablet,extended release 24 hr atorvastatin 20 mg tablet 20 mg PO QHS #90 tabs 12/21/24 Rx lisinopril 5 mg tablet 5 mg PO DAILY #90 tabs 12/21/24 Rx Ejection fraction %: 55 Have you fallen in the past year?: No PFSH Medical History Ischemic cardiomyopathy Atherosclerotic heart disease of [place] coronary artery without angina pectoris (08/13/23) Kidney stones Surgical History Stented coronary artery (08/15/23) H/O hernia repair Family History Father Heart disease CAD (coronary artery disease) Myocardial infarction Mother Leukemia Social History Smoking Status: Never smoker alcohol intake: never substance use type: does not use caffeine: No ROS Const Const: Negative for fatigue or weakness ENT ENT: Negative for dizziness or balance problems Cardio Chest Pain: No Palpitations: No Edema: None Muscle aches with walking: None Resp Respiratory: Negative for SOB with activity, SOB at rest or SOB orthopnea SOB lying down GI GI: Negative nausea, vomiting or heartburn Musc Musc: Negative for muscle weakness or balance problems Neuro Neuro: Negative for dizziness, lightheadedness, near syncope, syncope or weakness Endo Endo: Negative for fatigue Cardiology Exam Const Appearance: cooperative, healthy appearing, comfortable, no acute distress and well developed Head Head: normal to inspection Eyes General: appearance normal, both eyes and all related structures Neck Neck: normal visual inspection and no JVD Carotids: Negative bruit Chest Chest inspection: normal inspection of the chest Auscultation: Bilateral: Clear to Auscultation Cardio Rate: regular rate Rhythm: regular rhythm Heart sounds: S1 normal and S2 normal; Negative rub, gallop or murmur GI GI: normal to inspection Neuro General: patient alert and patient oriented x3 Extremities Pulses: Normal: Right Radial Pulse Lower Extremity Edema: None: Bilateral Psych Psychological: normal affect Supplemental Info Supplemental Information Labs: LDL Cholesterol 17 mg/dL (0-130) HDL Cholesterol 40 mg/dL (40-) Cholesterol 103 mg/dL (<=200) Triglycerides 119 mg/dL (-199) Diagnostics: Echocardiogram Pulmonary: No Data to Display Past Visits: Cardiology Visit 12/21/24 Assessment and Plan Assessment and Plan (1) Atherosclerotic heart disease of [place] coronary artery without angina pectoris: Status: Acute Qualifiers: [place] vs (more content not included)... Normal [facility] Bilirubin directOrdered By: Hilario Garsia on 12-10-2024 Bilirubin.direct [Mass/Vol] 0.23 mg/dL 0.00-0.30 [facility] Bilirubin, totalOrdered By: Hilario Garsia on 12-10-2024 Bilirubin [Mass/Vol] 0.52 mg/dL 0.00-1.30 [facility] Calculated very low density lipoprotein (VLDL) cholesterol measurementOrdered By: Hilario Garsia on 12-10-2024 Calculated very low density lipoprotein (VLDL) cholesterol measurement 24 mg/dL 5-40 [facility] LDL calc ser/plasOrdered By: Hilario Garsia on 12-10-2024 Cholesterol in LDL [Mass/Vol] 39 mg/dL [facility] Comment on above: Eftvimnaho=171-563 m g/dL & Higher Cxkp=617 mg/dL or greaterFriedwald Equation for LDL-C Laboratory - Chemistry and C hemistry - challengeOrdered By: Hilario Garsia on 12-10-2024 AST [Catalytic activity/Vol] 25 U/L <38 [facility] Lipid Profileon 12-10-2024 CHOL:HDL 2.55 Normal [facility] Comment on above: Performed By: #### L 500.3400, L500.4100 #### [facility] [address] [place], [place], [phone] ([phone] Cholesterol [Mass/Vol] 103 mg/dL Normal <=200 [facility] Comment on above: Result Comment: Chol esterol level, Desirable <200 mg/dL Borderline high cholesterol 200-239 mg/dL High cholesterol >=240 mg/dL Recommendations of the NCEP Adult Treatment Panel for the following risk-cutoff thresholds for the [place] population. Performed By: #### L 500.3400, L500.4100 #### [facility] [address] [place], [place], [phone] Cholesterol in HDL [Mass/Vol] 40 mg/dL Normal [facility] Comment on above: Result Comment: Carola onal Cholesterol Education Program (NCEP) guidelines: <40 mg/dL: Low HDL-cholesterol (major risk factor for CHD) >= 60 mg/dL: High HDL-cholesterol (negative risk factor for CHD) HDL-cholesterol is affected by a number of factors, e.g. smoking, exercise, hormones, sex and age. Performed By: #### L 500.3400, L500.4100 #### [facility] [address] [place], [place], [phone] ([phone] Cholesterol in LDL [Mass/Vol] 39 mg/dL Normal [facility] Comment on above: Result Comment: Bord jnlsxi=782-609 mg/dL Higher Hfap=373 mg/dL or greater Friedwald Equation for LDL-C Performed By: #### L 500.3400, L500.4100 #### [facility] [address] [place], [address] Cholesterol in VLDL [Mass/Vol] 24 mg/dL Normal 5-40 [facility] Comment on above: Performed By: #### L 500.3400, L500.4100 #### [facility] [address] [place], [address] Triglyceride [Mass/Vol] 119 mg/dL Normal [facility] Comment on above: Result Comment: The drugs N-Acetylcysteine and Metamizole may falsely depress this assay. Normal range: <150 mg/dL Borderline High: 150-199 mg/dL High: 200-499 mg/dL Very High: >500 mg/dL Performed By: #### L 500.3400, L500.4100 #### [facility] [address] [place], [address] Liver Profileon 12-10-2024 Albumin [Mass/Vol] 4.0 g/dL Normal 3.4-4.8 [facility] Comment on above: Performed By: #### L 500.3400, L500.4100 #### [facility] [address] [place], [address] ALK PHOS 65 U/L Normal 40-129 [facility] Comment on above: Performed By: #### L 500.3400, L500.4100 #### [facility] [address] [place], [address] ALT [Catalytic activity/Vol] 21 U/L Normal <=46 [facility] Comment on above: Performed By: #### L 500.3400, L500.4100 #### [facility] [address] [place], [address] AST [Catalytic activity/Vol] 25 U/L Normal <=37 [facility] Comment on above: Performed By: #### L 500.3400, L500.4100 #### [facility] [address] [place], [address] Bilirubin [Mass/Vol] 0.52 mg/dL Normal 0.00-1.30 [facility] Comment on above: Performed By: #### L 500.3400, L500.4100 #### [facility] [address] [place], [address] Bilirubin.direct [Mass/Vol] 0.23 mg/dL Normal 0.00-0.30 [facility] Comment on above: Performed By: #### L 500.3400, L500.4100 #### [facility] [address] [place], [address] Globulin (S) [Mass/Vol] 2.9 g/dL Normal 2.2-4.2 [facility] Comment on above: Performed By: #### L 500.3400, L500.4100 #### [facility] [address] [place], [address] T PROT 6.8 g/dL Normal 5.9-8.4 [facility] Comment on above: Performed By: #### L 500.3400, L500.4100 #### [facility] [address] [place], [address] Screening total cholesterol/ high density lipoprotein (HDL) cholesterol ratioOrdered By: Hilario Garsia on 12-10-2024 Cholesterol.total/Choles terol in HDL [Mass ratio] 2.55 {ratio} [facility] Serum globulin measurementOr dered By: Hilario Garsia on 12-10-2024 Globulin (S) [Mass/Vol] 2.9 g/dL 2.2-4.2 [facility] Serum or plasma alanine perdomo otransferase (ALT) measurementOrdered By: Hilario Garsia on 12-10-2024 ALT [Catalytic activity/Vol] 21 U/L <47 [facility] Serum or plasma albumin allison urement (mass/volume)Ordered By: Hilario Garsia on 12-10-2024 Albumin [Mass/Vol] 4.0 g/dL 3.4-4.8 [facility] Serum or plasma alkaline mihir sphatase measurementOrdered By: Hilario Garsia on 12-10-2024 ALP [Catalytic activity/Vol] 65 U/L 40-129 [facility] Serum or plasma cholesterol in HDL measurement (mass/volume)Ordered By: Hilario Garsia on 12-10-2024 Cholesterol in HDL [Mass/Vol] 40 mg/dL >40 [facility] Comment on above: National Cholesterol Education Program (NCEP) guidelines:<40 mg/dL: Low HDL-cholesterol (major risk factor for CHD)>= 60 mg/dL: High HDL-cholesterol (negative risk factor for CHD)HDL-cholesterol is affected by a number of factors, e.g. smoking, exercise, hormones, sex and age. Serum or plasma cholesterol measurement (mass/volume)Ordered By: Hilario Garsia on 12-10-2024 Cholesterol [Mass/Vol] 103 mg/dL <201 [facility] Comment on above: Cholesterol level, D esirable <200 mg/dLBorderline high cholesterol 200-239 mg/dLHigh cholesterol >=240 mg/dLRecommendations of the NCEP Adult Treatment Panel for the following risk-cutoff thresholds for the [place] population. Total proteinOrdered By: Jimi Garsia on 12-10-2024 Protein [Mass/Vol] 6.8 g/dL 5.9-8.4 [facility] Triglycerides measurementOrd ered By: Hilario Garsia on 12-10-2024 Triglyceride [Mass/Vol] 119 mg/dL <199 [facility] Comment on above: The drugs N-Acetylcy steine and Metamizole may falsely depress this assay. Normal range: <150 mg/dLBorderline High: 150-199 mg/dLHigh: 200-499 mg/dLVery High: >500 mg/dL Echo Limited w/Contraston Echo Limited w/Contrast [facility] [address] [place] [address] Echo Limited w/Contrast 07/18/24 1351 MR#: [id number] Acct: [id number] Name: DEIRDRE ORTIZ Rep #: [id number] : 1955 69 From: Carlos Mendez MD Attending Dr: ANALILIA Mehta Status: REG CLI Ordering Dr: Shelby Sharp Date: 06/24 10/17 Location: [facility] Sex: M C Admitted: Reason For Study [...] Physician: Jazmine Le Performed By: Brandi George, RDCS, RVT 07/18/24 1450 Date Carlos Mendez MD CC: Dr. Jazmine Le MD; ANALILIA Mehta Date Dictated: 07/18/24 1351 Date Transcribed: 07/18/24 145 Story Reader: Signed Normal [facility] Limited echocardiogram repor tOrdered By: Carlos Mendez on 07-18-2024 Study report [facility] [address] [place] [address] Echo Limited w/Contrast 07/18/24 1351 MR#: [id number] Acct: [id number] Name: DEIRDRE ORTIZ Rep #:[id number] : 1955 69 From: Carlos Nelson Attending Dr: ANALILIA Mehta Status: REG CLI Ordering Dr: Shelby Sharp Date: 07/18/24 Location: [facility] Sex: M C Admitted: Reason For Study [...] Brandi George RDCS, RVT 07/18/24 1450 Date _ Carlos Mendez MD CC: Dr. Jazmine Le MD; ANALILIA Mehta ~ Date Dictated: 07/18/24 1351 Date Transcribed: 07/18/24 1450 Story Reader: Signed [facility] Work Phone: Cardiology Visit Reporton Cardiology Visit Report [facility] [address] [place] [address] OFFICE VISIT Date of Service: 06/14/24 MR#: [id number] Acct: [id number] Name: DEIRDRE ORTIZ Rep #: [id number] : 1955 Provider: ANALILIA Molina Age/Sex: 69/M Location[place] [facility] Status: Signed HPI HPI History of Present Illness Details: This is a 69 year old male who presents to the office today for a cardiovascular follow-up visit. He had presented to [facility] ER in July of 2023 complaining [...] (%) 100 Intake Visit Reasons: 6 M [employer] District Sales Representative Required: No Is patient in pain?: No [...] tablet 20 mg PO QHS #90 tabs 06/14/24 Rx lisinopril 5 mg tablet 5 mg PO DAILY #90 tabs 06/14/24 Rx Ejection fraction %: 45 Have you fallen in the past year?: No PFSH Medical History (Updated 06/14/24 @ 10:16 by Shelby Sharp PA, PA) Ischemic cardiomyopathy Atherosclerotic heart disease of [place] coronary artery without angina pectoris (08/13/23) Kidney [...] Negative for (more content not included)... Normal [facility] Bilirubin directOrdered By: Idalmis Byers on 05-28-2024 Bilirubin.direct [Mass/Vol] 0.16 mg/dL 0.00-0.30 [facility] Bilirubin, totalOrdered By: Idalmis Byers on 05-28-2024 Bilirubin [Mass/Vol] 0.80 mg/dL 0.20-1.00 [facility] Comment on above: For patients on eltr ombopag therapy, use of Dimension [place] TBIL is not recommended. High density lipoprotein (HD L) measurementOrdered By: Idalmis Byers on 05-28-2024 Cholesterol in HDL [Mass/Vol] 47 mg/dL >40 [facility] Comment on above: The drugs N-Acetylcy steine and Metamizole may falsely depress this assay. Reference Range HDL <40 mg/dL Low HDL Cholesterol HDL >or= 60 mg/dL High HDL Cholesterol Laboratory - Chemistry and C hemistry - challengeOrdered By: Idalmis Byers on 05-28-2024 AST [Catalytic activity/Vol] 26 U/L 15-37 [facility] Lipid Profileon 05-28-2024 Cholesterol [Mass/Vol] 90 mg/dL Normal 200 [facility] Comment on above: Result Comment: <200 mg/dL Desirable 200-240 mg/dL Borderline >240 mg/dL High Risk Performed By: #### L 500.4100, L500.3400 #### [facility] [address] [place], [address] Cholesterol in HDL [Mass/Vol] 47 mg/dL Normal [facility] Comment on above: Result Comment: The drugs N-Acetylcysteine and Metamizole may falsely depress this assay. Reference Range HDL <40 mg/dL Low HDL Cholesterol HDL >or= 60 mg/dL High HDL Cholesterol Performed By: #### L 500.4100, L500.3400 #### [facility] [address] [place], [address] Cholesterol in LDL [Mass/Vol] 17 mg/dL Normal 0-130 [facility] Comment on above: Performed By: #### L 500.4100, L500.3400 #### [facility] [address] [place], [address] Cholesterol in VLDL [Mass/Vol] 26 mg/dL Normal 5-40 [facility] Comment on above: Performed By: #### L 500.4100, L500.3400 #### [facility] [address] [place], [address] Triglyceride [Mass/Vol] 129 mg/dL Normal [facility] Comment on above: Result Comment: The drugs N-Acetylcysteine and Metamizole may falsely depress this assay. Serum Triglycerides Reference Interval Normal <150 mg/dL Borderline high 150 - 199 mg/dL High 200 - 499 mg/dL Very High > or = 500 mg/dL Performed By: #### L 500.4100, L500.3400 #### [facility] [address] [place], [address] Liver Profileon 05-28-2024 Albumin [Mass/Vol] 3.3 g/dL Normal 3.2-5.0 [facility] Comment on above: Performed By: #### L 500.4100, L500.3400 #### [facility] [address] [place], [address] ALK P 69 U/L Normal 45-117 [facility] Comment on above: Performed By: #### L 500.4100, L500.3400 #### [facility] [address] [place], [address] ALT [Catalytic activity/Vol] 37 U/L Normal 16-61 [facility] Comment on above: Performed By: #### L 500.4100, L500.3400 #### [facility] [address] [place], [address] AST [Catalytic activity/Vol] 26 U/L Normal 15-37 [facility] Comment on above: Performed By: #### L 500.4100, L500.3400 #### [facility] [address] [place], [address] Bilirubin [Mass/Vol] 0.80 mg/dL Normal 0.20-1.00 [facility] Comment on above: Result Comment: For patients on eltrombopag therapy, use of Dimension [place] TBIL is not recommended. Performed By: #### L 500.4100, L500.3400 #### [facility] [address] [place], [address] Bilirubin.direct [Mass/Vol] 0.16 mg/dL Normal 0.00-0.30 [facility] Comment on above: Performed By: #### L 500.4100, L500.3400 #### [facility] [address] [place], [address] Globulin (S) [Mass/Vol] 3.7 g/dL Normal 2.2-4.2 [facility] Comment on above: Performed By: #### L 500.4100, L500.3400 #### [facility] [address] [place], [address] T PROT 7.0 g/dL Normal 6.4-8.2 [facility] Comment on above: Performed By: #### L 500.9270, L500.3400 #### [facility] [address] [place], [address] Low density lipoprotein (LDL ) cholesterol measurementOrdered By: Idalmis Byers on 05-28-2024 Cholesterol in LDL [Mass/Vol] 17 mg/dL 0-130 [facility] Serum globulin measurementOr dered By: Idalmis Byers on 05-28-2024 Globulin (S) [Mass/Vol] 3.7 g/dL 2.2-4.2 [facility] Serum or plasma alanine perdomo otransferase (ALT) measurementOrdered By: Idalmis Byers on 05-28-2024 ALT [Catalytic activity/Vol] 37 U/L 16-61 [facility] Serum or plasma albumin allison urement (mass/volume)Ordered By: Idalmis Byers on 05-28-2024 Albumin [Mass/Vol] 3.3 g/dL 3.2-5.0 [facility] Serum or plasma alkaline mihir sphatase measurementOrdered By: Idalmis Byers on 05-28-2024 ALP [Catalytic activity/Vol] 69 U/L 45-117 [facility] Serum or plasma cholesterol measurement (mass/volume)Ordered By: Idalmis Byers on 05-28-2024 Cholesterol [Mass/Vol] 90 mg/dL <200 [facility] Comment on above: <200 mg/dL Desirable 200-240 mg/dL Borderline >240 mg/dL High Risk Total proteinOrdered By: Aureliano Byers on 05-28-2024 Protein [Mass/Vol] 7.0 g/dL 6.4-8.2 [facility] Triglycerides measurementOrd ered By: Idalmis Byers on 05-28-2024 Triglyceride [Mass/Vol] 129 mg/dL <199 [facility] Comment on above: The drugs N-Acetylcy steine and Metamizole may falsely depress this assay.Serum Triglycerides Reference Interval Normal <150 mg/dL Borderline high 150 - 199 mg/dL High 200 - 499 mg/dL Very High > or = 500 mg/dL Very low density lipoprotein (VLDL) cholesterol measurementOrdered By: Idalmis Byers on 05-28-2024 VLDL Cholesterol 26 mg/dL 5-40 [facility] Protein+Creatinine Ratio,Uri neon 01-24-2024 PROT:CRE RATIO 75 mg/g CRE Normal 0-200 [facility] Comment on above: Performed By: #### L 501.0900 #### [facility] [address] [place], [address] Protein (U) [Mass/Vol] 11.7 mg/dL Normal <11.9 [facility] Comment on above: Performed By: #### L [id number] #### [facility] [address] [place], [address] UR CREAT 156.00 mg/dL Normal NO RANGE EST. [facility] Comment on above: Performed By: #### L [id number] #### [facility] [address] [place], [address] Basophil percentageOrdered B y: Bibiana Cifuentes on 08-16-2023 Bilirubin [Mass/Vol] 0.50 mg/dL 0.20-1.00 [facility] Comment on above: For patients on eltr ombopag therapy, use of Dimension [place] TBIL is not recommended. Chloride [Moles/Vol] 111 mmol/L 98-107 [facility] Glucose [Mass/Vol] 102 mg/dL 74-106 [facility] Comment on above: Fasting Glucose resu lt from 100 to 125 mg/dL suggests IMPAIRED HOMEOSTASIS per A.D.A. criteria. Hemoglobin (Bld) [Mass/Vol] 14.2 g/dL 13.0-16.5 [facility] Potassium [Moles/Vol] 4.0 mmol/L 3.5-5.1 [facility] Protein [Mass/Vol] 6.7 g/dL 6.4-8.2 [facility] Sodium [Moles/Vol] 139 mmol/L 136-145 [facility] WBC (Bld) [#/Vol] 8.0 10*3/uL 4.4-11.0 [facility] Determination of erythrocyte mean corpuscular volume (MCV)Ordered By: Bibiana Cifuentes on 08-16-2023 MCV (RBC) [Entitic vol] 94.2 fL 80-94 [facility] Erythrocyte distribution wid th ratioOrdered By: Bibiana Cifuentes on 08-16-2023 Erythrocyte distribution width (RBC) [Ratio] 13.4 % 11.6-14.6 [facility] Erythrocyte distribution wid th standard deviationOrdered By: Bibiana Cifuentes on 08-16-2023 Erythrocyte distribution width (RBC) [Entitic vol] 45.7 fL 35.1-43.9 [facility] Hematocrit Auto (Bld) [Volum e fraction]Ordered By: Bibiana Cifuentes on 08-16-2023 Hematocrit (Bld) [Volume fraction] 44.2 % 40-54 [facility] - Chemistry and C hemistry - challengeOrdered By: Bibiana Cifuentes on 08-16-2023 Albumin/Globulin [Mass ratio] 0.9 {ratio} 0.9-2.4 [facility] ALP [Catalytic activity/Vol] 57 U/L 45-117 [facility] ALT [Catalytic activity/Vol] 17 U/L 16-61 [facility] CO2 [Moles/Vol] 24.0 mmol/L 21.0-32.0 [facility] Globulin (S) [Mass/Vol] 3.6 g/dL 2.2-4.2 [facility] Urea nitrogen/Creatinine [Mass ratio] 10.5 mg/mg 10-20 [facility] - Hematology and Cell countsOrdered By: Bibiana Cifuentes on 08-16-2023 MCH (RBC) [Entitic mass] 30.3 pg 27.0-32.0 [facility] MCHC (RBC) [Mass/Vol] 32.1 g/dL 32-36 [facility] Platelet mean volume (Bld) [Entitic vol] 10.7 fL 6.2-12.0 [facility] Platelets (Bld) [#/Vol] 133 10*3/uL 150-450 [facility] No Panel InformationOrdered By: Bibiana Cifuentes on 08-16-2023 Estimated Creatinine Clearance Calc 71.85 ml/min [facility] Estimated GFR (MDRD) Amer 75 mL/min >60 [facility] Comment on above: GFR Calc Estimated GFR (MDRD) Non-Af Amer 62 mL/min >60 [facility] Comment on above: Non- GFR Calc RBC Auto (Bld) [#/Vol]Ordere d By: Bibiana Cifuentes on 08-16-2023 RBC (Bld) [#/Vol] 4.69 10*6/uL 4.6-6.2 [facility] Serum or plasma calcium allison urement (mass/volume)Ordered By: Bibiana Cifuentes on 08-16-2023 Calcium [Mass/Vol] 9.0 mg/dL 8.5-10.1 [facility] Serum or plasma creatinine m easurement (mass/volume)Ordered By: Bibiana Cifuentes on 08-16-2023 Creatinine [Mass/Vol] 1.24 mg/dL 0.70-1.30 [facility] Comment on above: The validity of the calculated GFR & GFRAA in patients over 70 years has not been determined. Clinical correlation is essential. Serum or plasma urea nitroge n measurement (mass/volume)Ordered By: Bibiana Cifuentes on 08-16-2023 Urea nitrogen [Mass/Vol] 13 mg/dL 7-18 [facility] Thin prep Papanicolaou smear with manual screeningOrdered By: Bibiana Cifuentes on 08-16-2023 Thin prep Papanicolaou smear with manual screening 3.1 g/dL 3.2-5.0 [facility] Thin prep Papanicolaou smear with manual screening 29 U/L 15-37 [facility] Thin prep Papanicolaou smear with manual screening 4 5-15 [facility] Activated partial thrombopla stin time (aPTT) in platelet poor plasma by coagulation aOrdered By: Oral Smiley on 08-15-2023 aPTT Coag (PPP) [Time] 80.8 s 24.1-36.2 [facility] Absolute lymphocyte countOrd ered By: Oral Smiley on 08-14-2023 Lymphocytes Auto (Unsp spec) [#/Vol] 2.38 10*3/uL 0.83-4.51 [facility] Automated lymphocyte count a s percentage of total leukocytesOrdered By: Oral Smiley on 08-14-2023 Lymphocytes/100 WBC Auto (Unsp spec) 26.4 % 19-41 [facility] Basophil percentageOrdered B y: Brooke Shaw on 08-14-2023 Basophil percentage 0-5 SEEN /hpf 0-5 [facility] Basophil percentageOrdered B y: Oral Smiley on 08-14-2023 Basophils/100 WBC (Bld) 0.7 % 0-1 [facility] Cholesterol [Mass/Vol] 163 mg/dL <200 [facility] Comment on above: <200 mg/dL Desirable 200-240 mg/dL Borderline >240 mg/dL High Risk Eosinophils/100 WBC (Bld) 1.4 % 0-5 [facility] Monocytes/100 WBC (Bld) 8.3 % 0-10 [facility] Neutrophils (Bld) [#/Vol] 5.7 10*3/uL 2.0-7.7 [facility] Neutrophils/100 WBC (Bld) 62.8 % 47-70 [facility] Triglyceride [Mass/Vol] 69 mg/dL <199 [facility] Comment on above: The drugs N-Acetylcy steine and Metamizole may falsely depress this assay.Serum Triglycerides Reference Interval Normal <150 mg/dL Borderline high 150 - 199 mg/dL High 200 - 499 mg/dL Very High > or = 500 mg/dL Bilirubin Test strip Ql (U)O rdered By: Brooke Shaw on 08-14-2023 Bilirubin Ql (U) Negative Negative [facility] Immature granulocytes/100 WB C Auto (Bld)Ordered By: Oral Smiley on 08-14-2023 Immature granulocytes/100 WBC (Bld) 0.400 % 0.0-0.9 [facility] Comment on above: IG% - Immature Granu locytes (promyelocytes, myelocytes and metamyelocytes) > 1% indicates that a LEFT SHIFT is Present. Ketones Test strip Ql (U)Ord ered By: Brooke Shaw on 08-14-2023 Ketones Ql (U) Negative Negative [facility] - Chemistry and C hemistry - challengeOrdered By: Oral Smiley on 08-14-2023 Cholesterol in HDL [Mass/Vol] 52 mg/dL >40 [facility] Comment on above: The drugs N-Acetylcy steine and Metamizole may falsely depress this assay. Reference Range HDL <40 mg/dL Low HDL Cholesterol HDL >or= 60 mg/dL High HDL Cholesterol Cholesterol in LDL [Mass/Vol] 97 mg/dL 0-130 [facility] - Hematology and Cell countsOrdered By: Oral Smiley on 08-14-2023 Nucleated RBC/100 WBC (Bld) [Ratio] 0 % 0-5 [facility] Mucus LM Ql (Urine sed)Order ed By: Brooke Shaw on 08-14-2023 Mucus Ql (Urine sed) 0 SEEN /hpf [facility] Nitrite Test strip Ql (U)Ord ered By: Brooke Shaw on 08-14-2023 Nitrite Ql (U) Negative Negative [facility] No Panel InformationOrdered By: Brooke Shaw on 08-14-2023 Urine RBC 25-50 SEEN /hpf 0-5 [facility] No Panel InformationOrdered By: Oral Smiley on 08-14-2023 VLDL Cholesterol 14 mg/dL 5-40 [facility] Troponin I High Sensitivity 1801 pg/mL 3.0-78.0 [facility] Comment on above: Critical Result(s) C alled at: 01:26:16 08/14/2023 by: Karla espinoza. Results read back by same. Please Note: New Test Units and Gender Specific Reference Ranges. For more information see Policy Stat Procedure [place] High Sensitivity Troponin (TNIH) and attachments. Protein Test strip Ql (U)Ord ered By: Brooke Shaw on 08-14-2023 Protein Ql (U) 15 mg/dl Negative [facility] Squamous epithelial cells de tection in urine sediment by light microscopyOrdered By: Brooke Shaw on 08-14-2023 Epithelial cells.squamous LM Ql (Urine sed) 0 SEEN /hpf 0-5 [facility] Urine blood detectionOrdered By: Brooke Shaw on 08-14-2023 RBC Ql (U) 250 /ul Negative [facility] Urine clarityOrdered By: Dilia Shaw on 08-14-2023 Clarity (U) Clear Clear [facility] Urine color determinationOrd ered By: Brooke Shaw on 08-14-2023 Color (U) Yellow Yellow [facility] Urine glucose detectionOrder ed By: Brooke Shaw on 08-14-2023 Glucose Ql (U) Normal mg/dl Normal [facility] Urine leukocyte esterase det ection by dipstickOrdered By: Brooke Shaw on 08-14-2023 Leukocyte esterase Test strip Ql (U) Negative Negative [facility] Urine pHOrdered By: Brooke irving on 08-14-2023 pH (U) 7.0 [pH] 5.0 - 8.0 [facility] Urine sediment bacteria coun t by microscopy (number/high power field)Ordered By: Brooke Shaw on 08-14-2023 Bacteria LM.HPF (Urine sed) [#/Area] 0 /[HPF] None Seen [facility] Urine specific gravity measu rementOrdered By: Brooke Shaw on 08-14-2023 Specific gravity (U) [Rel density] 1.010 1.002-1.030 [facility] Urine urobilinogen measureme ntOrdered By: Brooke Shaw on 08-14-2023 Urobilinogen Ql (U) Normal mg/dl Normal [facility] Absolute lymphocyte countOrd ered By: ED PROVIDER on 08-13-2023 Lymphocytes Auto (Unsp spec) [#/Vol] 2.54 10*3/uL 0.83-4.51 [facility] Activated partial thrombopla stin time (aPTT) in platelet poor plasma by coagulation aOrdered By: Brooke Shaw on 08-13-2023 aPTT Coag (PPP) [Time] 33.0 s 24.1-36.2 [facility] Automated lymphocyte count a s percentage of total leukocytesOrdered By: ED PROVIDER on 08-13-2023 Lymphocytes/100 WBC Auto (Unsp spec) 35.3 % 19-41 [facility] Basophil percentageOrdered B y: ED PROVIDER on 08-13-2023 Basophils/100 WBC (Bld) 0.7 % 0-1 [facility] Chloride [Moles/Vol] 106 mmol/L 98-107 [facility] Eosinophils/100 WBC (Bld) 2.8 % 0-5 [facility] Glucose [Mass/Vol] 109 mg/dL 74-106 [facility] Comment on above: Fasting Glucose resu lt from 100 to 125 mg/dL suggests IMPAIRED HOMEOSTASIS per A.D.A. criteria. Hemoglobin (Bld) [Mass/Vol] 14.6 g/dL 13.0-16.5 [facility] Monocytes/100 WBC (Bld) 10.2 % 0-10 [facility] Neutrophils (Bld) [#/Vol] 3.6 10*3/uL 2.0-7.7 [facility] Neutrophils/100 WBC (Bld) 50.4 % 47-70 [facility] Potassium [Moles/Vol] 4.0 mmol/L 3.5-5.1 [facility] Sodium [Moles/Vol] 139 mmol/L 136-145 [facility] WBC (Bld) [#/Vol] 7.2 10*3/uL 4.4-11.0 [facility] Determination of erythrocyte mean corpuscular volume (MCV)Ordered By: ED PROVIDER on 08-13-2023 MCV (RBC) [Entitic vol] 94.9 fL 80-94 [facility] Erythrocyte distribution wid th ratioOrdered By: ED PROVIDER on 08-13-2023 Erythrocyte distribution width (RBC) [Ratio] 13.0 % 11.6-14.6 [facility] Erythrocyte distribution wid th standard deviationOrdered By: ED PROVIDER on 08-13-2023 Erythrocyte distribution width (RBC) [Entitic vol] 45.1 fL 35.1-43.9 [facility] Hematocrit Auto (Bld) [Volum e fraction]Ordered By: ED PROVIDER on 08-13-2023 Hematocrit (Bld) [Volume fraction] 46.1 % 40-54 [facility] Immature granulocytes/100 WB C Auto (Bld)Ordered By: ED PROVIDER on 08-13-2023 Immature granulocytes/100 WBC (Bld) 0.600 % 0.0-0.9 [facility] Comment on above: IG% - Immature Granu locytes (promyelocytes, myelocytes and metamyelocytes) > 1% indicates that a LEFT SHIFT is Present. Laboratory - Chemistry and C hemistry - challengeOrdered By: ED PROVIDER on 08-13-2023 CO2 [Moles/Vol] 28.0 mmol/L 21.0-32.0 [facility] Urea nitrogen/Creatinine [Mass ratio] 13.7 mg/mg 10-20 [facility] - CoagulationOrde red By: Brooke Shaw on 08-13-2023 INR Coag (Bld) [Relative time] 1.1 {INR} [facility] PT Coag (PPP) [Time] 13.8 s 11.7-14.9 [facility] - Hematology and Cell countsOrdered By: ED PROVIDER on 08-13-2023 MCH (RBC) [Entitic mass] 30.0 pg 27.0-32.0 [facility] MCHC (RBC) [Mass/Vol] 31.7 g/dL 32-36 [facility] Nucleated RBC/100 WBC (Bld) [Ratio] 0 % 0-5 [facility] Platelet mean volume (Bld) [Entitic vol] 9.9 fL 6.2-12.0 [facility] Platelets (Bld) [#/Vol] 141 10*3/uL 150-450 [facility] No Panel InformationOrdered By: ED PROVIDER on 08-13-2023 Troponin I High Sensitivity 298 pg/mL 3.0-78.0 [facility] Comment on above: Critical Result(s) C alled at: 21:04:43 08/13/2023 by: Merritt FLORES RN ED Results read back by same. Please Note: New Test Units and Gender Specific Reference Ranges. For more information see Policy Stat Procedure [place] High Sensitivity Troponin (TNIH) and attachments. Estimated Creatinine Clearance Calc 69.49 ml/min [facility] Estimated GFR (MDRD) Amer 65 mL/min >60 [facility] Comment on above: GFR Calc Estimated GFR (MDRD) Non-Af Amer 54 mL/min >60 [facility] Comment on above: Non- GFR Calc RBC Auto (Bld) [#/Vol]Ordere d By: ED PROVIDER on 08-13-2023 RBC (Bld) [#/Vol] 4.86 10*6/uL 4.6-6.2 [facility] Serum or plasma calcium allison urement (mass/volume)Ordered By: ED PROVIDER on 08-13-2023 Calcium [Mass/Vol] 8.9 mg/dL 8.5-10.1 [facility] Serum or plasma creatinine m easurement (mass/volume)Ordered By: ED PROVIDER on 08-13-2023 Creatinine [Mass/Vol] 1.39 mg/dL 0.70-1.30 [facility] Comment on above: The validity of the calculated GFR & GFRAA in patients over 70 years has not been determined. Clinical correlation is essential. Serum or plasma urea nitroge n measurement (mass/volume)Ordered By: ED PROVIDER on 08-13-2023 Urea nitrogen [Mass/Vol] 19 mg/dL 7-18 [facility] Thin prep Papanicolaou smear with manual screeningOrdered By: ED PROVIDER on 08-13-2023 Thin prep Papanicolaou smear with manual screening 5 5-15 [facility] No Panel InformationOrdered By: Jazmine Le on 01-11-2023 Prostate Specific Antigen Screen 0.69 ng/mL 0.00-4.00 [facility] Comment on above: This test was perfor med using the TPSA assay method for theDimension chemistry system. Values obtained with differentassay methods cannot be used interchangably.When changing PSA assays in the course of monitoring apatient, additional sequential testing should be carriedout to confirm baseline values. No Panel Informationon 11-23 Prostate Specific Antigen Screen 0.74 ng/mL 0.00-4.00 [facility] Work Phone: Comment on above: This test was perfor med using the TPSA assay method for theDimension chemistry system. Values obtained with differentassay methods cannot be used interchangably.When changing PSA assays in the course of monitoring apatient, additional sequential testing should be carriedout to confirm baseline values. Vital Signs Date Time Vital Sign Value Performing Clinician Ragini dickinson 12-21-2024 09:30-0400 Body height 195.58 cm David Warner MD Work Phone: [facility] 12-21-2024 09:30-0400 Body mass index (BMI) [Ratio] 27.2 kg/m2 David Warner MD Work Phone: [facility] 12-21-2024 09:30-0400 Body weight 104.32 kg David Warner MD Work Phone: [facility] 12-21-2024 09:30-0400 Diastolic blood pressure 71 mm[Hg] David Warner MD Work Phone: [facility] 12-21-2024 09:30-0400 Heart rate 84 /min David Warner MD Work Phone: [phone] [place] [address] 12-21-2024 09:30-0400 Respiratory rate 18 /min David Warner MD Work Phone: [facility] 12-21-2024 09:30-0400 SaO2% (BldA) [Mass fraction] 98 % David Warner MD Work Phone: [facility] 12-21-2024 09:30-0400 Systolic blood pressure 100 mm[Hg] David Warner MD Work Phone: [phone] [place] [address] 06-14-2024 10:13-0500 Body height 195.[address] Jazmine Le MD Work Phone: [phone] [place] [address] 06-14-2024 10:07-0500 Body mass index (BMI) [Ratio] 27.5 kg/m2 Dr. Jazmine Le MD Work Phone: [facility] 06-14-2024 10:07-0500 Body weight 105.[address] Jazmine Le MD Work Phone: [facility] 06-14-2024 10:07-0500 Diastolic blood pressure 79 mm[Hg] Dr. Jazmine Le MD Work Phone: [facility] 06-14-2024 10:07-0500 Heart rate 84 /min Dr. Jazmine Le MD Work Phone: [facility] 06-14-2024 10:07-0500 Respiratory rate 18 /min Dr. Jazmine Le MD Work Phone: [facility] 06-14-2024 10:07-0500 SaO2% (BldA) [Mass fraction] 100 % Dr. Jazmine Le MD Work Phone: [facility] 06-14-2024 10:07-0500 Systolic blood pressure 127 mm[Hg] Dr. Jazmine Le MD Work Phone: [facility] 08-30-2023 14:06-0400 Body height 195.[address] Jazmine Le Work Phone: [phone] [address] 08-30-2023 14:06-0400 Body mass index (BMI) [Ratio] 27.5 kg/m2 Dr. Jazmine Le Work Phone: [phone] [place] [address] 08-30-2023 14:06-0400 Body weight 105.[address] Jazmine Le Work Phone: [facility] 08-30-2023 14:06-0400 Diastolic blood pressure 80 mm[Hg] Dr. Jazmine Le Work Phone: [facility] 08-30-2023 14:06-0400 Heart rate 76 /min Dr. Jazmine Le Work Phone: [facility] 08-30-2023 14:06-0400 Respiratory rate 18 /min Dr. Jazmine Le Work Phone: [facility] 08-30-2023 14:06-0400 SaO2% (BldA) [Mass fraction] 100 % Dr. Jazmine Le Work Phone: [facility] 08-30-2023 14:06-0400 Systolic blood pressure 121 mm[Hg] Dr. Jazmine Le Work Phone: [facility] 08-26-2023 10:38-0400 Body mass index (BMI) [Ratio] 28 kg/m2 Dr. Jazmine Le Work Phone: [facility] 08-26-2023 10:38-0400 Body temperature 96.6 [degF] Dr. Jazmine Le Work Phone: [facility] 08-26-2023 10:38-0400 Body weight 107.[address] Jazmine Le Work Phone: [facility] 08-26-2023 10:38-0400 Diastolic blood pressure 66 mm[Hg] Dr. Jazmine Le Work Phone: [facility] 08-26-2023 10:38-0400 Heart rate 96 /min Dr. Jazmine Le Work Phone: [facility] 08-26-2023 10:38-0400 Respiratory rate 16 /min Dr. Jazmine Le Work Phone: [facility] 08-26-2023 10:38-0400 SaO2% (BldA) [Mass fraction] 98 % Dr. Jazmine Le Work Phone: [facility] 08-26-2023 10:38-0400 Systolic blood pressure 134 mm[Hg] Dr. Jazmine Le Work Phone: [facility] 08-16-2023 14:00-0400 Body temperature 97.3 [degF] Dr. Jazmine Le Work Phone: [facility] 08-16-2023 14:00-0400 Diastolic blood pressure 72 mm[Hg] Dr. Jazmine Le Work Phone: [facility] 08-16-2023 14:00-0400 Heart rate 82 /min Dr. Jazmine Le Work Phone: [facility] 08-16-2023 14:00-0400 Respiratory rate 18 /min Dr. Jazmine Le Work Phone: [facility] 08-16-2023 14:00-0400 SaO2% (BldA) [Mass fraction] 99 % Dr. Jazmine Le Work Phone: [facility] 08-16-2023 14:00-0400 Systolic blood pressure 146 mm[Hg] Dr. Jazmine Le Work Phone: [facility] 08-13-2023 22:19-0400 Body height 195.[address] Jazmine Le Work Phone: [facility] 08-13-2023 22:19-0400 Body mass index (BMI) [Ratio] 27.2 kg/m2 Dr. Jazmine Le Work Phone: [facility] 08-13-2023 22:19-0400 Body weight 104.[address] Jazmine Le Work Phone: [facility] 08-13-2023 22:00-0400 Diastolic blood pressure 85 mm[Hg] [facility] 08-13-2023 22:00-0400 Heart rate 83 /min [facility] 08-13-2023 22:00-0400 Respiratory rate 18 /min [facility] 08-13-2023 22:00-0400 SaO2% (BldA) [Mass fraction] 100 % [facility] 08-13-2023 22:00-0400 Systolic blood pressure 141 mm[Hg] [facility] 08-13-2023 21:17-0400 Body temperature 98.2 [degF] [facility] 08-13-2023 17:57-0400 Body height 195.58 cm [facility] 08-13-2023 17:57-0400 Body mass index (BMI) [Ratio] 28.1 kg/m2 [facility] 08-13-2023 17:57-0400 Body weight 107.81 kg [facility] Encounters Encounter Date Encounter Type Care Provider Facility Start: 12-21-2024 End: 12-21-[address] 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 Bro CAPPS -[facility] Start: 07-18-2024 End: 07-18-[address] Jazmine Le MD Work Phone: [facility] Work Phone: Start: 07-18-2024 End: 07-18-2024 Patient encounter procedure Shelby BILLINGSLEY -[facility] Work Phone: Start: 07-18-2024 End: 07-18-2024 ambulatory Jazmine Le Facility:[facility] Start: 06-14-2024 End: 06-14-2024 Patient encounter procedure Shelby BILLINGSLEY -[facility] Work Phone: Start: 06-14-2024 End: 06-14-2024 ambulatory Jazmine S Rey [place] [place]: 05-28-2024 End: 05-28-2024 Patient encounter procedure Idalmis Byers [employer]USEMENT MACHINE MECHANIC-C -Laboratory Work Phone: Start: 05-28-2024 End: 05-28-2024 ambulatory Jazmine Le Facility:[facility] Start: 01-24-2024 End: 01-24-2024 ambulatory Jazmine Le Facility:[facility] Start: 08-31-[address] Jazmine roberts Work Phone: [facility] Work Phone: Start: 08-30-2023 End: 08-30-[address] Jazmine Le Work Phone: [facility] Work Phone: Start: 08-26-2023 End: 08-26-[address] Jazmine Le Work Phone: [facility] Work Phone: Start: 08-26-2023 End: 08-26-[address] Jazmine Le Work Phone: [facility] Work Phone: Start: 08-16-2023 Non-patient / Non-visit Dr. Gabriele Le Work Phone: [facility] Work Phone: Start: 08-16-2023 End: 08-16-2023 Non-patient / Non-visit Dr. Jazmine Le Work Phone: [facility] Work Phone: Start: 08-15-2023 Non-patient / Non-visit Dr. Gabriele Le Work Phone: [facility] Work Phone: Start: 08-15-2023 Non-patient / Non-visit Dr. Gabriele Le Work Phone: [facility] Start: 08-14-2023 Non-patient / Non-visit Dr. Gabriele Le Work Phone: [facility] Work Phone: Start: 08-14-2023 Non-patient / Non-visit Dr. Gabriele Le Work Phone: [facility] Start: 08-13-2023 End: 08-13-2023 Non-patient / Non-visit Dr. Jazmine Le Work Phone: [facility] Work Phone: Start: 08-13-2023 End: 08-16-2023 Evaluation and management of inpatient [facility] Work Phone: Start: 01-11-2023 End: 01-11-2023 ambulatory [facility] Work Phone: Start: 01-11-2023 End: 01-11-2023 Patient encounter procedure [facility] Start: 11-23-2021 End: 11-23-2021 Patient encounter procedure [facility] Procedures Date Procedure Procedure Detail Performing Clinician Start: 08-13-2023 Plain chest X-ray Plan of Treatment Date Care Activity Detail Author Start: 08-16-2023 Patient discharge [facility] Start: 08-15-2023 Patient referral [facility] Work Phone: Start: 08-15-2023 Cardiac monitoring [facility] Start: 08-15-2023 Cardiac rehabilitation - phase 1 [facility] Start: 08-15-2023 Cardiac rehabilitation - phase 2 [facility] Start: 08-15-2023 Oxygen therapy [facility] Start: 08-15-2023 Patient discharge [facility] Start: 08-15-2023 Systemic arterial pr essure monitoring [facility] Start: 08-15-2023 Vascular disease risk assessment [facility] Start: 08-15-2023 Vital signs measurements [facility] Start: 08-15-2023 End: 08-15-2023 [facility] Start: 08-15-2023 End: 08-15-2023 Notification of physician [facility] Start: 08-15-2023 Patient education [facility] Start: 08-15-2023 Provision of activity privileges [facility] Start: 08-15-2023 Pulse taking [facility] Start: 08-15-2023 End: 08-15-2023 Taking patient vital signs [facility] Start: 08-15-2023 Wound care [facility] Start: 08-14-2023 [facility] Start: 08-13-2023 Following clinical p athway protocol [facility] Start: 08-13-2023 Ambulation without limitation [facility] Start: 08-13-2023 Assessment of risk o f venous thromboembolism [facility] Start: 08-13-2023 Insertion of cathete r into peripheral vein [facility] Start: 08-13-2023 Measuring intake and output [facility] Start: 08-13-2023 Providing care accor ding to standard [facility] Start: 08-13-2023 Referral to track repairer [facility] Start: 08-13-2023 [facility] Start: 08-13-2023 Verification routine [facility] Start: 08-13-2023 Admission procedure [facility] Start: 08-13-2023 Hospital admission, emergency, from emergency room, medical nature [facility] Start: 08-13-2023 End: 08-13-2023 [facility] Bilirubin measurement, urine [facility] Hemoglobin [Presence] in Urine [facility] Hepatic function panel [facility] Lipid 1995 panel - S karen or Plasma [facility] Lipid 1995 panel - S [facility] or Plasma [facility] Measurement of keton es in urine using dipstick [facility] Microscopic urinalysis [facility] Patient referral [facility] Work Phone: pH of Urine [facility] Specific gravity of Urine [facility] Urinalysis, blood, qualitative [facility] Urine dipstick for glucose [facility] Urine dipstick for l eukocyte esterase [facility] Urine dipstick for nitrite [facility] Urine dipstick for protein [facility] Urine examination [facility] Urine microscopy: ep ithelial cells [facility] Urine Microscopy: white cells [facility] Urobilinogen [Presence] in Urine [facility] US Heart limited [facility] Payers Date Payer Category Payer Self-pay [id number] 2021 Private Health Insurance 101 [id number] Unknown [id number] Unknown [id number] 2.16.8 [id number] Unknown [id number] 2.16.8 [id number] Unknown [id number] 2.16.8 [id number] Unknown [id number] 2.16.8 [id number] Unknown [id number] 2.16.8 [id number] Unknown [id number] 2.16.8 [id number] Unknown [id number] 2.16.8 [id number] Social History Date Type Detail Facility Tobacco smoking stat [facility] Unknown if ever smoked [facility] Work Phone: Start: 1955 Sex Assigned At Male [facility] Start: 08-13-2023 End: 08-26-2023 Tobacco smoking status NHIS Unknown if ever smoked [facility] Start: 08-26-2023 End: 12-21-2024 Tobacco smoking status NHIS Never smoked tobacco (finding) [facility] Start: 07-23-2024 Sex Male (finding) [facility] Medical Equipment Procedure Code Equipment Code Equipment Origin al Text Equipment Identifier Dates Drug-eluting coronary artery stent, zcq-[id number]-nc lymer-coated ()[id number] FDA Start: 08-15-2023 Drug-eluting coronary artery stent, qsj-nsvwzsmaojpgk-aj lymer-coated ()[id number] FDA Start: 08-15-2023 Drug-eluting coronary artery stent, rqa-leuddazurpmvy-fr lymer-coated ()[id number] FDA Start: 08-15-2023 Goals Date Patient Goal Desired Activity /State Functional Status Date Assessment Result Facility 08-16-2023 Functional status Up ad mercedes [facility] Work Phone: Mental Status Date Assessment Result Facility 08-16-2023 Cognitive function Voice/Name [facility] Work Phone: 08-13-2023 Cognitive function Voice/Name [facility] Work Phone: Clinical Notes 08-13-2023 to 08-16-2023 Note Date & Type Note Facility 08-16-2023 Discharge summary Note Date/Time August 16, 2023 1:03pm [facility] Medical Records Department [address] [place] [address] Instructions for Home/Discharge Instructions 08/16/23 1303 MR#: [id number] Acct: [id number] Name: DEIRDRE ORTIZ Rep #:[id number] : 1955 68 From: Ender Faust DO [...] - Shelby Sharp PA [Med Staff - Replaced By [facility]] - See Referral Note (Call [...] MD; Dr. Oral Smiley MD ~* Signed [facility] Work Phone: 1(414) 646-608704-22-2024 Progress note Author [facility] August 15, 2023 4:18pm Note Date/Time August 15, 2023 4:1 8pm [facility] Medical Records Department [address] [place] [address] Progress Note - Hospitalist 08/15/23 1612 MR#: [id number] Acct: [id number] Name: DEIRDRE ORTIZ Rep #:[id number] : 1955 68 From: Ender Faust DO PCP: Dr. Jazmine Le MD Status:ADM IN Location: [place] [address] Reason for Visit Reason for Visit: Diagnoses [...] Le M.D. Performed By: Carmen Daniel RDCS Physical Exam Const alert, oriented x3, no [...] (1) Stented coronary artery: (2) Non-ST elevation MT (NSTEMI): PLAN: Plan 1. Yay-[id number] to occlusive coronary disease in the LAD and the first diagonal-patient will remain on aspirin and Brilinta, he is on a beta-ayaz, lisinopril, and a statin #2 hematuria-etiology unclear, this seems to be clearing, patient will remain onheparin drip for now #3 hyperlipidemia-patient is on atorvastatin Total clinical time spent by myself addressing the patient's medical issues, reviewing all of his data, and collaborating with patient's care team: 35 minutes Charges/Coding Visit Charges Inpatient E&M: 76582 Subs Hosp L2 08/15/23 1618 <Electronically signed by Ender Faust DO> Cosigner Signature (if applicable): CC: ~ Signed [facility] Work Phone: 1(916) 100-190604-22-2024 Evaluation note* Diagnosis Onset Date Resolution Status Stented coronary artery August 15, 2023 acute Non-ST elevation MT (NSTEMI) August 13, 2023 resolved Ischemic cardiomyopathy acut e Stented coronary artery August 15, 2023 acute [facility] Work Phone: 1(817) 769-945204-21-2024 Progress note Author Ender Faust [facility] August 14, 2023 3:06pm Note Date/Time August 14, 2023 3:0 6pm [facility] Medical Records Department [address] [facility] [place] [address] Progress Note - Hospitalist 08/14/23 1501 MR#: [id number] Acct: [id number] Name: DEIRDRE ORTIZ Rep #:[id number] : 1955 68 From: Ender Faust DO PCP: Dr. Jazmine Le MD Status:ADM IN Location: [place] [address] Reason for Visit Reason for Visit: Diagnoses [...] % (Auto) 50.4, Lymph % (Auto) 35.3, [place] % (Auto) 10.2 H, Eos % (Auto) [...] % (Auto) 62.8, Lymph % (Auto) 26.4, [place] % (Auto) 8.3, Eos % (Auto) 1.4, [...] Clarity Clear, Urine pH 7.0, Ur Specific [place] 1.010, Urine Protein 15 H, Urine Glucose [...] Josh Vigil MD at 19:34 EDT , Physical Exam Const alert, oriented x3, [...] Assessment & Plan Assessment/Plan (1) Non-ST elevation MT (NSTEMI): PLAN: Plan 1. [id number] will undergo a cardiac catheterization tomorrow, I [...] 35 minutes Charges/Coding Visit Charges Inpatient E&M: 75182 Subs Hosp L2 08/14/23 1506 <Electronically signed by Ender Tereletsky DO> Cosigner Signature (if applicable): CC: ~ Signed [facility] Work Phone: 1(688) 562-967104-21-2024 Consult note Author Luca Canada [facility] August 14, 2023 1:34pm Note Date/Time August 14, 2023 1:3 2pm [facility] Medical Records Department [address] [place] [address] Consultation - Cardiology 08/14/23 1326 MR#: [id number] Acct: [id number] Name: DEIRDRE ORTIZ Rep #:[id number] : 1955 68 From: Luca Canada MD PCP: Dr. Jazmine Le MD Status:ADM IN Location: [address] Assessment & Plan Assessment/Plan (1) Non-ST elevation MT (NSTEMI): PLAN: Plan 68-year-old patient presented to [facility] ER complaining of symptoms ofchest pain [...] sensitive troponin. Patient treated with aspirin, atorvastatin, beta-ayaz as well as heparin Symptoms of chest [...] ORTIZ, is a 68 M who presents [facility] Medical History (Updated 08/13/23 @ 22:36 by [...] not having any symptoms of chest pain monitoring manager normal sinus rhythm. Cardiac exam S1-S2 is [...] % (Auto) 50.4, Lymph % (Auto) 35.3, [place] % (Auto) 10.2 H, Eos % (Auto) [...] % (Auto) 62.8, Lymph % (Auto) 26.4, [place] % (Auto) 8.3, Eos % (Auto) 1.4, [...] % (Auto) 50.4, Lymph % (Auto) 35.3, [place] % (Auto) 10.2 H, Eos % (Auto) [...] Neut % (Auto) 62.8,Lymph % (Auto) 26.4, [place] % (Auto) 8.3, Eos % (Auto) 1.4, [...] applicable): CC: Dr. Jazmine Le MD~ Signed [facility] Work Phone: 1(199) 208-267404-21-2024 History and physical note Author Oral Smiley [facility] August 14, 2023 4:12am Note Date/Time August 13, 2023 9:1 7pm [facility] Medical Records Department [address] [place] [address] H&P Exam - Hospitalist 08/13/232116 MR#: [id number] Acct: [id number] Name: DEIRDRE ORTIZ Rep #:[id number] : 1955 68 From: Oral naqvi MD PCP: Dr. Jazmine Le MD Status:ADM IN Location: [facility] [id number] HPI - General General Date of Admission: [...] had a kidney stone in the past. [facility] Medical History (Updated 08/13/23 @ 22:36 by Radha Morales) Kidney stones Medical History no medical history no medical history Home Medications NK 08/13/23 [History Last Taken Unknown] Allergy/AdvReac Type Severity Reaction Status Date / Time No Known Allergies Allergy Verified 08/13/23 17:57 Family History (Updated 08/13/23 @ 22:[address] Oarl Smiley MD) Other Heart disease Surgical History [...] % (Auto) 50.4, Lymph % (Auto) 35.3, [place] % (Auto) 10.2 H, Eos % (Auto) [...] Assessment & Plan Assessment/Plan (1) Non-ST elevation MT (NSTEMI): PLAN: Plan 1. Non-STEMI/hematuria ? The [...] with colleagues Charges/Coding Visit Charges Inpatient E&M: 89268 Init Hosp L3 08/14/23 0412 <Electronically signed by Oral Smiley MD> Cosigner Signature (if applicable): CC: Dr. Jazmine Le MD; Dr. Oral Smiley MD~ Signed [facility] Work Phone: 1(703) 503-955604-21-2024 Discharge summary Author Filiberto [place] [facility] August 14, 2023 12:59am Note Date/Time August 13, 2023 6:3 2pm [facility] Medical Records Department [address] [place] [address] Emergency Department Summary 08/13/23 MR#: [id number] Acct: [id number] Name: DEIRDRE ORTIZ Rep #:[id number] : 1955 68 From: Brooke BILLINGSLEY PCP: Dr. Jazmine Le MD Status:ADM IN Location: [place] [id number] <ANALILIA Naidu - Last Filed: 08/13/23 [...] around 5:30 PM after walking into pet [employer] but had not been doing anything strenuous. [...] <ANALILIA Naidu - Last Filed: 08/13/23 21:24> [facility] Home Medications NK 08/13/23 [History Last Taken [...] Oxygen Delivery Method Room Air <Dr. Filiberto Leonard DO - Last Filed: 08/13/23 19:50> Physical [...] 99 Oxygen Delivery Method Room Air MDM <ANALILIA Naidu - Last Filed: 08/13/23 21:24> [facility] Narrative Medical decision making narrative: History gathered [...] agreed with aspirin and IV heparin. 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 He is not requiring either of these [...] % (Auto) 50.4 Lymph % (Auto) 35.3 [place] % (Auto) 10.2 H Eos % (Auto) [...] Leonard, DO - Last Filed: 08/13/23 19:50> [facility] History & Record Review Discussion w/independent [...] % (Auto) 50.4 Lymph % (Auto) 35.3 [place] % (Auto) 10.2 H Eos % (Auto) [...] Management Discussion w/another healthcare provider: Hospitalist and Road Mixer Operator (Cardiology(Dr. Canada)) Treatment and Re-Evaluation :: I [...] Leonard Dx/Rx/DC Orders Clinical Impression: Non-ST elevation MT (NSTEMI) Prescriptions: No Action NK Primary Care Provider: Jazmine Le Referrals: Jazmine Le MD [Primary Care Provider] - What to do if you have Problems For any increased pain, shortness of breath, bleeding, nausea or vomiting, chestpain, or any unexpected problems, contact your Primary Care Provider. Call [facility] ([phone]) or report to the closest Emergency Room. Call 911 if necessary. 08/13/232123 <Electronically signed by Brooke Shaw PA> Cosigner Signature (if applicable): 08/14/23 0059 <Electronically signed by Filiberto Leonard DO> CC: Dr. Jazmine Le MD ~ Signed [facility] Work Phone: 1(483) 449-983704-20-2024 Evaluation note* Diagnosis Onset Date Resolution Status Non-ST elevation MT (NSTEMI) August 13, 2023 acute Stented coronary artery August 15, 2023 acute [facility] Work Phone: 1(532) 904-733504-20-2024 Evaluation note* Diagnosis Onset Date Resolution Status Admit Date Atherosclerotic heart disease of [place] coronary artery without angina pectoris August 13, 2023 acute June 14, 2024 9:59am Stented coronary artery August 15, 2023 acute June 14, 2024 9:59am Ischemic cardiomyopathy chronic F ebruary 2024 9:59am [facility] Work Phone: 1(794) 121-229604-20-2024 Evaluation note* Diagnosis Onset Date Resolution Status Admit Date Atherosclerotic heart diseas e of [place] coronary artery without angina pectoris August 13, 2023 acute December 21, 2024 9:24am [facility] Work Phone: Consult note Author Willis Castro [facility] August 16, 2023 2:30pm Note Date/Time August 16, 2023 2:3 1pm [facility] Medical Records Department [address] [place] [address] Counseling Note - Pharmacy 08/16/23 1430 MR#: [id number] Acct: [id number] Name: DEIRDRE ORTIZ Rep #:[id number] : 1955 68 From: Willis Castro PCP: Dr. Jazmine Le MD Status:ADM IN Y Location: [place] [address] Pharmacy [facility] Service has performed discharge medication reconciliation [...] signed by Willis wilson> Date _ Willis Ovallesigndelio Signature (if applicable): Date CC: ~ Signed [facility] Work Phone: Evaluation noteNo assessment information available [facility] Work Phone: Evaluation note* Diagnosis Onset Date Resolution Status Non-ST elevation MT (NSTEMI) acute [facility] Work Phone: Reason for referral (narrative)No reason for referral [facility] Work Phone: Chief Complaint and Reason for Visit Chief Complaint NSTEMI Reason for Visit Non-ST elevation MT (NSTEMI) Chief Complaint NSTEMI NSTEMI NSTEMI NSTEMI Reason for Visit Non-ST elevation MT (NSTEMI) Stented coronary artery Chief Complaint NSTEMI CP ADMIT NSTEMI NSTEMI NSTEMI POST PCI NSTEMI PCI W/STENTING, Non-STEMI S/P [facility] 08/15 Non-STEMI, PCI w/coronary stenting Reason for Visit Stented coronary art lisa Non-ST elevation MT (NSTEMI) Ischemic cardiomyopathy Stented coronary artery Chief Complaint Admit Date 6 M FU June 14, 2024 9:59am DILATED CARDIOMYOPATHY July 18, 2024 1:44pm Reason for Visit Admit Date Atherosclerotic heart diseas e of [place] coronary artery without angina pectoris June 14, 2024 9:59am Stented coronary artery June 14, 2 025 9:59am Ischemic cardiomyopathy June 14 025 9:59am Chief Complaint Admit Date EODecember 10, 2024 7: 16am Chief Complaint Admit Date EODecember 10, 2024 7: 16am 6 M FU December 21, 2024 9: 24am Reason for Visit Admit Date Atherosclerotic heart diseas e of [place] coronary artery without angina pectoris December 21, 2024 9:24am Advance Directives No Advanced Directives Records Found Advance Directive Response Recorded Date/ Time Living Will No August 13, 2023 5:57pm Power of Medical Doctor Md No August 12 5:57pm Advance Directive Response Recorded Date/ Time Living Will No August 13, 2023 10:19pm Power of Medical Doctor Md No August 12 10:19pm Advance Directive Response Recorded Date/ Time Advance Directives on File No August 252023 10:38am Living Will No August 26, 2023 10 :38am Power of Medical Doctor Md No August 26, 2023 10:38am Advance Directive Response Recorded Date/ Time Living Will No August 26, 2023 10 :38am Do you have a Healthcare Power of Medical Doctor Md? No August 26, 2023 10:38am Family History [...] Provid er Active Dr. Ender Faust , Other Provider Active Team Status: Active Member Role Status Dates Dr. Jazmine Le MD Primary Care Provider Active Dr. Filiberto Leonard DO Emergency Provider Active Dr. Oral Smiley MD Admit Provider, Other Pro vider Active Dr. Luca Canada MD Other Provider Active Dr. Ender Faust DO Attending Provider, Other Pro vider Active Team Status: Active Member Role Status Dates Dr. Jazmine Le MD Primary Care Provider Active Dr. Bibiana iCfuentes MD Attending Provider Activ e Team Status: Inactive Member Role Status Dates Dr. Jazmine Le MD Primary Care Provider Active Dr. Filiberto Leonard DO Emergency Provider Active Dr. Oral Smiley MD Admit Provider, Other Pro vider Active Dr. Luca Canada MD Other Provider Active Dr. Ender Faust DO Attending Provider Active Team Status: Active Member [...] Provider, Referrin g Provider Active Idalmis Byers AMUSEMENT MACHINE MECHANIC, AMUSEMENT MACHINE MECHANIC-C Attending Provider Active Team Status: Active Member [...] 2024 End: May 28, 2024 Idalmis Byers AMUSEMENT MACHINE MECHANIC, AMUSEMENT MACHINE MECHANIC-C Attending Provider Active Start: May 28, 2024 End: May 28, 2024 Idalmis Byers AMUSEMENT MACHINE MECHANIC, AMUSEMENT MACHINE MECHANIC-C Referring Provider Active Start: May 28, 2024 End: May 28, 2024 Team Status: Inactive Member Role Status Dates Dr. Jazmine Le MD Primary Care Provider Active Start: June 14, 2024 End: June 14, 2024 Dr. Jazmine Le MD Referring Provider Active Start: June 14, 2024 End: June 14, 2024 Shelby Sharp PA, PA Attending Provider Active Start: June 14, 2024 End: June 14, 2024 Team Status: Inactive Member Role Status Dates Dr. Jazmine Le MD Primary Care Provider Active Start: July 18, 2024 End: July 18, 2024 Shelby Sharp PA, PA Attending Provider Active Start: July 18, 2024 End: July 18, 2024 Shelby Sharp PA, PA Referring Provider Active Start: July 18, 2024 End: July 18, 2024 Team Status: Active Member Role Status Dates Dr. Jazmine Le MD Primary Care Provider Active Start: July 18, 2024 Dr. Carlos Mendez MD Attending Provider Active S tart: July 18, 2024 Team Status: Inactive Member Role/Relationship Status Dates David Warner MD Primary Care Provider Active St art: December 10, 2024 End: December 10, 2024 Hilario Garsia AMUSEMENT MACHINE MECHANIC, AMUSEMENT MACHINE MECHANIC-C Attending Provider Active S tart: December 10, 2024 End: December 10, 2024 Hilario Garsia AMUSEMENT MACHINE MECHANIC, AMUSEMENT MACHINE MECHANIC-C Referring Provider Active S tart: December 10, 2024 End: December 10, 2024 Team Status: Active Member Role/Relationship Status Dates David Warner MD Primary Care Provider Active Team Status: Inactive Member Role/Relationship Status Dates David Warner MD Primary Care Provider Active St art: December 10, 2024 End: December 10, 2024 Hilario Garsia AMUSEMENT MACHINE MECHANIC, AMUSEMENT MACHINE MECHANIC-C Attending Provider Active S tart: December 10, 2024 End: December 10, 2024 Hilario Garsia AMUSEMENT MACHINE MECHANIC, AMUSEMENT MACHINE MECHANIC-C Referring Provider Active S tart: December 10, 2024 End: December 10, 2024 Team Status: Inactive Member Role/Relationship Status Dates Dr. Jazmine Le MD Referring Provider Active Start: December 21, 2024 End: December 21, 2024 Dr. Grady Chino MD Attending Provider Active Start: December 21, 2024 End: December 21, 2024 David Warner MD Primary Care Provider Active St art: December 21, 2024 End: December 21, 2024 (unrecognized sect ion and content) No Status Records Found INFORMATION SOURCE (unrecogn ized section and content) DATE CREATED AUTHOR 12/23/2024 [facility] FOR RECORDS PERTAINING TO PATIENTS WHO ARE [...] BE BASED ON THE PRIMARY CLINICAL RECORDS. [facility]. provides no warranty or guarantee of the accuracy or completeness of information in this document.
[2025-01-25 15:42] LABS: PSA,Total - Annual Screen 0.95 ng/mL (0.02-4.00)
== END | disposition home or self-care (01) ==
LOC: MFPLAB 10:38
PROVIDERS: PCP Family Medicine; Visit Provider Family Medicine
DX: Z12.5 Encounter for screening for malignant neoplasm of prostate (principal)
CPT/HCPCS: 36415; 84153; G0103

== ENCOUNTER 2025-04-13 13:09 | Emergency (ER) | payer MEDICARE, SELFPAY ==
[2023-11-25 08:36] VITALS: BMI 27.5
[2025-04-13 13:09] VITALS: BP 138/88; PULSE 101; RESP 18; TEMP 36.4; O2SAT 100; BMI 28.0
--- NOTE | 2025-04-13 13:31 | EKG12_ITS ---
Test Reason : CP Blood Pressure : */* mmHG Vent. Rate : 89 BPM Atrial Rate : 89 BPM P-R Int : 174 ms QRS Dur : 76 ms QT Int : 336 ms P-R-T Axes : 60 51 61 degrees QTcB Int : 408 ms Normal sinus rhythm Normal ECG Confirmed by Bart Torres ([id number]), purchasing expeditor WILMAN RODRIGUEZ ([id number]) on 04/16/2025 11:23:44 AM Also confirmed by Bart Torres ([id number]), purchasing expeditor WILMAN RODRIGUEZ ([id number]) on 04/17/2025 10:47:52 AM Referred By: JUVENTINO/ORQUIDEA Confirmed By: Bart Torres
--- NOTE | 2025-04-13 13:36 | ED.VIS.CHEST ---
HPI History of Present Illness Chief Complaint: Chest Pain Narrative Narrative: Patient is a 7-year-old male presenting to the emergency department for chest pain. Patient has a past medical history of ischemic cardiomyopathy, hyperlipidemia, CAD with stent placed in 2023. He follows with Dr. Chino, cardiology. Patient states that he works out at [employer] and thought he pulled a muscle in his right shoulder because he had pain in it for the last 3 days. States that shoulder pain is gone today but about an hour prior to arrival he developed midsternal chest pain that feels like a "bruise". The pain has now migrated to the right side of his chest. Pain free at time of evaluation. Denies SOB, diaphoresis, abdominal pain, nausea or vomiting. Denies any lower extremity edema. Denies any recent URI symptoms. Took 1 baby aspirin this morning. [facility] Medical History Ischemic cardiomyopathy Atherosclerotic heart disease of [place] coronary artery without angina pectoris (08/13/23) Kidney stones Home Medications Medication Instructions Recorded Last Taken Type aspirin 81 mg tablet,delayed 81 mg PO BREAKFAST #0 tabs 08/16/23 Unknown Rx release levothyroxine 50 mcg tablet 50 mcg PO DAILY 11/01/23 Unknown History tamsulosin 0.4 mg capsule 0.4 mg PO QHS 11/01/23 Unknown History metoprolol succinate 50 mg 50 mg PO DAILY #90 tabs 06/18/24 Unknown Rx tablet,extended release 24 hr atorvastatin 20 mg tablet 20 mg PO QHS #90 tabs 12/21/24 Unknown Rx lisinopril 5 mg tablet 5 mg PO DAILY #90 tabs 12/21/24 Unknown Rx Allergy/AdvReac Type Severity Reaction Status Date / Time No Known Allergies Allergy Verified 04/13/25 13:11 Family History Father Heart disease CAD (coronary artery disease) Myocardial infarction Mother Leukemia Surgical History Stented coronary artery (08/15/23) H/O hernia repair Social History Smoking Status: Never smoker alcohol intake: never substance use type: does not use caffeine: No ROS ROS ED ROS Narrative see HPI EXAM Physical Exam Narrative Exam Narrative: Vital signs: Reviewed General: Alert and oriented x 3. No acute distress. Well-appearing, nontoxic HEENT: Head is normocephalic and atraumatic, sinuses nontender, pupils equal round and reactive. Nares are patent. Oropharynx and throat exams normal. Neck: Supple without lymphadenopathy nontender Cardiovascular: Regular rate and rhythm, no murmurs. No rubs or gallops. Normal S1 and S2. Pulses symmetric and intact in all extremities. Respiratory: Clear to auscultation bilaterally. No wheezes, rales, rhonchi Chest: Chest wall is atraumatic and nontender to palpation. No crepitus, erythema or ecchymosis. Abdominal: Soft and nontender. Normal bowel sounds. No guarding or rebound. Nonsurgical abdomen Extremities: No lower extremity edema. No tenderness. No bruising. Normal range of motion. Normal sensation. Skin: No rash or redness. The rest of the physical exam is unremarkable Const Vital Signs: 04/13/25 13:09 04/13/25 13:25 04/13/25 14:15 Temperature 97.5 F L Temperature Source Oral Pulse Rate 101 H 89 Respiratory Rate 18 12 Respiratory Effort Normal Blood Pressure 138/88 H 150/90 H Blood Pressure Mean 104 110 Pulse Ox 100 94 Oxygen Delivery Method Room Air Room Air 04/13/25 15:02 04/13/25 15:56 Temperature 98 F Temperature Source Pulse Rate 78 81 Respiratory Rate 12 13 Respiratory Effort Blood Pressure 135/91 H 135/88 H Blood Pressure Mean 105 103 Pulse Ox 98 98 Oxygen Delivery Method Room Air Heart Score History: Slightly/Non-Suspicious ECG: Normal Age: >/= 65 years Risk Factors: 1 or 2 Risk Factors Troponin: </= Normal Limit Score: 3 MDM MDM MDM Narrative Medical decision making narrative: Patient is a 70-year-old male presenting to the emergency department for chest pain. Patient was seen and examined. Vitals are stable. Patient resting bed comfortably no acute distress. Differential includes but is not limited to: ACS, musculoskeletal, pneumonia, less likely aortic pathology given physical exam, description of the event and vitals. EKG shows normal sinus rhythm at a rate of 89. There are no ischemic changes. No dysrhythmia. CBC with no leukocytosis and a normal hemoglobin. BMP with mildly elevated creatinine at 1.29, which is chronic and no other significant abnormalities. Troponin and reflex within normal limits. Chest x-ray reviewed by myself and shows no opacities, pneumothorax or widened mediastinum. Radiology read in agreement. Patient has a heart score of 3 for age and risk factors and low suspicion for true cardiac chest pain given his description of the pain. Patient and were updated on the negative workup. Patient discharged from the Emergency Department. I do not feel that the patient's evaluation reveals any acute reason for admission at this time. I instructed them to either follow-up with their primary care physician or promptly return to the Emergency Department for reevaluation should symptoms worsen or new symptoms develop. I explained what symptoms would indicate the need to return to the emergency department. Shared decision making was used. The patient voiced understanding of the treatment plan and is agreeable with it. Clinical impression Chest pain History & Record Review Discussion w/independent historian: Patient and Significant other Lab Data Attestation: I reviewed the patient's lab results. Labs: Laboratory Results - last 24 hr 04/13/25 04/13/25 13:30 15:29 WBC 7.3 RBC 4.75 Hgb 14.5 Hct 44.8 MCV 94.3 H MCH 30.5 MCHC 32.4 RDW Std Deviation 44.3 H RDW Coeff of [place] 12.8 Plt Count 123 L MPV 10.0 Immature Gran % (Auto) 0.500 Neut % (Auto) 64.9 Lymph % (Auto) 22.3 [place] % (Auto) 9.9 Eos % (Auto) 1.9 Baso % (Auto) 0.5 Absolute Neuts (auto) 4.8 Absolute Lymphs (auto) 1.64 Nucleated RBC % 0 Sodium 138 Potassium 4.3 Chloride 103 Carbon Dioxide 26.1 Anion Gap 9 BUN 18 Creatinine 1.29 H Estim Creat Clear Calc 72.56 Est GFR (MDRD) Non-Af 60 BUN/Creatinine Ratio 14.2 Glucose 138 H Calcium 9.6 Troponin T High Sens 12 Troponin T Hi Sens 2 Hr 11 Radiography Chest X-Ray - ED: 2 View, Read by ED Physician, Normal, No Acute Disease and No Infiltrates Diagnostic Testing: Clinical Impression(s) from Imaging Studies Chest X-Ray 04/13/25 14:17 IMPRESSION: No acute cardiopulmonary process. Reading Location: [facility] Discharge Plan Triage Chief Complaint: Chest Pain ED Provider: Michelle Boswell Dx/Rx/DC Orders Clinical Impression: Chest pain Instructions: ED Chest Pain, Uncertain Cause Prescriptions: No Action atorvastatin 20 mg tablet 20 mg PO QHS Qty: 90 3RF lisinopril 5 mg tablet 5 mg PO DAILY Qty: 90 3RF aspirin 81 mg Tablet,Delayed Release (Dr/Ec) 81 mg PO BREAKFAST Qty: 0 0RF tamsulosin 0.4 mg capsule 0.4 mg PO QHS levothyroxine 50 mcg tablet 50 mcg PO DAILY metoprolol succinate 50 mg tablet extended release 24 hr 50 mg PO DAILY Qty: 90 3RF Primary Care Provider: David Warner Referrals: David Warner MD [Primary Care Provider, Family Practice] - As soon as possible Activity Restrictions/Additional Instructions: Your evaluation in the Emergency Department did not reveal any acute reason for admission. However, I want to emphasize that you may be early in the course of a disease process or illness even if it is not present. For this reason you should follow-up within 24 hours for reevaluation with either your primary care physician or if necessary back here in the Emergency Department. You should return to the Emergency Department immediately if your symptoms worsen or new symptoms develop. Print Language: Albanian Disposition Disposition: Home, Self Care Discharge Date/Time: 04/13/25 16:04
[2025-04-13 13:44] LABS: Hematocrit 44.8 % (40-54); Hemoglobin 14.5 g/dL (13.0-16.5); Immature Granulocytes Count 0.040 X10^3/uL (0.0-0.0); Mean Corp Hgb Conc 32.4 g/dL (32-36); Mean Corpuscular Volume 94.3 fL (80-94); Mean Platelet Vol. 10.0 fl (6.2-12.0); NRBC Flagged by Analyzer 0 % (0-5); Platelet Count 123 K/mm3 (150-450); RBC Distribution Width CV 12.8 % (11.6-14.6); RBC Distribution Width SD 44.3 fl (35.1-43.9); Red Blood Count 4.75 M/mm3 (4.6-6.2); White Blood Count 7.3 K/mm3 (4.4-11.0)
--- OUTSIDE RECORDS SUMMARY | 2025-04-13 14:09 | XMS RPT_ITS | CCD ---
Author Organization [facility] Care Team Providers Care Pattern Storage Clerk Name Role Phone Dr. Jazmine Le Primary [...] Alana CAPPS, David Primary Care Provider Sun ELECTRICAL TESTER BATTERY-C, Hilario Banks Attending Provider Sun ELECTRICAL TESTER BATTERY-C, Hilario Banks Referring Provider Dr. Jazmine Le MD Referring Provider Dr. Grady Chino MD Attending Provider Sun ELECTRICAL TESTER BATTERY, Hilario Banks Attending Unavailable Sun ELECTRICAL TESTER BATTERY, Hilario Banks Referring Unavailable David Warner Primary Care Unavailable Jolliff, Jazmine Adonis Primary Care Unavailable Jolliff, Jazmine S Referring Unavailable Shelby Potter Attending Unavail able Jolliff, Jazmine S Primary Care Unavailable Carlos Mendez Attending Unavailable Jolliff, Jazmine Adonis Referring Unavailable David Warner Primary Care Unavailable Grady Chino Attending Unavailable David Warner Primary Care Unavailable David Warner Attending Unavailable Jolliff, Jazmine S Primary Care Unavailable Zeeshan ELECTRICAL TESTER BATTERY, Idalmis Attending Unavailable Zeeshan ELECTRICAL TESTER BATTERY, Idalmis Referring Unavailable Shelby Potter Referring Unavail able Rey, Jazmine Lamb Primary Care Unavailable Shelby Potter Attending Unavail able Medications [...] Coronary atherosclerosis; Translations: [Atherosclerotic heart disease of [place] coronary artery without angina pectoris] Onset: 08-13-2023 08-15-2023 Chronic Disorders of lipid metabolism (1 source) Pure hypercholesterolem ia, unspecified; Translations: [Pure hypercholesterolem ia, unspecified] Onset: 12-14-2024 Chronic Genitourinary symptoms and ill-defined conditions (3 sources) Blood in urine; Translations: [Hematuria, unspecified] 09-21-2023 Episodic Other screening for suspected conditions (not mental disorders or infectious disease) (1 source) Encounter for screening for malignant neoplasm of prostate; Translations: [Encounter for screening for malignant neoplasm of prostate] Onset: 02-20-2025 Episodic Past or Other Problems Problem Classification [...] Test Name Value Interpretation Reference Range Facility PSA,Total - Annual Screenon 01-25-2025 PSA,TOT SCREEN 0.95 ng/mL Normal 0.02-4.00 [facility] Comment on above: Order Comment: Order Date: 01/25/25 Order Info: [id number] - PSA Comments: screening for prostate cancer Result Comment: This test was performed using the [employer] tPSA method. Measured values of a patient??sample can vary depending on the testing procedure used. PSA values determined on patient samples by different testing procedures cannot be used interchangeably. If there is a change in PSA assays while monitoring therapy, sequential testing should be performed to confirm baseline values. Performed By: #### L 501.9910 #### [facility] [place], [address] Cardiology Visit Reporton Cardiology Visit Report [facility] [address] [place] [address] OFFICE VISIT Date of Service: 12/21/24 MR#: [id number] Acct: [id number] Name: DEIRDRE ORTIZ Rep #: [id number] : 1955 Provider: Dr. 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 Normal [facility] Bilirubin directOrdered By: Hilario Garsia on 12-10-2024 Bilirubin.direct [Mass/Vol] 0.23 mg/dL 0.00-0.30 [facility] Bilirubin, totalOrdered By: Hilario Garsia on 12-10-2024 Bilirubin [Mass/Vol] 0.52 mg/dL 0.00-1.30 [facility] Calculated very low density lipoprotein (VLDL) cholesterol measurementOrdered By: Hilario Garsia on 12-10-2024 Calculated very low density lipoprotein (VLDL) cholesterol measurement 24 mg/dL 5-40 [facility] LDL calc ser/plasOrdered By: Hilario Garsia on 12-10-2024 Cholesterol in LDL [Mass/Vol] 39 mg/dL [facility] Comment on above: Czrisijnlj=443-634 m g/dL & Higher Udex=431 mg/dL or greaterFriedwald Equation for LDL-C Laboratory - Chemistry and C hemistry - challengeOrdered By: Hilario Garsia on 12-10-2024 AST [Catalytic activity/Vol] 25 U/L <38 [facility] Lipid Profileon 12-10-2024 CHOL:HDL 2.55 Normal [facility] Comment on above: Performed By: #### L 500.3400, L500.4100 #### [facility] [address] [place], [place], [id number] Cholesterol [Mass/Vol] 103 mg/dL Normal <=200 [facility] Comment on above: Result Comment: Chol esterol level, Desirable <200 mg/dL Borderline high cholesterol 200-239 mg/dL High cholesterol >=240 mg/dL Recommendations of the NCEP Adult Treatment Panel for the following risk-cutoff thresholds for the [place] population. Performed By: #### L 500.3400, L500.4100 #### [facility] [address] [place], [address] Cholesterol in HDL [Mass/Vol] 40 mg/dL Normal [facility] Comment on above: Result Comment: Carola onal Cholesterol Education Program (NCEP) guidelines: <40 mg/dL: Low HDL-cholesterol (major risk factor for CHD) >= 60 mg/dL: High HDL-cholesterol (negative risk factor for CHD) HDL-cholesterol is affected by a number of factors, e.g. smoking, exercise, hormones, sex and age. Performed By: #### L 500.3400, L500.4100 #### [facility] [address] [place], [address] Cholesterol in LDL [Mass/Vol] 39 mg/dL Normal [facility] Comment on above: Result Comment: Bord crpnkk=712-455 mg/dL Higher Deng=843 mg/dL or greater Friedwald Equation for LDL-C Performed By: #### L 500.3400, L500.4100 #### [facility] [address] [place], [address] Cholesterol in VLDL [Mass/Vol] 24 mg/dL Normal 5-40 [facility] Comment on above: Performed By: #### L 500.3400, L500.4100 #### [facility] [address] [place], [address] Triglyceride [Mass/Vol] 119 mg/dL Normal [facility] Comment on above: Result Comment: The drugs N-Acetylcysteine and Metamizole may falsely depress this assay. Normal range: <150 mg/dL Borderline High: 150-199 mg/dL High: 200-499 mg/dL Very High: >500 mg/dL Performed By: #### L 500.3400, L500.4100 #### [facility] [address] [place], [address] Liver Profileon 12-10-2024 Albumin [Mass/Vol] 4.0 g/dL Normal 3.4-4.8 [facility] Comment on above: Performed By: #### L 500.3400, L500.4100 #### [facility] [address] [place], [address] ALK PHOS 65 U/L Normal 40-129 [facility] Comment on above: Performed By: #### L 500.3400, L500.4100 #### [facility] [address] [place], [address] ALT [Catalytic activity/Vol] 21 U/L Normal <=46 [facility] Comment on above: Performed By: #### L 500.3400, L500.4100 #### [facility] [address] [place], [address] AST [Catalytic activity/Vol] 25 U/L Normal <=37 [facility] Comment on above: Performed By: #### L 500.3400, L500.4100 #### [facility] [address] [place], [address] Bilirubin [Mass/Vol] 0.52 mg/dL Normal 0.00-1.30 [facility] Comment on above: Performed By: #### L 500.3400, L500.4100 #### [facility] [address] [place], [address] Bilirubin.direct [Mass/Vol] 0.23 mg/dL Normal 0.00-0.30 [facility] Comment on above: Performed By: #### L 500.3400, L500.4100 #### [facility] [address] [place], [address] Globulin (S) [Mass/Vol] 2.9 g/dL Normal 2.2-4.2 [facility] Comment on above: Performed By: #### L 500.3400, L500.4100 #### [facility] [address] [place], [address] T PROT 6.8 g/dL Normal 5.9-8.4 [facility] Comment on above: Performed By: #### L 500.1753, L500.4100 #### [facility] [address] [place], [address] Screening total cholesterol/ high density lipoprotein (HDL) cholesterol ratioOrdered By: Hilario Garsia on 12-10-2024 Cholesterol.total/Choles terol in HDL [Mass ratio] 2.55 {ratio} [facility] Serum globulin measurementOr dered By: Hilario Garsia on 12-10-2024 Globulin (S) [Mass/Vol] 2.9 g/dL 2.2-4.2 [facility] Serum or plasma alanine perdomo otransferase (ALT) measurementOrdered By: Hilario Garsia on 12-10-2024 ALT [Catalytic activity/Vol] 21 U/L <47 [facility] Serum or plasma albumin allison urement (mass/volume)Ordered By: Hilario Garsia on 12-10-2024 Albumin [Mass/Vol] 4.0 g/dL 3.4-4.8 [facility] Serum or plasma alkaline mihir sphatase measurementOrdered By: Hilario Garsia on 12-10-2024 ALP [Catalytic activity/Vol] 65 U/L 40-129 [facility] Serum or plasma cholesterol in HDL measurement (mass/volume)Ordered By: Hilario Garsia on 12-10-2024 Cholesterol in HDL [Mass/Vol] 40 mg/dL >40 [facility] Comment on above: National Cholesterol Education Program (NCEP) guidelines:<40 mg/dL: Low HDL-cholesterol (major risk factor for CHD)>= 60 mg/dL: High HDL-cholesterol (negative risk factor for CHD)HDL-cholesterol is affected by a number of factors, e.g. smoking, exercise, hormones, sex and age. Serum or plasma cholesterol measurement (mass/volume)Ordered By: Hilario Garsia on 12-10-2024 Cholesterol [Mass/Vol] 103 mg/dL <201 [facility] Comment on above: Cholesterol level, D esirable <200 mg/dLBorderline high cholesterol 200-239 mg/dLHigh cholesterol >=240 mg/dLRecommendations of the NCEP Adult Treatment Panel for the following risk-cutoff thresholds for the [place] population. Total proteinOrdered By: Jimi oneal Sun on 12-10-2024 Protein [Mass/Vol] 6.8 g/dL 5.9-8.4 [facility] Triglycerides measurementOrd ered By: Hilario Garsia on 12-10-2024 Triglyceride [Mass/Vol] 119 mg/dL <199 [facility] Comment on above: The drugs N-Acetylcy steine and Metamizole may falsely depress this assay. Normal range: <150 mg/dLBorderline High: 150-199 mg/dLHigh: 200-499 mg/dLVery High: >500 mg/dL Echo Limited w/Contraston Echo Limited w/Contrast [facility] [address] [place] [address] Echo Limited w/Contrast 07/18/24 1351 MR#: [id number] Acct: [id number] Name: DEIRDRE ORTIZ Rep #: [id number] : 1955 69 From: Carlos Mendez MD [...] Dictated: 07/18/24 135 Date Transcribed: 07/18/24 145 Powder Guard: Signed Normal [facility] Limited echocardiogram repor tOrdered By: Carlos Mendez on 07-18-2024 Study report [facility] [address] [place] [address] Echo Limited w/Contrast 07/18/24 1351 MR#: [id number] Acct: [id number] Name: DEIRDRE ORTIZ Rep #:[id number] : 1955 69 From: Carlos Nelson Attending Dr: ANALILIA Mehta Status: REG CLI Ordering Dr: Shelby Sharp Date: 07/18/24 Location: [facility] Sex: M C Admitted: Reason For [...] Brandi George, RDCS, RVT 07/18/24 1450 Date _ Carlos Mendez MD CC: Dr. Jazmine Le MD; ANALILIA Mehta ~ Date Dictated: 07/18/24 1351 Date Transcribed: 07/18/24 1450 Powder Guard: Signed [facility] Work Phone: Cardiology Visit Reporton Cardiology Visit Report [facility] [address] [place] [address] OFFICE VISIT Date of Service: 06/14/24 MR#: [id number] Acct: [id number] Name: DEIRDRE ORTIZ Rep #: [id number] : 1955 Provider: ANALILIA Molina Age/Sex: 69/M Location: [facility] Status: Signed HPI HPI History of Present Illness Details: This is a 69 year old male who presents to the office today for a cardiovascular follow-up visit. He had presented to 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 Normal [facility] Bilirubin directOrdered By: Idalmis Byers on 05-28-2024 Bilirubin.direct [Mass/Vol] 0.16 mg/dL 0.00-0.30 [facility] Bilirubin, totalOrdered By: Idalmis Byers on 05-28-2024 Bilirubin [Mass/Vol] 0.80 mg/dL 0.20-1.00 [facility] Comment on above: For patients on eltr ombopag therapy, use of Dimension [place] TBIL is not recommended. High density lipoprotein (HD L) measurementOrdered By: Idalmis Byers on 05-28-2024 Cholesterol in HDL [Mass/Vol] 47 mg/dL >40 [facility] Comment on above: The drugs N-Acetylcy steine and Metamizole may falsely depress this assay. Reference Range HDL <40 mg/dL Low HDL Cholesterol HDL >or= 60 mg/dL High HDL Cholesterol Laboratory - Chemistry and C hemistry - challengeOrdered By: Idalmis Byers on 05-28-2024 AST [Catalytic activity/Vol] 26 U/L 15-37 [facility] Lipid Profileon 05-28-2024 Cholesterol [Mass/Vol] 90 mg/dL Normal 200 [facility] Comment on above: Result Comment: <200 mg/dL Desirable 200-240 mg/dL Borderline >240 mg/dL High Risk Performed By: #### L 500.4100, L500.3400 #### [facility] [address] [place], [address] Cholesterol in HDL [Mass/Vol] 47 mg/dL Normal [facility] Comment on above: Result Comment: The drugs N-Acetylcysteine and Metamizole may falsely depress this assay. Reference Range HDL <40 mg/dL Low HDL Cholesterol HDL >or= 60 mg/dL High HDL Cholesterol Performed By: #### L 500.4100, L500.3400 #### [facility] [address] [place], [address] Cholesterol in LDL [Mass/Vol] 17 mg/dL Normal 0-130 [facility] Comment on above: Performed By: #### L 500.4100, L500.3400 #### [facility] [address] [place], [address] Cholesterol in VLDL [Mass/Vol] 26 mg/dL Normal 5-40 [facility] Comment on above: Performed By: #### L 500.4100, L500.3400 #### [facility] [address] [place], [address] Triglyceride [Mass/Vol] 129 mg/dL Normal [facility] Comment on above: Result Comment: The drugs N-Acetylcysteine and Metamizole may falsely depress this assay. Serum Triglycerides Reference Interval Normal <150 mg/dL Borderline high 150 - 199 mg/dL High 200 - 499 mg/dL Very High > or = 500 mg/dL Performed By: #### L 500.4100, L500.3400 #### [facility] [address] [place], [address] Liver Profileon 05-28-2024 Albumin [Mass/Vol] 3.3 g/dL Normal 3.2-5.0 [facility] Comment on above: Performed By: #### L 500.4100, L500.3400 #### [facility] [address] [place], [address] ALK P 69 U/L Normal 45-117 [facility] Comment on above: Performed By: #### L 500.4100, L500.3400 #### [facility] [address] [place], [address] ALT [Catalytic activity/Vol] 37 U/L Normal 16-61 [facility] Comment on above: Performed By: #### L 500.4100, L500.3400 #### [facility] [address] [place], [address] AST [Catalytic activity/Vol] 26 U/L Normal 15-37 [facility] Comment on above: Performed By: #### L 500.4100, L500.3400 #### [facility] [address] [place], [address] Bilirubin [Mass/Vol] 0.80 mg/dL Normal 0.20-1.00 [facility] Comment on above: Result Comment: For patients on eltrombopag therapy, use of Dimension [place] TBIL is not recommended. Performed By: #### L 500.4100, L500.3400 #### [facility] [address] [place], [address] Bilirubin.direct [Mass/Vol] 0.16 mg/dL Normal 0.00-0.30 [facility] Comment on above: Performed By: #### L 500.4100, L500.3400 #### [facility] [address] [place], [address] Globulin (S) [Mass/Vol] 3.7 g/dL Normal 2.2-4.2 [facility] Comment on above: Performed By: #### L 500.4100, L500.3400 #### [facility] [address] [place], [address] T PROT 7.0 g/dL Normal 6.4-8.2 [facility] Comment on above: Performed By: #### L 500.4100, L500.3400 #### [facility] [address] [place], [address] Low density lipoprotein (LDL ) cholesterol measurementOrdered By: Idalmis Byers on 05-28-2024 Cholesterol in LDL [Mass/Vol] 17 mg/dL 0-130 [facility] Serum globulin measurementOr dered By: Idalmis Byers on 05-28-2024 Globulin (S) [Mass/Vol] 3.7 g/dL 2.2-4.2 [facility] Serum or plasma alanine perdomo otransferase (ALT) measurementOrdered By: Idalmis Byers on 05-28-2024 ALT [Catalytic activity/Vol] 37 U/L 16-61 [facility] Serum or plasma albumin allison urement (mass/volume)Ordered By: Idalmis Byers on 05-28-2024 Albumin [Mass/Vol] 3.3 g/dL 3.2-5.0 [facility] Serum or plasma alkaline mihir sphatase measurementOrdered By: Idalmis Byers on 05-28-2024 ALP [Catalytic activity/Vol] 69 U/L 45-117 [facility] Serum or plasma cholesterol measurement (mass/volume)Ordered By: Idalmis Byers on 05-28-2024 Cholesterol [Mass/Vol] 90 mg/dL <200 [facility] Comment on above: <200 mg/dL Desirable 200-240 mg/dL Borderline >240 mg/dL High Risk Total proteinOrdered By: Aureliano Byers on 05-28-2024 Protein [Mass/Vol] 7.0 g/dL 6.4-8.2 [facility] Triglycerides measurementOrd ered By: Idalmis Beyrs on 05-28-2024 Triglyceride [Mass/Vol] 129 mg/dL <199 [facility] Comment on above: The drugs N-Acetylcy steine and Metamizole may falsely depress this assay.Serum Triglycerides Reference Interval Normal <150 mg/dL Borderline high 150 - 199 mg/dL High 200 - 499 mg/dL Very High > or = 500 mg/dL Very low density lipoprotein (VLDL) cholesterol measurementOrdered By: Idalmis Byers on 05-28-2024 VLDL Cholesterol 26 mg/dL 5-40 [facility] Basophil percentageOrdered B y: Bibiana Cifuentes on 08-16-2023 Bilirubin [Mass/Vol] 0.50 mg/dL 0.20-1.00 [facility] Comment on above: For patients on eltr ombopag therapy, use of Dimension [place] TBIL is not recommended. Chloride [Moles/Vol] 111 mmol/L 98-107 [facility] Glucose [Mass/Vol] 102 mg/dL 74-106 [facility] Comment on above: Fasting Glucose resu lt from 100 to 125 mg/dL suggests IMPAIRED HOMEOSTASIS per A.D.A. criteria. Hemoglobin (Bld) [Mass/Vol] 14.2 g/dL 13.0-16.5 [facility] Potassium [Moles/Vol] 4.0 mmol/L 3.5-5.1 [facility] Protein [Mass/Vol] 6.7 g/dL 6.4-8.2 [facility] Sodium [Moles/Vol] 139 mmol/L 136-145 [facility] WBC (Bld) [#/Vol] 8.0 10*3/uL 4.4-11.0 [facility] Determination of erythrocyte mean corpuscular volume (MCV)Ordered By: Bibiana Cifuentes on 08-16-2023 MCV (RBC) [Entitic vol] 94.2 fL 80-94 [facility] Erythrocyte distribution wid th ratioOrdered By: Bibiana Cifuentes on 08-16-2023 Erythrocyte distribution width (RBC) [Ratio] 13.4 % 11.6-14.6 [facility] Erythrocyte distribution wid th standard deviationOrdered By: Bibiana Cifuentes on 08-16-2023 Erythrocyte distribution width (RBC) [Entitic vol] 45.7 fL 35.1-43.9 [facility] Hematocrit Auto (Bld) [Volum e fraction]Ordered By: Bibiana Cifuentes on 08-16-2023 Hematocrit (Bld) [Volume fraction] 44.2 % 40-54 [facility] Laboratory - Chemistry and C hemistry - challengeOrdered By: Bibiana Cifuentes on 08-16-2023 Albumin/Globulin [Mass ratio] 0.9 {ratio} 0.9-2.4 [facility] ALP [Catalytic activity/Vol] 57 U/L 45-117 [facility] ALT [Catalytic activity/Vol] 17 U/L 16-61 [facility] CO2 [Moles/Vol] 24.0 mmol/L 21.0-32.0 [facility] Globulin (S) [Mass/Vol] 3.6 g/dL 2.2-4.2 [facility] Urea nitrogen/Creatinine [Mass ratio] 10.5 mg/mg 10-20 [facility] - Hematology and Cell countsOrdered By: Bibiana Cifuentes on 08-16-2023 MCH (RBC) [Entitic mass] 30.3 pg 27.0-32.0 [facility] MCHC (RBC) [Mass/Vol] 32.1 g/dL 32-36 [facility] Platelet mean volume (Bld) [Entitic vol] 10.7 fL 6.2-12.0 [facility] Platelets (Bld) [#/Vol] 133 10*3/uL 150-450 [facility] No Panel InformationOrdered By: Bibiana Cifuentes on 08-16-2023 Estimated Creatinine Clearance Calc 71.85 ml/min [facility] Estimated GFR (MDRD) Amer 75 mL/min >60 [facility] Comment on above: GFR Calc Estimated GFR (MDRD) Non-Af Amer 62 mL/min >60 [facility] Comment on above: Non- GFR Calc RBC Auto (Bld) [#/Vol]Ordere d By: Bibiana Cifuentes on 08-16-2023 RBC (Bld) [#/Vol] 4.69 10*6/uL 4.6-6.2 [facility] Serum or plasma calcium allison urement (mass/volume)Ordered By: Bibiana Cifuentes on 08-16-2023 Calcium [Mass/Vol] 9.0 mg/dL 8.5-10.1 [facility] Serum or plasma creatinine m easurement (mass/volume)Ordered By: Bibiana Cifuentes on 08-16-2023 Creatinine [Mass/Vol] 1.24 mg/dL 0.70-1.30 [facility] Comment on above: The validity of the calculated GFR & GFRAA in patients over 70 years has not been determined. Clinical correlation is essential. Serum or plasma urea nitroge n measurement (mass/volume)Ordered By: Bibiana Cifuentes on 08-16-2023 Urea nitrogen [Mass/Vol] 13 mg/dL 7-18 [facility] Thin prep Papanicolaou smear with manual screeningOrdered By: Bibiana Cifuentes on 08-16-2023 Thin prep Papanicolaou smear with manual screening 3.1 g/dL 3.2-5.0 [facility] Thin prep Papanicolaou smear with manual screening 29 U/L 15-37 [facility] Thin prep Papanicolaou smear with manual screening 4 5-15 [facility] Activated partial thrombopla stin time (aPTT) in platelet poor plasma by coagulation aOrdered By: Oral Smiley on 08-15-2023 aPTT Coag (PPP) [Time] 80.8 s 24.1-36.2 [facility] Absolute lymphocyte countOrd ered By: Oral Smiley on 04-21-2024 Lymphocytes Auto (Unsp spec) [#/Vol] 2.38 10*3/uL 0.83-4.51 [facility] Automated lymphocyte count a s percentage of total leukocytesOrdered By: Oral Smiley on 08-14-2023 Lymphocytes/100 WBC Auto (Unsp spec) 26.4 % 19-41 [facility] Basophil percentageOrdered B y: Brooke Shaw on 08-14-2023 Basophil percentage 0-5 SEEN /hpf 0-5 [facility] Basophil percentageOrdered B y: Oral Smiley on 08-14-2023 Basophils/100 WBC (Bld) 0.7 % 0-1 [facility] Cholesterol [Mass/Vol] 163 mg/dL <200 [facility] Comment on above: <200 mg/dL Desirable 200-240 mg/dL Borderline >240 mg/dL High Risk Eosinophils/100 WBC (Bld) 1.4 % 0-5 [facility] Monocytes/100 WBC (Bld) 8.3 % 0-10 [facility] Neutrophils (Bld) [#/Vol] 5.7 10*3/uL 2.0-7.7 [facility] Neutrophils/100 WBC (Bld) 62.8 % 47-70 [facility] Triglyceride [Mass/Vol] 69 mg/dL <199 [facility] Comment on above: The drugs N-Acetylcy steine and Metamizole may falsely depress this assay.Serum Triglycerides Reference Interval Normal <150 mg/dL Borderline high 150 - 199 mg/dL High 200 - 499 mg/dL Very High > or = 500 mg/dL Bilirubin Test strip Ql (U)O rdered By: Brooke Shaw on 08-14-2023 Bilirubin Ql (U) Negative Negative [facility] Immature granulocytes/100 WB C Auto (Bld)Ordered By: Oral Smiley on 08-14-2023 Immature granulocytes/100 WBC (Bld) 0.400 % 0.0-0.9 [facility] Comment on above: IG% - Immature Granu locytes (promyelocytes, myelocytes and metamyelocytes) > 1% indicates that a LEFT SHIFT is Present. Ketones Test strip Ql (U)Ord ered By: Brooke Shaw on 08-14-2023 Ketones Ql (U) Negative Negative [facility] Laboratory - Chemistry and C hemistry - challengeOrdered By: Oral Smiley on 08-14-2023 Cholesterol in HDL [Mass/Vol] 52 mg/dL >40 [facility] Comment on above: The drugs N-Acetylcy steine and Metamizole may falsely depress this assay. Reference Range HDL <40 mg/dL Low HDL Cholesterol HDL >or= 60 mg/dL High HDL Cholesterol Cholesterol in LDL [Mass/Vol] 97 mg/dL 0-130 [facility] Laboratory - Hematology and Cell countsOrdered By: Oral Smiley on 08-14-2023 Nucleated RBC/100 WBC (Bld) [Ratio] 0 % 0-5 [facility] Mucus LM Ql (Urine sed)Order ed By: Brooke Shaw on 08-14-2023 Mucus Ql (Urine sed) 0 SEEN /hpf [facility] Nitrite Test strip Ql (U)Ord ered By: Brooke Shaw on 08-14-2023 Nitrite Ql (U) Negative Negative [facility] No Panel InformationOrdered By: Brooke Shaw on 08-14-2023 Urine RBC 25-50 SEEN /hpf 0-5 [facility] No Panel InformationOrdered By: Oral Smiley on 08-14-2023 VLDL Cholesterol 14 mg/dL 5-40 [facility] Troponin I High Sensitivity 1801 pg/mL 3.0-78.0 [facility] Comment on above: Critical Result(s) C alled at: 01:26:16 08/14/2023 by: Karla espinoza. Results read back by same. Please Note: New Test Units and Gender Specific Reference Ranges. For more information see Policy Stat Procedure [facility] High Sensitivity Troponin (TNIH) and attachments. Protein Test strip Ql (U)Ord ered By: Brooke Shaw on 08-14-2023 Protein Ql (U) 15 mg/dl Negative [facility] Squamous epithelial cells de tection in urine sediment by light microscopyOrdered By: Brooke Shaw on 08-14-2023 Epithelial cells.squamous LM Ql (Urine sed) 0 SEEN /hpf 0-5 [facility] Urine blood detectionOrdered By: Brooke Shaw on 08-14-2023 RBC Ql (U) 250 /ul Negative [facility] Urine clarityOrdered By: Dilia Shaw on 08-14-2023 Clarity (U) Clear Clear [facility] Urine color determinationOrd ered By: Brooke Shaw on 08-14-2023 Color (U) Yellow Yellow [facility] Urine glucose detectionOrder ed By: Brooke Shaw on 08-14-2023 Glucose Ql (U) Normal mg/dl Normal [facility] Urine leukocyte esterase det ection by dipstickOrdered By: Brooke Shaw on 08-14-2023 Leukocyte esterase Test strip Ql (U) Negative Negative [facility] Urine pHOrdered By: Brooke irving on 08-14-2023 pH (U) 7.0 [pH] 5.0 - 8.0 [facility] Urine sediment bacteria coun t by microscopy (number/high power field)Ordered By: Brooke Shaw on 08-14-2023 Bacteria LM.HPF (Urine sed) [#/Area] 0 /[HPF] None Seen [facility] Urine specific gravity measu rementOrdered By: Brooke Shaw on 08-14-2023 Specific gravity (U) [Rel density] 1.010 1.002-1.030 [facility] Urine urobilinogen measureme ntOrdered By: Brooke Shaw on 08-14-2023 Urobilinogen Ql (U) Normal mg/dl Normal [facility] Absolute lymphocyte countOrd ered By: ED PROVIDER on 08-13-2023 Lymphocytes Auto (Unsp spec) [#/Vol] 2.54 10*3/uL 0.83-4.51 [facility] Activated partial thrombopla stin time (aPTT) in platelet poor plasma by coagulation aOrdered By: Brooke Shaw on 08-13-2023 aPTT Coag (PPP) [Time] 33.0 s 24.1-36.2 [facility] Automated lymphocyte count a s percentage of total leukocytesOrdered By: ED PROVIDER on 08-13-2023 Lymphocytes/100 WBC Auto (Unsp spec) 35.3 % 19-41 [facility] Basophil percentageOrdered B y: ED PROVIDER on 08-13-2023 Basophils/100 WBC (Bld) 0.7 % 0-1 [facility] Chloride [Moles/Vol] 106 mmol/L 98-107 [facility] Eosinophils/100 WBC (Bld) 2.8 % 0-5 [facility] Glucose [Mass/Vol] 109 mg/dL 74-106 [facility] Comment on above: Fasting Glucose resu lt from 100 to 125 mg/dL suggests IMPAIRED HOMEOSTASIS per A.D.A. criteria. Hemoglobin (Bld) [Mass/Vol] 14.6 g/dL 13.0-16.5 [facility] Monocytes/100 WBC (Bld) 10.2 % 0-10 [facility] Neutrophils (Bld) [#/Vol] 3.6 10*3/uL 2.0-7.7 [facility] Neutrophils/100 WBC (Bld) 50.4 % 47-70 [facility] Potassium [Moles/Vol] 4.0 mmol/L 3.5-5.1 [facility] Sodium [Moles/Vol] 139 mmol/L 136-145 [facility] WBC (Bld) [#/Vol] 7.2 10*3/uL 4.4-11.0 [facility] Determination of erythrocyte mean corpuscular volume (MCV)Ordered By: ED PROVIDER on 08-13-2023 MCV (RBC) [Entitic vol] 94.9 fL 80-94 [facility] Erythrocyte distribution wid th ratioOrdered By: ED PROVIDER on 08-13-2023 Erythrocyte distribution width (RBC) [Ratio] 13.0 % 11.6-14.6 [facility] Erythrocyte distribution wid th standard deviationOrdered By: ED PROVIDER on 08-13-2023 Erythrocyte distribution width (RBC) [Entitic vol] 45.1 fL 35.1-43.9 [facility] Hematocrit Auto (Bld) [Volum e fraction]Ordered By: ED PROVIDER on 08-13-2023 Hematocrit (Bld) [Volume fraction] 46.1 % 40-54 [facility] Immature granulocytes/100 WB C Auto (Bld)Ordered By: ED PROVIDER on 08-13-2023 Immature granulocytes/100 WBC (Bld) 0.600 % 0.0-0.9 [facility] Comment on above: IG% - Immature Granu locytes (promyelocytes, myelocytes and metamyelocytes) > 1% indicates that a LEFT SHIFT is Present. Laboratory - Chemistry and C hemistry - challengeOrdered By: ED PROVIDER on 08-13-2023 CO2 [Moles/Vol] 28.0 mmol/L 21.0-32.0 [facility] Urea nitrogen/Creatinine [Mass ratio] 13.7 mg/mg 10-20 [facility] Laboratory - CoagulationOrde red By: Brooke Shaw on 08-13-2023 INR Coag (Bld) [Relative time] 1.1 {INR} [facility] PT Coag (PPP) [Time] 13.8 s 11.7-14.9 [facility] Laboratory - Hematology and Cell countsOrdered By: ED PROVIDER on 08-13-2023 MCH (RBC) [Entitic mass] 30.0 pg 27.0-32.0 [facility] MCHC (RBC) [Mass/Vol] 31.7 g/dL 32-36 [facility] Nucleated RBC/100 WBC (Bld) [Ratio] 0 % 0-5 [facility] Platelet mean volume (Bld) [Entitic vol] 9.9 fL 6.2-12.0 [facility] Platelets (Bld) [#/Vol] 141 10*3/uL 150-450 [facility] No Panel InformationOrdered By: ED PROVIDER on 08-13-2023 Troponin I High Sensitivity 298 pg/mL 3.0-78.0 [facility] Comment on above: Critical Result(s) C alled at: 21:04:43 08/13/2023 by: Merritt FLORES RN ED Results read back by same. Please Note: New Test Units and Gender Specific Reference Ranges. For more information see Policy Stat Procedure [facility] High Sensitivity Troponin (TNIH) and attachments. Estimated Creatinine Clearance Calc 69.49 ml/min [facility] Estimated GFR (MDRD) Amer 65 mL/min >60 [facility] Comment on above: GFR Calc Estimated GFR (MDRD) Non-Af Amer 54 mL/min >60 [facility] Comment on above: Non- GFR Calc RBC Auto (Bld) [#/Vol]Ordere d By: ED PROVIDER on 08-13-2023 RBC (Bld) [#/Vol] 4.86 10*6/uL 4.6-6.2 [facility] Serum or plasma calcium allison urement (mass/volume)Ordered By: ED PROVIDER on 08-13-2023 Calcium [Mass/Vol] 8.9 mg/dL 8.5-10.1 [facility] Serum or plasma creatinine m easurement (mass/volume)Ordered By: ED PROVIDER on 08-13-2023 Creatinine [Mass/Vol] 1.39 mg/dL 0.70-1.30 [facility] Comment on above: The validity of the calculated GFR & GFRAA in patients over 70 years has not been determined. Clinical correlation is essential. Serum or plasma urea nitroge n measurement (mass/volume)Ordered By: ED PROVIDER on 08-13-2023 Urea nitrogen [Mass/Vol] 19 mg/dL 7-18 [facility] Thin prep Papanicolaou smear with manual screeningOrdered By: ED PROVIDER on 08-13-2023 Thin prep Papanicolaou smear with manual screening 5 5-15 [facility] No Panel InformationOrdered By: Jazmine Le on 01-11-2023 Prostate Specific Antigen Screen 0.69 ng/mL 0.00-4.00 [facility] Comment on above: This test was perfor med using the TPSA assay method for theDimension chemistry system. Values obtained with differentassay methods cannot be used interchangably.When changing PSA assays in the course of monitoring apatient, additional sequential testing should be carriedout to confirm baseline values. No Panel Informationon 11-23 Prostate Specific Antigen Screen 0.74 ng/mL 0.00-4.00 [facility] Work Phone: Comment on above: This test was perfor med using the TPSA assay method for themenon chemistry system. Values obtained with differentassay methods cannot be used interchangably.When changing PSA assays in the course of monitoring apatient, additional sequential testing should be carriedout to confirm baseline values. Vital Signs Date Time Vital Sign Value Performing Clinician Ragini dickinson 12-21-2024 09:30-0400 Body height 195.58 cm David Warner MD Work Phone: [facility] 12-21-2024 09:30-0400 Body mass index (BMI) [Ratio] 27.2 kg/m2 David Warner MD Work Phone: 7(085)588-737570 [place] [address] 12-21-2024 09:30-0400 Body weight 104.32 kg David Warner MD Work Phone: 8(685)260-073708 [place] [address] 12-21-2024 09:30-0400 Diastolic blood pressure 71 mm[Hg] David Warner MD Work Phone: 2(217)666-555608 [place] [address] 12-21-2024 09:30-0400 Heart rate 84 /min David Warner MD Work Phone: 5(427)962-001508 [place] [address] 12-21-2024 09:30-0400 Respiratory rate 18 /min David Warner MD Work Phone: 5(071)310-702508 [place] [address] 12-21-2024 09:30-0400 SaO2% (BldA) [Mass fraction] 98 % David Warner MD Work Phone: [phone])002-892370 [place] [address] 12-21-2024 09:30-0400 Systolic blood pressure 100 mm[Hg] David Warner MD Work Phone: 1(854)464-327708 [place] [address] 06-14-2024 10:13-0500 Body height 195.[address] Jazmine Le MD Work Phone: 3(710)860-796308 [place] [address] 06-14-2024 10:07-0500 Body mass index (BMI) [Ratio] 27.5 kg/m2 Dr. Jazmine Le MD Work Phone: 6(094)703-110370 [place] [address] 06-14-2024 10:07-0500 Body weight 105.[address] Jazmine Le MD Work Phone: 5(407)471-017708 [place] [address] 06-14-2024 10:07-0500 Diastolic blood pressure 79 mm[Hg] Dr. Jazmine Le MD Work Phone: 4(284)223-810270 [place] [address] 06-14-2024 10:07-0500 Heart rate 84 /min Dr. Jazmine Le MD Work Phone: 6(946)941-723470 [place] [address] 06-14-2024 10:07-0500 Respiratory rate 18 /min Dr. Jazmine Le MD Work Phone: [facility] 06-14-2024 10:07-0500 SaO2% (BldA) [Mass fraction] 100 % Dr. Jazmine Le MD Work Phone: [facility] 06-14-2024 10:07-0500 Systolic blood pressure 127 mm[Hg] Dr. Jazmine Le MD Work Phone: 2(376)858-480270 [place] [address] 08-30-2023 14:06-0400 Body height 195.[address] Jazmine Le Work Phone: 7(717)806-356722 [address] 08-30-2023 14:06-0400 Body mass index (BMI) [Ratio] 27.5 kg/m2 Dr. Jazmine Le Work Phone: 6(073)751-763870 [place] [address] 08-30-2023 14:06-0400 Body weight 105.[address] Jazmine Le Work Phone: 0(639)981-939970 [place] [address] 08-30-2023 14:06-0400 Diastolic blood pressure 80 mm[Hg] Dr. Jazmine Le Work Phone: 2(062)566-655470 [place] [address] 08-30-2023 14:06-0400 Heart rate 76 /min Dr. Jazmine Le Work Phone: 0(901)182-649070 [place] [address] 08-30-2023 14:06-0400 Respiratory rate 18 /min Dr. Jazmine Le Work Phone: [facility] 08-30-2023 14:06-0400 SaO2% (BldA) [Mass fraction] 100 % Dr. Jazmine Le Work Phone: [facility] 08-30-2023 14:06-0400 Systolic blood pressure 121 mm[Hg] Dr. Jazmine Le Work Phone: [facility] 08-26-2023 10:38-0400 Body mass index (BMI) [Ratio] 28 kg/m2 Dr. Jazmine Le Work Phone: 9(807)752-096070 [place] [address] 08-26-2023 10:38-0400 Body temperature 96.6 [degF] Dr. Jazmine Le Work Phone: [facility] 08-26-2023 10:38-0400 Body weight 107.[address] Jazmine Le Work Phone: [facility] 08-26-2023 10:38-0400 Diastolic blood pressure 66 mm[Hg] Dr. Jazmine Le Work Phone: [facility] 08-26-2023 10:38-0400 Heart rate 96 /min Dr. Jazmine Le Work Phone: 3(912)297-667570 [place] [address] 08-26-2023 10:38-0400 Respiratory rate 16 /min Dr. Jazmine Le Work Phone: [phone])723-502070 [place] [address] 08-26-2023 10:38-0400 SaO2% (BldA) [Mass fraction] 98 % Dr. Jazmine Le Work Phone: [facility] 08-26-2023 10:38-0400 Systolic blood pressure 134 mm[Hg] Dr. Jazmine Le Work Phone: [facility] 08-16-2023 14:00-0400 Body temperature 97.3 [degF] Dr. Jazmine Le Work Phone: [facility] 08-16-2023 14:00-0400 Diastolic blood pressure 72 mm[Hg] Dr. Jazmine Le Work Phone: [facility] 08-16-2023 14:00-0400 Heart rate 82 /min Dr. Jazmine Le Work Phone: [facility] 08-16-2023 14:00-0400 Respiratory rate 18 /min Dr. Jazmine Le Work Phone: [facility] 08-16-2023 14:00-0400 SaO2% (BldA) [Mass fraction] 99 % Dr. Jazmine Le Work Phone: [facility] 08-16-2023 14:00-0400 Systolic blood pressure 146 mm[Hg] Dr. Jazmine Le Work Phone: [facility] 08-13-2023 22:19-0400 Body height 195.[address] Jazmine Le Work Phone: [facility] 08-13-2023 22:19-0400 Body mass index (BMI) [Ratio] 27.2 kg/m2 Dr. Jazmine Le Work Phone: [facility] 08-13-2023 22:19-0400 Body weight 104.[address] Jazmine Le Work Phone: [facility] 08-13-2023 22:00-0400 Diastolic blood pressure 85 mm[Hg] [facility] 08-13-2023 22:00-0400 Heart rate 83 /min [facility] 08-13-2023 22:00-0400 Respiratory rate 18 /min [facility] 08-13-2023 22:00-0400 SaO2% (BldA) [Mass fraction] 100 % [facility] 08-13-2023 22:00-0400 Systolic blood pressure 141 mm[Hg] [facility] 08-13-2023 21:17-0400 Body temperature 98.2 [degF] [facility] 08-13-2023 17:57-0400 Body height 195.58 cm [facility] 08-13-2023 17:57-0400 Body mass index (BMI) [Ratio] 28.1 kg/m2 [facility] 08-13-2023 17:57-0400 Body weight 107.81 kg [facility] Encounters Encounter Date Encounter Type Care Provider Facility Start: 01-25-2025 End: 01-25-2025 ambulatory David Warner Facility:[facility] Start: 12-21-2024 End: 12-21-[address] Grady Chino MD -[facility] Work Phone: Start: 12-21-2024 End: 12-21-2024 ambulatory David Warner MD Work Phone: -[facility] Start: 12-10-2024 End: 12-10-2024 ambulatory David Warner MD Work Phone: -[facility] Start: 12-10-2024 End: 12-10-2024 Patient encounter procedure Hilario Garsia [employer] -[facility] Work Phone: Start: 12-10-2024 End: 12-10-2024 ambulatory Hilario Garsia NP Facility:[facility] Start: 07-18-2024 Non-patient / Non-visit Dr. Bro [facility] Start: 07-18-2024 End: 07-18-[address] Jazmine Le MD Work Phone: [facility] Work Phone: Start: 07-18-2024 End: 07-18-2024 Patient encounter procedure Shelby BILLINGSLEY -[facility] Work Phone: Start: 07-18-2024 End: 07-18-2024 ambulatory Shelby BILLINGSLEY Facility:[facility] Start: 06-14-2024 End: 06-14-2024 Patient encounter procedure Shelby BILLINGSLEY -[facility] Work Phone: Start: 06-14-2024 End: 06-14-2024 ambulatory Jazmine Le Facility:[facility] Start: 05-28-2024 End: 05-28-2024 Patient encounter procedure Idalmis Byers [employer] -Laboratory Work Phone: Start: 05-28-2024 End: 05-28-2024 ambulatory Jazmine Le Facility:[facility] Start: 08-31-[address] Jazmine roberts Work Phone: [facility] Work Phone: Start: 08-30-2023 End: 08-30-[address] Jazmine Le Work Phone: [facility] Work Phone: Start: 08-26-2023 End: 08-26-[address] Jazmine Le Work Phone: [facility] Work Phone: Start: 08-26-2023 End: 08-26-[address] Jazmine Le Work Phone: [facility] Work Phone: Start: 08-16-2023 Non-patient / Non-visit Dr. Gabriele Le Work Phone: [facility] Work Phone: Start: 08-16-2023 End: 08-16-2023 Non-patient / Non-visit Dr. Jazmine Le Work Phone: [facility] Work Phone: Start: 08-15-2023 Non-patient / Non-visit Dr. Gabriele Le Work Phone: [facility] Work Phone: Start: 08-15-2023 Non-patient / Non-visit Dr. Gabriele Le Work Phone: [facility] Start: 08-14-2023 Non-patient / Non-visit Dr. Gabriele Le Work Phone: [facility] Work Phone: Start: 08-14-2023 Non-patient / Non-visit Dr. Gabriele Le Work Phone: [facility] Start: 08-13-2023 End: 08-13-2023 Non-patient / Non-visit Dr. Jazmine Le Work Phone: [facility] Work Phone: Start: 08-13-2023 End: 08-16-2023 Evaluation and management of inpatient [facility] Work Phone: Start: 01-11-2023 End: 01-11-2023 ambulatory [facility] Work Phone: Start: 01-11-2023 End: 01-11-2023 Patient encounter procedure [facility] Start: 11-23-2021 End: 11-23-2021 Patient encounter procedure [facility] Procedures Date Procedure Procedure Detail Performing Clinician Start: 08-13-2023 Plain chest X-ray Plan of Treatment Date Care Activity Detail Author Start: 08-16-2023 Patient discharge [facility] Start: 08-15-2023 Patient referral [facility] Work Phone: Start: 08-15-2023 Cardiac monitoring [facility] Start: 08-15-2023 Cardiac rehabilitation - phase 1 [facility] Start: 08-15-2023 Cardiac rehabilitation - phase 2 [facility] Start: 08-15-2023 Oxygen therapy [facility] Start: 08-15-2023 Patient discharge [facility] Start: 08-15-2023 Systemic arterial pr essure monitoring [facility] Start: 08-15-2023 Vascular disease risk assessment [facility] Start: 08-15-2023 Vital signs measurements [facility] Start: 08-15-2023 End: 08-15-2023 [facility] Start: 08-15-2023 End: 08-15-2023 Notification of physician [facility] Start: 08-15-2023 Patient education [facility] Start: 08-15-2023 Provision of activity privileges [facility] Start: 08-15-2023 Pulse taking [facility] Start: 08-15-2023 End: 08-15-2023 Taking patient vital signs [facility] Start: 08-15-2023 Wound care [facility] Start: 08-14-2023 [facility] Start: 08-13-2023 Following clinical p athway protocol [facility] Start: 08-13-2023 Ambulation without limitation [facility] Start: 08-13-2023 Assessment of risk o f venous thromboembolism [facility] Start: 08-13-2023 Insertion of cathete r into peripheral vein [facility] Start: 08-13-2023 Measuring intake and output [facility] Start: 08-13-2023 Providing care accor ding to standard [facility] Start: 08-13-2023 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 [facility] Start: 08-13-2023 [facility] Start: 08-13-2023 Verification routine [facility] Start: 08-13-2023 Admission procedure [facility] Start: 08-13-2023 Hospital admission, emergency, from emergency room, medical nature [facility] Start: 08-13-2023 End: 08-13-2023 [facility] Bilirubin measurement, urine [facility] Hemoglobin [Presence] in Urine [facility] Hepatic function panel [facility] Lipid 1995 panel - S karen or Plasma [facility] Lipid 1995 panel - [facility] or Plasma [facility] Measurement of keton es in urine using dipstick [facility] Microscopic urinalysis [facility] Patient referral [facility] Work Phone: pH of Urine [facility] Specific gravity of Urine [facility] Urinalysis, blood, qualitative [facility] Urine dipstick for glucose [facility] Urine dipstick for l eukocyte esterase [facility] Urine dipstick for nitrite [facility] Urine dipstick for protein [facility] Urine examination [facility] Urine microscopy: ep ithelial cells [facility] Urine Microscopy: white cells [facility] Urobilinogen [Presence] in Urine [facility] US Heart [facility] Payers Date Payer Category Payer Self-pay [id number] 2021 Private Health Insurance 101 [id number] Unknown [id number] Unknown [id number] 2.16.8 [id number] Unknown [id number] 2.16.8 [id number] Unknown [id number] 2.16.8 [id number] Unknown [id number] 2.16.8 [id number] Unknown [id number] 2.16.8 [id number] Unknown [id number] 2.16.8 [id number] Unknown [id number] 2.16.8 [id number] Social History Date Type Detail Facility Tobacco smoking stat us DEIS Unknown if ever smoked [facility] Work Phone: Start: 1955 Sex Assigned At Male [facility] Start: 08-13-2023 End: 08-26-2023 Tobacco smoking status NHIS Unknown if ever smoked [facility] Start: 08-26-2023 End: 12-21-2024 Tobacco smoking status NHIS Never smoked tobacco (finding) [facility] Start: 07-23-2024 Sex Male (finding) [facility] Medical Equipment Procedure Code Equipment Code Equipment Origin al Text Equipment Identifier Dates Drug-eluting coronary artery stent, rir-mkgfkyjnohayo-wa lymer-coated ()[id number] FDA Start: 08-15-2023 Drug-eluting coronary artery stent, qry-umunhfgrbseni-nd lymer-coated ()[id number] FDA Start: 08-15-2023 Drug-eluting coronary artery stent, ayr-sgipgeqqsvmeo-ci lymer-coated ()[id number] FDA Start: 08-15-2023 Goals Date Patient Goal Desired Activity /State Functional Status Date Assessment Result Facility 08-16-2023 Functional status Up ad mercedes [facility] Work Phone: Mental Status Date Assessment Result Facility 08-16-2023 Cognitive function Voice/Name [facility] Work Phone: 08-13-2023 Cognitive function Voice/Name [facility] Work Phone: Clinical Notes 08-13-2023 to 08-16-2023 Note Date & Type Note Facility 08-16-2023 Discharge summary Note Date/Time August 16, 2023 1:03pm [facility] Medical Records Department [address] [place] [address] Instructions for Home/Discharge Instructions 08/16/23 1303 MR#: [id number] Acct: [id number] Name: DEIRDRE ORTIZ Rep #:[id number] : 1955 68 From: Ender Faust DO [...] MD; Dr. Oral Smiley MD ~* Signed [facility] Work Phone: 1(911) 138-428204-22-2024 Progress note Author Ender Nataliom[facility] August 15, 2023 4:18pm Note Date/Time August 15, 2023 4:1 8pm [facility] Medical Records Department [address] [place] [address] Progress Note - Hospitalist 08/15/23 1612 MR#: [id number] Acct: [id number] Name: DEIRDRE ORTIZ Rep #:[id number] : 1955 68 From: Ender Faust DO PCP: Dr. Jazmine Le MD Status:ADM IN Location: [place] [address] Reason for Visit Reason for Visit: Diagnoses [...] (1) Stented coronary artery: (2) Non-ST elevation [place] (NSTEMI): PLAN: Plan 1. [id number] to occlusive coronary disease in the LAD [...] 35 minutes Charges/Coding Visit Charges Inpatient E&M: 30560 Subs Hosp L2 08/15/23 1618 <Electronically signed by Ender Faust DO> Cosigner Signature (if applicable): CC: ~ Signed [facility] Work Phone: 1(961) 100-149804-22-2024 Evaluation note* Diagnosis Onset Date Resolution Status Stented coronary artery August 15, 2023 acute Non-ST elevation [place] (NSTEMI) August 13, 2023 resolved Ischemic cardiomyopathy acut e Stented coronary artery August 15, 2023 acute [facility] Work Phone: 1(367) 817-811904-21-2024 Progress note Author Ender Faust [facility] August 14, 2023 3:06pm Note Date/Time August 14, 2023 3:0 6pm [facility] Medical Records Department [address] [place] [address] Progress Note - Hospitalist 08/14/23 1501 MR#: [id number] Acct: [id number] Name: DEIRDRE ORTZI Rep #:[id number] : 1955 68 From: Ender Faust DO PCP: Dr. Jazmine Le MD Status:ADM IN Location: [place] [address] Reason for Visit Reason for Visit: Diagnoses [...] % (Auto) 50.4, Lymph % (Auto) 35.3, [place] % (Auto) 10.2 H, Eos % (Auto) [...] % (Auto) 62.8, Lymph % (Auto) 26.4, [place] % (Auto) 8.3, Eos % (Auto) 1.4, [...] Clarity Clear, Urine pH 7.0, Ur Specific Spencer 1.010, Urine Protein 15 H, Urine Glucose [...] Assessment & Plan Assessment/Plan (1) Non-ST elevation [place] (NSTEMI): PLAN: Plan 1. [id number] will undergo a cardiac catheterization tomorrow, I [...] 35 minutes Charges/Coding Visit Charges Inpatient E&M: 76543 Subs Hosp L2 08/14/23 1506 <Electronically signed by Ender Faust DO> Cosigner Signature (if applicable): CC: ~ Signed [facility] Work Phone: 1(840) 120-406604-21-2024 Consult note Author Luca Canada [facility] August 14, 2023 1:34pm Note Date/Time August 14, 2023 1:3 2pm [facility] Medical Records Department [address] [place] [address] Consultation - Cardiology 08/14/23 1326 MR#: [id number] Acct: [id number] Name: DEIRDRE ORTIZ Rep #:[id number] : 1955 68 From: Luca Canada MD PCP: Dr. Jazmine Le MD Status:ADM IN Location: [place] [address] Assessment & Plan Assessment/Plan (1) Non-ST elevation [place] (NSTEMI): PLAN: Plan 68-year-old patient presented to [facility] ER complaining of symptoms ofchest pain [...] ORTIZ, is a 68 M who presents [facility] Medical History (Updated 08/13/23 @ 22:36 by [...] not having any symptoms of chest pain engine monitor normal sinus rhythm. Cardiac exam S1-S2 [...] % (Auto) 50.4, Lymph % (Auto) 35.3, [place] % (Auto) 10.2 H, Eos % (Auto) [...] % (Auto) 62.8, Lymph % (Auto) 26.4, [place] % (Auto) 8.3, Eos % (Auto) 1.4, [...] % (Auto) 50.4, Lymph % (Auto) 35.3, [place] % (Auto) 10.2 H, Eos % (Auto) [...] Neut % (Auto) 62.8,Lymph % (Auto) 26.4, [place] % (Auto) 8.3, Eos % (Auto) 1.4, [...] applicable): CC: Dr. Jazmine Le MD~ Signed [facility] Work Phone: 1(461) 994-458104-21-2024 History and physical note Author Oral Smiley [facility] August 14, 2023 4:12am Note Date/Time August 13, 2023 9:1 7pm [facility] Medical Records Department [address] [place] [address] H&P Exam - Hospitalist 08/13/232116 MR#: [id number] Acct: [id number] Name: DEIRDRE ORTIZ Rep #:[id number] : 1955 68 From: Oral naqvi MD PCP: Dr. Jazmine Le MD Status:ADM IN Location: [place] [address] HPI - General General Date of Admission: [...] had a kidney stone in the past. [facility] Medical History (Updated 08/13/23 @ 22:36 by [...] % (Auto) 50.4, Lymph % (Auto) 35.3, [place] % (Auto) 10.2 H, Eos % (Auto) [...] Assessment & Plan Assessment/Plan (1) Non-ST elevation [place] (NSTEMI): PLAN: Plan 1. Non-STEMI/hematuria ? The [...] with colleagues Charges/Coding Visit Charges Inpatient E&M: 49736 Init Hosp L3 08/14/23 0412 <Electronically signed by Oral Smiley MD> Cosigner Signature (if applicable): CC: Dr. Jazmine Le MD; Dr. Oral Smiley MD~ Signed [facility] Work Phone: 1(220) 981-757204-21-2024 Discharge summary Author Filiberto Leonard [facility] August 14, 2023 12:59am Note Date/Time August 13, 2023 6:3 2pm [facility] Medical Records Department [address] [place] [address] Emergency Department Summary 08/13/23 MR#: [id number] Acct: [id number] Name: DEIRDRE ORTIZ Rep #:[id number] : 1955 68 From: Brooke BILLINGSLEY PCP: Dr. Jazmine Le MD Status:ADM IN Location: [address] <ANALILIA Naidu - Last Filed: 08/13/23 21:24> [...] around 5:30 PM after walking into [employer] but had not been doing anything strenuous. [...] <ANALILIA Naidu - Last Filed: 08/13/23 21:24> [facility] Home Medications NK 08/13/23 [History Last Taken [...] <ANALILIA Naidu - Last Filed: 08/13/23 21:24> [employer] Narrative Medical decision making narrative: History gathered [...] agreed with aspirin and IV heparin. 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 Canada)) Treatment and Re-Evaluation :: I [...] Leonard Dx/Rx/DC Orders Clinical Impression: Non-ST elevation [place] (NSTEMI) Prescriptions: No Action NK Primary Care Provider: Jazmine Le Referrals: Jazmine Le MD [Primary Care Provider] - What to do if you have Problems For any increased pain, shortness of breath, bleeding, nausea or vomiting, chestpain, or any unexpected problems, contact your Primary Care Provider. Call [facility] ([phone]) or report to the closest Emergency Room. Call 911 if necessary. 08/13/232123 <Electronically signed by Brooke Shaw PA> Cosigner Signature (if applicable): 08/14/23 0059 <Electronically signed by Filiberto Leonard DO> CC: Dr. Jazmine Le MD ~ Signed [facility] Work Phone: 1(811) 411-700204-20-2024 Evaluation note* Diagnosis Onset Date Resolution Status Non-ST elevation WY (NSTEMI) August 13, 2023 acute Stented coronary artery August 15, 2023 acute [facility] Work Phone: 1(774) 223-279304-20-2024 Evaluation note* Diagnosis Onset Date Resolution Status Admit Date Atherosclerotic heart disease of [place] coronary artery without angina pectoris August 13, 2023 acute June 14, 2024 9:59am Stented coronary artery August 15, 2023 acute June 14, 2024 9:59am Ischemic cardiomyopathy chronic F ebruary 2024 9:59am [facility] Work Phone: 1([phone]) 252-623704-20-2024 Evaluation note* Diagnosis Onset Date Resolution Status Admit Date Atherosclerotic heart diseas e of [place] coronary artery without angina pectoris August 13, 2023 acute December 21, 2024 9:24am [facility] Work Phone: Consult note Author Willis Castro [facility] August 16, 2023 2:30pm Note Date/Time August 16, 2023 2:3 1pm [facility] Medical Records Department [address] [place] [address] Counseling Note - Pharmacy 08/16/23 1430 MR#: [id number] Acct: [id number] Name: DEIRDRE ORTIZ Rep #:[id number] : 1955 68 From: Willis Castro PCP: Dr. Jazmine Le MD Status:ADM IN Y Location: [place] [address] Pharmacy [facility] has performed [...] signed by Willis wilson> Date _ Willis Castro Cosigner Signature (if applicable): Date CC: ~ Signed [facility] Work Phone: Evaluation noteNo assessment information available [facility] Work Phone: Evaluation note* Diagnosis Onset Date Resolution Status Non-ST elevation [place] (NSTEMI) acute [facility] Work Phone: Reason for referral (narrative)No reason for [facility]: Chief Complaint and Reason for Visit Chief Complaint NSTEMI Reason for Visit Non-ST elevation [place] (NSTEMI) Chief Complaint NSTEMI NSTEMI NSTEMI NSTEMI Reason for Visit Non-ST elevation [place] (NSTEMI) Stented coronary artery Chief Complaint NSTEMI CP ADMIT NSTEMI NSTEMI NSTEMI POST PCI NSTEMI PCI W/STENTING, Non-STEMI S/P [facility] 08/15 Non-STEMI, PCI w/coronary stenting Reason for Visit Stented coronary art lisa Non-ST elevation [place] (NSTEMI) Ischemic cardiomyopathy Stented coronary artery Chief Complaint Admit Date 6 M FU June 14, 2024 9:59am DILATED CARDIOMYOPATHY July 18, 2024 1:44pm Reason for Visit Admit Date Atherosclerotic heart diseas e of [place] coronary artery without angina pectoris June 14, 2024 9:59am Stented coronary artery June 14, 2 025 9:59am Ischemic cardiomyopathy June 14 025 9:59am Chief Complaint Admit Date EORDERS [place] 18th, 2025 7: 16am Chief Complaint Admit Date EORDERS December 10, 2024 7: 16am 6 M FU December 21, 2024 9: 24am Reason for Visit Admit Date Atherosclerotic heart diseas e of [place] coronary artery without angina pectoris December 21, 2024 9:24am Advance Directives No Advanced Directives Records Found Advance Directive Response Recorded Date/ Time Living Will No August 13, 2023 5:57pm Power of Separations Scientist No August 12 5:57pm Advance Directive Response Recorded Date/ Time Living Will No August 13, 2023 10:19pm Power of Separations Scientist No August 12 10:19pm Advance Directive Response Recorded Date/ Time Advance Directives on File No August 252023 10:38am Living Will No August 26, 2023 10 :38am Power of Separations Scientist No August 26, 2023 10:38am Advance Directive Response Recorded Date/ Time Living Will No August 26, 2023 10 :38am Do you have a Healthcare Power of Separations Scientist? No August 26, 2023 10:38am Family History [...] Primary Care Provider Active Dr. Filiberto Leonard , Emergency Provider Active Dr. Oral Smiley MD Admit Provider, Other Pro vider Active Dr. Luca Canada MD Other Provider Active Dr. Ender Faust , DO Attending Provider, Other Pro vider Active [...] Provider, Referrin g Provider Active Idalmis Byers ELECTRICAL TESTER BATTERY, ELECTRICAL TESTER BATTERY-C Attending Provider Active Team Status: Active Member [...] 2024 End: May 28, 2024 Idalmis Byers ELECTRICAL TESTER BATTERY, ELECTRICAL TESTER BATTERY-C Attending Provider Active Start: May 28, 2024 End: May 28, 2024 Idalmis Byers ELECTRICAL TESTER BATTERY, ELECTRICAL TESTER BATTERY-C Referring Provider Active Start: May 28, 2024 [...] 2024 End: December 10, 2024 Hilario Garsia ELECTRICAL TESTER BATTERY, ELECTRICAL TESTER BATTERY-C Attending Provider Active S tart: December 10, 2024 End: December 10, 2024 Hilario Garsia ELECTRICAL TESTER BATTERY, ELECTRICAL TESTER BATTERY-C Referring Provider Active S tart: December 10, 2024 End: December 10, 2024 Team Status: Active Member Role/Relationship Status Melody Warner MD Primary Care Provider Active Team Status: Inactive Member Role/Relationship Status Melody Warner MD Primary Care Provider Active St art: December 10, 2024 End: December 10, 2024 Hilario Garsia ELECTRICAL TESTER BATTERY, ELECTRICAL TESTER BATTERY-C Attending Provider Active S tart: December 10, 2024 End: December 10, 2024 Hilario Garsia ELECTRICAL TESTER BATTERY, ELECTRICAL TESTER BATTERY-C Referring Provider Active S tart: December 10, [...] ized section and content) DATE CREATED AUTHOR 02/21/2025 [facility] FOR RECORDS PERTAINING TO PATIENTS [...] BE BASED ON THE PRIMARY CLINICAL RECORDS. [email or web address] provides no warranty or guarantee of the accuracy or completeness of information in this document.
[2025-04-13 14:14] LABS: Anion Gap 9 (5-15); BUN 18 mg/dL (4-19); BUN/Creat Ratio 14.2 RATIO (10-20); Calcium,Total 9.6 mg/dL (7.6-11.0); Carbon Dioxide 26.1 mmol/L (21.0-32.0); Chloride 103 mmol/L (98-108); Estimated Creatinine Clearance 72.56 ml/min (50-250); Glucose 138 mg/dL (70-99); Potassium 4.3 mmol/L (3.3-5.1); Troponin T High Sensitivity 12 ng/L (<=22)
[2025-04-13 14:15] VITALS: BP 150/90; PULSE 89; RESP 12; O2SAT 94
--- NOTE | 2025-04-13 14:17 | RAD_ITS ---
EXAM: XR Chest, 1 View CLINICAL INDICATION: CHEST PAIN TECHNIQUE: Frontal view of the chest. COMPARISON: XR Chest dated 08/13/2023 FINDINGS: LUNGS AND PLEURAL SPACES: Unremarkable. No consolidation. No pneumothorax. HEART: Unremarkable. No cardiomegaly. MEDIASTINUM: Unremarkable. Normal mediastinal contour. BONES/JOINTS: Unremarkable. No acute fracture. RAD/Chest PA and Lateral IMPRESSION: No acute cardiopulmonary process. Reading Location: [id number]
--- NOTE | 2025-04-13 14:56 | CM.ED ---
Social Work Date of referral: 04/13/25 Reason for referral: Advanced Care Directives (ACD's) not on file. Referred by: Social Work Identification Patient provided consent to social work visit. [employer] requested copy of ACD's which patient stated he never had completed. [employer] provided patient with a written pamphlet with the number to call at [facility] to help patient complete. Patient expressed appreciation. Hortencia Estes, BONDING AND COMPOSITE FABRICATOR, PUNCH CARD OPERATOR
[2025-04-13 15:02] VITALS: BP 135/91; PULSE 78; RESP 12; O2SAT 98
[2025-04-13 15:51] LABS: Troponin T High Sens 2 HR 11 ng/L (<=22)
[2025-04-13 15:56] VITALS: BP 135/88; PULSE 81; RESP 13; TEMP 36.6; O2SAT 98
== END 2025-04-13 16:04 | disposition home or self-care (01) ==
PROVIDERS: Emergency Provider Student in an Organized Health Care Education/Training Program; PCP Family Medicine; Visit Provider Student in an Organized Health Care Education/Training Program
DX: R07.9 Chest pain, unspecified (principal); E78.5 Hyperlipidemia, unspecified; I25.10 Atherosclerotic heart disease of native coronary artery without angina pectoris; I25.5 Ischemic cardiomyopathy; Z82.49 Family history of ischemic heart disease and other diseases of the circulatory system; Z95.5 Presence of coronary angioplasty implant and graft
CPT/HCPCS: 71046; 80048; 84484; 85025; 93005; 99284; A4216